=== PATIENT | male | born 1975 ===

== ENCOUNTER 2020-04-27 10:33 | Outpatient (REF) | payer OTHER, SELFPAY | END 2020-04-27 10:34 | disposition home or self-care (01) | LOC: HO.LAB 10:33 | PROVIDERS: PCP Internal Medicine; Visit Provider Internal Medicine | DX: Z20.828 Contact with and (suspected) exposure to other viral communicable diseases (principal) | CPT/HCPCS: U0003 ==

== ENCOUNTER 2022-04-24 15:10 | Outpatient (REF) | payer OTHER, SELFPAY ==
--- NOTE | ~2022-04-24 | MR_ITS ---
EXAMINATION: MR BRAIN WITHOUT AND WITH CONTRAST CLINICAL INFORMATION: History of meningioma. Follow-up. COMPARISON: Brain MRI 01/28/2020, 03/10/2019. TECHNIQUE: Multiplanar MR imaging of the brain was performed without and with contrast. A total of 10 mL Gadavist was utilized for this examination. FINDINGS: There is a rounded heterogeneously enhancing dural based mass over the right parietal convexity consistent with a meningioma that now measures 5.8 x 4.5 x 4.0 cm (AP x TV x SI) which represents an increase from 5.2 x 4.0 x 3.8 cm (AP x TV x SI) measured in similar orientations. Extent of perilesional T2 FLAIR signal hyperintensity within the adjoining right parietal lobe is otherwise stable. There is no substantially increased intracranial mass effect. No midline shift or uncal herniation. Lateral and third ventricles are proportionate to the subarachnoid spaces. No hydrocephalus. Midline structures including the cervicomedullary junction are normal. No acute bone marrow signal changes. There is no acute territorial infarct. No pathological magnetic susceptibility artifact. Intracranial vascular flow voids are maintained. There is a small left mastoid effusion. Rmkh-[id number] paranasal sinus disease primarily affecting the ethmoid air cells. Globes and orbits are grossly symmetric. MR/MR head/brain wo/w con IMPRESSION: Disease progression. Specifically the right parietal convexity meningioma has increased in size when compared to most recent prior examination from 01/28/2020. The extent of edema/gliosis within the adjoining right parietal lobe is otherwise stable and there has been no substantially increased intracranial mass effect.
== END 2022-04-24 15:11 | disposition home or self-care (01) ==
LOC: HO.MRI 15:10
PROVIDERS: Visit Provider Nurse Practitioner Family
DX: D32.9 Benign neoplasm of meninges, unspecified (principal)
CPT/HCPCS: 70553

== ENCOUNTER → 2022-09-11 14:49 | Outpatient (BNVA) | payer OTHER, SELFPAY | PROVIDERS: PCP Internal Medicine; Referring Provider Internal Medicine; Visit Provider Internal Medicine Cardiovascular Disease | DX: I25.5 Ischemic cardiomyopathy (principal); I25.10 Atherosclerotic heart disease of native coronary artery without angina pectoris; I10 Essential (primary) hypertension; E78.00 Pure hypercholesterolemia, unspecified; Z95.1 Presence of aortocoronary bypass graft; Z89.431 Acquired absence of right foot; Z79.4 Long term (current) use of insulin | CPT/HCPCS: 99212 ==

== ENCOUNTER → 2022-09-27 12:43 | Outpatient (REF) | payer OTHER, SELFPAY ==
--- NOTE | 2022-09-27 12:46 | CA_ITS ---
Transthoracic Echocardiogram Patient (Last, First, Middle): Jerome Clifford B Gender: Male Date of : 1975 Age: 47 Procedure Date: 09/27/2022 Procedure Type: Transthoracic Echocardiogram Location: OP Height: 182.88 cm Weight: 97.52 kg BSA: 2.20 m2 Heart Rate: bpm BP: 130 / 70 mmHg Pay Agent: TO Referring MD: Vaibhav Slade MD Security Control Center Operator: Richard Schwartz MD Symptoms: I25.5 - Ischemic cardiomyopathy Study Quality: Fair/No IV Access Conclusions: - Normal left ventricular cavity size. There is mildly increased left ventricular wall thickness. The left ventricular systolic function is moderately decreased. The visually estimated ejection fraction is between 30-35%. - The inferolateral wall, the basal inferior, and basal inferoseptal segments are akinetic. - Normal right ventricular cavity size. There is moderate to severely decreased right ventricular systolic function. Findings Left Ventricle Normal left ventricular cavity size. There is mildly increased left ventricular wall thickness. The left ventricular systolic function is moderately decreased. The visually estimated ejection fraction is between 30 35%. Abnormal diastolic function is noted. Spectral Doppler is indicative of an impaired relaxation filling pattern. E/E prime ratio is between 8 and 15 consistent with indeterminate filling pressures. There is severe septal asymmetric hypertrophy. Wall Motion Rest Echo Findings The inferolateral wall, the basal inferior, and basal inferoseptal segments are akinetic. Right Ventricle Normal right ventricular cavity size. There is moderate to severely decreased right ventricular systolic function. Atria The left atrium is normal in size. The right atrium is normal in size. Aortic Valve Normal aortic valve structure and function. There is no aortic valve stenosis. There is no aortic valve regurgitation. Mitral Valve Normal mitral valve structure and function. There is no mitral valve regurgitation. There is no mitral valve stenosis. Pulmonic Valve The pulmonic valve is likely normal. Tricuspid Valve Normal tricuspid valve structure and function. There is no tricuspid valve regurgitation. Moderately elevated right atrial pressure. There is no evidence of pulmonary hypertension. Great Vessels There is mild dilatation of the ascending aorta measuring 3.40 cm. The visualized portions of the pulmonary artery and branches are normal. Venous The inferior vena cava is dilated and collapses greater than 50% with inspiration. Pericardium/Pleural There is no evidence of pericardial effusion. Prior Study Comparison Changes noted compared to prior study dated: 09/05/2017. RV function is moderately to severely reduced. Measurements 2D Linear Measurements IVSd: 1.90 0.6-0.9/0.6-1.0 cm LVIDd: 4.39 3.9-5.3/4.2-5.9 cm LVIDd Index: 2.00 2.4-3.2/2.2-3.1 cm/m2 LVIDs: 3.30 2.0-3.6 cm LVPWd: 1.12 0.7-1.1 cm LA Diam: 3.90 2.7-3.8/3.0-4.0 cm LAIDs Index: 1.77 1.5-2.3 cm/m2 LV Mass: 335.16 67-162/88-224 g LV Mass Index: 152.34 43-95/49-115 g/m2 LVOT Diam: 2.30 3.0+(-)1.3 cm Mitral Valve MV Pk E: 0.56 MV PK A: 0.97 MV Decel Time: 183.00 E/A: 0.60 E'Lateral: 6.85 E'Medial: 4.03 E/E' Med: 13.90 E/E' Lat: 8.20 PHT: 54.00 MVA PHT: 4.07 Decel Sebastian: 3.07 Aortic Valve AoV Pk Handy: 0.89 AoV Mn Handy: 0.60 AoV VTI: 0.20 AoV Pk Grad: 3.00 Aov Mn Grad: 2.00 ANTHONY Cont.VTI: 2.79 LVOT LVOT Pk Handy: 0.69 LVOT Mn Handy: 0.44 LVOT VTI: 0.13 LVOT Pk Grad: 2.00 LVOT Mn Grad: 1.00 LVOT Diam: 2.30 LVOT Area: 4.15 Diastolic Function MV Pk E: 0.56 MV Pk A: 0.97 E/A: 0.60 E'Medial: 4.03 E/E' Med: 13.90 E' Laterial: 6.85 E/E' Lat: 8.20 Right Ventricle TAPSE (mm): 9.50 TVS' Handy: 5.82 Tricuspid Valve TR Pk Handy: 1.74 TR Pk Grad: 12.00 RA Press: 8.00 RVSP: 20.00 Great Vessels Aorta Sinus of Valsalva: 3.52 2.0-3.[address] Ridge: 2.62 1.7-3.4 cm Ao Asc: 3.40 2.1-3.4 cm Updated in Other Vendor System with Status of Final Richard Schwartz MD electronically signed on 09/28/2022 9:41:54 PM with status of Final
== END ==
LOC: HO.CARD 12:43
PROVIDERS: PCP Internal Medicine; Visit Provider Internal Medicine Cardiovascular Disease
DX: I25.5 Ischemic cardiomyopathy (principal)
CPT/HCPCS: 93306

== ENCOUNTER 2022-12-17 12:55 | Outpatient (AMB) | payer OTHER, SELFPAY ==
--- NOTE | 2022-12-17 12:58 | MHC.OFFVIS ---
Intake Vital Signs 12/17/22 12:59 Height 6 ft Weight 216 lb 0.848 oz BMI 29.3 BP 140/90 H Blood Pressure Location Lt brachial Position Sitting Intake Visit Reasons: 2 month f/u testing per ns Intake Note: 2 month f/u after testing Allergies fish derived [FISH] Allergy (Unknown, Verified 12/17/22 13:07) HIVES metoclopramide [From REGLAN] Allergy (Unknown, Verified 12/17/22 13:07) UNKNOWN pork derived (porcine) [PORK DERIVED (PORCINE)] Allergy (Unknown, Verified 12/17/22 13:07) HIVES Medication List - Last Reconciled 12/17/22 by SENTHIL Funk ammonium lactate 12% appl topical BID atorvastatin 80 mg PO DAILY 90 days blood sugar diagnostic (FreeStyle Lite Strips) As directed blood sugar diagnostic As directed blood-glucose meter (FreeStyle Lite Meter kit) Test 4 times daily blood-glucose meter,continuous (Dexcom G6 Datawarehouse Developer) As directed blood-glucose sensor (Dexcom G6 Sensor device) As directed blood-glucose transmitter (Dexcom G6 Transmitter device) As directed clopidogrel 75 mg PO DAILY 90 days gabapentin 300 mg PO TID 90 days insulin glargine (Lantus Solostar U-100 Insulin) 15 units subcut QPM losartan 50 mg PO DAILY 90 days metoprolol succinate ER 100 mg PO DAILY 90 days miscellaneous medical supply As directed- To use daily-- Diabetic Shoes zolpidem 10 mg PO BEDTIME PRN 30 days HPI 2 month f/u testing per ns HPI Details Jerome is a 47-year-old male with past medical history of hypertension, hyperlipidemia, diet 80s, right BKA, coronary artery disease with remote coronary artery bypass grafting who was seen in the office in September following prolonged absence from follow-up. At that time a nuclear stress test was ordered however not completed as of yet. He was admitted to [facility] in October with dizziness which he states was vertigo. A CTA head showed no bleeding or ischemia. Today he reports that he still has some dizziness but not as bad as when he was in the hospital. He reports unsteadiness with ambulation and is now using a cane. He denies any neurological changes such as vision disturbances, speech changes, numbness or weakness of arms or legs. No chest discomfort at rest or with activity. No shortness of breath, PND, orthopnea or edema of left lower leg. No presyncope, syncope, falls. Taking meds as directed. On his discharge from [facility] he was sent home with carvedilol however he said they only gave him a 2 week supply and he is back on metoprolol. [facility] Medical History Anxiety Asthma Benign essential hypertension Coronary artery disease Depression Diabetes mellitus Epilepsy Erectile dysfunction Exposure to COVID-19 virus Gastroparesis GERD (gastroesophageal reflux disease) Insomnia Meningioma Neuropathy Obesity (BMI 30-39.9) Pure hypercholesterolemia Surgical History History of femoropopliteal bypass Right foot amputee S/P CABG x 3 Family History Father Diabetes Mother Diabetes Social History Housing: House Alcohol intake: never Patient Tobacco Use Status: Former Tobacco user e-Cigarette/Vaping Use: Never Used Second Hand Smoke Exposure: No Substance Use Type: Marijuana service: No Current occupational status: disabled Cognitive needs: No Hearing needs: No Vision needs: No Review of Systems Const All systems reviewed & are unremarkable except as noted in HPI and below ENT Reports dizziness Card Denies chest pain, Denies chest pain at rest, Denies chest pain with activity, Denies rapid heart rate, Denies pedal edema, Denies edema, Denies leg edema, Denies lightheadedness, Denies palpitations, Denies dyspnea, Denies dyspnea on exertion and Denies orthopnea Resp Denies cough, Denies dyspnea and Denies dyspnea on exertion GI Denies hematochezia and Denies change in stool character Musc Reports abnormal gait, Reports limited range of motion, Reports muscle cramps, Denies muscle weakness, Denies numbness, Denies radiating pain into limb, Denies stiffness and Denies tingling Neuro Reports abnormal gait, Reports dizziness, Denies numbness and Denies tingling Endo Denies palpitations Physical Exam Vital Signs: Last Vital Signs BP 140/90 H 12/17/22 12:59 BMI result Body Mass Index 29.3 Const General: cooperative, healthy appearing, comfortable and no acute distress Orientation/consciousness: patient oriented x3 Neck Neck: Yes normal visual inspection Resp Effort & Inspection: normal respiratory effort Auscultation: clear to auscultation bilaterally, no crackles, no rales, no rhonchi and no wheezes Cardio Jugular venous distension: no JVD Rate: regular rate Rhythm: regular rhythm (Clinically sounding like ventricular bigeminy) Heart sounds: S1 normal heart sound present, S2 normal heart sound present, no murmurs and no rubs Neuro General: patient oriented x3 Extrem Other: Right BKA with prosthetic device in use Psych Appearance: grossly normal Mental Status: mental status grossly normal Speech and movement: Normal speech and movement present Assessment & Plan Assessment & Plan (1) Ischemic cardiomyopathy: Code(s): I25.5 - Ischemic cardiomyopathy Plan: History of coronary artery disease with remote coronary artery bypass grafting, ischemic cardiomyopathy with EF 40-45% 08/2021. He was not seen in our office due to absence from follow up between 11/2019 and 09/2022. On last visit he did not report anginal sounding symptoms. An echocardiogram was done on 09/27/2022 showing EF 30-35%, basal inferior septal, basal inferior, inferior lateral wall akinetic, moderate to severe decrease in the RV systolic function. A nuclear stress test was ordered however not completed as of yet. He was admitted to [facility] in October with dizziness, vomiting and he tells me and ultimate diagnosis of vertigo. A CTA of the head showed no bleed or ischemia. An EKG done at that time shows sinus rhythm with ventricular bigeminy. His heart tones today do suggest ventricular bigeminy at present. He denies any heart palpitations. He also has history of sleep apnea but does not use CPAP. He tells me his machine has been broken for many years. His last sleep study was over 10 years ago. His reduced EF could be ischemic, arrhythmia related, or possibly from untreated sleep apnea. He reports no alcohol use since the . At this time will order a Holter monitor to evaluate frequency of PVCs. Will have him pursue obtaining nuclear stress test. Will order a in-hospital sleep study to be done. Continue on metoprolol, losartan for neurohormonal modulation. No clinical signs of heart failure on examination. Cardiology follow-up when test results are available. (2) Coronary artery disease: Comment: S/P triple vessel bypass Code(s): I25.10 - Atherosclerotic heart disease of [place] coronary artery without angina pectoris Qualifiers: Coronary Disease-Associated Artery/Lesion type: [place] artery [place] vs. transplanted heart: [place] heart Associated angina: without angina Qualified Code(s): I25.10 - Atherosclerotic heart disease of [place] coronary artery without angina pectoris (3) Vertigo: Code(s): R42 - Dizziness and giddiness Plan: Improving but not resolved. Can be further followed by his PCP (4) Hospital discharge follow-up: Code(s): Z09 - Encounter for follow-up examination after completed treatment for conditions other than malignant neoplasm (5) Benign essential hypertension: Code(s): I10 - Essential (primary) hypertension Plan: Blood pressure initially elevated, improved on recheck, done by me 122/62. Will have him continue current med management. (6) Sleep apnea in adult: Code(s): G47.30 - Sleep apnea, unspecified Plan: In-hospital sleep study being ordered. (7) PVC (premature ventricular contraction): Code(s): I49.3 - Ventricular premature depolarization Plan: Ventricular bigeminy on last [facility] EKG. Clinically heart tones sound like ventricular bigeminy at present, asymptomatic Orders: Orders NM cardiolite stress test 1 Week I25.10 - Atherosclerotic heart disease of [place] coronary artery without angina pectoris, I25.5 - Ischemic cardiomyopathy CA lexiscan stress w gianni 1 Week I25.10 - Atherosclerotic heart disease of [place] coronary artery without angina pectoris, I25.5 - Ischemic cardiomyopathy ECG 3 day holter monitor Today I49.3 - Ventricular premature depolarization RT PSG in-lab sleep study Today G47.30 - Sleep apnea, unspecified Coding Level of Care Code Est Pt Level 4 (81924) Diagnoses Ischemic cardiomyopathy I25.5 Coronary artery disease I25.10 Coronary Disease-Associated Artery/Lesion type: [place] artery [place] vs. transplanted heart: [place] heart Associated angina: without angina Vertigo R42 Hospital discharge follow-up Z09 Benign essential hypertension I10 Sleep apnea in adult G47.30 PVC (premature ventricular contraction) I49.3 Time Spent (min) 28 Comment Chart review, documentation, interview, assessment
[2022-12-17 12:59] VITALS: BP 140/90; BMI 29.3
== END 2022-12-17 13:50 | disposition home or self-care (01) ==
PROVIDERS: PCP Internal Medicine; Referring Provider Internal Medicine; Visit Provider Nurse Practitioner Family
DX: I25.5 Ischemic cardiomyopathy (principal); I25.10 Atherosclerotic heart disease of native coronary artery without angina pectoris; R42 Dizziness and giddiness; Z09 Encounter for follow-up examination after completed treatment for conditions other than malignant neoplasm; I10 Essential (primary) hypertension; G47.30 Sleep apnea, unspecified; I49.3 Ventricular premature depolarization
CPT/HCPCS: 99214

== ENCOUNTER → 2022-12-17 12:55 | Outpatient (BNVA) | payer OTHER, SELFPAY | PROVIDERS: PCP Internal Medicine; Referring Provider Internal Medicine; Visit Provider Nurse Practitioner Family | DX: I25.5 Ischemic cardiomyopathy (principal); I25.10 Atherosclerotic heart disease of native coronary artery without angina pectoris; R42 Dizziness and giddiness; I10 Essential (primary) hypertension; G47.30 Sleep apnea, unspecified; I49.3 Ventricular premature depolarization | CPT/HCPCS: 99212 ==

== ENCOUNTER → 2023-01-09 20:30 | Outpatient (REF) | payer OTHER, SELFPAY | LOC: HO.SL 20:30 | PROVIDERS: PCP Internal Medicine; Visit Provider Nurse Practitioner Family | DX: G47.30 Sleep apnea, unspecified (principal); G47.31 Primary central sleep apnea | CPT/HCPCS: 95810 ==

== ENCOUNTER → 2023-01-09 22:01 | Outpatient (BNV) | payer OTHER, SELFPAY | PROVIDERS: PCP Internal Medicine; Visit Provider Psychiatry & Neurology Neurology | DX: G47.31 Primary central sleep apnea (principal); G47.33 Obstructive sleep apnea (adult) (pediatric) | CPT/HCPCS: 95810 ==

== ENCOUNTER 2023-01-29 13:41 | Outpatient (AMB) | payer OTHER, SELFPAY ==
--- NOTE | 2023-01-29 13:53 | A.OFFVIS_ITS ---
Intake Vital Signs 01/29/23 14:02 Height 6 ft Weight 206 lb BMI 27.9 BP 104/54 L Blood Pressure Location Lt brachial Position Sitting Respiration 16 Pulse 58 Pulse Source Pulse Oximeter Pulse Oximetry (%) 95 Oxygen Delivery Method Room Air Intake Visit Reasons: LOW BACK PAIN Allergies fish derived [FISH] Allergy (Unknown, Verified 01/29/23 13:53) HIVES metoclopramide [From REGLAN] Allergy (Unknown, Verified 01/29/23 13:53) UNKNOWN pork derived (porcine) [PORK DERIVED (PORCINE)] Allergy (Unknown, Verified 01/29/23 13:53) HIVES PFS Medical History Anxiety Asthma Benign essential hypertension Coronary artery disease Depression Diabetes mellitus Epilepsy Erectile dysfunction Exposure to COVID-19 virus Gastroparesis GERD (gastroesophageal reflux disease) Insomnia Meningioma Neuropathy Obesity (BMI 30-39.9) Pure hypercholesterolemia Surgical History History of femoropopliteal bypass Right foot amputee S/P CABG x 3 Family History Father Diabetes Mother Diabetes Social History Housing: House Alcohol intake: never Patient Tobacco Use Status: Former Tobacco user e-Cigarette/Vaping Use: Never Used Second Hand Smoke Exposure: No Substance Use Type: Marijuana service: No Current occupational status: disabled Cognitive needs: No Hearing needs: No Vision needs: No Physical Exam Vital Signs: Last Vital Signs Pulse 58 01/29/23 14:02 Resp 16 01/29/23 14:02 BP 104/54 L 01/29/23 14:02 Pulse Ox 95 01/29/23 14:02 Oxygen Delivery Method Room Air 01/29/23 14:02 BMI result Body Mass Index 27.9 Assessment & Plan Assessment & Plan Orders: Orders PT Evaluation and Treatment Today M51.36 - Other intervertebral disc degeneration, lumbar region, M54.50 - Low back pain, unspecified Coding
--- NOTE | 2023-01-29 13:55 | A.OFFVIS_ITS ---
Intake Vital Signs 01/29/23 14:02 Height 6 ft Weight 206 lb BMI 27.9 BP 104/54 L Blood Pressure Location Lt brachial Position Sitting Respiration 16 Pulse 58 Pulse Source Pulse Oximeter Pulse Oximetry (%) 95 Oxygen Delivery Method Room Air Intake Visit Reasons: LOW BACK PAIN Allergies fish derived [FISH] Allergy (Unknown, Verified 01/29/23 13:53) HIVES metoclopramide [From REGLAN] Allergy (Unknown, Verified 01/29/23 13:53) UNKNOWN pork derived (porcine) [PORK DERIVED (PORCINE)] Allergy (Unknown, Verified 01/29/23 13:53) HIVES HPI HPI Comments History of Present Illness Details Jerome is a very pleasant 47-year-old male who presented to the office today for evaluation management of his chronic lower back pain. Patient reports he has been suffering with this lower back pain, predominantly on the right side, for approximately 20 years. Patient reports that the pain is progressively getting worse. He states the pain is constant, rated today as 9/10, worse with movement and weather changes. Pain excruciating in the morning and at times makes it difficult to get out of bed. Patient endorses radiation of the pain into the right thigh, he is status post right BKA. Patient has been taking gabapentin for his nerve pain, he states that his right lower back pain is unchanged with the gabapentin. He denies use of other pain medications. He has not tried physical therapy in many years, denies manual manipulation by chiropractor, acupuncture, massage. Patient states he has received steroid injections in the past with good relief of his pain. He is looking to repeat this injection. Patient is known diabetic, his most recent A1c 10/27/2022 was 8.9. Patient states he is under the care of an thoracic medicine physician at [facility]. He is taking his medications are prescribed. He reports being hospitalized and then in rehab for a good part of the last several months but his blood sugars remain around 220. He states that anything less than 150 he feels hypoglycemic and is symptomatic. His primary care doctor ordered repeat lab work including A1c in August of 2022 but he has yet to have this completed. Patient denies red flag symptoms including new loss of bowel, bladder or saddle anesthesia. He does report at times the pain is excruciating in the morning and he cannot get out of bed fast enough to get to the bathroom which will cause him to urinate on himself. He is able to feel the urge and sensation, just not able to get up quickly enough to make it to the bathroom. In terms of muscle damage condition is described as tiring, exhausting, sickening, suffocating, fearful, frightening, terrifying, punishing, killing, radiating, piercing. ?Like being split in half with an Axe ? Pain is negatively impacting patient's ability to do activities of daily living, function normally and care for himself. Patient's past medical history significant for chronic back pain, sleep apnea, ischemic cardiomyopathy, depression, insomnia, cholecystitis, FATOUMATA, anxiety, GERD, neuropathy, asthma, hypercholesterolemia, hypertension, coronary artery disease, diabetes mellitus, epilepsy and meningioma. Patient denies implantable devices, pacemaker or defibrillator. [facility] Medical History Anxiety Asthma Benign essential hypertension Coronary artery disease Depression Diabetes mellitus Epilepsy Erectile dysfunction Exposure to COVID-19 virus Gastroparesis GERD (gastroesophageal reflux disease) Insomnia Meningioma Neuropathy Obesity (BMI 30-39.9) Pure hypercholesterolemia Surgical History History of femoropopliteal bypass Right foot amputee S/P CABG x 3 Family History Father Diabetes Mother Diabetes Social History Housing: House Alcohol intake: never Patient Tobacco Use Status: Former Tobacco user e-Cigarette/Vaping Use: Never Used Second Hand Smoke Exposure: No Substance Use Type: Marijuana service: No Current occupational status: disabled Cognitive needs: No Hearing needs: No Vision needs: No Review of Systems Const All systems reviewed & are unremarkable except as noted in HPI and below Physical Exam Vital Signs: Last Vital Signs Pulse 58 01/29/23 14:02 Resp 16 01/29/23 14:02 BP 104/54 L 01/29/23 14:02 Pulse Ox 95 01/29/23 14:02 Oxygen Delivery Method Room Air 01/29/23 14:02 BMI result Body Mass Index 27.9 General: awake, alert, oriented. Answers questions appropriately. Fully engaged in examination. Skin: warm, dry, intact HEENT: Normocephalic. Hearing intact. Cardiac: External chest normal in appearance. Respiratory: No cough, audible wheezing or stridor. Abdomen: without gross distension. MS: Prosthesis Right Foot Neurological: Oriented to person, place, time and situation. Thought process intact. Psychiatric: Appropriate mood and affect. Good judgment and insight. Back/Spine/Pelvis Other: Lumbar exam: Able to transition from sit to stand unassisted. Visual inspection without gross abnormality Tender to palpation over right paraspinal muscles ROM: limited secondary to pain with extension to 10 degrees. flexion to 50 degrees Strength: 5/5 BLE Straight leg raises negative bilaterally Facet loading positive bilaterally ARIAS negative bilaterally SI compression negative bilaterally Assessment & Plan Assessment & Plan (1) Myofascial low back pain: Code(s): M54.50 - Low back pain, unspecified (2) Lumbar degenerative disc disease: Code(s): M51.36 - Other intervertebral disc degeneration, lumbar region (3) Lumbar facet arthropathy: Code(s): M47.816 - Spondylosis without myelopathy or radiculopathy, lumbar region Plan Jerome is very pleasant 47-year-old male presented to the office today for evaluation and management of his chronic right lower back pain. History, physical exam and provocative testing most consistent with lumbar facet arthropathy and myofascial low back pain. Lengthy discussion with patient regarding options for treatment including diagnostic interventional testing, epidural steroid injections, peripheral nerve stimulation with Sprint, RFA and more permanent neuromodulation. Unfortunately patient's most recent A1c was 8.9, we are not able to offer therapeutic steroid injections, sprint or implantable devices due to risks associated with uncontrolled diabetes. Patient had repeat A1c ordered by primary care earlier this year, he has yet to complete this. Patient agrees to have this done so we can re-evaluate current status of his diabetes. Order for PT eval and treat given to patient. He would like to do this at a place closer to his home in [place]. Pending results of patient's blood work, he should follow-up with primary care or thoracic medicine physician to adjust medications if A1c remains greater than 7. All questions and concerns have been answered, patient verbalizes understanding and agrees with the plan. Patient to follow-up in the office after he has better managed his diabetes and A1c is in acceptable range, less than 8, to perform interventional management. Orders: Orders PT Evaluation and Treatment Today M51.36 - Other intervertebral disc degeneration, lumbar region, M54.50 - Low back pain, unspecified Coding Level of Care Code New Pt Level 4 (20341) Diagnoses Myofascial low back pain M54.50 Lumbar degenerative disc disease M51.36 Lumbar facet arthropathy M47.816
[2023-01-29 14:02] VITALS: BP 104/54; PULSE 58; RESP 16; O2SAT 95; BMI 27.9
== END 2023-01-29 14:28 | disposition home or self-care (01) ==
PROVIDERS: PCP Internal Medicine; Visit Provider Registered Nurse Emergency
DX: M51.36 Other intervertebral disc degeneration, lumbar region (principal); M47.816 Spondylosis without myelopathy or radiculopathy, lumbar region
CPT/HCPCS: 99204

== ENCOUNTER → 2023-01-29 13:41 | Outpatient (BNVA) | payer OTHER, SELFPAY | PROVIDERS: PCP Internal Medicine; Visit Provider Registered Nurse Emergency ==

== ENCOUNTER → 2023-02-25 20:30 | Outpatient (BNV) | payer OTHER, SELFPAY | PROVIDERS: PCP Internal Medicine; Visit Provider Internal Medicine | DX: G47.33 Obstructive sleep apnea (adult) (pediatric) (principal) | CPT/HCPCS: 95811 ==

== ENCOUNTER → 2023-02-25 22:51 | Outpatient (REF) | payer OTHER, SELFPAY | LOC: HO.SL 22:51 | PROVIDERS: PCP Internal Medicine; Visit Provider Nurse Practitioner Family | DX: G47.33 Obstructive sleep apnea (adult) (pediatric) (principal) | CPT/HCPCS: 95811 ==

== ENCOUNTER 2023-06-05 13:31 | Outpatient (AMB) | payer OTHER, SELFPAY ==
--- NOTE | 2023-06-05 13:40 | A.OFFVIS_ITS ---
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 Allergies fish derived [FISH] Allergy (Unknown, Verified 06/05/23 13:45) HIVES metoclopramide [From REGLAN] Allergy (Unknown, Verified 06/05/23 13:45) UNKNOWN pork derived (porcine) [PORK DERIVED (PORCINE)] Allergy (Unknown, Verified 06/05/23 13:45) HIVES HPI HPI Comments History of Present Illness Details 48 y/o male patient presents for new in- person visit to manage sleep apnea. Pt had a PSG sleep study done in December,. The result was severe degree of sleep apnea with combination of central events and some obstructive events. AHI was 28/hr and oxygen ana was 80%. Pt had titration study study done February,. He was trialed on CPAP at 6cmH2O, and BiPAP 10/6 and 14/10. An ideal treatment pressure was not obtained due to emergence of central apneas. But events were reasonably controlled on BiPAP 10/6. The BiPAP compliance and therapy response (05/06/23-06/04/23) reviewed with the patient. He is on BiPAP 10/6. The usage days 100% and the average usage hours 6 hrs 30 min. The residual AHI was 6.5/hr. Pt reports he sleeps well with BiPAP, rested and wakes up refreshed. Daytime tiredness has improved. [facility] Medical History Anxiety Asthma Benign essential hypertension Coronary artery disease Depression Diabetes mellitus Epilepsy Erectile dysfunction Exposure to COVID-19 virus Gastroparesis GERD (gastroesophageal reflux disease) Insomnia Meningioma Neuropathy Obesity (BMI 30-39.9) Pure hypercholesterolemia Surgical History Right foot amputee History of femoropopliteal bypass S/P CABG x 3 Family History Father Diabetes Mother Diabetes Social History Housing: House Alcohol intake: never Patient Tobacco Use Status: Former Tobacco user e-Cigarette/Vaping Use: Never Used Second Hand Smoke Exposure: No Substance Use Type: Marijuana service: No Current occupational status: disabled Cognitive needs: No Hearing needs: No Vision needs: No Review of Systems Const All systems reviewed & are unremarkable except as noted in HPI and below Physical Exam Vital Signs: Last Vital Signs Pulse 65 06/05/23 13:46 BP 120/80 06/05/23 13:46 Pulse Ox 92 06/05/23 13:46 Oxygen Delivery Method Room Air 06/05/23 13:46 BMI result Body Mass Index 28.1 Const General: cooperative Nutritional Appearance: overweight Orientation/consciousness: patient oriented x3 Neck Neck: Yes full ROM and Yes supple Resp Effort & Inspection: normal respiratory effort and able to speak in complete sentences Neuro General: patient oriented x3 and moves all extremities Cranial nerves: Yes CN's II-XII intact bilaterally Cognition (Neuro): normal cognition Psych Appearance: grossly normal Mental Status: mental status grossly normal Affect: normal affect Attitude: cooperative Assessment & Plan Assessment & Plan (1) Sleep apnea in adult: Code(s): G47.30 - Sleep apnea, unspecified Plan Continue to use BiPAP 02/15 as patient experiences good clinical effects, rested and refreshing sleep and daytime tiredness has also improved. Stressed compliance, use BiPAP nightly and more than 4 hrs. Coding Level of Care Code New Pt Level 3 (55874) Diagnoses Sleep apnea in adult G47.30
[2023-06-05 13:46] VITALS: BP 120/80; PULSE 65; O2SAT 92; BMI 28.1
== END 2023-06-05 14:04 | disposition home or self-care (01) ==
PROVIDERS: PCP Internal Medicine; Visit Provider Nurse Practitioner Family
DX: G47.30 Sleep apnea, unspecified (principal)
CPT/HCPCS: 99203

== ENCOUNTER → 2023-06-05 13:31 | Outpatient (BNVA) | payer OTHER, SELFPAY | PROVIDERS: PCP Internal Medicine; Visit Provider Nurse Practitioner Family | DX: G47.30 Sleep apnea, unspecified (principal) | CPT/HCPCS: 99202 ==

== ENCOUNTER 2023-10-25 13:24 | Outpatient (AMB) | payer OTHER, SELFPAY ==
--- NOTE | 2023-10-25 13:55 | MHC.PC.OV ---
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 Systems Required: No Accompanied by: Self / Same As Patient Allergies fish derived [FISH] Allergy (Unknown, Verified 11/04/23 13:21) HIVES metoclopramide [From REGLAN] Allergy (Unknown, Verified 11/04/23 13:21) UNKNOWN pork derived (porcine) [PORK DERIVED (PORCINE)] Allergy (Unknown, Verified 11/04/23 13:21) HIVES Medication List - Last Reconciled 10/25/23 by Eirck Kohli MD ammonium lactate 12% appl topical BID atorvastatin 80 mg PO DAILY 90 days blood sugar diagnostic (FreeStyle Lite Strips) As directed blood sugar diagnostic As directed blood-glucose meter (FreeStyle Lite Meter kit) Test 4 times daily blood-glucose meter,continuous (Dexcom G6 Pipe Fitter Supervisor Maintenance) As directed blood-glucose sensor (Dexcom G6 Sensor device) As directed blood-glucose transmitter (Dexcom G6 Transmitter device) As directed clopidogrel 75 mg PO DAILY 90 days [DIABETIC SHOES (1 pair) As directed] gabapentin 300 mg PO TID 90 days insulin glargine (Lantus Solostar U-100 Insulin) 15 units (0.15 mL) subcut QPM losartan 50 mg PO DAILY 90 days metoprolol succinate ER 100 mg PO DAILY 90 days miscellaneous medical supply As directed- To use daily-- Diabetic Shoes [RIGHT BELOW KNEE PERMANENT PROSTHESIS, K3 As directed] [right foot prosthesis and liner As directed] zolpidem 10 mg PO BEDTIME PRN 30 days Tobacco use date assessed: 10/25/23 Dental Screening Dental Screen Date: 10/25/23 Did you have a dental visit in the last 12 months?: No Did you have a dental problem in the last 6 months where you did not have access to dental care?: No Was dental information given to patient?: Patient has dentist HPI Rash on arm HPI Details Patient comes in today for further evaluation of a recurrent rash on his arm and a significant increase in his lower back lately He has not been back for routine follow up since he was last seen on 08/14/2022 States that he has noticed the hypopigmented rash/lesions on his forearms over the past few weeks - states that the lesions itch at times but do not hurt States that he has also been experiencing increased pain over his right lower back with frequent radiation into his hip and thigh, and feels that this has gotten a lot worse lately; his Gabapentin is not helping much He denies any recent injury or trauma to his lower back He denies any headaches or dizziness Denies any chest pains, no increased SOB Still has on and off nausea but no vomiting (has gastroparesis); denies any abdominal pain No change in bowel habits noted Needs several of his Rx refilled, including Rx for diabetic shoes [facility] Medical History (Updated 11/25/23 @ 03:57 by Erick Kohli MD) Depression Insomnia Erectile dysfunction Exposure to COVID-19 virus Obesity (BMI 30-39.9) Anxiety GERD (gastroesophageal reflux disease) Neuropathy Gastroparesis Asthma Pure hypercholesterolemia Benign essential hypertension Coronary artery disease Diabetes mellitus Epilepsy Meningioma Surgical History (Updated 11/04/23 @ 14:09 by JESSICA Patel) Hx of right BKA Right foot amputee History of femoropopliteal bypass S/P CABG x 3 Family History Father Diabetes Mother Diabetes Social History Housing: House Alcohol intake: never Patient Tobacco Use Status: Former Tobacco user e-Cigarette/Vaping Use: Never Used Second Hand Smoke Exposure: No Substance Use Type: Marijuana service: No Current occupational status: disabled Cognitive needs: No Hearing needs: No Vision needs: No Questionnaire PHQ-9 Over the last 2 weeks, how often have you been bothered by any of the following problems? 1. Little interest or pleasure in doing things: not at all 2. Feeling down, depressed, or hopeless: not at all 3. Trouble falling or staying asleep, or sleeping too much: not at all 4. Feeling tired or having little energy: not at all 5. Poor appetite or overeating: not at all 6. Feeling bad about yourself - or that you are a failure or have let yourself or your family down: not at all 7. Trouble concentrating on things, such as reading the newspaper or watching television: not at all 8. Moving or speaking so slowly that other people could have noticed. Or the opposite - being so fidgety or restless that you have been moving around a lot more than usual: not at all 9. Thoughts that you would be better off or of hurting yourself in some way: not at all Total score: 0 Depression Screening Interpretation: Negative Depression Screening Done: Yes 34352 - PHQ-9 Billing: Yes Source: Developed by Drs. Ranjit Forbes, Nicolasa Proctor, Paulie Verde and colleagues, with an educational roland from [employer]. Thrive Questionnaire Date Thrive assessed: 10/25/23 What is your living situation today?: I have a steady place to live Within the past 12 months, did the food you bought not last and you didn't have the money to get more?: Never true Within the past 12 months, did you worry whether your food would run out before you got money to buy more?: Never true Do you have trouble paying for medicines?: No Do you have trouble getting transportation to medical appointments?: No Do you have trouble paying your heating and electricity bill?: No Do you have trouble taking care of your child, family member or friend?: No Do you have trouble with day-to-day activities such as bathing, preparing meals, shopping, managing finances, etc.?: No Are you currently unemployed and looking for a job?: No Are you interested in more education?: No Please select the resources that you would like help with: None Currently or been in a relationship where the following occur: no concerns reported THRIVE Score: 0 AUDIT C Alcohol Use Questionnaire (AUDIT-C) 1. How often do you have a drink containing alcohol?: Never 3. How often do you have six or more drinks on one occasion?: Never Total Score: 0 Score Reviewed/Action Taken: Yes TONY-7 AMB Questionnaire TONY-7 Date TONY - 7 assessed: 10/25/23 Feeling nervous, anxious, or on edge: 0 = Not at all Not being able to stop or control worryin = Not at all Worrying too much about different things: 0 = Not at all Trouble relaxin = Not at all Being so restless that it is hard to sit still: 0 = Not at all Becoming easily annoyed or irritable: 0 = Not at all Feeling afraid as if something awful might happen: 0 = Not at all Total TONY-7 score (0-4 normal; 5-9 mild; 10-14 moderate; 15-21 severe): 0 Source: Developed by Drs. Ranjit Forbes, Nicolasa Proctor, Paulie Verde and colleagues, with an educational roland from [employer]. TONY-7 Assessment Billing TONY-7 Assessment Tool: TONY-7 Assessment 61955 Review of Systems Const Denies chills, Reports difficulty sleeping, Reports fatigue, Denies fever(s) and Denies headache(s) ENT Denies dysphagia, Denies dizziness, Denies otalgia, Denies headache(s), Denies neck pain, Denies odynophagia and Denies sore throat Card Denies chest pain, Denies palpitations and Denies dyspnea Resp Denies chest congestion, Denies cough and Denies dyspnea GI Denies abdominal pain, Reports bloating (usually after eating), Denies constipation, Denies dysphagia, Denies heartburn, Denies diarrhea, Reports nausea (on and off), Denies odynophagia and Denies vomiting Denies dysuria, Denies nocturia and Denies urinary frequency Musc Details: (+) cysts over both elbows Reports back pain (increased over his right lower back lately), Denies neck pain and Reports radiating pain into limb (into the right hip and thigh) Skin/Breast Reports rash (over both forearms - see HPI) Neuro Denies dizziness and Denies headache(s) Psych Reports depression and Denies suicidal ideation Endo Reports fatigue and Denies palpitations Physical exam (Primary Care) Vital Signs: Last Vital Signs Pulse 82 10/25/23 13:56 BP 100/60 10/25/23 13:56 Pulse Ox 98 10/25/23 13:56 Oxygen Delivery Method Room Air 10/25/23 13:56 BMI result Body Mass Index 26.1 Tobacco/Smoking Status: Tobacco use Status Tobacco use date assessed 10/25/23 10/25/23 14:00 Patient Tobacco Use Status Former Tobacco user 10/25/23 13:55 e-Cigarette/Vaping Use Never Used 10/25/23 13:55 PHQ-9: PHQ-9 Score PHQ-9: Total score 0 10/25/23 14:33 Depression Screening Interpretation: Negative Thrive Assessment: Date of Thrive Assessment Date Thrive assessed 10/25/23 10/25/23 14:00 Currently or been in a relationship where the following occur: no concerns reported Const General: no acute distress and alert HENMT Ears: TM's normal bilaterally and EAC's normal Throat: Yes posterior oropharynx normal and Yes tonsils normal (no TP congestion noted) Neck Neck: Yes no lymphadenopathy and Yes supple Thyroid: Thyroid normal Resp Auscultation: clear to auscultation bilaterally, no rales and no wheezes Cardio Rate: regular rate Rhythm: regular rhythm Heart sounds: no murmurs GI Palpation (GI): Soft to palpation and nontender Auscultation: normal bowel sounds Back/Spine/Pelvis Thoracic/Lumbar Spine: paraspinal muscle tenderness on the right in the mid lumbar and in the lower lumbar and lumbar spinal tenderness Skin Other: (+) scattered hypopigmented lesions over both forearms Extrem Other: S/P right BKA - has prosthetic lower leg presently General: Yes no clubbing, cyanosis or edema (on the left lower extremity) Results AMB Hemoglobin A1c AMB Hemoglobin A1c 4.8 % Last Edit by ABRAM Moore on 10/25/23 14:33 Results Reviewed Results Reviewed: Laboratory Last Values Hgb A1c (Clinic) 4.8 % (4.0-6.0) 10/25/23 13:55 Assessment and Plan Assessment & Plan (1) Right-sided low back pain with sciatica: Code(s): M54.41 - Lumbago with sciatica, right side Qualifiers: Chronicity: unspecified Sciatica laterality: sciatica of right side Qualified Code(s): M54.41 - Lumbago with sciatica, right side Plan: (+) Hx of lumbar degenerative disc disease; findings seen incidentally on his abdominal/pelvic CT done at [facility] on 08/04/2022 noted (+) severe degenerative changes at L2-L3 Due to his increasing right-sided low back pain lately, will go ahead and refer him to pain management for consideration for interventional Tx (2) Meningioma: Code(s): D32.9 - Benign neoplasm of meninges, unspecified Plan: Patient has declined brain surgery in the past and still does not want surgery He also declined to take Keppra ER or IR (side effects) prescribed by neurology - reports that he's had no seizures at all for years MRI done at [facility] in 2018 revealed a stable 4.8 x 4 x 3.7 cm lobulated meningioma at the right parietal region with cerebral edema Repeat brain MRI done in January 2020 showed (+) stable posterior right parietal meningioma with underlying vasogenic edema and mild mass effect. Most recent brain MRI done on 04/24/2022 revealed a slight disease progression with an interval increase in size of the right parietal convexity meningioma Have advised him to continue to see neurosurgery for consultation/follow up but he declined; states that he has no neurologic symptoms at this time (3) Epilepsy: Code(s): G40.909 - Epilepsy, unspecified, not intractable, without status epilepticus Qualifiers: Epilepsy type: unspecified Intractability: not intractable Status epilepticus: without status epilepticus Qualified Code(s): G40.909 - Epilepsy, unspecified, not intractable, without status epilepticus Plan: Reports no seizures lately He has been prescribed Keppra ER by neurology but patient declined to take the Rx (4) Diabetes mellitus: Code(s): E11.9 - Type 2 diabetes mellitus without complications Qualifiers: Diabetes mellitus type: type 2 Diabetes mellitus fpc insulin use: with fpc use Diabetes mellitus complication status: with neurologic complications Diabetes mellitus complication detail: with polyneuropathy Qualified Code(s): E11.42 - Type 2 diabetes mellitus with diabetic polyneuropathy; Z79.4 - group home (current) use of insulin Plan: In-office HgbA1c done today is at 4.8% (was at 8.8% when previously checked on 04/10/2022) - goal is <7.0% Reinforced diabetic diet Continue Lantus 24 units Q HS and Humalog up to 20 units 3 times a day with meals per sliding scale Has not followed up with endocrinology in a few years and is again advised to reach out to his management professionals's office to schedule a follow up appointment BIANKA (5) Gastroparesis: Code(s): K31.84 - Gastroparesis Plan: Continue Ondansetron 8 mg TID PRN; also takes medical marijuana to help with his symptoms (6) Coronary artery disease: Comment: S/P triple vessel bypass Code(s): I25.10 - Atherosclerotic heart disease of [place] coronary artery without angina pectoris Qualifiers: Coronary Disease-Associated Artery/Lesion type: [place] artery [place] vs. transplanted heart: [place] heart Associated angina: without angina Qualified Code(s): I25.10 - Atherosclerotic heart disease of [place] coronary artery without angina pectoris Plan: Continue Plavix 75 mg QD and low dose Aspirin 81 mg QD Follow up with cardiology as scheduled (7) Pure hypercholesterolemia: Code(s): E78.00 - Pure hypercholesterolemia, unspecified Plan: Reinforced low cholesterol diet Continue Atorvastatin 80 mg QD As he has not had any follow up labs recently, will send him for labs BIANKA (8) Benign essential hypertension: Code(s): I10 - Essential (primary) hypertension Plan: Reinforced low sodium diet - goal is systolic BP of at least 120 to 130 mm Continue Carvedilol 25 mg BID, Losartan 50 mg QD and Metoprolol ER 100 mg QD (9) Asthma: Code(s): J45.909 - Unspecified asthma, uncomplicated Qualifiers: Asthma severity: mild Asthma persistence: intermittent Asthma complication type: uncomplicated Qualified Code(s): J45.20 - Mild intermittent asthma, uncomplicated Plan: Stable - continue Albuterol HFA 2 puffs 4 times a day as needed (10) Neuropathy: Code(s): G62.9 - Polyneuropathy, unspecified Plan: Continue Gabapentin 300 mg TID (11) Multiple hypopigmented skin lesions on both forearms: Code(s): L81.9 - Disorder of pigmentation, unspecified Plan: Will start patient empirically for now on Mometasone 0.1% cream QD PRN but I suspect that his forearm lesions may be due to some form of tinea (versicolor) Will refer him to dermatology for further evaluation and management (12) GERD (gastroesophageal reflux disease): Code(s): K21.9 - Gastro-esophageal reflux disease without esophagitis Qualifiers: Esophagitis presence: without esophagitis Qualified Code(s): K21.9 - Gastro-esophageal reflux disease without esophagitis Plan: Dietary restrictions reinforced Continue Pantoprazole 40 mg QD (13) Insomnia: Code(s): G47.00 - Insomnia, unspecified Qualifiers: Insomnia type: unspecified Qualified Code(s): G47.00 - Insomnia, unspecified Plan: Sleep hygiene reinforced Continue Zolpidem 10 mg Q HS PRN (he's had problems with Trazodone in the past) (14) Anxiety: Code(s): F41.9 - Anxiety disorder, unspecified Plan: Continue Lorazepam 1 mg 1 to 2 tablets BID PRN (15) Obesity (BMI 30-39.9): Code(s): E66.9 - Obesity, unspecified Plan: Reinforced diet; exercise and weight loss are unrealistic given patient's physical issues and multiple comorbidities Plan Follow up in 4 months Orders: Orders Complete Blood Count Auto Diff 10/25/23 D64.9 - Anemia, unspecified Comprehensive [place]. 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 Lipid Panel 10/25/23 E78.00 - Pure hypercholesterolemia, unspecified TSH reflex Free T4 10/25/23 E78.00 - Pure hypercholesterolemia, unspecified UA CC w/rflx Micro + Cult 10/25/23 R30.0 - Dysuria Microalbumin, Random (w Creat) 10/25/23 E11.9 - Type 2 diabetes mellitus without complications Vitamin B12 and Folate 10/25/23 E53.8 - Deficiency of other specified B group vitamins Referrals Dermatology Referral L81.9 - Disorder of pigmentation, unspecified Pain Management Referral M47.816 - Spondylosis without myelopathy or radiculopathy, lumbar region, M51.36 - Other intervertebral disc degeneration, lumbar region Medications: New mometasone 0.1% 1 appl topical DAILY PRN 45 grams 0RF rash Changed From insulin glargine 15 units (0.15 mL) subcut QPM 15 mL 2RF E11.9 - Type 2 diabetes mellitus without complications To insulin glargine (Lantus Solostar U-100 Insulin) 24 units (0.24 mL) subcut QPM 15 mL 2RF 30 days E11.9 - Type 2 diabetes mellitus without complications From [DIABETIC SHOES (1 pair)] As directed 2 ea 0RF E11.42 - Type 2 diabetes mellitus with diabetic polyneuropathy, Z79.4 - group home (current) use of insulin To [DIABETIC SHOES (1 pair)] As directed 2 ea 0RF E11.42 - Type 2 diabetes mellitus with diabetic polyneuropathy, 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 Refilled clopidogrel 75 mg PO DAILY 90 tabs 1RF 90 days atorvastatin 80 mg PO DAILY 90 tabs 1RF 90 days gabapentin 300 mg PO TID 270 caps 1RF 90 days zolpidem 10 mg PO BEDTIME PRN 30 tabs 0RF sleep 30 days losartan 50 mg PO DAILY 90 tabs 1RF 90 days metoprolol succinate ER Must make cardiology appointment for more refills - overdue 100 mg PO DAILY 90 tabs 1RF 90 days Coding Level of Care Code Est Pt Level 4 (93125) Complex EM visit Add On G2211 Diagnoses Right-sided low back pain with right-sided sciatica, unspecified chronicity M54.41 Chronicity: unspecified Sciatica laterality: sciatica of right side Meningioma D32.9 Nonintractable epilepsy without status epilepticus, unspecified epilepsy type G40.909 Epilepsy type: unspecified Intractability: not intractable Status epilepticus: without status epilepticus Type 2 diabetes mellitus with diabetic polyneuropathy, with long-term current use of insulin E11.42; Z79.4 Diabetes mellitus type: type 2 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 transplanted heart: [place] heart Associated angina: without angina Pure hypercholesterolemia E78.00 Benign essential hypertension I10 Mild intermittent asthma without complication J45.20 Asthma severity: mild Asthma persistence: intermittent Asthma complication type: uncomplicated Neuropathy G62.9 Multiple hypopigmented skin lesions on both forearms L81.9 Gastroesophageal reflux disease without esophagitis K21.9 Esophagitis presence: without esophagitis Insomnia, unspecified type G47.00 Insomnia type: unspecified Anxiety F41.9 Obesity (BMI 30-39.9) E66.9 Additional Codes TONY-7 Assessment Billing - TONY-7 Assessment Tool: TONY-7 Assessment 43703 ([id number])
[2023-10-25 13:56] VITALS: BP 100/60; PULSE 82; O2SAT 98; BMI 26.1
== END 2023-10-25 14:56 | disposition home or self-care (01) ==
PROVIDERS: PCP Internal Medicine; Visit Provider Internal Medicine
DX: E11.42 Type 2 diabetes mellitus with diabetic polyneuropathy (principal); Z79.4 Long term (current) use of insulin
CPT/HCPCS: 83036; 99214; G2211

== ENCOUNTER 2023-11-04 13:14 | Outpatient (AMB) | payer OTHER, SELFPAY ==
--- NOTE | 2023-11-04 13:15 | MHC.OFFVIS ---
Vital Signs 11/04/23 13:33 Height 6 ft Weight 192 lb BMI 26.0 BP 129/74 Blood Pressure Location Rt brachial Position Sitting Pulse 68 Pulse Source Pulse Oximeter Pulse Oximetry (%) 98 Oxygen Delivery Method Room Air Intake Visit Reasons: Spondylosis w/o Myelopathy Lumbar Region Intake Note: Pain today 10 Staff Internist Office Based Only Required: No Accompanied by: Self / Same As Patient Allergies fish derived [FISH] Allergy (Unknown, Verified 11/04/23 13:21) HIVES metoclopramide [From REGLAN] Allergy (Unknown, Verified 11/04/23 13:21) UNKNOWN pork derived (porcine) [PORK DERIVED (PORCINE)] Allergy (Unknown, Verified 11/04/23 13:21) HIVES HPI Comments Details: Patient is a pleasant 48 years old presents today for follow up for chronic right sided low back pain. He was initially seen in our office by Lucretia LOPEZ and had elevated A1C at 8.9. He since then improved his A1C, most recent at 4.8. Patient continues to endorse his right sided low back pain which radiates into his right sacral region and lateral hip and thigh, consistent with axial, facetogenic and right sacroiliac joint pain. He is interested to proceed with interventional treatments to address his symptoms. Patient reports it takes over 20 minutes for him each morning to get out out of bed. He also experiences it intermittent incontinence episodes last summer which has improved. Denies any bladder or bowel dysfunction or saddle anesthesia. Patient is on chronic anticoagulation with Plavix with history of ischemic cardiomyopathy, CAD and CABG x3. Denies any recent cough, cold, infection, fever, any significant changes in her medical history, medications or recent hospitalizations. PRIOR Lucretia LOPEZ 01/29/23: Jerome is a very pleasant 47-year-old male who presented to the office today for evaluation management of his chronic lower back pain. Patient reports he has been suffering with this lower back pain, predominantly on the right side, for approximately 20 years. Patient reports that the pain is progressively getting worse. He states the pain is constant, rated today as 9/10, worse with movement and weather changes. Pain excruciating in the morning and at times makes it difficult to get out of bed. Patient endorses radiation of the pain into the right thigh, he is status post right BKA. Patient has been taking gabapentin for his nerve pain, he states that his right lower back pain is unchanged with the gabapentin. He denies use of other pain medications. He has not tried physical therapy in many years, denies manual manipulation by chiropractor, acupuncture, massage. Patient states he has received steroid injections in the past with good relief of his pain. He is looking to repeat this injection. Patient is known diabetic, his most recent A1c 10/27/2022 was 8.9. Patient states he is under the care of an bio medical technician at [facility]. He is taking his medications are prescribed. He reports being hospitalized and then in rehab for a good part of the last several months but his blood sugars remain around 220. He states that anything less than 150 he feels hypoglycemic and is symptomatic. His primary care doctor ordered repeat lab work including A1c in August of 2022 but he has yet to have this completed. Patient denies red flag symptoms including new loss of bowel, bladder or saddle anesthesia. He does report at times the pain is excruciating in the morning and he cannot get out of bed fast enough to get to the bathroom which will cause him to urinate on himself. He is able to feel the urge and sensation, just not able to get up quickly enough to make it to the bathroom. In terms of muscle damage condition is described as tiring, exhausting, sickening, suffocating, fearful, frightening, terrifying, punishing, killing, radiating, piercing. ?Like being split in half with an Axe ? Pain is negatively impacting patient's ability to do activities of daily living, function normally and care for himself. Patient's past medical history significant for chronic back pain, sleep apnea, ischemic cardiomyopathy, depression, insomnia, cholecystitis, FATOUMATA, anxiety, GERD, neuropathy, asthma, hypercholesterolemia, hypertension, coronary artery disease, diabetes mellitus, epilepsy and meningioma. Patient denies implantable devices, pacemaker or defibrillator. [facility] Medical History (Updated 11/04/23 @ 14:09 by JESSICA Patel) Depression Insomnia Erectile dysfunction Exposure to COVID-19 virus Obesity (BMI 30-39.9) Anxiety GERD (gastroesophageal reflux disease) Neuropathy Gastroparesis Asthma Pure hypercholesterolemia Benign essential hypertension Coronary artery disease Diabetes mellitus Epilepsy Meningioma Surgical History (Updated 11/04/23 @ 14:09 by JESSICA Patel) Hx of right BKA Right foot amputee History of femoropopliteal bypass S/P CABG x 3 Family History Father Diabetes Mother Diabetes Social History Housing: House Alcohol intake: never Patient Tobacco Use Status: Former Tobacco user e-Cigarette/Vaping Use: Never Used Second Hand Smoke Exposure: No Substance Use Type: Marijuana service: No Current occupational status: disabled Cognitive needs: No Hearing needs: No Vision needs: No Review of Systems Const All systems reviewed & are unremarkable except as noted in HPI and below Physical Exam Vital Signs: Last Vital Signs Pulse 68 11/04/23 13:33 BP 129/74 11/04/23 13:33 Pulse Ox 98 11/04/23 13:33 Oxygen Delivery Method Room Air 11/04/23 13:33 BMI result Body Mass Index 26.0 General: Appears afebrile. Alert and oriented. Mood and affect appropriate. Follows and participates in conversation appropriately. Respiratory effort is unlabored. No cough. Able to transition from sit to stand unassisted. Ambulates with left normal heel strike and toe off. Right BKA, antalgic gait, with intermittent limping. General: Yes no CVA tenderness Back/Spine/Pelvis Other: Able to transition from sit to stand unassisted. No assisted devices. Visual inspection without gross abnormality Tender to palpation over right paraspinal muscles mid and lower lumbar spine ROM: limited secondary to pain with extension to 5-10 degrees and flexion to 60-65 degrees Strength: 5/5 left, 4/5 right Straight leg raises negative bilaterally Facet loading positive bilaterally, right>left ARIAS reproduces right lateral hip and right low back pain SI compression positive on the right. Back: no CVA tenderness Cervical Spine: cervical ROM normal, cervical muscular tenderness and No Cervical spine tenderness Thoracic/Lumbar Spine: thoracic and lumbar spine normal to inspection, No Thoracic/lumbar spine scar(s), Lasegue's sign negative, straight leg raise negative bilaterally, pain with thoraco-lumbar ROM, paraspinal muscle tenderness on the right greater than left, thoraco-lumbar ROM limited, No thoracic spinal tenderness and lumbar spinal tenderness (L4-S1) Pelvis: buttock tenderness on the right and no sciatic notch tenderness Sacroiliac joints: on the right tender to palpation and on the left nontender Results Reviewed Results Reviewed: Assessment & Plan Assessment & Plan (1) Hx of right BKA: Code(s): Z89.511 - Acquired absence of right leg below knee Category: Surgical (2) Lumbar facet arthropathy: Code(s): M47.816 - Spondylosis without myelopathy or radiculopathy, lumbar region Category: Medical (3) Myofascial low back pain: Code(s): M54.50 - Low back pain, unspecified Category: Medical (4) Lumbar degenerative disc disease: Code(s): M51.36 - Other intervertebral disc degeneration, lumbar region Category: Medical (5) Sacroiliac joint pain: Code(s): M53.3 - Sacrococcygeal disorders, not elsewhere classified Category: Medical (6) Lumbar radicular pain: Code(s): M54.16 - Radiculopathy, lumbar region Category: Medical Plan Schedule diagnostic right sacroiliac joint injection with local and fluoroscopy. If no pain relief, will proceed with right diagnostic L3-L4 DR L5 MBB. If patient has positive response, we will consider therapeutic injections, neuromodulation, simulative or ablative procedures, or SI joint stabilization with fusion. All questions and concerns have been answered and patient agreed with the plan. Follow-up after injections and sooner as needed. Anticoagulation: Patient on anticoagulation (Plavix) and instructions given on when to pause with prescribing physician permission. Justification for interventional therapy: ? Patient with average pain > 6/10 ? Patient has exhausted conservative therapy ? Patient unable to tolerate physical therapy due to pain, [facility] . Patient has a good understanding of their pain condition and has appropriate mental and social support The risks, consequences, alternatives, and benefits of various treatment options were discussed with the patient in great detail, including conservative management, injections and procedures. Coding Level of Care Code Est Pt Level 4 (03699) Diagnoses Hx of right BKA Z89.511 Lumbar facet arthropathy M47.816 Myofascial low back pain M54.50 Lumbar degenerative disc disease M51.36 Sacroiliac joint pain M53.3 Lumbar radicular pain M54.16
[2023-11-04 13:33] VITALS: BP 129/74; PULSE 68; O2SAT 98; BMI 26.0
== END 2023-11-04 13:53 | disposition home or self-care (01) ==
PROVIDERS: PCP Internal Medicine; Referring Provider Internal Medicine; Visit Provider Nurse Practitioner Family
DX: M53.3 Sacrococcygeal disorders, not elsewhere classified (principal); M54.16 Radiculopathy, lumbar region; M47.816 Spondylosis without myelopathy or radiculopathy, lumbar region; M54.50 Low back pain, unspecified; M51.36 Other intervertebral disc degeneration, lumbar region; Z89.511 Acquired absence of right leg below knee
CPT/HCPCS: 99214

== ENCOUNTER → 2023-11-04 13:14 | Outpatient (BNVA) | payer OTHER, SELFPAY | PROVIDERS: PCP Internal Medicine; Referring Provider Internal Medicine; Visit Provider Nurse Practitioner Family | DX: M47.26 Other spondylosis with radiculopathy, lumbar region (principal); M54.50 Low back pain, unspecified; M51.36 Other intervertebral disc degeneration, lumbar region; M53.3 Sacrococcygeal disorders, not elsewhere classified; Z89.511 Acquired absence of right leg below knee | CPT/HCPCS: 99212 ==

== ENCOUNTER 2023-12-11 13:58 | Outpatient (AMB) | payer OTHER, SELFPAY ==
[2023-12-11 14:06] VITALS: BP 116/66; PULSE 77; O2SAT 100; BMI 25.9
--- NOTE | 2023-12-11 14:06 | MHC.OFFVIS ---
Vital Signs 12/11/23 14:06 Height 6 ft Weight 191 lb BMI 25.9 BP 116/66 Blood Pressure Location Rt brachial Position Sitting Pulse 77 Pulse Source Pulse Oximeter Pulse Oximetry (%) 100 Oxygen Delivery Method Room Air Intake Visit Reasons: Follow up for procedure Allergies fish derived [FISH] Allergy (Unknown, Verified 11/04/23 13:21) HIVES metoclopramide [From REGLAN] Allergy (Unknown, Verified 11/04/23 13:21) UNKNOWN pork derived (porcine) [PORK DERIVED (PORCINE)] Allergy (Unknown, Verified 11/04/23 13:21) HIVES HPI Comments Details: Jaime presents back to the office today for follow-up right lower back pain. Evaluated in the office approximately 1 month ago, order placed for diagnostic right sacroiliac joint injection. This was denied by insurance. Patient presents today to discuss options for treatment. Continues with pain over right PSIS, worse with standing, walking, sitting. Pain radiates to the right groin and down the right thigh stopping just above the knee. Denies red flag symptoms including new loss of bowel, bladder or saddle anesthesia He completed physical therapy less than 1 year ago, continues with daily home exercise program. He is unable to take nonsteroidal anti-inflammatory medications due to current use of anticoagulants Prior visit with FABIAN Healy 10/2023: Patient is a pleasant 48 years old presents today for follow up for chronic right sided low back pain. He was initially seen in our office by Lucretia LOPEZ and had elevated A1C at 8.9. He since then improved his A1C, most recent at 4.8. Patient continues to endorse his right sided low back pain which radiates into his right sacral region and lateral hip and thigh, consistent with axial, facetogenic and right sacroiliac joint pain. He is interested to proceed with interventional treatments to address his symptoms. Patient reports it takes over 20 minutes for him each morning to get out out of bed. He also experiences it intermittent incontinence episodes last summer which has improved. Denies any bladder or bowel dysfunction or saddle anesthesia. Patient is on chronic anticoagulation with Plavix with history of ischemic cardiomyopathy, CAD and CABG x3. Denies any recent cough, cold, infection, fever, any significant changes in her medical history, medications or recent hospitalizations. PRIOR Lucretia LOPEZ 01/29/23: Jerome is a very pleasant 47-year-old male who presented to the office today for evaluation management of his chronic lower back pain. Patient reports he has been suffering with this lower back pain, predominantly on the right side, for approximately 20 years. Patient reports that the pain is progressively getting worse. He states the pain is constant, rated today as 9/10, worse with movement and weather changes. Pain excruciating in the morning and at times makes it difficult to get out of bed. Patient endorses radiation of the pain into the right thigh, he is status post right BKA. Patient has been taking gabapentin for his nerve pain, he states that his right lower back pain is unchanged with the gabapentin. He denies use of other pain medications. He has not tried physical therapy in many years, denies manual manipulation by chiropractor, acupuncture, massage. Patient states he has received steroid injections in the past with good relief of his pain. He is looking to repeat this injection. Patient is known diabetic, his most recent A1c 10/27/2022 was 8.9. Patient states he is under the care of an sales marketing coordinator at [facility]. He is taking his medications are prescribed. He reports being hospitalized and then in rehab for a good part of the last several months but his blood sugars remain around 220. He states that anything less than 150 he feels hypoglycemic and is symptomatic. His primary care doctor ordered repeat lab work including A1c in August of 2022 but he has yet to have this completed. Patient denies red flag symptoms including new loss of bowel, bladder or saddle anesthesia. He does report at times the pain is excruciating in the morning and he cannot get out of bed fast enough to get to the bathroom which will cause him to urinate on himself. He is able to feel the urge and sensation, just not able to get up quickly enough to make it to the bathroom. In terms of muscle damage condition is described as tiring, exhausting, sickening, suffocating, fearful, frightening, terrifying, punishing, killing, radiating, piercing. ?Like being split in half with an Axe ? Pain is negatively impacting patient's ability to do activities of daily living, function normally and care for himself. Patient's past medical history significant for chronic back pain, sleep apnea, ischemic cardiomyopathy, depression, insomnia, cholecystitis, FATOUMATA, anxiety, GERD, neuropathy, asthma, hypercholesterolemia, hypertension, coronary artery disease, diabetes mellitus, epilepsy and meningioma. Patient denies implantable devices, pacemaker or defibrillator. [facility] Medical History (Updated 11/25/23 @ 03:57 by Erick Kohli MD) Depression Insomnia Erectile dysfunction Exposure to COVID-19 virus Obesity (BMI 30-39.9) Anxiety GERD (gastroesophageal reflux disease) Neuropathy Gastroparesis Asthma Pure hypercholesterolemia Benign essential hypertension Coronary artery disease Diabetes mellitus Epilepsy Meningioma Surgical History (Updated 11/04/23 @ 14:09 by JESSICA Patel) Hx of right BKA Right foot amputee History of femoropopliteal bypass S/P CABG x 3 Family History Father Diabetes Mother Diabetes Social History Housing: House Alcohol intake: never Patient Tobacco Use Status: Former Tobacco user e-Cigarette/Vaping Use: Never Used Second Hand Smoke Exposure: No Substance Use Type: Marijuana service: No Current occupational status: disabled Cognitive needs: No Hearing needs: No Vision needs: No Review of Systems Const All systems reviewed & are unremarkable except as noted in HPI and below Physical Exam Vital Signs: Last Vital Signs Pulse 77 12/11/23 14:06 BP 116/66 12/11/23 14:06 Pulse Ox 100 12/11/23 14:06 Oxygen Delivery Method Room Air 12/11/23 14:06 BMI result Body Mass Index 25.9 General: awake, alert, oriented. Answers questions appropriately. Fully engaged in examination. Skin: warm, dry, intact HEENT: Normocephalic. Hearing intact. Cardiac: External chest normal in appearance. Respiratory: No cough, audible wheezing or stridor. Abdomen: without gross distension. MS: Prosthesis Right Foot Tenderness to palpation over right PSIS [place] positive on the right Thigh thrust positive on the right SI compression positive on the right SLR negative bilaterally Neurological: Oriented to person, place, time and situation. Thought process intact. Psychiatric: Appropriate mood and affect. Good judgment and insight. Results Reviewed Results Reviewed: Assessment & Plan Assessment & Plan (1) Myofascial low back pain: Code(s): M54.50 - Low back pain, unspecified Category: Medical (2) Lumbar degenerative disc disease: Code(s): M51.36 - Other intervertebral disc degeneration, lumbar region Category: Medical (3) Lumbar facet arthropathy: Code(s): M47.816 - Spondylosis without myelopathy or radiculopathy, lumbar region Category: Medical (4) Sacroiliac joint pain: Code(s): M53.3 - Sacrococcygeal disorders, not elsewhere classified Category: Medical Plan Jerome is very pleasant 48-year-old male who presented to the office today for follow-up right lower back pain History, physical exam and provocative testing most consistent with right SI joint function Lengthy discussion with patient regarding options for treatment including diagnostic interventional testing, epidural steroid injections, peripheral nerve stimulation with Sprint, RFA and more permanent neuromodulation. Patient has exhausted greater than 6 months of conservative therapy including PT, home exercise program, [id number] medications. He is unable to take nonsteroidal anti-inflammatory medications due to current use of anticoagulants. Will schedule for fluoroscopy guided diagnostic right sacroiliac joint injection with local anesthetic. This will require holding Plavix, to be arranged with PCP prior to the injection. All questions and concerns have been answered, patient verbalizes understanding and agrees with the plan. Follow up after injection, sooner if needed Medications: New methocarbamol No driving while taking this medication. Do no take with alcohol or other STEREOPTICIAN Depressants 500 mg PO TID PRN 90 tabs 1RF muscle spasm Coding Level of Care Code Est Pt Level 3 (47188) Diagnoses Myofascial low back pain M54.50 Lumbar degenerative disc disease M51.36 Lumbar facet arthropathy M47.816 Sacroiliac joint pain M53.3
== END 2023-12-11 15:40 | disposition home or self-care (01) ==
PROVIDERS: PCP Internal Medicine; Visit Provider Registered Nurse Emergency
DX: M54.50 Low back pain, unspecified (principal); M51.36 Other intervertebral disc degeneration, lumbar region; M47.816 Spondylosis without myelopathy or radiculopathy, lumbar region; M53.3 Sacrococcygeal disorders, not elsewhere classified
CPT/HCPCS: 99214

== ENCOUNTER → 2023-12-11 13:58 | Outpatient (BNVA) | payer OTHER, SELFPAY | PROVIDERS: PCP Internal Medicine; Visit Provider Registered Nurse Emergency | DX: M54.50 Low back pain, unspecified (principal); M51.36 Other intervertebral disc degeneration, lumbar region; M47.816 Spondylosis without myelopathy or radiculopathy, lumbar region; M53.3 Sacrococcygeal disorders, not elsewhere classified | CPT/HCPCS: 99212 ==

== ENCOUNTER 2024-02-11 06:17 | Outpatient (REF) | payer OTHER, SELFPAY | END 2024-02-11 06:18 | disposition home or self-care (01) | LOC: CF 06:17 | PROVIDERS: Visit Provider Anesthesiology | DX: M53.3 Sacrococcygeal disorders, not elsewhere classified (principal) | CPT/HCPCS: 27096; J2795; Q9967 ==

== ENCOUNTER 2024-02-11 13:05 | Outpatient (AMB) | payer OTHER, SELFPAY ==
--- NOTE | 2024-02-11 13:06 | A.OFFVIS_ITS ---
Vital Signs 02/11/24 13:49 02/11/24 13:50 Height 6 ft 6 ft Weight 191 lb 191 lb BMI 25.9 25.9 BP 135/77 119/71 Blood Pressure Location Lt brachial Lt brachial Position Sitting Sitting Respiration 14 14 Pulse 74 74 Pulse Source Pulse Oximeter Pulse Oximeter Pulse Oximetry (%) 100 100 Oxygen Delivery Method Room Air Room Air Comment pre-op post-op Intake Visit Reasons: RIGHT DIAGNOSTIC SIJ INJECTION Allergies fish derived [FISH] Allergy (Unknown, Verified 02/11/24 13:50) HIVES metoclopramide [From REGLAN] Allergy (Unknown, Verified 02/11/24 13:50) UNKNOWN pork derived (porcine) [PORK DERIVED (PORCINE)] Allergy (Unknown, Verified 02/11/24 13:50) HIVES [facility] Medical History (Updated 11/25/23 @ 03:57 by Erick Kohli MD) Depression Insomnia Erectile dysfunction Exposure to COVID-19 virus Obesity (BMI 30-39.9) Anxiety GERD (gastroesophageal reflux disease) Neuropathy Gastroparesis Asthma Pure hypercholesterolemia Benign essential hypertension Coronary artery disease Diabetes mellitus Epilepsy Meningioma Surgical History (Updated 11/04/23 @ 14:09 by JESSICA Patel) Hx of right BKA Right foot amputee History of femoropopliteal bypass S/P CABG x 3 Family History Father Diabetes Mother Diabetes Social History Housing: House Alcohol intake: never Patient Tobacco Use Status: Former Tobacco user e-Cigarette/Vaping Use: Never Used Second Hand Smoke Exposure: No Substance Use Type: Marijuana service: No Current occupational status: disabled Cognitive needs: No Hearing needs: No Vision needs: No Physical Exam Vital Signs: Last Vital Signs Pulse 74 02/11/24 13:50 Resp 14 02/11/24 13:50 BP 119/71 02/11/24 13:50 Pulse Ox 100 02/11/24 13:50 Oxygen Delivery Method Room Air 02/11/24 13:50 BMI result Body Mass Index 25.9 Assessment & Plan Assessment & Plan (1) Sacroiliac joint pain: Code(s): M53.3 - Sacrococcygeal disorders, not elsewhere classified Category: Medical Plan Right diagnostic sacroiliac joint injection Informed consent was explained thoroughly to the patient.? All questions about benefits and risks for the procedure were answered. Patient came to the operating room and was positioned prone on the operating table with the pillow under the abdomen. The lower back and buttocks of the patient were prepped with ChloraPrep prepped and draped with sterile utility towels.? Sterilely draped C-arm was brought over the operating field and sq picture of patient's pelvis was demonstrated on the screen.? For the right joint tilting C-arm contralateral to the site of the joint the most posterior portion of the joints was superimposed with anterior silhouette of the joint.? Skin was injected in the projection of the joint slightly medial to the location of the joint with 25 gauge 1/2 inch needle using local lidocaine 2% . After that 22 gauge 3 and 1/2 inch needle was driven to the right joint in tunnel vision fashion.? When needle entered the joint capsule injection of the contrast was performed demonstrating intra-articular and minimally periarticular spread of the contrast.? After that 4 cc. of ropivacaine 0.5% was injected in the joint. Upon completion of the injections the needle was removed and Band- Aid was applied.? Upon completion of the injection patient was taken outside of the operating room to the recovery room where recovered uneventfully. Orders: Orders: Orders FL guidance in treatment room Today M53.3 - Sacrococcygeal disorders, not elsewhere classified Coding Level of Care Code Procedure Only Diagnoses Sacroiliac joint pain M53.3
--- OUTSIDE RECORDS SUMMARY | 2024-02-11 13:06 | XMS_ITS | Continuity of Care Document ---
Author Organization [facility] Address [address] [place] [id number] Care Team Providers Care Biodiesel Process Control Technician Name Role Phone Erick Kohli MD Primary Care Physician Encounter [place] Date(s): 07/20/19 - 07/27/19 [facility] [address] [place] [address]- [facility] Attending Physician: Malina Alejandre NP Admitting Physician: Malina Alejandre NP Referring Physician: Erick Kohli MD Allergies, Adverse Reactions, Alerts Substance Reaction Severity Status Reglan severe itching Active Fish D&V - Diarrhea and vomiting Active Pollen Active Pork [D]Vomiting Diarrhea symptoms Active Immunizations Given and Recorded Vaccine Date Status Refusal Reason pneumococcal 23-valent vaccine 03/16/16 Given Medications ABD PADS ABD PADS, See Instructions, # 1 box, Refills 2, Tot. Refills 2, Maintenance, WRAP FOOT WITH PADS AND GAVI, 10/03/18 11:51:13 EDT, Compound Start Date: 10/03/18 Status: Ordered aspirin 81 mg oral delayed release tablet 81 mg, 1, tablet, By Mouth, Daily, # 30 tablet, Refills 0, Tot. Refills 0, Maintenance, 03/19/16 15:08:49, Print Requisition Start Date: 03/19/16 Stop Date: 04/18/16 Status: Ordered atorvastatin 80 mg oral tablet 1 tablet = 80 mg, By Mouth, Daily, # 90 tablet, 0 Refills, Maintenance, Tablet Start Date: 08/14/17 Status: Ordered clopidogrel 75 mg oral tablet 75 mg, 1, tablet, By Mouth, Daily, # 30 tablet, Refills 4, Tot. Refills 4, Maintenance, 04/09/16 16:22:43, Route to Pharmacy Electronically, [id number], [facility]/pharmacy #[id number] Start Date: 04/09/16 Status: Ordered gabapentin 300 mg oral capsule 900 mg, By Mouth, Daily at bedtime, Refills 0, Maintenance, 08/23/18 10:02:57 EDT Start Date: 08/23/18 Status: Ordered Insulin Glargine = 24 units, Subcutaneous Infusion, Daily at bedtime, 0 Refills, Maintenance, 08/14/18 16:54:08 EDT Start Date: 08/14/18 Status: Ordered Keppra XR 500 mg oral tablet, extended release 4 tablet = 2,000 mg, By Mouth, Daily at bedtime, # 120 tablet, 11 Refills, Maintenance, 11/11/18 11:13:34 EDT, ER Tablet Start Date: 11/11/18 Stop Date: 11/06/19 Status: Ordered lantus sliding scale 18-20 lantus sliding scale 18-20, Refills 0, Maintenance, 11/11/18 10:48:41 EDT, Compound Start Date: 11/11/18 Status: Ordered losartan 25 mg oral tablet 25 mg, 1, tablet, By Mouth, Daily, # 90 tablet, Refills 0, Maintenance, 08/14/17 18:58:45 EDT Start Date: 08/14/17 Status: Ordered metoprolol 50 mg oral tablet 50 mg, 1, tablet, By Mouth, 2 times a day, Metoprolol tartrate These are 50 mg tablets, only 1 tablet twice a day, # 180 tablet, Refills 0, Tot. Refills 0, Maintenance, 04/30/16 14:46:26, Route to Pharmacy Electronically, [id number]... Start Date: 04/30/16 Status: Ordered NovoLog Inj Subcutaneous Infusion, 3 times a day before meals, 0 Refills, Maintenance, 08/20/17 14:55:16 EDT Start Date: 08/20/17 Status: Ordered sulfamethoxazole-trimethoprim 400 mg-80 mg oral tablet 1 tablet, By Mouth, Daily, # 90 tablet, 0 Refills, Maintenance, 05/15/19 17:23:00 EST, [id number], 1 tablet By Mouth Daily, 183, cm, 05/08/19 13:43:00 EST, Height, 99.5, kg, 09/09/18 21:24:00EDT, Dry Weight Start Date: 05/15/19 Status: Ordered Problem List Condition Effective Dates Status Health Status Inform ant Coronary atherosclerosis due to calcified coronary lesion(Confirmed) Active CKD (chronic kidney disease)(Confirmed) Active Pressure sore(Confirmed) Active Diabetes mellitus type 2 wit h complications(Confirmed) Active Lower extremity edema(Confirmed) Active Pickwickian syndrome(Confirmed) Active HLD (hyperlipidemia)(Confirmed) Active HTN (hypertension)(Confirmed) Active WANG on CPAP(Confirmed) Active Osteomyelitis(Confirmed) Active Ulceration(Confirmed) Active Vital Signs Most recent to oldest [Reference Range]: 1 Height 183 cm (07/20/19 2:50 PM) Weight 90.72 kg (07/20/19 2:50 PM) Oxygen Saturation [94-100 %] 98 % (07/20/19 2:50 PM) Pulse Rate [55-90 bpm] 63 bpm (07/20/19 2:50 PM) Body Mass Index [18.5-24.99] 27.09 *H* (07/20/19 2:50 PM) Blood Pressure [90-138/55-84 mm Hg] 90/5 0mm Hg (07/20/19 2:50 PM) Blood pressure sites Arm, left (07/20/19 2:50 PM) Weight Obtained Via Patient/family state d (07/20/19 2:50 PM) Social History Social History Type Response Smoking Status Former smoker entered on: 08/09/17 Sex
--- OUTSIDE RECORDS SUMMARY | 2024-02-11 13:06 | XMS_ITS | Continuity of Care Document ---
Author Organization [facility] Address [address] [place] [address]- Care Team Providers Care Electrician Ship Name Role Phone Erick Kohli MD Primary Care Physician [phone] Encounter [facility] Date(s): 01/26/21 - 03/03/21 [facility] Care [address] [place] [address] Attending Physician: Geovany Meyer MD Admitting Physician: Geovany Meyer MD Referring Physician: Erick Kohli MD Allergies, Adverse Reactions, Alerts Substance Reaction Severity Status Reglan severe itching Active Fish D&V - Diarrhea and vomiting Active Pollen stuffy nose Active Pork [D]Vomiting Diarrhea symptoms Active Immunizations Given and Recorded Vaccine Date Status Refusal Reason pneumococcal 23-valent vaccine 03/16/16 Given Medications 14 Kirlex roll, 14 kirlex fluffs, 1 roll of tape (plastic) 14 Kirlex roll, 14 kirlex fluffs, 1 roll of tape (plastic), See Instructions, # 14 each, Refills 0,Tot. Refills 0, Maintenance, 14 each, 10/12/20 13:55:00 EDT, Supply, 182.88, cm, 10/12/20 7:07:00 EDT, Height Start Date: 10/12/20 Status: Ordered ABD Pads (6X9) See Instructions, # 30 each, Refills 3, Tot. Refills 3, Maintenance, wrap foot with pads and brie,08/25/20 16:41:00 EDT, Supply, 183, cm, 08/25/20 15:57:00 EDT, Height, 99.5, kg, 09/09/18 21:24:00 EDT, Dry Weight Start Date: 08/25/20 Status: Ordered ABD Pads (6X9) See Instructions, # 30 each, Refills 6, Tot. Refills 6, Maintenance, wrap foot with pads and brie DX, 10/27/20 12:37:00 EDT, Supply Start Date: 10/27/20 Status: Ordered aspirin 81 mg oral delayed [...] Maintenance, 04/09/16 16:22:43, Route to Pharmacy Electronically, [id number], [facility]/pharmacy #[id number] Start Date: 04/09/16 Status: Ordered gabapentin 300 mg oral capsule 900 mg, By Mouth, Daily at bedtime, Refills 0, Maintenance, 08/23/18 10:02:57 EDT Start Date: 08/23/18 Status: Ordered Gauze Pad (4 X 4) See Instructions, # 60 each, Refills 3, Tot. Refills 3, Maintenance, apply to foot wound then wrap with roll gauze, 08/25/20 16:41:00 EDT, Supply, 183, cm, 08/25/20 15:57:00 EDT, Height, 99.5, kg, 09/09/18 21:24:00 EDT, Dry Weight Start Date: 08/25/20 Status: Ordered Gauze Pad (4 X 4) See Instructions, # 30 each, Refills 6, Tot. Refills 6, Maintenance, apply to wound daily, 10/28/2111:39:00 EDT, Supply Start Date: 10/27/20 Status: Ordered Gauze Roll (4 ) See Instructions, # 60 each, Refills 3, Tot. Refills 3, Maintenance, Wrap GAuze Around Foot Wound, 08/25/20 16:41:00 EDT, Supply, 183, cm, 08/25/20 15:57:00 EDT, Height, 99.5, kg, 09/09/18 21:24:00 EDT, Dry Weight Start Date: 08/25/20 Status: Ordered Gauze Roll (4 ) See Instructions, # 60 each, Refills 3, Tot. Refills 3, Maintenance, Wrap GAuze Around Foot Wound, 09/07/20 18:29:00 EDT, Supply, 183, cm, 08/25/20 15:57:00 EDT, Height, 99.5, kg, 09/09/18 21:24:00 EDT, Dry Weight Start Date: 09/07/20 Status: Ordered Gauze Roll (4 ) See Instructions, # 60 each, Refills 3, Tot. Refills 3, Maintenance, Wrap gauze around foot wound, 02/22/20 10:37:00 EDT, Supply Start Date: 02/22/20 Status: Ordered Gloves See Instructions, # 1 each, Refills 1, Tot. Refills 1, Maintenance, surgical gloves size XL for left foot wound once daily, 09/07/20 18:29:00 EDT, Supply, 183, cm, 08/25/20 15:57:00 EDT, Height, 99.5, kg, 09/09/18 21:24:00 EDT, Dry Weight Start Date: 09/07/20 Status: Ordered Insulin Glargine = 20 units, Subcutaneous Infusion, Daily at bedtime, 0 Refills, Maintenance, 08/14/18 16:54:08 EDT Start Date: 08/14/18 Status: Ordered losartan 100 mg oral tablet 1 tablet = 100 mg, By Mouth, Daily, # 30 tablet, 2 Refills, Maintenance, 09/19/20 8:32:00 EDT, Tablet, [facility], Partial fill upon patient request if the prescription is for a schedule II opioid drug., 183, cm, 09/14/20 15:54:00 EDT, H... Start Date: 09/19/20 Stop Date: 12/18/20 Status: Ordered metoprolol 50 mg oral tablet 50 mg, 1, tablet, By Mouth, 2 times a day, Metoprolol tartrate These are 50 mg tablets, only 1 tablet twice a day, # 180 tablet, Refills 0, Tot. Refills 0, Maintenance, 04/30/16 14:46:26, Route to Pharmacy Electronically, [id number]... Start Date: 04/30/16 Status: Ordered NovoLog Inj sliding scale, Subcutaneous Injection, 3 times a day before meals, 0 Refills, Maintenance, 08/20/1813:55:16 EDT Start Date: 08/20/17 Status: Ordered RT BKA Prosthetic RT BKA Prosthetic, See Instructions, # 2 each, Refills 0, Tot. Refills 0, Maintenance, RT BKA PROSTHETIC SOCKET REPLACEMENT,K3,Z89.511 PT WEIGHT 93 KG, 12/29/19 10:10:00 EDT, Supply Start Date: 12/29/19 Status: Ordered RT Prosthetic Foot RT Prosthetic Foot, See Instructions, # 1 each, Refills 0, Tot. Refills 0, Maintenance, RT prosthetic foot,K3 DX:Z89.511, 03/10/20 11:45:00 EDT, Supply Start Date: 03/10/20 Status: Ordered Tape (1 -Paper) See Instructions, # 2 each, Refills 3, Tot. Refills 3, Maintenance, Use To Wrap Gauze To foot Wound, 08/25/20 16:41:00 EDT, Supply, 183, cm, 08/25/20 15:57:00 EDT, Height, 99.5, kg, 09/09/18 21:24:00EDT, Dry Weight Start Date: 08/25/20 Status: Ordered Tylenol 325 mg oral tablet 650 mg, 2, tablet, By Mouth, Every 6 hours, Refills 0, Maintenance, 09/19/20 8:28:00 EDT, Partial fill upon patient request if the prescription is for a schedule II opioid drug. 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
--- OUTSIDE RECORDS SUMMARY | 2024-02-11 13:06 | XMS_ITS | Continuity of Care Document ---
Author Organization [facility] Address [address] [place] [address]- Care Team Providers Care Manager Family Name Role Phone Erick Kohli MD Primary Care Physician [phone] Encounter [facility] Date(s): 11/21/20 - 11/28/20 [facility] [address] [place], [place] [address] Attending Physician: Ryan Scott MD Admitting Physician: Ryan Scott MD Referring Physician: Erick Kohli MD Allergies, Adverse Reactions, Alerts Substance Reaction Severity Status Reglan severe itching Active Pollen stuffy nose Active Pork [D]Vomiting Diarrhea symptoms Active Fish D&V - Diarrhea and vomiting Active Immunizations Given and Recorded Vaccine Date [...] cm, 08/25/20 15:57:00 EDT, Height, 99.5, kg, 04/30/19 21:24:00 EDT, Dry Weight Start Date: 08/25/20 [...] Maintenance, 04/09/16 16:22:43, Route to Pharmacy Electronically, [id number], [facility]/pharmacy #[id number] Start Date: 04/09/16 Status: Ordered gabapentin [...] 2 Refills, Maintenance, 09/19/20 8:32:00 EDT, Tablet, [facility], Partial fill upon patient request [...] Maintenance, 04/30/16 14:46:26, Route to Pharmacy Electronically, [id number]... Start Date: 04/30/16 Status: Ordered NovoLog Inj [...] recent to oldest [Reference Range]: 1 Height 182.88 cm (11/21/20 3:10 PM) Weight 91.0 kg (11/21/20 3:10 PM) Pulse Rate [55-90 bpm] 75 bpm (11/21/20 3:10 PM) Body Mass Index [18.5-24.99] 27.21 *H* (11/21/20 3:10 PM) Blood Pressure [90-138/55-84 mm Hg] 116/ 74mm Hg (11/21/20 3:10 PM) Blood pressure sites Arm, right (11/21/20 3:10 PM) Weight Obtained Via Patient/family state d (11/21/20 3:10 PM) Social History Social History Type Response Smoking Status Former smoker entered on: 08/09/17 Sex
--- OUTSIDE RECORDS SUMMARY | 2024-02-11 13:06 | XMS_ITS | Continuity of Care Document ---
Author Organization [facility] Address [address] [place] [address]- Care Team Providers Care Farm Equipment Assembler Name Role Phone Erick Kohli MD Primary Care Physician Encounter [facility] Date(s): 08/10/20 - 08/17/20 [facility] [address] [place], [place] [address] Attending Physician: Not on Staff, Attending MD Allergies, Adverse Reactions, Alerts Substance Reaction Severity Status Reglan severe itching Active Fish D&V - Diarrhea and vomiting Active Pollen Active Pork [D]Vomiting Diarrhea symptoms Active Immunizations Given and Recorded Vaccine Date Status Refusal Reason pneumococcal 23-valent vaccine 03/16/16 Given Medications ABD Pads (6X9) See Instructions, # 30 each, Refills 3, Tot. Refills 3, Maintenance, wrap foot with pads and brie,05/19/20 11:19:00 EST, Supply Start Date: 05/19/20 Status: Ordered Aquelcel Ag Extra Aquelcel Ag Extra, See Instructions, # 60 each, Refills 3, Tot. Refills 3, Maintenance, Apply To Foot wound, 05/19/20 11:25:00 EST, Supply Start Date: 05/19/20 Status: Ordered aspirin 81 mg oral delayed release tablet 81 mg, 1, tablet, By Mouth, Daily, # 30 tablet, Refills 0, Tot. Refills 0, Maintenance, 03/19/16 15:08:49, Print Requisition Start Date: 03/19/16 Stop Date: 04/18/16 Status: Ordered atorvastatin 80 mg oral tablet 1 tablet = 80 mg, By Mouth, Daily, # 90 tablet, 0 Refills, Maintenance, Tablet Start Date: 08/14/17 Status: Ordered cholecalciferol 1000 intl units oral capsule 1 capsule = 1,000 International_Units, By Mouth, Daily, 2 tablet by mouth daily, 0 Refills, Maintenance, 04/19/20 15:44:00 EST, Partial fill upon patient request if the prescription is for a scheduleII opioid drug. Start Date: 04/19/20 Status: Ordered clopidogrel 75 mg oral tablet 75 mg, 1, tablet, By Mouth, Daily, # 30 tablet, Refills 4, Tot. Refills 4, Maintenance, 04/09/16 16:22:43, Route to Pharmacy Electronically, [id number], [facility]/pharmacy #[id number] Start Date: 04/09/16 Status: Ordered Dakins Half Strength 0.25% topical solution See Instructions, Use Once a Day On wound DX:L97. 529 Chronic left foot Wound, # 1 each, 2 Refills,Maintenance, 05/19/20 11:18:00 EST Start Date: 05/19/20 Status: Ordered Dakins Quarter Strength 0.125% topical solution See Instructions, Wash wound with solution before applying dressing, # 1 each, 3 Refills, Maintenance, 02/22/20 11:11:00 EDT Start Date: 02/22/20 Status: Ordered gabapentin 300 mg oral capsule 900 mg, By Mouth, Daily at bedtime, Refills 0, Maintenance, 08/23/18 10:02:57 EDT Start Date: 08/23/18 Status: Ordered Gauze Pad (4 X 4) See Instructions, # 60 each, Refills 3, Tot. Refills 3, Maintenance, apply to foot wound then wrap with roll gauze, 05/19/20 11:23:00 EST, Supply Start Date: 05/19/20 Status: Ordered Gauze Roll (4 ) See Instructions, # 60 each, Refills 3, Tot. Refills 3, Maintenance, Wrap gauze around foot wound, 02/22/20 10:37:00 EDT, Supply Start Date: 02/22/20 Status: Ordered Gauze Roll (4 ) See Instructions, # 60 each, Refills 3, Tot. Refills 3, Maintenance, Wrap GAuze Around Foot Wound, 05/19/20 11:22:00 EST, Supply Start Date: 05/19/20 Status: Ordered Insulin Glargine = 24 units, [...] EDT, Compound Start Date: 11/11/18 Status: Ordered Lorazepam = 0.5 mg, 1 tablet morning and 1 tablet at bedtime for anxiety, 0 Refills, Maintenance, 04/19/20 15:49:00 EST, Partial fill upon patient request if the prescription is for a schedule II opioid drug. Start Date: 04/19/20 Status: Ordered losartan 25 mg oral tablet [...] Maintenance, 04/30/16 14:46:26, Route to Pharmacy Electronically, [id number]... Start Date: 04/30/16 Status: Ordered Mirtazapine = 15 mg, By Mouth, Daily at bedtime, 0 Refills, Maintenance, 04/19/20 15:43:00 EST, Partial fill upon patient request if the prescription is for a schedule II opioid drug. Start Date: 04/19/20 Status: Ordered NovoLog Inj Subcutaneous Infusion, 3 times a day before meals, 0 Refills, Maintenance, 08/20/17 14:55:16 EDT Start Date: 08/20/17 Status: Ordered Nystatin Powder Topically, 3 times a day, 0 Refills, Maintenance Start Date: 04/19/20 Status: Ordered RT BKA Prosthetic RT BKA [...] EDT, Supply Start Date: 03/10/20 Status: Ordered SEROquel 25 mg oral tablet 25 mg, 1, tablet, By Mouth, 3 times a day, 1 tablet at bedtime, Refills 0, Maintenance, 04/19/20 15:46:00 EST, Partial fill upon patient request if the prescription is for a schedule II opioid drug. Start Date: 04/19/20 Status: Ordered Sertraline = 50 mg, By Mouth, Daily, 0 Refills, Maintenance, 04/19/20 15:42:00 EST, Partial fill upon patient request if the prescription is for a schedule II opioid drug. Start Date: 04/19/20 Status: Ordered sulfamethoxazole-trimethoprim 400 mg-80 mg oral tablet 1 tablet, By Mouth, Daily, # 90 tablet, 1 Refills, Maintenance, 03/16/20 11:57:00 EST, [facility]/pharmacy#[id number], 1 tablet By Mouth Daily, 183, cm, 03/09/20 13:23:00 EDT, Height, 99.5, kg, 09/09/18 21:24:00EDT, Dry Weight Start Date: 03/16/20 Status: Ordered Tape (1 -Paper) See Instructions, # 2 each, Refills 3, Tot. Refills 3, Maintenance, Use To Wrap Gauze To foot Wound, 05/19/20 11:20:00 EST, Supply Start Date: 05/19/20 Status: Ordered Zinc Sulfate 220 mg, By Mouth, once a day, Refills 0, Maintenance, 04/19/20 15:53:00 EST, Partial fill upon patient request if the prescription is for a schedule II opioid drug. Start Date: 04/19/20 Status: Ordered Problem List Condition Effective Dates [...] oldest [Reference Range]: 1 Height 183 cm (08/10/20 12:50 PM) Weight 93 kg (08/10/20 12:50 PM) Pulse Rate [55-90 bpm] 72 bpm (08/10/20 12:50 PM) Body Mass Index [18.5-24.99] 27.77 *H* (08/10/20 12:50 PM) Blood Pressure [90-138/55-84 mm Hg] 120/ 66mm Hg (08/10/20 12:50 PM) Blood pressure sites Arm, right (08/10/20 12:50 PM) Weight Obtained Via Patient/family state d (08/10/20 12:50 PM) Social History Social History Type Response Smoking Status Former smoker entered on: 08/09/17 Sex
--- OUTSIDE RECORDS SUMMARY | 2024-02-11 13:06 | XMS_ITS | Continuity of Care Document ---
Author Organization [facility] Address [address] [place] [address]- Care Team Providers Care Learning Center Coordinator Name Role Phone Seun ZHAO, Erick Jensen Primary Care Physician [phone] Encounter [facility] Date(s): 10/27/20 - 11/26/20 [facility] [address] [place] [address]- Allergies, Adverse Reactions, Alerts Substance Reaction Severity [...] Maintenance, 04/09/16 16:22:43, Route to Pharmacy Electronically, [id number], [facility]/pharmacy #[id number] Start Date: 04/09/16 Status: Ordered [...] 2 Refills, Maintenance, 09/19/20 8:32:00 EDT, Tablet, [facility], Partial fill upon patient request [...] Maintenance, 04/30/16 14:46:26, Route to Pharmacy Electronically, [id number]... Start Date: 04/30/16 Status: Ordered NovoLog Inj [...]
--- OUTSIDE RECORDS SUMMARY | 2024-02-11 13:06 | XMS_ITS | Continuity of Care Document ---
Author Organization [facility] Address [address] [place] [address]- Care Team Providers Care Electronic Assembly Name Role Phone Erick Kohli MD Primary Care Physician [phone] [id number] Date(s): 07/18/21 - 08/17/[address] [address] Attending Physician: AdmSumit yarbrough Admitting Physician: AdmSumit yarbrough Referring Physician: AdmtrSumit Allergies, Adverse Reactions, Alerts Substance Reaction Severity [...] Maintenance, Tablet Start Date: 08/14/17 Status: Ordered BKA Prosthetic Socks BKA Prosthetic Socks, See Instructions, # 2 each, Refills 0, Tot. Refills 0, Maintenance, BKA PROSTHETIC SOCKS ,K3,Z89.511 PT WEIGHT 93 KG, 08/10/21 15:03:00 EDT, Supply Start Date: 08/10/21 Status: Ordered clopidogrel 75 mg oral tablet 75 mg, 1, tablet, By Mouth, Daily, # 30 tablet, Refills 4, Tot. Refills 4, Maintenance, 04/09/16 16:22:43, Route to Pharmacy Electronically, [id number], [facility]/pharmacy #[id number] Start Date: 04/09/16 Status: Ordered gabapentin 300 [...] 2 Refills, Maintenance, 09/19/20 8:32:00 EDT, Tablet, [facility], Partial fill upon patient request [...] Maintenance, 04/30/16 14:46:26, Route to Pharmacy Electronically, [id number]... Start Date: 04/30/16 Status: Ordered NovoLog Inj [...]
--- OUTSIDE RECORDS SUMMARY | 2024-02-11 13:06 | XMS_ITS | Continuity of Care Document ---
Author Organization [facility] Address [address] [place] [address]- Care Team Providers Care Property Man Name Role Phone Erick Kohli MD Primary Care Physician [phone] Encounter [facility] Date(s): 01/05/22 - 02/07/22 [facility] [address] [place] [address] Attending Physician: Nas PERALTA, Miryam Davis Admitting Physician: Nas PERALTA, Miryam Davis Referring Physician: Erick Kohli MD Allergies, Adverse [...] Refills 0,Tot. Refills 0, Maintenance, 14 each, 09/08/21 10:18:00 EDT, Supply, 182, cm, 09/08/21 4:59:00 EDT,Height, 109, kg, 09/07/21 8:49:00 EDT, Dry Weight Start Date: 09/08/21 Status: Ordered ABD Pads (6X9) See Instructions, [...] EDT, Supply Start Date: 10/27/20 Status: Ordered Admelog SoloStar 100 units/mL injectable solution See Instructions, for premeal insulin; check blood sugar prior to meals; continue as per prior instructions, # 10 mL, 0 Refills, Maintenance, 09/08/21 10:49:00 EDT, Partial fill upon patient request if the prescription is for a schedule II opioid drug. Start Date: 09/08/21 Status: Ordered aspirin 81 mg oral delayed release tablet 81 mg, 1, tablet, By Mouth, Daily, # 30 tablet, Refills 0, Tot. Refills 0, Maintenance, 03/19/16 15:08:49, Print Requisition Start Date: 03/19/16 Stop Date: 04/18/16 Status: Ordered atorvastatin 80 mg oral tablet 1 tablet = 80 mg, By Mouth, Daily, # 90 tablet, 0 Refills, Maintenance, Tablet Start Date: 08/14/17 Status: Ordered Bactrim DS 800 mg-160 mg oral tablet 1 tablet, By Mouth, Daily, for 30 days, # 30 tablet, 1 Refills, Acute 03/24/22 12:17:00 EST, 01/23/22 12:17:00 EDT, [facility]/pharmacy #[id number], Partial fill upon patient request if the prescription is for a schedule II opioid drug., 1 tablet By Mouth Daily,x3... Start Date: 01/23/22 Stop Date: 03/24/22 Status: Ordered BKA Prosthetic Socks BKA Prosthetic Socks, See Instructions, # 2 each, Refills 0, Tot. Refills 0, Maintenance, BKA PROSTHETIC SOCKS ,K3,Z89.511 PT WEIGHT 93 KG, 08/10/21 15:03:00 EDT, Supply Start Date: 08/10/21 Status: Ordered clopidogrel 75 mg oral tablet 75 mg, 1, tablet, By Mouth, Daily, # 30 tablet, Refills 4, Tot. Refills 4, Maintenance, 04/09/16 16:22:43, Route to Pharmacy Electronically, [id number], [facility]/pharmacy #[id number] Start Date: 04/09/16 Status: Ordered gabapentin 300 mg oral capsule 900 mg, By Mouth, Daily at bedtime, Refills 0, Maintenance, 08/23/18 10:02:57 EDT Start Date: 08/23/18 Status: Ordered Gauze Pad (4 X 4) See Instructions, # 60 each, Refills 3, Tot. Refills 3, Maintenance, apply to foot wound then wrap with roll gauze, 09/08/21 10:18:00 EDT, Supply, 182, cm, 09/08/21 4:59:00 EDT, Height, 109, kg, 09/07/21 8:49:00 EDT, Dry Weight Start Date: 09/08/21 Status: Ordered Gauze Pad (4 X 4) See Instructions, # 30 each, Refills 6, Tot. Refills 6, Maintenance, apply to wound daily, 10/28/2111:39:00 EDT, Supply Start Date: 10/27/20 Status: Ordered Gauze Roll (4 ) See Instructions, # 30 each, Refills 3, Tot. Refills 3, Maintenance, Wrap gauze around foot wound, 09/08/21 10:18:00 EDT, Supply, 182, cm, 09/08/21 4:59:00 EDT, Height, 109, kg, 09/07/21 8:49:00 EDT,Dry Weight Start Date: 09/08/21 Status: Ordered Gauze Roll (4 ) See Instructions, # 30 each, Refills 3, Tot. Refills 3, Maintenance, Wrap GAuze Around Foot Wound, 09/08/21 10:18:00 EDT, Supply, 182, cm, 09/08/21 4:59:00 EDT, Height, 109, kg, 09/07/21 8:49:00 EDT,Dry Weight Start Date: 09/08/21 Status: Ordered Gauze Roll (4 ) See Instructions, # 60 each, Refills 3, Tot. Refills 3, Maintenance, Wrap GAuze Around Foot Wound, 08/25/20 16:41:00 EDT, Supply, 183, cm, 08/25/20 15:57:00 EDT, Height, 99.5, kg, 09/09/18 21:24:00 EDT, Dry Weight Start Date: 08/25/20 Status: Ordered Gloves See Instructions, # 1 each, Refills 1, Tot. Refills 1, Maintenance, surgical gloves size XL for left foot wound once daily, 09/08/21 10:18:00 EDT, Supply, 182, cm, 09/08/21 4:59:00 EDT, Height, 109, kg, 09/07/21 8:49:00 EDT, Dry Weight Start Date: 09/08/21 Status: Ordered Lantus Solostar Pen 100 units/mL subcutaneous solution = 15 units, Subcutaneous Injection, Daily at bedtime, # 10 mL, 0 Refills, Maintenance, 09/08/21 10:51:00 EDT, Solution, [facility]/pharmacy #[id number], Partial fill upon patient request if the prescription is for a schedule II opioid drug., 182, cm, 09/08/21 4:59... Start Date: 09/08/21 Status: Ordered losartan 50 mg oral tablet 1 tablet = 50 mg, By Mouth, Daily, # 30 tablet, 0 Refills, Maintenance, 09/08/21 10:15:00 EDT, Tablet, Partial fill upon patient request if the prescription is for a schedule II opioid drug. Start Date: 09/08/21 Status: Ordered metoprolol succinate 100 mg oral capsule, extended release 1 capsule = 100 mg, By Mouth, Daily, # 30 capsule, 0 Refills, Maintenance, 09/08/21 10:15:00 EDT, ER Capsule, Partial fill upon patient request if the prescription is for a schedule II opioid drug. Start Date: 09/08/21 Status: Ordered RT BKA Prosthetic RT BKA [...] Use To Wrap Gauze To foot Wound, 09/08/21 10:18:00 EDT, Supply, 182, cm, 09/08/21 4:59:00 EDT, Height, 109, kg, 09/07/21 8:49:00 EDT, Dry Weight Start Date: 09/08/21 Status: Ordered Tylenol 325 mg oral tablet 650 mg, 2, tablet, By Mouth, Every 6 hours, Refills 0, Maintenance, 09/19/20 8:28:00 EDT, Partial fill upon patient request if the prescription is for a schedule II opioid drug. Start Date: 09/19/20 Status: Ordered Problem List Condition Confirmation Course Effective Dates Status H ealth Status Informant Coronary atherosclerosis due to calcified coronary lesion Confirmed Active Chronic kidney disease (CKD), stage III (moderate) Confirmed Active CKD (chronic kidney disease) Confirmed Active Pressure sore Confirmed Active Diabetes mellitus type 2 with complications Confirmed Active Lower extremity edema Confirmed Active Pickwickian syndrome Confirmed Active HLD (hyperlipidemia) Confirmed Active HTN (hypertension) Confirmed Active Acute kidney injury Confirmed Active WANG on CPAP Confirmed Active Osteomyelitis Confirmed Active Ulceration Confirmed Active Social History Social History Type Response Smoking Status Former smoker entered on: 08/09/17 Sex Patient Care team information Personnel Name: Erick Kohli MD Address: Address: [address] [place] [address] Drive [address] [place] [address]
--- OUTSIDE RECORDS SUMMARY | 2024-02-11 13:06 | XMS_ITS | Continuity of Care Document ---
Author Organization [facility] Address [address] [place] [address]- Care Team Providers Care Construction Equipment Mechanic Name Role Phone Erick Kohli MD Primary Care Physician Encounter [facility] [place] [facility] ACCT R [id number] Date(s): 03/09/20 - 03/16/20 [facility] [address] [place] [address]- [facility] Attending Physician: Malina Alejandre NP Admitting Physician: [...] 3, Maintenance, wrap foot with pads and brie,02/22/20 11:31:00 EDT, Supply Start Date: 02/22/20 Status: Ordered Aquelcel Ag Extra Aquelcel Ag Extra, See Instructions, # 60 each, Refills 3, Tot. Refills 3, Maintenance, Apply To Foot wound, 02/22/20 11:19:00 EDT, Supply Start Date: 02/22/20 Status: Ordered aspirin 81 mg oral delayed [...] Maintenance, 04/09/16 16:22:43, Route to Pharmacy Electronically, [id number], [facility]/pharmacy #[id number] Start Date: 04/09/16 Status: Ordered Dakins Half Strength 0.25% topical solution See Instructions, Use Once a Day On wound DX:L97. 529 Chronic left foot Wound, # 1 each, 2 Refills,Maintenance, 03/10/20 10:51:00 EDT Start Date: 03/10/20 Status: Ordered Dakins Quarter Strength 0.125% topical [...] foot wound then wrap with roll gauze, 02/22/20 11:16:00 EDT, Supply Start Date: 02/22/20 Status: Ordered Gauze Roll (4 ) See Instructions, # 60 each, Refills 3, Tot. Refills 3, Maintenance, Wrap gauze around foot wound, 02/22/20 10:37:00 EDT, Supply Start Date: 02/22/20 Status: Ordered Gauze Roll (4 ) See Instructions, # 60 each, Refills 3, Tot. Refills 3, Maintenance, Wrap GAuze Around Foot Wound, 02/22/20 11:21:00 EDT, Supply Start Date: 02/22/20 Status: Ordered Insulin Glargine = 24 units, [...] Maintenance, 04/30/16 14:46:26, Route to Pharmacy Electronically, [id number]... Start Date: 04/30/16 Status: Ordered NovoLog Inj Subcutaneous Infusion, 3 times a day before meals, 0 Refills, Maintenance, 08/20/17 14:55:16 EDT Start Date: 08/20/17 Status: Ordered RT [...] EDT, Supply Start Date: 03/10/20 Status: Ordered sulfamethoxazole-trimethoprim 400 mg-80 mg oral tablet 1 tablet, By Mouth, Daily, # 90 tablet, 1 Refills, Maintenance, 03/16/20 11:57:00 EST, [id number], 1 tablet By Mouth Daily, 183, cm, 03/09/20 13:23:00 EDT, Height, 99.5, kg, 09/09/18 21:24:00EDT, Dry Weight Start Date: 03/16/20 Status: Ordered Tape (1 -Paper) See Instructions, # 2 each, Refills 3, Tot. Refills 3, Maintenance, Use To Wrap Gauze To foot Wound, 02/22/20 11:25:00 EDT, Supply Start Date: 02/22/20 Status: Ordered Problem List Condition Effective Dates [...] oldest [Reference Range]: 1 Height 183 cm (03/09/20 1:23 PM) Weight 97.0 kg (03/09/20 1:23 PM) Pulse Rate [55-90 bpm] 74 bpm (03/09/20 1:23 PM) Body Mass Index [18.5-24.99] 28.96 *H* (03/09/20 1:23 PM) Blood Pressure [90-138/55-84 mm Hg] 132/ 84mm Hg (03/09/20 1:23 PM) Blood pressure sites Arm, left (03/09/20 1:23 PM) Social History Social History Type Response Smoking Status Former smoker entered on: 08/09/17 Sex
--- OUTSIDE RECORDS SUMMARY | 2024-02-11 13:06 | XMS_ITS | Continuity of Care Document ---
Author Organization [facility] Address [address] [place] [address]- Care Team Providers Care E D Tech Name Role Phone Seun ZHAO, Erick Jensen Primary Care Physician Encounter [facility] Date(s): 09/13/20 - 10/13/20 [facility] [address] [place] [address]- Allergies, Adverse Reactions, Alerts Substance Reaction Severity [...] Dry Weight Start Date: 08/25/20 Status: Ordered aspirin 81 mg oral delayed [...] Maintenance, 04/09/16 16:22:43, Route to Pharmacy Electronically, [id number], [facility]/pharmacy #[id number] Start Date: 04/09/16 [...] 16:54:08 EDT Start Date: 08/14/18 Status: Ordered linezolid 600 mg oral tablet 1 tablet = 600 mg, By Mouth, Every 12 hours, for 21 days, # 42 tablet, 0 Refills, Acute 10/18/20 10:59:00 EDT, 09/27/20 10:59:00 EDT, Tablet, [facility]/pharmacy #[id number], Partial fill upon patient request if the prescription is for a schedule II opioid drug.,... Start Date: 09/27/20 Stop Date: 10/18/20 Status: Ordered losartan 100 mg oral tablet 1 tablet = 100 mg, By Mouth, Daily, # 30 tablet, 2 Refills, Maintenance, 09/19/20 8:32:00 EDT, Tablet, [facility], Partial fill upon patient [...] Maintenance, 04/30/16 14:46:26, Route to Pharmacy Electronically, [id number]... Start Date: 04/30/16 Status: Ordered NovoLog Inj [...]
--- OUTSIDE RECORDS SUMMARY | 2024-02-11 13:06 | XMS_ITS | Continuity of Care Document ---
Author Organization [facility] Address [address] [place] [address]- Care Team Providers Care Braddisher Name Role Phone Erick Kohli MD Primary Care Physician Encounter [facility] Date(s): 01/26/21 - 03/03/21 [facility] [address] [place] [address] Attending Physician: Geovany Meyer MD Admitting Physician: [...] Maintenance, 04/09/16 16:22:43, Route to Pharmacy Electronically, [id number], [facility]/pharmacy #[id number] Start Date: 04/09/16 Status: Ordered gabapentin [...] 2 Refills, Maintenance, 09/19/20 8:32:00 EDT, Tablet, [facility], Partial fill upon patient [...] Maintenance, 04/30/16 14:46:26, Route to Pharmacy Electronically, [id number]... Start Date: 04/30/16 Status: Ordered NovoLog Inj [...]
--- OUTSIDE RECORDS SUMMARY | 2024-02-11 13:06 | XMS_ITS | Continuity of Care Document ---
Author Organization [facility] Address [address] [place] [address]- Care Team Providers Care Fixed Wing Pilot Name Role Phone Erick Kohli MD Primary Care Physician [id number] Date(s): 03/08/21 - 07/06/21 [facility] [address] [place], [place] [address] Attending Physician: Ryan Scott MD Admitting Physician: [...] Maintenance, 04/09/16 16:22:43, Route to Pharmacy Electronically, [id number], [facility]/pharmacy #[id number] Start Date: 04/09/16 Status: Ordered [...] Refills, Maintenance, 09/19/20 8:32:00 EDT, Tablet, [facility], Partial fill upon patient [...] Maintenance, 04/30/16 14:46:26, Route to Pharmacy Electronically, [id number]... Start Date: 04/30/16 Status: Ordered NovoLog Inj [...]
--- OUTSIDE RECORDS SUMMARY | 2024-02-11 13:06 | XMS_ITS | Continuity of Care Document ---
Author Organization [facility] Address [address] [place] [address]- Care Team Providers Care Mixing Machine Operator Name Role Phone Seun ZHAO, Erick Jensen Primary Care Physician En[place] [facility] [place] Date(s): 10/27/20 - 11/26/20 [facility] [address] [place] [address]- Allergies, Adverse Reactions, Alerts Substance Reaction Severity [...] Maintenance, 04/09/16 16:22:43, Route to Pharmacy Electronically, [id number], [facility]/pharmacy #[id number] Start Date: 04/09/16 Status: Ordered gabapentin [...] 2 Refills, Maintenance, 09/19/20 8:32:00 EDT, Tablet, [facility], Partial fill upon patient [...] Maintenance, 04/30/16 14:46:26, Route to Pharmacy Electronically, [id number]... Start Date: 04/30/16 Status: Ordered NovoLog Inj [...]
--- OUTSIDE RECORDS SUMMARY | 2024-02-11 13:06 | XMS_ITS | Continuity of Care Document ---
Author Organization [facility] Address [address] [place] [address]- Care Team Providers Care Straddle Bug Operator Name Role Phone Erick Kohli MD Primary Care Physician Encounter [facility] Date(s): 09/26/20 - 10/26/20 [facility] [address] [place], [place] [address] Physician: Ryan Scott MD Admitting Physician: [...] 6, Maintenance, wrap foot with pads and brie,10/26/20 15:28:00 EDT, Supply, 182.88, cm, 10/17/20 13:47:00 EDT, Height Start Date: 10/26/20 Status: Ordered aspirin 81 mg oral delayed [...] Maintenance, 04/09/16 16:22:43, Route to Pharmacy Electronically, [id number], [facility]/pharmacy #[id number] Start Date: 04/09/16 Status: Ordered gabapentin [...] Refills 6, Maintenance, apply to wound daily, 10/26/2114:29:00 EDT, Supply, 182.88, cm, 10/17/20 13:47:00 EDT, Height Start Date: 10/26/20 Status: Ordered Gauze Roll (4 ) See [...] 2 Refills, Maintenance, 09/19/20 8:32:00 EDT, Tablet, [facility], Partial fill upon patient request [...] Maintenance, 04/30/16 14:46:26, Route to Pharmacy Electronically, [id number]... Start Date: 04/30/16 Status: Ordered NovoLog Inj [...]
--- OUTSIDE RECORDS SUMMARY | 2024-02-11 13:06 | XMS_ITS | Continuity of Care Document ---
Author Organization [facility] Address [address] [place] [address]- Care Team Providers Care Historiography Professor Name Role Phone Erick Kohli MD Primary Care Physician Encounter [facility] [place] Date(s): 07/28/21 - 07/28/[address] [address]- Encounter Diagnosis Olecranon bursitis of right elbow(Final) - 07/28/21 Discharge Disposition: A-D/C Home Attending Physician: Sasha Ayala MD Admitting Physician: Sasha Ayala MD Referring Physician: Not on Staff, Referring MD Allergies, Adverse Reactions, Alerts Substance Reaction Severity Status Reglan severe itching Active Fish D&V - Diarrhea and vomiting Active Pork [D]Vomiting Diarrhea symptoms Active Pollen stuffy nose Active Immunizations Given and Recorded Vaccine Date [...] Maintenance, 04/09/16 16:22:43, Route to Pharmacy Electronically, [id number], [facility]/pharmacy #[id number] Start Date: 04/09/16 [...] 2 Refills, Maintenance, 09/19/20 8:32:00 EDT, Tablet, [facility], Partial fill upon patient [...] Maintenance, 04/30/16 14:46:26, Route to Pharmacy Electronically, [id number]... Start Date: 04/30/16 Status: Ordered NovoLog Inj [...] Most recent to oldest [Reference Range]: 1 2 Oxygen Saturation [94-100 %] 100 % (07/28/21 12:55 PM) 100 % (07/28/21 10:37 AM) Pulse Rate [55-90 bpm] 66 bpm (07/28/21 12:55 PM) 84 bpm (07/28/21 10:37 AM) Blood Pressure [90-138/55-84 mm Hg] 135/ 78mm Hg (07/28/21 12:55 PM) 128/88mm Hg (07/28/21 10:37 AM) Respiratory Rate [16-30 br/min] 18 br/mi n (07/28/21 12:55 PM) 16 br/min (07/28/21 10:37 AM) Temperature [96.8-100.4 DegF] 98.0 DegF (07/28/21 12:55 PM) 97.8 DegF (07/28/21 10:37 AM) Mode of Delivery (Oxygen) Room air (07/28/21 12:55 PM) Room air (07/28/21 10:37 AM) Blood pressure sites Arm, left (07/28/21 12:55 PM) Arm, left (07/28/21 10:37 AM) Temperature Route Oral (07/28/21 12:55 PM) Oral (07/28/21 10:37 AM) Social History Social History Type Response Smoking Status Former smoker entered on: 08/09/17 Sex
--- OUTSIDE RECORDS SUMMARY | 2024-02-11 13:06 | XMS_ITS | Continuity of Care Document ---
Author Organization [facility] Address [address] [place] [address]- Care Team Providers Care Rotary Engine Assembler Name Role Phone Seun ZHAO, Erick Jensen Primary Care Physician En[facility] [place] Date(s): 09/30/23 - 10/30/23 [facility] [address] [place] [address] Attending Physician: Sumit Rangel Admitting Physician: Sumit Rangel Referring Physician: AdmtrSumit Allergies, Adverse Reactions, Alerts Substance Reaction Severity Status Reglan severe itching Active Fish D&V - Diarrhea and vomiting Active Pollen stuffy nose Active Pork [D]Vomiting Diarrhea symptoms Active Immunizations Given and Recorded Vaccine Date Status Refusal Reason SARS-CoV-2 (COVID-19) mRNA BNT-162b2 vac 03/22/21 Recorded SARS-CoV-2 (COVID-19) mRNA BNT-162b2 vac 08/16/20 Recorded SARS-CoV-2 (COVID-19) mRNA BNT-162b2 vac 07/25/20 Recorded pneumococcal 23-valent vaccine 03/16/16 Given Medications 14 [...] opioid drug. Start Date: 09/08/21 Status: Ordered ammonium lactate 12% topical cream 1 application, Topically, 2 times a day, # 280 Gm, 0 Refills, Maintenance, 06/14/22 15:08:00 EST, Cream, [facility]/pharmacy #[id number], Partial fill upon patient request if the prescription is for a schedule IIopioid drug., 1 application Topically 2 times a day... Start Date: 06/14/22 Status: Ordered atorvastatin 80 mg oral tablet TAKE 1 TABLET BY MOUTH EVERY DAY Start Date: 10/24/22 Status: Ordered BKA Prosthetic Socks BKA Prosthetic Socks, See Instructions, # 2 each, Refills 0, Tot. Refills 0, Maintenance, BKA PROSTHETIC SOCKS ,K3,Z89.511 PT WEIGHT 93 KG, 08/10/21 15:03:00 EDT, Supply Start Date: 08/10/21 Status: Ordered Carafate 1 gm oral tablet 1 Gm, 1, tablet, By Mouth, 3 times a day before meals and bedtime, # 56 tablet, Refills 0, Tot. Refills 0, Maintenance, 10/28/22 9:15:00 EDT, Route to Pharmacy Electronically, [facility], Partial fill upon patient request if the prescrip... Start Date: 10/28/22 Stop Date: 11/11/22 Status: Ordered clopidogrel 75 mg oral tablet 75 mg, 1, tablet, By Mouth, Daily, # 30 tablet, Refills 4, Tot. Refills 4, Maintenance, 04/09/16 16:22:43, Route to Pharmacy Electronically, [id number], [facility]/pharmacy #[id number] Start Date: 04/09/16 Status: Ordered Coreg 25 mg oral tablet 25 mg, 1, tablet, By Mouth, 2 times a day, # 60 tablet, Refills 0, Tot. Refills 0, Maintenance, 10/28/22 9:08:00 EDT, Route to Pharmacy Electronically, [facility], Partial fill upon patient request if the prescription is for a schedule I... Start Date: 10/28/22 Stop Date: 11/27/22 Status: Ordered gabapentin 300 mg oral capsule TAKE 1 CAPSULE BY MOUTH 3 TIMES A DAY Start Date: 10/24/22 Status: Ordered Gauze Pad (4 X 4) [...] Weight Start Date: 09/08/21 Status: Ordered Lantus Inj = 20 units, Subcutaneous Injection, Daily at bedtime, 0 Refills, Maintenance, 10/28/22 9:08:00 EDT,Injection, Partial fill upon patient request if the prescription is for a schedule II opioid drug. Start Date: 10/28/22 Status: Ordered losartan 50 mg oral tablet 1 tablet = 50 mg, By Mouth, Daily, # 30 tablet, 0 Refills, Maintenance, 09/08/21 10:15:00 EDT, Tablet, Partial fill upon patient request if the prescription is for a schedule II opioid drug. Start Date: 09/08/21 Status: Ordered pantoprazole 40 mg oral delayed release tablet 1 tablet = 40 mg, By Mouth, Daily, # 30 tablet, 0 Refills, Maintenance, 10/28/22 9:15:00 EDT, EC Tablet, 182, cm, 10/28/22 7:30:00 EDT, Height, 104.5, kg, 10/27/22 4:32:00 EDT, Dry Weight Start Date: 10/28/22 Stop Date: 11/27/22 Status: Ordered RT BKA Prosthetic RT BKA [...] Condition Confirmation Course Effective Dates Status H ealt Status Informant Coronary atherosclerosis due to calcified [...] on: 08/09/17 Sex Patient Care team information Care Team Personnel Name: Juliet Mcdonald RN Position: S RN Member Role: Primary Care Nurse Name: Erick Kohli MD Position: Reference Physician Member Role: PCP Address: Address: [address] [place] [address] Drive [address] [place] [address]- [place] Name: Samantha Mancera RN Position: [facility] RN Member Role: Primary Care Nurse Name: Ashish Kirk RN Position: [facility] RN Supv Member Role: Primary Care Nurse Name: Luis E Jenkins MD Position: [facility] Renal MD Member Role: Lifetime Consulting Physician Address: Address: [address] [place] [address] [address] [facility] [place], [place] - [place] Name: Adore Angela MD Position: [facility] Renal MD Member Role: Lifetime Consulting Physician Address: Address: [address] [place] [address], [address] [facility] [place] [address]- Name: Yaritza Paz RN Position: [facility] RN Member Role: Primary Care Nurse Name: Fernando Torres RN Position: [facility] RN Member Role: Primary Care Nurse Name: Azalea Romero RN Position: [facility] Rn Radiology Member Role: Primary Care Nurse Name: Shannon Gary Position: [facility] Outreach Member Role: Lifetime Consulting Physician Name: Alli Leslie RN Position: [facility] RN Member Role: Primary Care Nurse Name: Lety Garcia RN Position: [facility] AMB Nurse Member Role: Primary Care Nurse Name: Chana Wayne RN Position: [facility] RN Member Role: Primary Care Nurse Name: Karla Otero RN Position: [facility] RN Member Role: Primary Care Nurse Name: Isabel Thurman RN Position: [facility] RN Member Role: Primary Care Nurse Name: Josefina Painting RN Position: [facility] RN Member Role: Primary Care Nurse Name: Khoa Dee MD Position: [facility] Renal MD Member Role: Lifetime Consulting Physician Address: Address: [address] [place] [address] [address] [facility] [place] [place] [address]- Name: Karina Jasso RN Position: [facility] RN Member Role: Primary Care Nurse Name: Fernanda Maldonado RN Position: [facility] RN Member Role: Primary Care Nurse Name: Ridge Camejo RN Position: [facility] RN Member Role: Primary Care Nurse Name: Iva Doan RN Position: [facility] AMB Nurse Member Role: Primary Care Nurse Name: Salvador Anderson MD Position: [facility] Renal MD Member Role: Lifetime Consulting Physician Address: Address: [address] [place] [address] [facility] [place], [place] [address] Name: Zora Bolanos RN Position: S RN Member Role: Primary Care Nurse Name: Sheila Baugh RN Position: S RN Member Role: Primary Care Nurse Name: Delfino Rae Position: S RN Member Role: Primary Care Nurse Name: Leigha Parmar RN Position: [facility] RN Member Role: Primary Care Nurse Name: Isabel Hair RN Position: [facility] RN Member Role: Primary Care Nurse Care Team Related Persons Name: KARYNA VENTURA Address: home [address] [place] [address] Name: KEDAR VENTURA Address: [address] [place] [address] Name: URBANO MORGAN Address: [address] [place] [address] Name: LLOYD CELESTIN Address: home [address] [place] [address]
--- OUTSIDE RECORDS SUMMARY | 2024-02-11 13:06 | XMS_ITS | Continuity of Care Document ---
Author Organization [facility] Address [address] [place] [address]- Care Team Providers Care Carnival Worker Name Role Phone Seun ZHAO, Erick Jensen Primary Care Physician Encounter [facility] Date(s): 09/21/20 - 10/21/20 [facility] [address] [place] [address]- Allergies, Adverse Reactions, Alerts Substance Reaction Severity [...] Maintenance, 04/09/16 16:22:43, Route to Pharmacy Electronically, [id number], [facility]/pharmacy #[id number] Start Date: 04/09/16 Status: Ordered gabapentin [...] 2 Refills, Maintenance, 09/19/20 8:32:00 EDT, Tablet, [facility], Partial fill upon patient request if [...] Maintenance, 04/30/16 14:46:26, Route to Pharmacy Electronically, [id number]... Start Date: 04/30/16 Status: Ordered NovoLog Inj [...]
--- OUTSIDE RECORDS SUMMARY | 2024-02-11 13:06 | XMS_ITS | Continuity of Care Document ---
Author Organization [facility] ter Address [address] [place] [address]- Care Team Providers Care Wildlife Biostation Research Ecologist Name Role Phone Erick Kohli MD Primary Care Physician Encounter [facility] [place] Date(s): 09/05/21 - 09/08/[address] [address] Discharge Disposition: A-D/C Home Attending Physician: Fernanda Anderson MD Admitting Physician: Shola Aj MD Referring Physician: Not on Staff, Referring [...] Maintenance, 04/09/16 16:22:43, Route to Pharmacy Electronically, [id number], [facility]/pharmacy #[id number] Start Date: 04/09/16 Status: Ordered doxycycline hyclate 100 mg oral tablet 1 capsule, By Mouth, Every 12 hours, for 30 days, take with a full glass of water; best not to lie down for 1 hour after taking medication., # 60 tablet, 1 Refills, Acute 11/07/21 10:16:00 EDT, 09/08/21 10:16:00 EDT, Capsule, [facility],... Start Date: 09/08/21 Stop Date: 11/07/21 Status: Ordered gabapentin 300 mg oral capsule 900 mg, By Mouth, Daily at bedtime, Refills 0, Maintenance, 08/23/18 10:02:57 EDT Start Date: 08/23/18 Status: Ordered gabapentin 300 mg oral capsule 900 mg, Capsule, By Mouth, 09/07/21 21:00:00 EDT Start Date: 09/07/21 Stop Date: 09/07/21 Status: Completed Gauze Pad (4 X 4) See Instructions, [...] 0 Refills, Maintenance, 09/08/21 10:51:00 EDT, Solution, [facility]/pharmacy #[id number], Partial fill upon patient request if [...] drug. Start Date: 09/08/21 Status: Ordered metoprolol 50 mg oral tablet 50 mg, Tablet, By Mouth, Hold for: SBP LESS THAN 90 OR HR LESS THAN 55, 09/08/21 9:00:00 EDT Start Date: 09/08/21 Stop Date: 09/08/21 Status: Completed metoprolol succinate 100 mg oral capsule, extended [...] HTN (hypertension)(Confirmed) Active Acute kidney injury(Confirmed) Active Obese class I(Confirmed) Active WANG on CPAP(Confirmed) Active Osteomyelitis(Confirmed) Active Ulceration(Confirmed) Active Results Orders for Microbiology Reports Name Date Anaerobic Culture (ANAEROBIC CULTURE) Tissue Culture w/ Gram Smear (TISSUE/BIO PSY CULT.) 09/07/21 Microbiology Reports TEST:Anaerobic Culture STATUS:Unauthenticated BODY SITE: SOURCE:TISSUE1 COLLECTED DATE/TIME:09/07/21 10:15 AM Anaerobic Culture SPECIMEN DESCRIPTION : TISSUE LEFT 2ND TOE SPECIAL REQUESTS : NONE CULTURE : NO ANAEROBES ISOLATED SO FAR. REPORT STATUS : PRELIMINARY REPORT TEST:Tissue/Biopsy Culture STATUS:Unauthenticated BODY SITE: SOURCE:TISSUE1 COLLECTED DATE/TIME:09/07/21 10:15 AM Tissue/Biopsy Culture SPECIMEN DESCRIPTION : TISSUE LEFT 2ND TOE SPECIAL REQUESTS : CRITICAL VALUE CALLED AND VERIFIED BY READBACK FOR: GRAM POSITIVE COCCI TO [id number], S64, ON 09/07/21 AT 22:40 BY [employer] 5867 GRAM STAIN : 3+ POLYMORPHONUCLEAR LEUKOCYTES 1+ TISSUE CELLS 2+ GRAM POSITIVE COCCI REPORT STATUS : PRELIMINARY REPORT Vital Signs Most recent to oldest [Reference Range]: 1 2 3 Height 182 cm (09/08/21 4:59 AM) 182 cm (09/07/21 9:04 PM) 182 cm (09/07/21 8:51 PM) Weight 109 kg (09/07/21 8:49 AM) Oxygen Saturation [94-100 %] 99 % (09/08/21 4:59 AM) 100 % (09/07/21 8:51 PM) 99 % (09/07/21 2:00 PM) Pulse Rate [55-90 bpm] 84 bpm (09/08/21 9:02 AM) 84 bpm (09/08/21 4:59 AM) 85 bpm (09/07/21 8:51 PM) Body Mass Index [18.5-24.99] 32.91 *>HHI* (09/07/21 8:49 AM) Blood Pressure [90-138/55-84 mm Hg] 144/89mm Hg *H* (09/08/21 9:02 AM) 135/64mm Hg (09/08/21 4:59 AM) 148/83mm Hg *H* (09/07/21 9:04 PM) Respiratory Rate [16-30 br/min] 19 br/min (09/08/21 4:59 AM) 18 br/min (09/07/21 11:13 PM) 18 br/min (09/07/21 9:19 PM) Temperature [96.8-100.4 DegF] 98.3 DegF (09/08/21 4:59 AM) 98.3 DegF (09/07/21 8:51 PM) 98.8 DegF (09/07/21 2:00 PM) Liters per Minute 4 L/min (09/07/21 10:00 AM) Mode of Delivery (Oxygen) Room air (09/08/21 4:59 AM) Room air (09/07/21 8:51 PM) Room air (09/07/21 10:30 AM) Blood pressure sites Arm, right (09/08/21 4:59 AM) Arm, left (09/07/21 9:04 PM) Arm, left (09/07/21 8:51 PM) Temperature Route Oral (09/08/21 4:59 AM) Oral (09/07/21 8:51 PM) Oral (09/07/21 2:00 PM) Dry Weight 109 kg (09/07/21 8:49 AM) 109 kg (09/05/21 8:42 PM) Weight Obtained Via Bed scale (09/05/21 8:42 PM) Social History Social History Type Response Smoking Status Former smoker entered on: 08/09/17 Sex
--- OUTSIDE RECORDS SUMMARY | 2024-02-11 13:06 | XMS_ITS | Continuity of Care Document ---
Author Organization [facility] Address [address] [place] [address]- Care Team Providers Care Staff Sonographer Name Role Phone Erick Kohli MD Primary Care Physician [phone] Encounter [facility] [place] Date(s): 10/17/20 - 11/16/20 [facility] [address] [place] [id number] Attending Physician: AdmSumit yarbrough Admitting Physician: AdmtrSumit Referring Physician: Admtr, Ar8 Allergies, Adverse Reactions, Alerts Substance Reaction Severity [...] Maintenance, 04/09/16 16:22:43, Route to Pharmacy Electronically, [id number], [facility]/pharmacy #[id number] Start Date: 04/09/16 Status: Ordered gabapentin [...] 2 Refills, Maintenance, 09/19/20 8:32:00 EDT, Tablet, [facility], Partial fill upon patient [...] Maintenance, 04/30/16 14:46:26, Route to Pharmacy Electronically, [id number]... Start Date: 04/30/16 Status: Ordered NovoLog Inj [...]
--- OUTSIDE RECORDS SUMMARY | 2024-02-11 13:07 | XMS_ITS | Continuity of Care Document ---
Author Organization [facility] Address [address] [place] [address]- Care Team Providers Care Green End Worker Name Role Phone Erick Kohli MD Primary Care Physician [id number] Date[facility] 04/14/21 - 05/20/[address] [address]- Attending Physician: Hood Del Rio Admitting Physician: Hood Del Rio Referring Physician: Hood Del Rio Allergies, Adverse Reactions, Alerts Substance Reaction Severity [...] Maintenance, 04/09/16 16:22:43, Route to Pharmacy Electronically, [id number], [facility]/pharmacy #7111 Start [...] 2 Refills, Maintenance, 09/19/20 8:32:00 EDT, Tablet, [facility], Partial fill upon patient [...] Maintenance, 04/30/16 14:46:26, Route to Pharmacy Electronically, [id number]... Start Date: 04/30/16 Status: Ordered NovoLog Inj [...]
--- OUTSIDE RECORDS SUMMARY | 2024-02-11 13:07 | XMS_ITS | Continuity of Care Document ---
Author Organization [facility] Address [address] [place] [address]- Care Team Providers Care Sheet Metal Layout Worker Name Role Phone Erick Kohli MD Primary Care Physician [phone] [place] [facility] [place]/15/23 - 05/15/23 [facility] [address] [place] [address] Attending Physician: Sumit Rangel Admitting Physician: AdmSumit yarbrough Referring Physician: AdmtrSumit [...] 0 Refills, Maintenance, 06/14/22 15:08:00 EST, Cream, [facility]/pharmacy #[id number], Partial fill upon patient request if [...] 10/28/22 9:15:00 EDT, Route to Pharmacy Electronically, [facility], Partial fill upon patient request if the prescrip... Start Date: 10/28/22 Stop Date: 11/11/22 Status: Ordered clopidogrel 75 mg oral tablet 75 mg, 1, tablet, By Mouth, Daily, # 30 tablet, Refills 4, Tot. Refills 4, Maintenance, 04/09/16 16:22:43, Route to Pharmacy Electronically, [id number], [facility]/pharmacy #[id number] Start Date: 04/09/16 Status: Ordered Coreg 25 mg oral tablet 25 mg, 1, tablet, By Mouth, 2 times a day, # 60 tablet, Refills 0, Tot. Refills 0, Maintenance, 10/28/22 9:08:00 EDT, Route to Pharmacy Electronically, [facility], Partial fill upon patient [...] Reference Physician Member Role: PCP Address: Address: [address] [place] [address] [address] [place] [address]- [place] Name: Samantha Mancera RN Position: [facility] RN Member Role: Primary Care Nurse Name: Ashish Kirk RN Position: [facility] RN Supv Member Role: Primary Care Nurse Name: Luis E Jenkins MD Position: [facility] Renal MD Member Role: Lifetime Consulting Physician Address: Address: [address] [place] [address] [address] [facility] [place] [address]- [place] Name: Adore Angela MD Position: [facility] Renal MD Member Role: Lifetime Consulting Physician Address: Address: [address] [place] [address], [address] [facility] [place] [address]- Name: Yaritza Paz RN Position: [facility] RN Member Role: Primary Care Nurse Name: Fernando Torres RN Position: [facility] RN Member Role: Primary Care Nurse Name: Azalea Romero RN Position: [facility] Muck Miner Member Role: Primary Care Nurse Name: Shannon Gary Position: [facility] Outreach Member Role: Lifetime Consulting Physician Name: Alli Leslie RN Position: [facility] RN Member Role: Primary Care Nurse Name: Lety Garcia RN Position: [facility] AMB Nurse Member Role: Primary Care Nurse Name: Chana Wayne RN Position: [facility] RN Member Role: Primary Care Nurse Name: Karla Otero RN Position: [facility] RN Member Role: Primary Care Nurse Name: Isabel Thurman RN Position: [facility] RN Member Role: Primary Care Nurse Name: Josefina Painting RN Position: [facility] RN Member Role: Primary Care Nurse Name: Khoa Dee MD Position: [facility] Renal MD Member Role: Lifetime Consulting Physician Address: Address: [address] [place] [address] [address] [facility] [place] [place] [address]- Name: Karina Jasso RN Position: [facility] RN Member Role: Primary Care Nurse Name: Fernanda Maldonado RN Position: [facility] RN Member Role: Primary Care Nurse Name: Ridge Camejo RN Position: [facility] RN Member Role: Primary Care Nurse Name: Iva Doan RN Position: [facility] AMB Nurse Member Role: Primary Care Nurse Name: Salvador Anderson MD Position: [facility] Renal MD Member Role: Lifetime Consulting Physician Address: Address: [address] [place] [address] [facility] [place], [place] [address] Name: Zora Bolanos RN Position: S RN Member Role: Primary Care Nurse Name: Sheila Baugh RN Position: S RN Member Role: Primary Care Nurse Name: Delfino Rae Position: S RN Member Role: Primary Care Nurse Name: Leigha Parmar RN Position: S RN Member Role: Primary Care Nurse Name: Isabel Hiar RN Position: S RN Member Role: Primary Care Nurse Care Team Related Persons Name: KARYNA VENTURA Address: home [address] [place] [address] Name: KEDAR VENTURA Address: home [address] [place] [address] Name: URBANO MORGAN Address: [address] [place] [address] Name: LLOYD CELESTIN Address: home [address] [place] [address]
--- OUTSIDE RECORDS SUMMARY | 2024-02-11 13:07 | XMS_ITS | Continuity of Care Document ---
Author Organization [facility] Address [address] [place] [address]- Care Team Providers Care Fire Department Marine Engineer Name Role Phone Erick Kohli MD Primary Care Physician Encounter [facility] [place] Date(s): 09/05/20 - 10/05/20 [facility] [address] [place], [place] [address] Allergies, Adverse Reactions, Alerts Substance Reaction Severity [...] Maintenance, 04/09/16 16:22:43, Route to Pharmacy Electronically, [id number], [facility]/pharmacy #[id number] Start Date: 04/09/16 Status: Ordered [...] 10/18/20 10:59:00 EDT, 09/27/20 10:59:00 EDT, Tablet, [facility]/pharmacy #[id number], Partial fill upon patient request if the prescription is for a schedule II opioid drug.,... Start Date: 09/27/20 Stop Date: 10/18/20 Status: Ordered losartan 100 mg oral tablet 1 tablet = 100 mg, By Mouth, Daily, # 30 tablet, 2 Refills, Maintenance, 09/19/20 8:32:00 EDT, Tablet, [facility], Partial fill upon patient [...] Maintenance, 04/30/16 14:46:26, Route to Pharmacy Electronically, [id number]... Start Date: 04/30/16 Status: Ordered NovoLog Inj [...] tablet, 1 Refills, Maintenance, 03/16/20 11:57:00 EST, [facility]/pharmacy#0517, 1 tablet By Mouth Daily, 183, cm, [...]
--- OUTSIDE RECORDS SUMMARY | 2024-02-11 13:07 | XMS_ITS | Continuity of Care Document ---
Author Organization [facility] Address [address] [place] [address]- Care Team Providers Care Hairspring Fabrication Supervisor Name Role Phone Erick Kohli MD Primary Care Physician Encounter [facility] [place] Date(s): 01/23/22 - 02/22/22 [facility] [address] [place] [address] Allergies, Adverse Reactions, Alerts Substance Reaction [...] Acute 03/24/22 12:17:00 EST, 01/23/22 12:17:00 EDT, [facility]/pharmacy #[id number], Partial fill upon patient request if the [...] Maintenance, 04/09/16 16:22:43, Route to Pharmacy Electronically, [id number], [facility]/pharmacy #7141 Start Date: 04/09/16 Status: Ordered gabapentin 300 [...] 0 Refills, Maintenance, 09/08/21 10:51:00 EDT, Solution, [facility]/pharmacy #1851, Partial fill upon patient request if [...] Personnel Name: Erick Kohli MD Address: Address: [address] [place] [address] [address] [place] [address]
--- OUTSIDE RECORDS SUMMARY | 2024-02-11 13:07 | XMS_ITS | Continuity of Care Document ---
Author Organization [facility] Address [address] [place] [address]- Care Team Providers Care Vice President Lending Name Role Phone Erick Kohli MD Primary Care Physician [place] [facility] [place] 10[place]19 - 02/12/20 [facility] [address] [place] [address]- [facility] Attending Physician: Malina Alejandre NP Admitting Physician: Malina Alejandre NP Referring Physician: Erick Kohli MD Allergies, Adverse Reactions, Alerts Substance Reaction Severity Status Reglan severe itching Active Fish D&V - Diarrhea and vomiting Active Pollen Active Pork [D]Vomiting Diarrhea symptoms Active Immunizations Given and Recorded Vaccine Date Status Refusal Reason pneumococcal 23-valent vaccine 03/16/16 Given Medications ABD PADS ABD PADS, See Instructions, # 30 each, Refills 3, Tot. Refills 3, Maintenance, WRAP FOOT WITH PADS AND GAVI, 12/23/19 10:52:00 EDT, Compound Start Date: 12/23/19 Status: Ordered Aquelcel Ag Extra Aquelcel Ag Extra, See Instructions, # 60 each, Refills 3, Tot. Refills 3, Maintenance, Apply to foot wound, 12/23/19 11:50:00 EDT, Supply Start Date: 12/23/19 Status: Ordered aspirin 81 mg oral delayed [...] Maintenance, 04/09/16 16:22:43, Route to Pharmacy Electronically, [id number], [facility]/pharmacy #[id number] Start Date: 04/09/16 Status: Ordered gabapentin 300 mg oral capsule 900 mg, By Mouth, Daily at bedtime, Refills 0, Maintenance, 08/23/18 10:02:57 EDT Start Date: 08/23/18 Status: Ordered Gauze Pad (4 X 4) See Instructions, # 60 each, Refills 3, Tot. Refills 3, Maintenance, Apply to foot wound, then wrapwith roll gauze, 12/23/19 11:48:00 EDT, Supply Start Date: 12/23/19 Status: Ordered Gauze Roll (4 ) See Instructions, # 60 each, Refills 3, Tot. Refills 3, Maintenance, Wrap gauze around foot wound, 12/23/19 11:35:00 EDT, Supply Start Date: 12/23/19 Status: Ordered Insulin Glargine = 24 units, [...] Maintenance, 04/30/16 14:46:26, Route to Pharmacy Electronically, [id number]... Start Date: 04/30/16 Status: Ordered NovoLog Inj Subcutaneous Infusion, 3 times a day before meals, 0 Refills, Maintenance, 08/20/17 14:55:16 EDT Start Date: 08/20/17 Status: Ordered RT BKA Prosthetic RT BKA Prosthetic, See Instructions, # 2 each, Refills 0, Tot. Refills 0, Maintenance, RT BKA PROSTHETIC SOCKET REPLACEMENT,K3,Z89.511 PT WEIGHT 93 KG, 12/29/19 10:10:00 EDT, Supply Start Date: 12/29/19 Status: Ordered sulfamethoxazole-trimethoprim 400 mg-80 mg oral tablet 1 tablet, By Mouth, Daily, # 90 tablet, 0 Refills, Maintenance, 10/19/19 9:17:00 EDT, [facility]acy [facility]17, 1 tablet By Mouth Daily, 183, cm, 07/20/19 14:50:00 EDT, Height, 99.5, kg, 09/09/18 21:24:00 EDT, Dry Weight Start Date: 10/19/19 Status: Ordered Tape (1 -Paper) See Instructions, # 2 each, Refills 3, Tot. Refills 3, Maintenance, use to wrap gauze to foot wounds, 12/23/19 10:56:00 EDT, Supply Start Date: 12/23/19 Status: Ordered Problem List Condition Effective Dates [...]
--- OUTSIDE RECORDS SUMMARY | 2024-02-11 13:07 | XMS_ITS | Continuity of Care Document ---
Author Organization [facility] Address [address] [place] [address]- Care Team Providers Care Dancing Instructor Name Role Phone Erick Kohli MD Primary Care Physician Encounter [facility] Date(s): 07/26/22 - 08/25/22 [facility] [address] [place] [address] Attending Physician: Sumit Rangel Admitting Physician: AdmSumit [...] 0 Refills, Maintenance, 06/14/22 15:08:00 EST, Cream, [facility]/pharmacy #0517, Partial fill upon patient request if the prescription is for a schedule IIopioid drug., 1 application Topically 2 times a day... Start Date: 06/14/22 Status: Ordered aspirin 81 mg oral delayed [...] Maintenance, 04/09/16 16:22:43, Route to Pharmacy Electronically, [id number], [facility]/pharmacy #[id number] Start Date: 04/09/16 Status: Ordered [...] 0 Refills, Maintenance, 09/08/21 10:51:00 EDT, Solution, [facility]/pharmacy #1851, Partial fill upon patient request if [...] Team Personnel Name: Juliet Mcdonald RN Position: [facility] RN Member Role: Primary Care Nurse Name: Erick Kohli MD Position: Reference Physician Member Role: PCP Address: Address: [address] [place] [address] Drive [address] [place] [address]- Name: Samantha Mancera RN Position: S RN Member Role: Primary Care Nurse Name: Ashish Kirk RN Position: [facility] RN Supv Member Role: Primary Care Nurse Name: Homero Calvo RN Position: S RN Member Role: Primary Care Nurse Name: Luis E Jenkins MD Position: [facility] Renal MD Member Role: Lifetime Consulting Physician Address: Address: [address] [facility], [address] [facility] [place] [address]- Name: Adore Angela MD Position: [facility] Renal MD Member Role: Lifetime Consulting Physician Address: Address: [address] [place] [address], [address] [facility] [place] [address]- Name: Yaritza Paz RN Position: [facility] RN Member Role: Primary Care Nurse Name: Shirlene Ying RN Position: [facility] AMB Nurse Member Role: Primary Care Nurse Name: Fernando Torres RN Position: [facility] RN Member Role: Primary Care Nurse Name: Azalea Romero RN Position: [facility] Experimental Mechanic Member Role: Primary Care Nurse Name: Alli Leslie RN Position: [facility] RN Member Role: Primary Care Nurse Name: Lety Garcia RN Position: [facility] PCO RN Member Role: Primary Care Nurse Name: Chana Wayne RN Position: [facility] RN Member Role: Primary Care Nurse Name: Karla Otero RN Position: [facility] RN Member Role: Primary Care Nurse Name: Isabel Thurman RN Position: [facility] RN Member Role: Primary Care Nurse Name: Khoa Dee MD Position: [facility] Renal MD Member Role: Lifetime Consulting Physician Address: Address: [address] [place] [address] [address] [facility] [place] [address]- Name: Ridge Camejo RN Position: [facility] RN Member Role: Primary Care Nurse Name: Iva Doan RN Position: [facility] AMB Nurse Member Role: Primary Care Nurse Name: Salvador Anderson MD Position: [facility] Renal MD Member Role: Lifetime Consulting Physician Address: Address: [address] [place] [address] [facility] [place] [address]- Name: Zora Bolanos RN Position: [facility] RN Member Role: Primary Care Nurse Name: Sheila Baugh RN Position: [facility] RN Member Role: Primary Care Nurse Name: Delfino Rae Position: [facility] RN Member Role: Primary Care Nurse Name: Isabel Hair RN Position: [facility] RN Member Role: Primary Care Nurse Care Team Related Persons Name: KARYNA VENTURA Address: [address] [place] [address] Name: KEDAR VENTURA Address: [address] [place] [address] Name: LLOYD CELESTIN Address: [address] [place] [address]
--- OUTSIDE RECORDS SUMMARY | 2024-02-11 13:07 | XMS_ITS | Continuity of Care Document ---
Author Organization [facility] Address [address] [place] [address]- Care Team Providers Care Jackerman Name Role Phone Erick Kohli MD Primary Care Physician [phone] [place] [facility] [place]/04/21 - 06/08/[address] [address]- Attending Physician: Hood Del Rio Admitting Physician: [...] Maintenance, 04/09/16 16:22:43, Route to Pharmacy Electronically, [id number], [facility]/pharmacy #7111 Start Date: 04/09/16 Status: [...] Maintenance, 04/30/16 14:46:26, Route to Pharmacy Electronically, [id number]... Start Date: 04/30/16 Status: Ordered NovoLog Inj [...]
--- OUTSIDE RECORDS SUMMARY | 2024-02-11 13:07 | XMS_ITS | Continuity of Care Document ---
Author Organization [facility] Address [address] [place] [address]- Care Team Providers Care Nightclub Manager Name Role Phone Seun ZHAO, Erick Jensen Primary Care Physician Encounter [facility] [place] Date(s): 10/11/20 - 11/10/20 [facility] [address] [place] [address]- Allergies, Adverse Reactions, Alerts Substance Reaction Severity [...] Maintenance, 04/09/16 16:22:43, Route to Pharmacy Electronically, [id number], [facility]/pharmacy #7111 Start Date: 04/09/16 Status: Ordered [...] 2 Refills, Maintenance, 09/19/20 8:32:00 EDT, Tablet, [facility], Partial fill upon patient request [...] Maintenance, 04/30/16 14:46:26, Route to Pharmacy Electronically, [id number]... Start Date: 04/30/16 Status: Ordered NovoLog Inj [...]
--- OUTSIDE RECORDS SUMMARY | 2024-02-11 13:07 | XMS_ITS | Continuity of Care Document ---
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 Role Phone Erick Kohli MD Primary Care Physician [phone] [place] [facility] Date(s): 08/04/22 - 08/08/[address] [id number] Discharge Disposition: A-D/C Home Attending Physician: Merlin Adame MD Admitting Physician: Shola Aj MD Referring [...] 0 Refills, Maintenance, 06/14/22 15:08:00 EST, Cream, [facility]/pharmacy #[id number], Partial fill upon patient [...] EDT, Supply Start Date: 08/10/21 Status: Ordered ciprofloxacin 500 mg oral tablet 1 tablet = 500 mg, By Mouth, Every 12 hours, for 3 days, # 6 tablet, 0 Refills, Acute 08/11/22 13:22:00 EDT, 08/08/22 13:22:00 EDT, Tablet, [facility]/pharmacy #[id number], Partial fill upon patient request if the prescription is for a schedule II opioid drug., 18... Start Date: 08/08/22 Stop Date: 08/11/22 Status: Ordered clopidogrel 75 mg oral tablet 75 mg, 1, tablet, By Mouth, Daily, # 30 tablet, Refills 4, Tot. Refills 4, Maintenance, 04/09/16 16:22:43, Route to Pharmacy Electronically, [id number], [facility]/pharmacy #[id number] Start Date: 04/09/16 Status: Ordered gabapentin 300 mg oral capsule 300 mg, Capsule, By Mouth, 08/08/22 5:00:00 EDT Start Date: 08/08/22 Stop Date: 08/08/22 Status: Completed gabapentin 300 mg oral capsule 900 mg, [...] 0 Refills, Maintenance, 09/08/21 10:51:00 EDT, Solution, [facility]/pharmacy #[id number], Partial fill upon patient request if the [...] opioid drug. Start Date: 09/08/21 Status: Ordered losartan 50 mg oral tablet 50 mg, Tablet, By Mouth, 08/08/22 9:00:00 EDT Start Date: 08/08/22 Stop Date: 08/08/22 Status: Completed metoprolol 100 mg oral tablet, extended release 100 mg, XL Tablet, By Mouth, 08/08/22 9:00:00 EDT Start Date: 08/08/22 Stop Date: 08/08/22 Status: Completed metoprolol succinate 100 mg oral capsule, extended release 1 capsule = 100 mg, By Mouth, Daily, # 30 capsule, 0 Refills, Maintenance, 09/08/21 10:15:00 EDT, ER Capsule, Partial fill upon patient request if the prescription is for a schedule II opioid drug. Start Date: 09/08/21 Status: Ordered metroNIDAZOLE 500 mg oral tablet 1 tablet = 500 mg, By Mouth, Every 8 hours, for 3 days, # 9 tablet, 0 Refills, Acute 08/11/22 13:23:00 EDT, 08/08/22 13:23:00 EDT, Tablet, [facility]/pharmacy #[id number], Partial fill upon patient request if theprescription is for a schedule II opioid drug., 184... Start Date: 08/08/22 Stop Date: 08/11/22 Status: Ordered RT BKA Prosthetic RT BKA [...] Active Osteomyelitis Confirmed Active Ulceration Confirmed Active Results Orders for Microbiology Reports Name Date Blood Culture 08/04/22 Blood Culture #2 08/04/22 Microbiology Reports TEST:Blood Culture, Second Order STATUS:Unauthenticated BODY SITE: SOURCE:Blood COLLECTED DATE/TIME:08/04/22 11:21 AM Blood Culture, Second Order SPECIMEN DESCRIPTION : BLOOD R HAND SPECIAL REQUESTS : NONE CULTURE : NO GROWTH 4 DAYS REPORT STATUS : PRELIMINARY REPORT TEST:Blood Culture STATUS:Unauthenticated BODY SITE: SOURCE:Blood COLLECTED DATE/TIME:08/04/22 11:02 AM Blood Culture SPECIMEN DESCRIPTION : BLOOD RAC SPECIAL REQUESTS : NONE CULTURE : NO GROWTH 4 DAYS REPORT STATUS : PRELIMINARY REPORT Radiology Reports * Exam Date Time Procedure Performing Provider Status 08/04/22 12:[address] Abd/Pelvis W/ IV Contrast Only Rosalie Phillips; Auth (Verified) Notes: (CT Abd/Pelvis W/ IV Contrast Only) Reason For Exam: right flank/abdominal pain;Other: RESULT: CT Abd/Pelvis W/ IV Contrast Only CT Abd/Pelvis W/ IV Contrast Only Hx of Present Illness: n v x 3 days with reproducable midsternal cp non radiating; Reason: Other:; right flank abdominal pain; Clinical Question(s): Appendicitis; ischemic colitis; Order Comment: Patient unable to tolerate PO contrast. TECHNIQUE: Spiral CT through the abdomen and pelvis with IV contrast formatted in 3 planes. 100 cc of Omnipaque 300 was administered intravenously. This study was performed without oral contrast. Weight-based protocol using automatic tube modulation was used to optimize exposure parameters. CTDIvol Body: 17.02 mGy, DLP Body: 973 mGy*cm. COMPARISON: None. FINDINGS: Twisting Department End Finder View Findings, Lines and Tubes: None. Visualized Chest: Lung bases are clear. No pleural effusion. The heart is normal in size. No pericardial effusion. Diaphragm: Normal. Liver: Normal. Gallbladder: Contains layering sludge and stones. Gallbladder wall thickening and hyperenhancement.Extensive pericholecystic inflammatory stranding compatible with acute cholecystitis. Bile ducts: No biliary ductal dilation. Minimal wall enhancement of the common bile duct (602:54), likely reactive. Spleen: Normal. Pancreas: Normal. Adrenal glands: Normal. Kidneys and ureters: No hydronephrosis, stones, or suspicious masses. A few renal artery branch vascular calcifications. Subcentimeter hypodensity in the right kidney is too small to characterize. Bladder: Normal. Reproductive organs: Mild prostatomegaly. Stomach, small bowel, and large bowel: Underdistention of the majority of the distal colon. No bowel obstruction. Mild wall thickening of the first and second portions of the duodenum with surrounding stranding, likely reactive. Appendix: Normal. Peritoneum and retroperitoneum: Trace free fluid inferior to the gallbladder. No abscess. No omental or mesenteric lesions. Lymph nodes: No enlarged lymph nodes. Blood vessels: Moderate atherosclerotic vascular calcification. No aortic aneurysm. No evidence of venous thrombosis. Abdominal and pelvic wall: Some subcutaneous stranding of the fat within the gluteal regions. No fluid collection. Bones: No acute abnormality. Severe degenerative changes at L2-L3. Median sternotomy wires. IMPRESSION: Acute cholecystitis. No biliary ductal dilation. WSN: [id number] Ordering Physician: Deandre Ballesteros Dictated By: Sean Franklin MD Dictated Date/Time: 08/04/22 1:37 pm Reviewed By: Sean Franklin MD Signed By: Sean Franklin MD Signed Date/Time: 08/04/22 1:37 pm Transcribed By: ALEJANDRO Transcribed Date/Time: 08/04/22 1:29 pm * Exam Date Time Procedure Performing Provider Status 08/04/22 12:48 PM Chest Single Frontal View Vanessa Tobar ; Auth (Verified) Notes: (Chest Single Frontal View) Reason For Exam: Angina RESULT: Chest Single Frontal View Chest Single Frontal View Hx of Present Illness: n v x 3 days with reproducable midsternal cp non radiating; Reason: Angina; Clinical Question(s): CHF COMPARISON: 08/15/2018 FINDINGS: LINES AND TUBES: None. LUNGS AND PLEURA: Elevated right hemidiaphragm. This was present on previous exam. Lungs appear clear. No pleural effusion. No pneumothorax. HEART, MEDIASTINUM AND CHELSEA: Heart is normal in size. Normal mediastinal and hilar contour. BONES AND SOFT TISSUES: No acute abnormality. IMPRESSION: No acute abnormality. WSN: [id number] Ordering Physician: Deandre Ballesteros Dictated By: Don Gil MD Dictated Date/Time: 08/04/22 1:04 pm Reviewed By: Don Gil MD Signed By: Don Gil MD Signed Date/Time: 08/04/22 1:04 pm Transcribed By: ALEJANDRO Transcribed Date/Time: 08/04/22 1:03 pm Vital Signs Most recent to oldest [Reference Range]: 1 2 3 Height 184 cm (08/08/22 12:31 PM) 184 cm (08/07/22 4:14 PM) 184 cm (08/07/22 11:53 AM) Weight 93.4 kg (08/05/22 11:44 PM) 90.8 kg (08/05/22 3:15 AM) 104.5 kg (08/04/22 6:14 PM) Oxygen Saturation [94-100 %] 100 % (08/08/22 12:31 PM) 99 % (08/08/22 7:00 AM) 97 % (08/08/22 4:00 AM) Pulse Rate [55-90 bpm] 76 bpm (08/08/22 12:31 PM) 66 bpm (08/08/22 8:24 AM) 66 bpm (08/08/22 7:00 AM) Body Mass Index [18.5-24.99 kg/m2] 30.87 kg/m2 *>HHI* (08/04/22 6:14 PM) Blood Pressure [90-138/55-84 mm Hg] 156/79mm Hg *H* (08/08/22 12:31 PM) 148/62mm Hg *H* (08/08/22 8:24 AM) 148/62mm Hg *H* (08/08/22 8:24 AM) Respiratory Rate [16-30 br/min] 18 br/min (08/08/22 12:31 PM) 18 br/min (08/08/22 7:00 AM) 18 br/min (08/08/22 5:36 AM) Temperature [96.8-100.4 DegF] 97.6 DegF (08/08/22 12:31 PM) 97.9 DegF (08/08/22 7:00 AM) 97.4 DegF (08/08/22 4:00 AM) Mode of Delivery (Oxygen) Room air (08/08/22 12:31 PM) CPAP (08/08/22 7:00 AM) CPAP (08/08/22 4:00 AM) Blood pressure sites Arm, left (08/08/22 12:31 PM) Arm, left (08/08/22 7:00 AM) Arm, left (08/08/22 4:00 AM) Temperature Route Oral (08/08/22 12:31 PM) Oral (08/08/22 7:00 AM) Oral (08/08/22 4:00 AM) Dry Weight 104.5 kg (08/04/22 6:14 PM) Weight Obtained Via Bed scale (08/05/22 11:44 PM) Bed scale (08/05/22 3:15 AM) Social History Social History Type Response Smoking Status Former smoker entered on: 08/09/17 Sex Consult note * Hilario Fischer DO P: MODIFY, MODIFY, MODIFY, PERFORM Event Display: Consult Authored Date: [id number] Patient: ??CUTTING, JEROME ? Age:??47 Years?Sex:??Male?:??1975?? Chief Complaint/Reason for Consult CC: cholecystitis Consulted Surgeon: Venkata ZHAO History of Present Illness Jerome is a 47 year old male PMH CAD s/p CABGx3 2015, HFrEF??40-45% (08/2021),??PAD s/p R BKA (12/2013), L fem-popliteal bypass (02/2016), HTN, HLD, DM, CKD??presents to [facility] [place] with a three day history of nausea, vomiting, abdominal pain and chest pain.?Reports symptoms began the day fo llowing eating a [employer]'s double cheeseburger and patient attributed symptoms to food poisoning.?? However, when symptoms failed to resolved, he came to the ED.?? Workup showed leukocytosis 20.6 pro-BNP 1710 lactate 2 creatinine 1.7 and glucose 294.?? CT A/P demonstrated cholelithiasis with wall thickening and extensive pericholecystic inflammation.?? Given findings, General Surgery consulted for evaluation.?? Patient reports continued discomfort and abdominal pain but states nausea has improved some.?? He is has been having loose stools for the past few days and has had minimal oral intake.?? Denies fever, chills, SOB, chest pain Review of Systems Per HPI Physical Exam Vitals & Measurements T:??99.4?F ?? TX:??87?? RR:??16?? BP:??143/70?? SpO2:??99%?? Constitutional: Alert, in no distress. Mental Status: Oriented to person, place and time. Head:??Normocephalic, atraumatic.?? No scleral icterus Respiratory: Normal respiratory rate and effort. ?? Cardiovascular: Regular rate and rhythm. ?? Gastrointestinal: Abdomen soft, non-tender, non-distended. No guarding. ??No palpable abdominal masses or hernias.?Nolasco sign negative Skin: Skin is warm and dry Musculoskeletal: No edema. No gross deformities. Bilateral lower extremities soft and compressible with no skin changes. Psychiatric: Normal mood and affect Assessment/Plan Jerome is a 47 year old male PMH CAD s/p CABGx3 2015, HFrEF??40-45% (08/2021),??PAD s/p R BKA (12/2013), L fem-popliteal bypass (02/2016), HTN, HLD, DM, CKD??presents to [facility] on 08/04/2022 with a three day history of nausea, vomiting, abdominal pain and chest pain.?Symptoms initially attributed to food poisoning however he presented to ED when??symptoms failed to resolved.?? Workup showed leukocytosis 20.6 pro-BNP 1710 lactate 2 creatinine 1.7 and glucose 294.?? CT A/P demonstrated cholelithiasis with wall thickening and extensive pericholecystic inflammation.?? Given findings, General Surgery consulted for evaluation.?? Abdominal exam was benign with negative Nolasco sign.?? Given radiology findings and labs, it is likely he has cholecystitis and given extensive radiologic findings, it is concerning for possible gangrenous cholecystitis.?? However, his multiple medical comorbidities, elevated pro-BNP, EKG changes signal need for medical optimization prior to any surgical intervention ?? Recs: Medicine consultation for multiple comorbidities Will need optimization prior to any operative or procedural intervention Will need intervention on gallbladder - OR timing vs cholecystostomy tube vs elective cholecystectomy Antibiotics General Surgery will continue to follow Case discussed with Dr. Venkata ZHAO ?? [facility] [id number] Problem List/Past Medical History Ongoing Acute kidney injury Chronic kidney disease (CKD), stage III (moderate) CKD (chronic kidney disease) Coronary atherosclerosis due to calcified coronary lesion Diabetes mellitus type 2 with complications HLD (hyperlipidemia) HTN (hypertension) Lower extremity edema Obese class I WANG on CPAP Osteomyelitis Pickwickian syndrome Pressure sore Ulceration Historical No qualifying data Procedure/Surgical History Right foot wound debridment: 10/07/13 Home Medications Acetaminophen: 650 mg = 2 tablet, By Mouth, Every 6 hours Ammonium Lactate 12%: 1 application, Topically, 2 times a day Aspirin: 81 mg = 1 tablet, By Mouth, Daily Atorvastatin: 80 mg = 1 tablet, By Mouth, Daily Clopidogrel: 75 mg = 1 tablet, By Mouth, Daily Durable Medical Equipment (RT BKA Prosthetic): See Instructions, RT BKA PROSTHETIC SOCKET REPLACEMENT,K3,Z89.511PT WEIGHT 93 KG Durable Medical Equipment (RT Prosthetic Foot): See Instructions, RT prosthetic foot,K3DX:Z89.511 Durable Medical Equipment: See Instructions, wrap foot with pads and brie Durable Medical Equipment: See Instructions, Wrap GAuze Around Foot Wound Durable Medical Equipment: See Instructions, wrap foot with pads and klingDX Durable Medical Equipment: See Instructions, apply to wound daily Durable Medical Equipment (BKA Prosthetic Socks): See Instructions, BKA PROSTHETIC SOCKS ,K3,Z89.511PT WEIGHT 93 KG Durable Medical Equipment: See Instructions, apply to foot wound then wrap with roll gauze Durable Medical Equipment: See Instructions, Wrap gauze around foot wound Durable Medical Equipment: See Instructions, Wrap GAuze Around Foot Wound Durable Medical Equipment: See Instructions, surgical gloves size XL for left foot wound once daily Durable Medical Equipment: See Instructions, Use To Wrap Gauze To foot Wound Durable Medical Equipment (14 Kirlex roll, 14 kirlex fluffs, 1 roll of tape (plastic)): See Instructions, 14 each Gabapentin: 900 mg, By Mouth, Daily at bedtime Insulin Glargine: 15 units, Subcutaneous Injection, Daily at bedtime Insulin Lispro: See Instructions, for premeal insulin; check blood sugar prior to meals; continue as per prior instructions Losartan: 50 mg = 1 tablet, By Mouth, Daily Metoprolol: 100 mg = 1 capsule, By Mouth, Daily Allergies Fish??(D&V - Diarrhea and vomiting) Pollen??(stuffy nose) Pork??([D]Vomiting, Diarrhea symptoms) Reglan??(severe itching) Social History Tobacco Former smoker, 08/09/2017 Denies alcohol use Denies tobacco use Reports marijuana use, vaping Lives alone Family History No known family history of bleeding disorders Lab Results Labs Last 24 Hours BLOOD COUNT & DIFF ? Event Name?? Event Result?? Date/Time?? WBC 20.6 k/mm3??High 08/04/22 11:03:00 RBC 4.78 m/mm3 08/04/22 11:03:00 Hgb 14.7 Gm/dL 08/04/22 11:03:00 Hct 41.1 % 08/04/22 11:03:00 MCV 86 femtoliters 08/04/22 11:03:00 MCH 30.8 pg 08/04/22 11:03:00 MCHC 35.8 g/dL 08/04/22 11:03:00 Platelet Count 271 k/mm3 08/04/22 11:03:00 MPV 9.9 femtoliters 08/04/22 11:03:00 Nucleated RBC (Automated) 0 #/100 WBC'S 08/04/22 11:03:00 ? CHEM GENERAL ? Event Name?? Event Result?? Date/Time?? Sodium 127 mmol/L??Low 08/04/22 11:03:00 Chloride 90 mmol/L??Low 08/04/22 11:03:00 Bicarbonate Level 23 mmol/L 08/04/22 11:03:00 Anion Gap 14 08/04/22 11:03:00 Glucose Level 294 mg/dL??High 08/04/22 11:03:00 BUN 26 mg/dL??High 08/04/22 11:03:00 Creatinine-Blood 1.7 mg/dL??High 08/04/22 11:03:00 Alkaline Phosphatase 91 units/L 08/04/22 11:03:00 Lipase 19 units/L 08/04/22 11:03:00 AST (SGOT) 15 units/L 08/04/22 11:03:00 ALT (SGPT) 21 units/L 08/04/22 11:03:00 Bilirubin, Total 1.1 mg/dL 08/04/22 11:03:00 ? * Venkata ZHAO, Patty Reyes: PERFORM Event Display: Consult Authored Date: Attending Attestation I have personally seen and examined this patient and reviewed all pertinent labs and imaging on thedate listed below. This case was discussed in detail with the resident and I agree with the findings and plan as documented in this note. History and physical note * Suri Fallon MD: MODIFY, PERFORM, MODIFY, SIGN, VERIFY, SIGN Event Display: History and Physical Hospital Authored Date: Patient: JEROME VENTURA Age: 47 years Sex: Male : 1975 Associated Diagnoses: None Author: Suri Fallon MD Visit Information Chief Complaint: CP, feeling sick, worsening chronic back pain. History of Present Illness The pt is 47 yo M w pmhx of CAD s/p CABGx3 2015, HFrEF 40-45% (08/2021), PAD s/p R BKA (12/2013), Poorly controlled IDDM, L fem-popliteal bypass (02/2016), HTN, HLP, CKD IIIa (baseline 1.6), WANG on CPAP, presented [facility] with a three day history of nausea, vomiting, abdominal pain and chest pain. He states pains emesis induced. He had [employer] double cheeseburger on Saturday and assumed symptoms due to food poisoning. His symptoms failed to resolved, he came to the ED. In ED w/u revealed leukocytosis 20.6, lactate 2 9borderline), creatinine 1.7 (near baseline) and glucose 294, bnp of 1710 and HsTrop of [address] A/P demonstrated cholelithiasis with wallthickening and extensive pericholecystic inflammation c/w acute cholecystitis. General Surgery consulted for evaluation. He denies substernal, radiating cp or sob. His pains are better since he came.in. Abd pain also does not radiate to the back. Past Medical History Problem list All Problems (Selected) Acute kidney injury / SNOMED CT 49288161 / Confirmed Chronic kidney disease (CKD), stage III (moderate) / SNOMED CT 8545137600 / Confirmed Coronary atherosclerosis due to calcified coronary lesion / SNOMED CT 670162857 / Confirmed Diabetes mellitus type 2 with complications / SNOMED CT 277136899 / Confirmed HLD (hyperlipidemia) / SNOMED CT 21058475 / Confirmed HTN (hypertension) / SNOMED CT 8329761771 / Confirmed Lower extremity edema / SNOMED CT 439138739 / Confirmed WANG on CPAP / SNOMED CT 744027227 / Confirmed Osteomyelitis / SNOMED CT 28320429 / Confirmed Pickwickian syndrome / SNOMED CT 469866091 / Confirmed Pressure sore / SNOMED CT 0751463337 / Confirmed Ulceration / SNOMED CT 6883488758 / Confirmed Allergies Allergic Reactions (Selected) Severity Not Documented Fish- D&v - diarrhea and vomiting. Pollen- Stuffy nose. Pork- [d]vomiting and diarrhea symptoms. Reglan- Severe itching. Current medications (Selected) Inpatient Medications Ordered 0.9% NaCL 1000 mL: 1,000 mL, Infusion, IV Infusion, 1,000 mL, 75 mL/hr, Infuse over 13.3 hr, Continue until D/C'd Unless duration specified, Routine, 08/04/22 23:11:00 EDT, 2.27, m2 Acetaminophen Tablet: 650 mg, Tablet, By Mouth, Every 4 hours, PRN for Pain , Mild, Temperature Greater than 100.5, Routine, 08/04/22 16:39:00 EDT Ammonium Lactate 12% Topical: 1 application, Cream, Topically, Apply to Other, 2 times a day, Routine, 08/05/22 0:32:00 EDT Dextrose 50% Inj Syringe (25Gm): 12.5 Gm, Injection, IV Push Slowly, Every 20 minutes, PRN for Blood Glucose, 50 to 70 and patient is NOT AWAKE or NPO; Repeat Glucose POC in 20 minutes, Routine, 08/04/22 23:09:00 EDT Dextrose 50% Inj Syringe (25Gm): 25 Gm, Injection, IV Push Slowly, Every 15 minutes, PRN for Blood Glucose, LESS than 50 and patient is NOT AWAKE or NPO - call MD if episode NOT resolved within 20 minutes, Routine, 08/04/22 23:09:00 EDT Dilaudid 2 mg oral tablet: 2 mg, Tablet, By Mouth, Every 4 hours, PRN for Pain , Moderate, Routine,08/04/22 23:07:00 EDT Dilaudid Inj: 0.5 mg, Injection, IV Push Slowly, Every 4 hours, PRN for Pain , Severe, Routine, 08/04/22 23:07:00 EDT Docusate/Senna Tablet: 1 tablet, Tablet, By Mouth, 2 times a day, PRN for Constipation, Routine, 08/04/22 16:39:00 EDT Glucagon Inj: 1 mg, Injection, Intramuscular, Once, For severe hypoglycemic event and patient is too altered to take glucose by mouth and does not have IV access., PRN for Other, Routine, 08/04/22 23:09:00 EDT Glucose Gel: 15 Gm, Gel, By Mouth, Every 20 minutes, PRN for Blood Glucose, 50 to 70 and patient ALERT, Routine, 08/04/22 23:09:00 EDT Glucose Gel: 30 Gm, Gel, By Mouth, Every 20 minutes, PRN for Blood Glucose, LESS THAN 50 and patient ALERT, Routine, 08/04/22 23:09:00 EDT Insulin Glargine Inj: 15 units, Injection, Subcutaneous Injection, Daily at bedtime, Routine, 08/05/22 21:00:00 EDT Insulin LISPRO Sliding Scale: 2-10 units, Injection, Subcutaneous Injection, Every 6 hours, Routine, 08/05/22 0:00:00 EDT Melatonin Tablet: 3 mg, Tablet, By Mouth, Daily at bedtime, PRN for Insomnia, Routine, 08/04/22 16:39:00 EDT MiraLax Powder: 17 Gm, Powder, By Mouth, Daily for 14 days, Dissolve in 8 ounces of water., PRN forConstipation, Routine, 08/04/22 16:39:00 EDT, Stop date 08/18/22 16:38:00 EDT NaCL 0.9% Flush: 3 mL, Injection, IV Push, Every 8 hours, PRN for Line/Tube Patency, Routine, 08/04/22 16:39:00 EDT NaCL 0.9% Flush: 3 mL, Injection, IV Push, Every 8 hours, Routine, 08/04/22 17:00:00 EDT Robitussin DM Liquid: 10 mL, Syrup, By Mouth, Every 4 hours, PRN for Cough, Routine, 08/04/22 16:39:00 EDT Simethicone Tablet: 80 mg, Chew Tablet, Chew, 3 times a day, PRN for Gas, Routine, 08/04/22 16:39:00 EDT Zofran Inj: 4 mg, Injection, IV Push, Every 6 hours, PRN for Nausea & Vomiting, Routine, 08/04/22 23:06:00 EDT Zosyn Extended IVPB: 3.375 Gm, IVPB, Injection, Every 8 hours for 5 days, Infuse over 4 hours., Indicated for: Intra-abdominal Healthcare Associated, Routine, 08/04/22 22:00:00 EDT, Stop date 08/09/22 21:59:00 EDT aspirin 81 mg oral delayed release tablet: 81 mg, EC Tablet, By Mouth, Daily, Routine, 08/05/22 9:00:00 EDT atorvastatin 80 mg oral tablet: 80 mg, Tablet, By Mouth, Daily, Routine, 08/05/22 9:00:00 EDT clopidogrel 75 mg oral tablet: 75 mg, Tablet, By Mouth, Daily, Routine, 08/05/22 9:00:00 EDT gabapentin 300 mg oral capsule: 300 mg, Capsule, By Mouth, Every 8 hours, Routine, 08/05/22 1:00:00EDT losartan 50 mg oral tablet: 50 mg, Tablet, By Mouth, Daily, Routine, 08/05/22 9:00:00 EDT metoprolol 100 mg oral tablet, extended release: 100 mg, XL Tablet, By Mouth, Daily, Routine, 08/05/22 9:00:00 EDT Prescriptions Prescribed ammonium lactate 12% topical cream: 1 application, Topically, 2 times a day, # 280 Gm, 0 Refills, Maintenance, 06/14/22 15:08:00 EST, Cream, [facility]/pharmacy #[id number], Partial fill upon patient request if the prescription is for a schedule II opioid drug., 1 application Topically 2 times a day... aspirin 81 mg oral delayed release tablet: 81 mg, 1, tablet, By Mouth, Daily, # 30 tablet, Refills 0, Tot. Refills 0, Maintenance, 03/19/16 15:08:49, Print Requisition clopidogrel 75 mg oral tablet: 75 mg, 1, tablet, By Mouth, Daily, # 30 tablet, Refills 4, Tot. Refills 4, Maintenance, 04/09/16 16:22:43, Route to Pharmacy Electronically, [id number], [facility]/pharmacy #[id number] Documented Medications Documented atorvastatin 80 mg oral tablet: 1 tablet = 80 mg, By Mouth, Daily, # 90 tablet, 0 Refills, Maintenance, Tablet losartan 50 mg oral tablet: 1 tablet = 50 mg, By Mouth, Daily, # 30 tablet, 0 Refills, Maintenance,09/08/21 10:15:00 EDT, Tablet, Partial fill upon patient request if the prescription is for a schedule II opioid drug. metoprolol succinate 100 mg oral capsule, extended release: 1 capsule = 100 mg, By Mouth, Daily, # 30 capsule, 0 Refills, Maintenance, 09/08/21 10:15:00 EDT, ER Capsule, Partial fill upon patient request if the prescription is for a schedule II opioid drug. Shira 300 mg po tid Lantus 35 u hs SSI Surgical History Right foot wound debridment: 10/07/13 Social History Tobacco Former smoker, 08/09/2017 Denies alcohol use Denies tobacco use Reports marijuana use, vaping Lives alone Family History DM Review of Systems Significant Constitutional, Eye, Skin, Head/Neck, ENMT, Respiratory, Cardio, Gastrointestinal, Genitourinary, Endocrine, Muscoloskeletal, Immunologic, Hematologic, Lymphatic, Neurologic, Psych reviewed and negative except as noted above. Physical Examination Vital Signs Vitals : VITALS 08/04/2022 23:41 EDT Height 184 cm Temperature 99.0 DegF Temperature Route Oral Pulse Rate 86 bpm Respiratory Rate 18 br/min Systolic Blood Pressure 137 mm Hg Diastolic Blood Pressure 60 mm Hg Blood pressure sites Arm, left Mean Arterial Pressure 86 mm Hg Pulse Pressure 77 mm Hg Oxygen Saturation 99 % Mode of Delivery (Oxygen) Room air 08/04/2022 19:30 EDT Temperature 98.1 DegF 08/04/2022 18:14 EDT Temperature 97.1 DegF 08/04/2022 10:55 EDT Temperature 99.4 DegF Temperature Route Oral Pulse Rate 95 bpm H Respiratory Rate 11 br/min L Systolic Blood Pressure 124 mm Hg Diastolic Blood Pressure 85 mm Hg H Blood pressure sites Arm, right Mean Arterial Pressure 98 mm Hg Pulse Pressure 39 mm Hg Oxygen Saturation 97 % Mode of Delivery (Oxygen) Room air Pain Location Chest, midsternal 1 - 10 Pain Scale Score 3 . Weight : Weight lb/oz 08/04/2022 18:14 EDT Weight lb/oz 230 lb 6 oz . BMI : Body Mass Index 08/04/2022 18:14 EDT Body Mass Index 30.87 kg/m2 >HHI . Height : Height 08/04/2022 23:41 EDT Height 184 cm . General Appearance: No apparent distress, Fatigued. HEENT Head: Normocephalic, Atraumatic. Eyes: EOMI, PERRL, not Icteric. Neck: Supple, No lymphadenopathy, dry MM. Cardiovascular Cardiac: PMI Non displaced, RRR, No M/G/R. Respiratory Respiratory: CTA, no wheezes, no crackles. Abdomen/GI Non-distended. Normal bowel sounds. Soft non-tender. No hepatosplenomegaly. No Herniae present. Extremities R BKA. No clubbing. No cyanosis. No edema. Neurologic Neuro Exam: CN 2-12 normal. Motor Exam: Motor strength (WNL, R BKA). Psychiatric Speech WNL. Thought processes WNL. Depressed. Results Review 7 day results Labs & Documents Laboratory : LABORATORY 08/04/2022 21:25 EDT Glucose, POC 224 mg/dL H 08/04/2022 13:25 EDT High Sensitivity Troponin (HSTnT) 56 ng/L C 08/04/2022 11:09 EDT Influenza A PCR NEGATIVE Influenza B PCR NEGATIVE RSV PCR NEGATIVE COVID-19 PCR Specimen Source NASAL COVID-19 PCR Result NEGATIVE 08/04/2022 11:03 EDT WBC 20.6 k/mm3 H RBC 4.78 m/mm3 Hgb 14.7 Gm/dL Hct 41.1 % MCV 86.0 femtoliters MCH 30.8 pg MCHC 35.8 g/dL Platelet Count 271 k/mm3 RDW-SD 40.3 femtoliters MPV 9.9 femtoliters Nucleated RBC (Automated) 0.0 #/100 WBC'S Abs. NRBC 0.0 k/mm3 Abs. Neut 17.7 k/mm3 H Abs. Lymph 1.2 k/mm3 Abs. [place] 1.4 k/mm3 H Abs. Eo 0.0 k/mm3 Abs. Baso 0.0 k/mm3 Neut % 86.0 % H Lymph % 5.6 % L [place] % 6.6 % Eos % 0.0 % Baso % 0.1 % Imm Gran 1.7 % Abs. Imm Gran 0.3 k/mm3 D-Dimer 0.89 mg/L FEU Hold Blue Top SPECIMEN DISCARDED AFTER 4 HOURS. Sodium 127 mmol/L L Potassium 3.7 mmol/L Chloride 90 mmol/L L Bicarbonate Level 23 mmol/L Anion Gap 14 Glucose Level 294 mg/dL H BUN 26 mg/dL H Creatinine-Blood 1.7 mg/dL H Estimated GFR Creatinine 49 ML/MIN/1.73 M2 Calcium 9.1 mg/dL Protein, Total 6.7 Gm/dL Albumin 3.9 Gm/dL AG Ratio 1.4 Alkaline Phosphatase 91 units/L Lipase 19 units/L AST (SGOT) 15 units/L ALT (SGPT) 21 units/L Bilirubin, Total 1.1 mg/dL Lactate 2.0 mmol/L Nt-Probnp 1,710 pg/mL H High Sensitivity Troponin (HSTnT) 62 ng/L C Imaging : RADIOLOGY 08/04/2022 12:48 EDT Chest Single Frontal View Chest Single Frontal View 08/04/2022 12:[address] Abd/Pelvis W/ IV Contrast Only CT Abd/Pelvis W/ IV Contrast Only CXR: NAD CT A/P: Acute Cholecystitis EKG QTC Calculation(Bazett): 469 ms P [place]: 75 degrees R [place]: 109 degrees T [place]: 59 degrees Sinus rhythm with occasional Premature ventricular complexes and Fusion complexes Biatrial enlargement Rightward axis Pulmonary disease pattern Abnormal ECG When compared with ECG of 04-AUG-2022 10:52, Fusion complexes are now Present Confirmed by KAREN HEBERT MD ([id number]) on 08/04/2022 11:53:08 AM In initial EKG, inf leads St derpression resolved Impression and Plan Acute Cholecystitis Abd pain, N/V Hypovolemic Hyponatremia Plan -Admit to medicine -NPO x meds and some ice chips -Cont Zosyn -Gentle IVF, monitor resp status, any hypoxemia, use CPAP vs BiPAP liberally -symptomatic treatment -Preop assessment: Pt has Roldan Score of 1.43% and Ariscat score of low risk. Lets proceed with the, likely Endoscopic Cholecystectomy, considering pt is low to moderate risk EKG changes and low grade trop is likely due to acute illness and demand ischemia. Trop down trended He is properly beta blocked. Keep even I&O -Per surgery, will need intervention on gallbladder - OR timing vs cholecystostomy tube vs electivecholecystectomy -General Surgery, Dr. Venkata ZHAO et all will follow CP, rule out ACS CAD HFrEF h/o PAD, s/p R BKA, L Fem Pop HTN, HLP Plan -Cont Metoprolol Succinate 100 mg po qd -Cont low dose asa -Hold Plavix, restart efren post op possible. This should be continued if not contraindicated duringthis surgery. Please d/w surgery -Holding Losartan, may cause intraop BP drop -Avoid Hydralazine since it may lower coronary arteries perfusion -Use NG Paste q4h prn for BP>155/90 -Cont statin -I&O, daily weights DM, uncontrolled Neuropathy, Chronic back pain Plan -POC/SSI q6h -Decrease Lantus to 15 u hs from 35 u hs -Cont Shira 300 mg po tid CKD, baseline creat 1.6, near baseline Plan -Avoid nephrotoxins -Renally adjust meds -Avoid hypotension WANG Plan -CPAP, use liberaly pre and post op Quality Measures Dvt, mod risk, hep sc NPO x meds now Full code * Suri Fallon MD: PERFORM Event Display: History and Physical Hospital Authored Date: Pt goes in and out of ventricular trigeminy. Asymptomatic. Afebrile. Refused to wear CPAP. Apparently he is noncompliant at home. Plan -Will ask again pt to wear cpap -Lytes to make sure K 4-5, Mg>2 and normal Ca -If further or develops cp sob, get EKG EKG study * Event Display: ECG 12-Lead Authored Date: Please click on pdf link to open report * Event Display: ECG 12-Lead Authored Date: Ventricular Rate: 82 BPM Atrial Rate: 82 BPM P-R Interval: 166 ms QRS Duration: 110 ms Q-T Interval: 392 ms QTC Calculation(Bazett): 457 ms P [place]: 76 degrees R [place]: 101 degrees T [place]: 22 degrees Sinus rhythm with frequent Premature ventricular complexes When compared with ECG of 04-AUG-2022 11:41, Premature ventricular complexes are now Present Confirmed by GONZALES KUMAR ([id number]) on 08/06/2022 8:02:18 AM [place]: GONZALES KUMAR * Event Display: ECG 12-Lead Authored Date: Please click on pdf link to open report * Event Display: ECG 12-Lead Authored Date: Ventricular Rate: 95 BPM Atrial Rate: 95 BPM P-R Interval: 138 ms QRS Duration: 92 ms Q-T Interval: 374 ms QTC Calculation(Bazett): 469 ms P [place]: 75 degrees R [place]: 109 degrees T [place]: 59 degrees Sinus rhythm with occasional Premature ventricular complexes and Fusion complexes Biatrial enlargement Rightward axis Pulmonary disease pattern Abnormal ECG When compared with ECG of 04-AUG-2022 10:52, Fusion complexes are now Present Confirmed by KAREN HEBERT MD ([id number]) on 08/04/2022 11:53:08 AM [place]: KAREN HEBERT MD * Event Display: ECG 12-Lead Authored Date: Please click on pdf link to open report * Event Display: ECG 12-Lead Authored Date: Ventricular Rate: 99 BPM Atrial Rate: 99 BPM P-R Interval: 136 ms QRS Duration: 94 ms Q-T Interval: 364 ms QTC Calculation(Bazett): 467 ms P [place]: 76 degrees R [place]: 113 degrees T [place]: 38 degrees Sinus rhythm with frequent Premature ventricular complexes Biatrial enlargement Right axis deviation Pulmonary disease pattern Abnormal ECG When compared with ECG of 19-AUG-2018 10:48, Premature ventricular complexes are now Present Nonspecific T wave abnormality now evident in Inferior leads Confirmed by KAREN HEBERT MD ([id number]) on 08/04/2022 11:48:10 AM [place]: KAREN HEBERT MD Heart * Event Display: Echocardiogram - Complete Authored Date: [id number] Transthoracic Echocardiography Report (TTE) Patient Demographics Patient Name JEROME VENTURA Date of Study 08/06/2022 Corporate Gender Male Facility Race Black Ethnicity Date of 1975 Height: 72 inches Age 47 year(s) Weight: 205 pounds Accession Number [id number] BSA: 2.15 m2 Room Number [id number] BMI: 27.8 kg/m2 Referring Physician Mio Anand MD Interpreting Enoch Tao MD Physician [employer] Kandice Daniel RCS Indications Arrhythmia. Clinical History CAD hx CABG (2015) ICMP Diabetes Mellitus. Obesity. PAD WANG Study Data Type of Study TTE procedure:Echo Complete-Doppler, Colorflow, M-Mode. Study Date08/06/2022 Start Time: 02:04 PM Study Location: [facility] [place] Study Status: Bedside Patient Status: Routine Technical Quality: Technically difficult due to poor acoustical window. Blood Pressure:133/53 mmHg EKG: Premature Atrial/Ventricular Beats (PACs/PVCs) HR: 75 bpm Allergies - Other allergy:(fish, pork). - Other allergy:(Reglan). 2D Measurements LV Diastolic Dimension: 5.4 cm LV Systolic Dimension: 4.1 cm LV Septum Diastolic: 1.1 cm LV PW Diastolic: 1.1 cm AO Root Dimension: 3.3 cm LA Dimension: 4.9 cm LA ESV (BP):98.5 ml LVOT Stroke Volume: 66.92 ml LA ESV Index: 46 ml/m2 Stroke Volume Index31.13 ml/m2 LVOT: 2.4 cm Cardiac Index:2.33 l/min/m2 Ascending Aorta:3.4 cm Doppler Measurements AV Peak Velocity: 127 cm/s MV Peak E-Wave: 75.7 cm/s AV Peak Gradient: 6.45 mmHg MV Peak A-Wave: 106 cm/s AV Mean Gradient: 3 mmHg MV E/A Ratio: 0.71 AV VTI:22.9 cm MV P1/2t: 50 msec LVOT Peak Velocity: 82.1 cm/s LVOT VTI14.8 cm MV Deceleration Time: 172 msec AV Area (Continuity):2.92 cm2 MV Area (PHT): 4.4 cm2 E' Septal Velocity: 2.61 cm/s E' Lateral Velocity: 6.2 cm/s E/Med E':29.36922 E/Lat E':12.67298 Cardiac Anatomy Left Ventricle/Interventricular Septum The left ventricular size is normal. The left ventricular wall thickness is mildly increased. Unable to assess overall LV systolic function and regional wall motion adequately on this study. Cannot rule out basal to mid inferolateral and basal inferior hypokinesis. Left Atrium/Interatrial Septum The left atrium is normal in size. Aortic Valve The aortic valve leaflet opening is normal . There is no aortic stenosis. There is no significant aortic regurgitation. Mitral Valve The mitral valve is poorly visualized. There is trace mitral regurgitation. Right Ventricle The right ventricle is poorly visualized. Right Atrium The right atrium is poorly visualized. The right atrium is normal in size. Tricuspid Valve The tricuspid valve is poorly visualized. Pericardium/Extracardiac There is no significant pericardial effusion. Summary The left ventricular size is normal. The left ventricular wall thickness is mildly increased. Unable to assess overall LV systolic function and regional wall motion adequately on this study. Cannot rule out basal to mid inferolateral and basal inferior hypokinesis. The right ventricle is poorly visualized. Comparison Comparison is made to the study of September 06, 2021. Limited study making direct comparison difficult. Signature * Event Display: Echocardiogram - Complete Authored Date: * Event Display: Echocardiogram - Complete Authored Date: Note * Rosey Rios RN: PERFORM Event Display: Discharge/Transfer Note Hospital Authored Date: Nursing Discharge Note Entered On: 08/08/2022 15:41 EDT Performed On: 08/08/2022 15:40 EDT by Rosey Rios RN Nursing Discharge Note 2 Discharge Time : 08/08/2022 15:10 EDT Discharge Level of Care at Discharge : Home/Skilled Nursing/Foster Care Patient Left Unit Via : Wheelchair Patient Accompanied Off Unit with : Responsible adult DC Instructions Provided & Signed by Pt : Yes Patient Understands D/C Instructions : Yes Verbalized Understanding of D/C Plan By : Patient Patient Instructions Discharge Signed : Yes Did Pt have Specialty Bed or Wound Vac : No Rosey Rios RN - 08/08/2022 15:40 EDT * Merlin Adame MD: MODIFY, PERFORM, MODIFY, MODIFY Event Display: Discharge/Transfer Note Hospital Authored Date: Patient: ??CUTTING, JEROME ? Age:??47 Years?Sex:??Male?:??1975?? Patient Information Discharge Location: Primary Care Physician: Erick Kohli MD Admit Date/Time: 08/04/22 16:09 Discharge Disposition Discharge Disposition: Home: No Services Discharge Diagnosis Corns and callus (L84) Acute cholecystitis Acute renal failure ?? _ Discharge Medications Acetaminophen (Tylenol 325 mg oral tablet)?650?Milligram?2?tablet?By Mouth?Every 6 hours Ammonium Lactate 12% (ammonium lactate 12% topical cream)?1?debbie?Topically?2 times a day Aspirin (aspirin 81 mg oral delayed release tablet)?81?Milligram?1?tablet?By Mouth?Daily?for 30?Days Atorvastatin (atorvastatin 80 mg oral tablet)?1?tab(s)?80?Milligram?By Mouth?Daily Ciprofloxacin (ciprofloxacin 500 mg oral tablet)?1?tab(s)?500?Milligram?By Mouth?Every 12 hours?for 3?Days Clopidogrel (clopidogrel 75 mg oral tablet)?75?Milligram?1?tablet?By Mouth?Daily Durable Medical Equipment (RT BKA Prosthetic)?See Instructions?RT BKA PROSTHETIC SOCKET REPLACEMENT,K3,Z89.511PT WEIGHT 93 KG Durable Medical Equipment (RT Prosthetic Foot)?See Instructions?RT prosthetic foot,K3DX:Z89.511 Durable Medical Equipment (ABD Pads (6X9))?See Instructions?wrap foot with pads and brie Durable Medical Equipment (Gauze Roll (4 ))?See Instructions?Wrap GAuze Around Foot Wound Durable Medical Equipment (ABD Pads (6X9))?See Instructions?wrap foot with pads and klingDX Durable Medical Equipment (Gauze Pad (4 X 4))?See Instructions?apply to wound daily Durable Medical Equipment (BKA Prosthetic Socks)?See Instructions?BKA PROSTHETIC SOCKS ,K3,Z89.511PT WEIGHT 93 KG Durable Medical Equipment (Gauze Pad (4 X 4))?See Instructions?apply to foot wound then wrap with roll gauze Durable Medical Equipment (Gauze Roll (4 ))?See Instructions?Wrap gauze around foot wound Durable Medical Equipment (Gauze Roll (4 ))?See Instructions?Wrap GAuze Around Foot Wound Durable Medical Equipment (Gloves)?See Instructions?surgical gloves size XL for left foot wound once daily Durable Medical Equipment (Tape (1 -Paper))?See Instructions?Use To Wrap Gauze To foot Wound Durable Medical Equipment (14 Kirlex roll, 14 kirlex fluffs, 1 roll of tape (plastic))?See Instructions?14 each Gabapentin (gabapentin 300 mg oral capsule)?900?Milligram?By Mouth?Daily at bedtime Insulin Glargine (Lantus Solostar Pen 100 units/mL subcutaneous solution)?15?unit(s)?Subcutaneous Injection?Daily at bedtime Insulin Lispro (Admelog SoloStar 100 units/mL injectable solution)?See Instructions?for premeal insulin; check blood sugar prior to meals; continue as per prior instructions Losartan (losartan 50 mg oral tablet)?1?tab(s)?50?Milligram?By Mouth?Daily ( Holdtill you see docketing specialist / PCP and do BMP. Metoprolol (metoprolol succinate 100 mg oral capsule, extended release)?1?capsule?100?Milligram?By Mouth?Daily Metronidazole (metroNIDAZOLE 500 mg oral tablet)?1?tab(s)?500?Milligram?By Mouth?Every 8 hours?for 3?Days ? Medications Started cipro and metro for three more days Medications Discontinued None Doses Changed None Allergies Allergies ?(Active and Proposed Allergies Only) Pollen? (Severity: Unknown severity, Onset: Unknown) ?Reactions: stuffy nose Pork? (Severity: Unknown severity, Onset: Unknown) ?Reactions: Diarrhea symptoms, [D]Vomiting Fish? (Severity: Unknown severity, Onset: Unknown) ?Reactions: D&V - Diarrhea and vomiting Reglan? (Severity: Unknown severity, Onset: Unknown) ?Reactions: severe itching ? PCP Follow-Up/Heads-Up BMP to see the kidney function Hospital Course 47 y/o WM with a PMH incl IDDM, CAD s/p CABG 2015, ICM LVEF 4--45%, PAD s/p left fem-pop bypass 2015, s/p right BKA 2013, CKD, Obesity, WANG admitted with RUQ pain and N/V. Also reported chest discomfort associated with vomiting. Pt found to have acute cholecystitis.?Surgery was consulted and recommended to??go for elective surgery outpatient.?Will treated with??Zosyn??later changed to ceftriaxone and metronidazole.?? Right upper quadrant pain??resolved, nausea vomiting resolved.?? Patientfeels fine and want to go home??patient is??clinically??and vitally stable??for discharge.?? You are being discharged??with??ciprofloxacin and metronidazole??for 3 more days.?You had a FATOUMATA??which is??is improving??with??IV fluids. ??We recommend??oral??food.?? I strongly recommend you to go to??PCP or??docketing specialist??within a week??for?basic metabolic panel??to see your kidney status. ? Hospital assessment and plan : For Acute cholecystitis: Appropriate nausea with vomiting stopped Discharged on ciprofloxacin and metronidazole for??3 more days. Please call [facility] for appointment for??elective surgery ?? [address], [place] [address] Hours: Open ?? Closes 5??PM ? For IDDM Continue home dose of Lantus and gabapentin. ? For CAD s/p CABG 2015 ??ICM LVEF 40-45%, Grade II DD ??PAD s/p left LE bypass 2015 ??S/p right BKA ??Continue ASA, atorvastatin, Metoprolol Losartan hold for FATOUMATA,??please resume??once FATOUMATA??improves??or??as per??nephrology recommendation ??Resume ??Plavix ? #??Acute kidney injury on CKD today 33/3.7, Improving Baseline Cr 1.3-1.7. Current Cr 1.9. Close to baseline. IVF hydration , ranal on board?Monitor BMP ??Avoid nephrotoxic agents patient wants to go home, Patient is instructed to avoid nephrotoxic drug??and follow-up with nephrology as soon as possible. Nephrology in agreement ?? Obesity ??WANG ??- Weight loss ??- CPAP ? Right LBP: ??Pt reports pain for about a week. Thinks it might be a muscle spasm from bad positioning in bed. No radiation of pain. No LE weakness or new numbness. No change in bladder or bowel control. No fever, chills. CT with severe DDD L2-3. ??- Warmth application ??- Pt declines lidocaine patch ??- PT ??- Tylenol PRN, short course of oxycodone as needed only??for?? plan of care discussed with the patient, patient verbalized understanding and agrees to it. ?? Objective Assessment and Plan Discharge Planning:? Measurements?? Height: 184 cm (08/08/22) Weight: 93.4 kg (08/05/22) Dry Weight: 104.5 kg (08/04/22) Body Mass Index:??30.87 kg/m2??Critical (08/04/22) ? Vital Signs?? Temperature: 97.6 DegF (08/08/22 12:31:00) Temperature Route: Oral (08/08/22 12:31:00) Pulse Rate: 76 bpm (08/08/22 12:31:00) Respiratory Rate: 18 br/min (08/08/22 12:31:00) Systolic Blood Pressure:??156 mm Hg??High (08/08/22 12:31:00) Diastolic Blood Pressure: 79 mm Hg (08/08/22 12:31:00) Blood pressure sites: Arm, left (08/08/22 12:31:00) Mean Arterial Pressure: 105 mm Hg (08/08/22 12:31:00) Pulse Pressure: 77 mm Hg (08/08/22 12:31:00) Oxygen Saturation: 100 % (08/08/22 12:31:00) Mode of Delivery (Oxygen): Room air (08/08/22 12:31:00) Early Warning Score: 3 (08/08/22 12:36:16) ? . Physical Exam Not in acute distress Awake and alert Normocephalic, atraumatic Diminished breath sounds Regular rate and rhythm Abdomen is soft, nontender Pending Results Add On Lab Order ordered on 08/04/2022 Blood Culture ordered on 08/04/2022 Blood Culture #2 ordered on 08/04/2022 Hold Lavender Tube (BB) ordered on 08/04/2022 Follow-Up Appointments Added Follow Up ?Time Frame ?Comments Venkata ZHAO, Patty Reyes?1 month?Please call to schedule an appointment to discuss elective cholecystectomy. Post Discharge Care Discharge ?08/08/22 9:58:00 EDT Home Health Face to Face ^HomeHealthFTF Results Discharge Labs BLOOD COUNT & DIFF WBC 12.0 k/mm3 (High)?? 08/07/2022 05:17 RBC 3.78 m/mm3 (Low)?? 08/07/2022 05:17 Hgb 11.4 Gm/dL (Low)?? 08/07/2022 05:17 Hct 32.6 % (Low)?? 08/07/2022 05:17 MCV 86.2 femtoliters ()?? 08/07/2022 05:17 MCH 30.2 pg ()?? 08/07/2022 05:17 MCHC 35.0 g/dL ()?? 08/07/2022 05:17 Platelet Count 288 k/mm3 ()?? 08/07/2022 05:17 RDW-SD 40.8 femtoliters ()?? 08/07/2022 05:17 MPV 9.6 femtoliters ()?? 08/07/2022 05:17 Nucleated RBC (Automated) 0.0 #/100 WBC'S ()?? 08/07/2022 05:17 Abs. NRBC 0.0 k/mm3 ()?? 08/07/2022 05:17 Abs. Neut 8.8 k/mm3 (High)?? 08/07/2022 05:17 Abs. Lymph 1.6 k/mm3 ()?? 08/07/2022 05:17 Abs. [place] 1.4 k/mm3 (High)?? 08/07/2022 05:17 Abs. Eo 0.2 k/mm3 ()?? 08/07/2022 05:17 Abs. Baso 0.0 k/mm3 ()?? 08/07/2022 05:17 Neut % 73.3 % ()?? 08/07/2022 05:17 Lymph % 12.9 % (Low)?? 08/07/2022 05:17 [place] % 11.8 % (High)?? 08/07/2022 05:17 Eos % 1.3 % ()?? 08/07/2022 05:17 Baso % 0.3 % ()?? 08/07/2022 05:17 Imm Gran 0.4 % ()?? 08/07/2022 05:17 Abs. Imm Gran 0.1 k/mm3 ()?? 08/07/2022 05:17 ?? CARDIAC Nt-Probnp 1710 pg/mL (High)?? 08/04/2022 11:03 High Sensitivity Troponin (HSTnT) 56 ng/L (Critical)?? 08/04/2022 13:25 ?? CHEM GENERAL Sodium 135 mmol/L ()?? 08/08/2022 07:23 Potassium 3.8 mmol/L ()?? 08/08/2022 07:23 Chloride 103 mmol/L ()?? 08/08/2022 07:23 Bicarbonate Level 21 mmol/L (Low)?? 08/08/2022 07:23 Anion Gap 11 ()?? 08/08/2022 07:23 Glucose Level 116 mg/dL (High)?? 08/08/2022 07:23 Glucose, POC 165 mg/dL (High)?? 08/08/2022 11:14 BUN 20 mg/dL ()?? 08/08/2022 07:23 Creatinine-Blood 2.3 mg/dL (High)?? 08/08/2022 07:23 Estimated GFR Creatinine 35 ML/MIN/1.73 M2 ()?? 08/08/2022 07:23 Calcium 8.6 mg/dL ()?? 08/08/2022 07:23 Phosphorus 3.8 mg/dL ()?? 08/07/2022 05:17 Magnesium 2.4 mg/dL (High)?? 08/07/2022 05:17 Protein, Total 6.1 Gm/dL (Low)?? 08/05/2022 03:07 Albumin 3.6 Gm/dL ()?? 08/05/2022 03:07 AG Ratio 1.4 ()?? 08/05/2022 03:07 Alkaline Phosphatase 82 units/L ()?? 08/05/2022 03:07 Lipase 19 units/L ()?? 08/04/2022 11:03 AST (SGOT) 16 units/L ()?? 08/05/2022 03:07 ALT (SGPT) 18 units/L ()?? 08/05/2022 03:07 Bilirubin, Total 0.8 mg/dL ()?? 08/05/2022 03:07 Lactate 2.0 mmol/L ()?? 08/04/2022 11:03 ?? COAG D-Dimer 0.89 mg/L FEU ()?? 08/04/2022 11:03 ? HEME OTHER Hold Lavender Top SPECIMEN DISCARDED AFTER 24 HOURS. ()?? 08/07/2022 15:31 Hold Blue Top SPECIMEN DISCARDED AFTER 4 HOURS. ()?? 08/04/2022 11:03 ?? UA/URINALYSIS Appear/Color, Urine LIGHT YELLOW ()?? 08/07/2022 10:50 Specific [place], Urine 1.014 ()?? 08/07/2022 10:50 pH, Urine 6.0 ()?? 08/07/2022 10:50 Albumin, Urine 2+ (Abnormal)?? 08/07/2022 10:50 Glucose, Urine TRACE (Abnormal)?? 08/07/2022 10:50 Ketones, Urine NEGATIVE ()?? 08/07/2022 10:50 Bilirubin, Urine NEGATIVE ()?? 08/07/2022 10:50 Hemoglobin, Urine 1+ (Abnormal)?? 08/07/2022 10:50 Nitrite, Urine NEGATIVE ()?? 08/07/2022 10:50 Leukocyte, Urine NEGATIVE ()?? 08/07/2022 10:50 Urobilinogen NORMAL mg/dL ()?? 08/07/2022 10:50 WBC's, Urine 3 /HPF ()?? 08/07/2022 10:50 RBC's, Urine 4 /HPF (High)?? 08/07/2022 10:50 Bacteria MODERATE HPF (Abnormal)?? 08/07/2022 10:50 Hyaline Cast 1 LPF ()?? 08/07/2022 10:50 Amorphous Crystals SLIGHT /HPF ()?? 08/07/2022 10:50 ?? URINE OTHER Creatinine, Urine Random 106.2 mg/dL ()?? 08/07/2022 10:50 Sodium, Urine Random 41 mmol/L ()?? 08/07/2022 10:50 Chloride, Urine Random 28 mmol/L ()?? 08/07/2022 10:50 Urea Nitrogen, Urine Random 378.4 mg/dL ()?? 08/07/2022 10:50 Osmolality, Urine Random 270 mOsm/kg ()?? 08/07/2022 10:50 Protein, Total Urine Random 129 mg/dL ()?? 08/07/2022 10:50 TP/Cr Ratio 1.21 (High)?? 08/07/2022 10:50 Creatinine, Urine 106.2 mg/dL ()?? 08/07/2022 10:50 Malb/Creat Ratio 604.5 mg/Gm (High)?? 08/07/2022 10:50 Urine Creat For Micro Alb 106.2 mg/dL ()?? 08/07/2022 10:50 Micro-Albumin 642.0 mg/L (High)?? 08/07/2022 10:50 ? VIROLOGY Influenza A PCR NEGATIVE ()?? 08/04/2022 11:09 Influenza B PCR NEGATIVE ()?? 08/04/2022 11:09 RSV PCR NEGATIVE ()?? 08/04/2022 11:09 COVID-19 PCR Specimen Source NASAL ()?? 08/06/2022 05:33 COVID-19 PCR Result NEGATIVE ()?? 08/06/2022 05:33 ? Imaging(s) ?CT Abd/Pelvis W/ IV Contrast Only ?? 08/04/2022 12:44??by Sean Franklin MD ?Acute cholecystitis. ?? No biliary ductal dilation. ? 42_ minutes spent on discharge * Gabriel LOO, Rosey Reyes: MODIFY, MODIFY, PERFORM Event Display: Patient Education/Instruction Authored Date: [id number] Inpatient Adult Discharge Instructions [place] [id number] Name: JEROME VENTURA : 1975 Visit: 08/04/2022 16:09:00 Current Date: 08/08/2022 14:08 Account: [id number] Inpatient Adult Discharge Instructions We would like to thank you for allowing us to assist you with your healthcare needs. The following includes patient education materials and information regarding your injury/illness. Our entire staffstrives to provide an excellent experience for our patients and their families. PLEASE ENSURE YOU FOLLOW-UP PER THE INSTRUCTIONS BELOW! ?? YOUR OPINION IS IMPORTANT TO US! Please complete the survey you may receive by mail or email. Your feedback will be used to make improvements to the healthcare experiences of our patients and their families. Surveys are administered by [employer] ?? If further treatment with your primary care physician or another doctor is recommended, it is important for you to keep the appointment. Call your primary care physician or return to the Emergency Department immediately if your condition worsens, fails to improve, or new symptoms develop. If you need to find a doctor, you can call [facility] [employer] for a referral at [phone] or toll free at [phone] or log in to [email or web address].. ?? You can view and manage your care through the patient portal or by using a health care debbie of your choosing. [employer] is a website that allows you to securely view your medical information including your hospital discharge summary, office visit summaries, medications and follow-up visits. You can also request appointments, renew medications, and request access to your medical information using a health care debbie of your choosing, or just ask a question. You can enroll at [email or web address] or register during your next office visit. You have been discharged from [facility], Patient Care Unit: S3. If you have any questions regarding these instructions after you leave, please call us and we will be happy to assist you. [facility] Your Care Team Attending Physician Deep ZHAO, Merlin Consulting Providers Dalia ZHAO, Dada Discharging Providers Deep ZHAO, Merlin Reason for Admission from home compalining of cp lower right back pain n/v x 3 day cp midsternal reproducable pt with frequent pvc intermittent trigemony decreasing with fluids Your Diagnosis Corns and callus Tests Performed Below is a partial list of the tests performed during your hospitalization. You may have had other tests and procedures not included in this list. Please discuss all test results with your provider. Basic Metabolic Panel BUN Calcium Level CBC CBC w/ Differential Complete Urinalysis Comprehensive Metabolic Panel COVID-19 (2019 Novel Coronavirus) PCR COVID-19, RSV, and Flu A/B, Rapid PCR Creatinine D-DIMER Electrolytes Glucose Level GLUCOSE POC High??Sensitivity??Troponin T Hold Blue Top Tube HOLD LAVENDER TUBE Lactic Acid Level Lipase Magnesium Level Microalbumin Urine Phosphorus Level ProBNP Protein/Creatinine Ratio Urine Urine Chloride Urine Creatinine Urine Osmolality Urine Sodium Urine Urea Nitrogen CT Abd/Pelvis W/ IV Contrast Only XR Chest Single Frontal View Primary Care Provider Seun ZHAO, Erick Jensen Advance Directive Health Care Proxy on File Yes - Health Care Proxy Discharge Vitals Temperature: 97.6 DegF Height: 184 cm Pulse Rate: 76 bpm Weight: 93.4 kg Respiratory Rate: 18 br/min Body Mass Index:??30.87 kg/m2??Critical Systolic Blood Pressure:??156 mm Hg??High Body surface area: 2.31 Diastolic Blood Pressure: 79 mm Hg ?? Oxygen Saturation: 100 % ?? Studies Pending All tests and labs ordered during this hospital stay have been completed unless listed below. Please discuss all pending results with your provider listed above in these instructions. ?? Add On Lab Order Blood Culture Blood Culture #2 Hold Lavender Tube (BB) What to do next Instructions From Your Doctor Discharge Orders You Need to Schedule the Following Appointments Follow Up with??Vaibhav Slade When??09/11/2022 03:30 PM EDT Where: [address] [place] [address]- Business (1) Follow Up with??Dr. Adame wants you to have basic metabolic panel blood work done within a week, please have primary MD do blood work When?? Follow Up with??Erick Kohli MD When??Within 1 to 2 weeks Where: [address] [facility] [address] [place] [address]- Business (1) Follow Up with??Venkata ZHAO, Patty Reyes When??Within 1 month Why: Please call to schedule an appointment to discuss elective cholecystectomy. Where: [address] [facility], [address] [facility] [place] [address]- Discharge Medications JEROME VENTURA :1975 Visit Date:08/04/2022 Medications: Please continue your medications until treatment is completed or stopped by your provider. Medications not listed below should be discontinued. Discuss any questions related to medications with your provider. What How Much When Why Instructions Next Dose New Ciprofloxacin (ciprofloxacin 500 mg oral tablet) 1 tab(s) Oral Every 12 hours Duration: 3 Days Pickup at [facility]/pharmacy #[id number] next dose due 08/08 at 9pm next dose due 08/08 at 9pm New Metronidazole (metroNIDAZOLE 500 mg oral tablet) 1 tab(s) Oral Every 8 hours Duration: 3 Days Pickup at [facility]/pharmacy #[id number] next dose due 08/08 at 4pm next dose due 08/08 at 4pm Unchanged Acetaminophen (Tylenol 325 mg oral tablet) 2 tab(s) Oral Every 6 hours take as directed take as directed Unchanged Ammonium Lactate 12% (ammonium lactate 12% topical cream) 1 debbie Topically Twice a day Corns and callus next dose due 08/08 at 9pm next dose due 08/08 at 9pm Unchanged Aspirin (aspirin 81 mg oral delayed release tablet) 1 tab(s) Oral Daily Duration: 30 Days next dose due 08/09 at 9am next dose due 08/09 at 9am Unchanged Atorvastatin (atorvastatin 80 mg oral tablet) 1 tab(s) Oral Daily next dose due 08/09 at 9am next dose due 08/09 at 9am Unchanged Clopidogrel (clopidogrel 75 mg oral tablet) 1 tab(s) Oral Daily next dose due 08/09 at 9am next dose due 08/09 at 9am Unchanged Durable Medical Equipment (14 Kirlex roll, 14 kirlex fluffs, 1 roll of tape (plastic)) See instructions 14 each ?? Unchanged Durable Medical Equipment (ABD Pads (6X9)) See instructions wrap foot with pads and brie ?? Unchanged Durable Medical Equipment (ABD Pads (6X9)) See instructions Foot ulcer wrap foot with pads and brie DX ?? Unchanged Durable Medical Equipment (BKA Prosthetic Socks) See instructions BKA PROSTHETIC SOCKS ,K3,Z89.511 ?? PT WEIGHT 93 KG ?? Unchanged Durable Medical Equipment (Gauze Pad (4 X 4)) See instructions apply to foot wound then wrap with roll gauze ?? Unchanged Durable Medical Equipment (Gauze Pad (4 X 4)) See instructions Foot ulcer apply to wound daily ?? Unchanged Durable Medical Equipment (Gauze Roll (4 )) See instructions Wrap gauze around foot wound ?? Unchanged Durable Medical Equipment (Gauze Roll (4 )) See instructions Wrap GAuze Around Foot Wound ?? Unchanged Durable Medical Equipment (Gauze Roll (4 )) See instructions Wrap GAuze Around Foot Wound ?? Unchanged Durable Medical Equipment (Gloves) See instructions surgical gloves size XL for left foot wound once daily ?? Unchanged Durable Medical Equipment (RT BKA Prosthetic) See instructions RT BKA PROSTHETIC SOCKET REPLACEMENT,K3,Z89.511 ?? PT WEIGHT 93 KG ?? Unchanged Durable Medical Equipment (RT Prosthetic Foot) See instructions RT prosthetic foot,K3 DX:Z89.511 ?? Unchanged Durable Medical Equipment (Tape (1 -Paper)) See instructions Use To Wrap Gauze To foot Wound ?? Unchanged Gabapentin (gabapentin 300 mg oral capsule) 900 Milligram Oral Daily at Bedtime next dose due 08/08 at 9pm next dose due 08/08 at 9pm Unchanged Insulin Glargine (Lantus Solostar Pen 100 units/ mL subcutaneous solution) 15 unit(s) Subcutaneous Injection Daily at Bedtime next dose due08/08 at 9pm next dose due08/08 at 9pm Unchanged Insulin Lispro (Admelog SoloStar 100 units/ mL injectable solution) See instructions for premeal insulin; check blood sugar prior to meals; continue as per prior instructions ?? follow sliding scale follow sliding scale Unchanged Losartan (losartan 50 mg oral tablet) 1 tab(s) Oral Daily HOLD UNTIL YOU SEE RENAL MD Unchanged Metoprolol (metoprolol succinate 100 mg oral capsule, extended release) 1 capsule Oral Daily next dose due 08/09 at 9am next dose due 08/09 at 9am Pharmacy Information [facility]/pharmacy #[id number]: [address] [place] [phone] Test Results Below is a partial list of the most recent Laboratory test results done prior to this discharge. You may have had other tests and procedures not included in this list. Please discuss all test resultswith your provider. Basic Metabolic Panel (08/08/2022) ???Sodium - 135 mmol/L???Potassium - 3.8 mmol/L???Chloride - 103 mmol/L???Bicarbonate Level - 21 mmol/L???Anion Gap - 11???Glucose Level - 116 mg/dL???BUN - 20 mg/dL???Creatinine-Blood - 2.3 mg/dL???Estimated GFR Creatinine - 35 ML/MIN/1.73 M2???Calcium - 8.6 mg/dL BUN (08/07/2022) ???BUN - 32 mg/dL Calcium Level (08/07/2022) ???Calcium - 8.9 mg/dL CBC (08/05/2022) ???WBC - 16.8 k/mm3???RBC - 4.14 m/mm3???Hgb - 12.4 Gm/dL???Hct - 35.7 %???MCV - 86.2 femtoliters???MCH - 30.0 pg???MCHC - 34.7 g/dL???Platelet Count - 246 k/mm3???RDW-SD - 40.9 femtoliters???MPV - 10.0 femtoliters???Nucleated RBC (Automated) - 0.0 #/100 WBC'S???Abs. NRBC - 0.0 k/mm3 CBC w/ Differential (08/07/2022) ???WBC - 12.0 k/mm3???RBC - 3.78 m/mm3???Hgb - 11.4 Gm/dL???Hct - 32.6 %???MCV - 86.2 femtoliters???MCH - 30.2 pg???MCHC - 35.0 g/dL???Platelet Count - 288 k/mm3???RDW-SD - 40.8 femtoliters???MPV - 9.6 femtoliters???Nucleated RBC (Automated) - 0.0 #/100 WBC'S???Abs. NRBC - 0.0 k/mm3???Abs. Neut - 8.8 k/mm3???Abs. Lymph - 1.6 k/mm3???Abs. [place] - 1.4 k/mm3???Abs. Eo - 0.2 k/mm3???Abs. Baso - 0.0 k/mm3???Neut % - 73.3 %???Lymph % - 12.9 %???[place] % - 11.8 %???Eos % - 1.3 %???Baso % - 0.3 %???Imm Gran - 0.4 %???Abs. Imm Gran - 0.1 k/mm3 Complete Urinalysis (08/07/2022) ???Appear/Color, Urine - LIGHT YELLOW???Specific [place], Urine - 1.014???pH, Urine - 6.0???Albumin, Urine - 2+???Glucose, Urine - TRACE???Ketones, Urine - NEGATIVE???Bilirubin, Urine - NEGATIVE???Hemoglobin, Urine - 1+???Nitrite, Urine - NEGATIVE???Leukocyte, Urine - NEGATIVE???Urobilinogen - NORMAL???WBC's, Urine - 3 /HPF???RBC's, Urine - 4 /HPF???Bacteria - MODERATE???Hyaline Cast - 1 LPF???Amorphous Crystals - SLIGHT Comprehensive Metabolic Panel (08/05/2022) ???Sodium - 129 mmol/L???Potassium - 3.5 mmol/L???Chloride - 95 mmol/L???Bicarbonate Level - 24 mmol/L???Anion Gap - 10???Glucose Level - 102 mg/dL???BUN - 27 mg/dL???Creatinine-Blood - 1.9 mg/dL???Estimated GFR Creatinine - 44 ML/MIN/1.73 M2???Calcium - 8.8 mg/dL???Protein, Total - 6.1 Gm/dL???[place]bu min - 3.6 Gm/dL???AG Ratio - 1.4???Alkaline Phosphatase - 82 units/L???AST (SGOT) - 16 units/L???ALT (SGPT) - 18 units/L???Bilirubin, Total - 0.8 mg/dL COVID-19 (2019 Novel Coronavirus) PCR (08/06/2022) ???COVID-19 PCR Specimen Source - NASAL???COVID-19 PCR Result - NEGATIVE COVID-19, RSV, and Flu A/B, Rapid PCR (08/04/2022) ???Influenza A PCR - NEGATIVE???Influenza B PCR - NEGATIVE???RSV PCR - NEGATIVE???COVID-19 PCR Specimen Source - NASAL???COVID-19 PCR Result - NEGATIVE Creatinine (08/07/2022) ???Creatinine-Blood - 3.7 mg/dL???Estimated GFR Creatinine - 20 ML/MIN/1.73 M2 D-DIMER (08/04/2022) ???D-Dimer - 0.89 mg/L FEU Electrolytes (08/07/2022) ???Sodium - 128 mmol/L???Potassium - 3.7 mmol/L???Chloride - 97 mmol/L???Bicarbonate Level - 22 mmol/L???Anion Gap - 9 Glucose Level (08/07/2022) ???Glucose Level - 156 mg/dL GLUCOSE POC (08/08/2022) ???Glucose, POC - 165 mg/dL High??Sensitivity??Troponin T (08/04/2022) ???High Sensitivity Troponin (HSTnT) - 56 ng/L Hold Blue Top Tube (08/04/2022) ???Hold Blue Top - SPECIMEN DISCARDED AFTER 4 HOURS. HOLD LAVENDER TUBE (08/07/2022) ???Hold Lavender Top - SPECIMEN DISCARDED AFTER 24 HOURS. Lactic Acid Level (08/04/2022) ???Lactate - 2.0 mmol/L Lipase (08/04/2022) ???Lipase - 19 units/L Magnesium Level (08/07/2022) ???Magnesium - 2.4 mg/dL Microalbumin Urine (08/07/2022) ???Malb/Creat Ratio - 604.5 mg/Gm???Urine Creat For Micro Alb - 106.2 mg/dL???Micro-Albumin - 642.0mg/L Phosphorus Level (08/07/2022) ???Phosphorus - 3.8 mg/dL ProBNP (08/04/2022) ???Nt-Probnp - 1710 pg/mL Protein/Creatinine Ratio Urine (08/07/2022) ???Protein, Total Urine Random - 129 mg/dL???TP/Cr Ratio - 1.21???Creatinine, Urine - 106.2 mg/dL Urine Chloride (08/07/2022) ???Chloride, Urine Random - 28 mmol/L Urine Creatinine (08/07/2022) ???Creatinine, Urine Random - 106.2 mg/dL Urine Osmolality (08/07/2022) ???Osmolality, Urine Random - 270 mOsm/kg Urine Sodium (08/07/2022) ???Sodium, Urine Random - 41 mmol/L Urine Urea Nitrogen (08/07/2022) ???Urea Nitrogen, Urine Random - 378.4 mg/dL Allergies (NKA means No Known Allergies) Fish??(D&V - Diarrhea and vomiting) Pollen??(stuffy nose) Pork??([D]Vomiting, Diarrhea symptoms) Reglan??(severe itching) Problems Active Problems??(13) Acute kidney injury?? Chronic kidney disease (CKD), stage III (moderate)?? CKD (chronic kidney disease)?? Coronary atherosclerosis due to calcified coronary lesion?? Diabetes mellitus type 2 with complications?? HLD (hyperlipidemia)?? HTN (hypertension)?? Lower extremity edema?? WANG on CPAP?? Osteomyelitis?? Pickwickian syndrome?? Pressure sore?? Ulceration?? Education Materials Below is the list of Educational Leaflet Providered with your Discharge Instructions. Valuables and Belongings I fully understand and agree that [facility] accepts no responsibility for all my personal property including clothing, toilet articles, radios, jewelry, dentures, hearing aids, rings, money, or any other property that is in my possession or is brought to me after admission. I understand certain valuables may be placed in a hospital safe for a short period of time. I understand that the hospital is not liable for loss or damage due to accident, fire, or other natural occurrence while said property is in the safe. I accept full responsibility for any personal property that I keep with me, and will not hold the hospital responsible in case of loss or disappearance. I acknowledge that i have been encouraged to send valuables and belongings home. ?? Review of Valuable and Belonging List: With patient Date for Pt to Sign Valuables/Belongings: 08/08/22 12:31:00 ?? Other Discharge Information ? Pulmonary Rehab Status?? Pulmonary Rehab Discharge Status?? CPAP/BiPAP Mask Type: Full CPAP/BiPAP Mask Size: Large Respiratory Rate: 18 br/min ? Common Emergency Awareness Tips IS IT A STROKE? Act FAST and Check for these signs: FACE Does the face look uneven? ARM Does one arm drift down? SPEECH Does their speech sound strange? TIME Call at any sign of stroke ?? Heart Attack Signs Chest discomfort: Most heart attacks involve discomfort in the center of the chest and lasts more than a few minutes, or goes away and comes back. It can feel like uncomfortable pressure, squeezing, fullness or pain. Discomfort in upper body: Symptoms can include pain or discomfort in one or both arms, back, neck, jaw or stomach. Shortness of breath: With or without discomfort. Other signs: Breaking out in a cold sweat, nausea, or lightheaded. Remember, MINUTES DO MATTER. If you experience any of these heart attack warning signs, call to get immediate medical attention! ?? Smoking can increase your chances of developing chronic health problems and can cause harmful effects to other family members in your house. If you smoke, you are strongly encouraged to quit. Please call [facility] at [phone] or [phone] ([phone]) or log in to [email or web address] for referrals to smoking cessation programs. ?? The National Suicide Prevention Hotline is available 03/12 if you or someone you know needs to find a reason to keep living. By calling 6-199-187-[employer] (1286) you'll be connected to a skilled, trained counselor at a crisis center in your area. INPATIENT DISCHARGE INSTRUCTIONS SIGNATURE PAGE JEROME VENTURA Location:[facility] Registration Date and Time:08/04/2022 16:09 EDT Primary Care Physician: Seun ZHAO, Erick Jensen, I JEROME VENTURA, have received the above patient education materials/instructions and have verbalized understanding. If ambulance or transport services are being used I further acknowledge being given a choice of service. ?? If you need to contact me, please call me at this number: . Patient/College President Name: Patient/College President Signature: Relationship to Patient: Witness Name/Signature: Date: * Leigha Silva: SIGN Leigha Silva: SIGN, VERIFY, SIGN, PERFORM Rosey Rios RN: PERFORM Event Display: Patient Education Handout Authored Date: [id number] * Rosey Rios RN: PERFORM Event Display: Patient Education Leaflets Authored Date: [id number] Cholecystitis (Presumed) ?? [id number] Cholecystitis (Presumed) Your belly (abdominal) pain may be due to an inflammation and possible infection in the gallbladder. This is called cholecystitis. The gallbladder is a small sac under the liver. It stores and releases bile. Bile is a fluid??made in the liver??that helps with digesting fat. Eating fatty food stimulates the gallbladder to contract and release the bile.??Gallstones??may form in this sac??(called cholelithiasis). Most people don't have symptoms. But if??the stone moves and blocks bile from leavingthe gallbladder, it can cause pain and even an infection.??The infection is called cholecystitis.??Bile sludge without a stone can also cause cholecystitis. To help be sure of the diagnosis, you may need to have an ultrasound, CT scan, or other special test. Several things increase the risk of developing gallstones: ??? Being a woman ??? Being obese ??? Being older ??? Losing or gaining weight quickly ??? Having ahigh-calorie diet ??? Being ??? Using hormone therapy ??? Having diabetes The most common symptoms are: ??? Belly pain, cramping, aching ??? Upset stomach (nausea), vomiting ??? Fever Many illnesses can cause these symptoms. Gallbladder pain is called biliary colic and often starts in the upper right side of your belly. The pain can also be in the top middle part of the belly. Sometimes it can spread to your right shoulder, back, and arm. It often starts suddenly, becomes more intense quickly, and then slowly decreases and goes away over a couple of hours. Older adults and people with diabetes may have trouble showing exactly where the pain is.??The pain may occur after meals, especially fatty meals. Home care ??? If you have short periods of gallbladder pain that go away, this is called biliary colic. You may be sent home to rest in bed and follow a clear liquid diet until the pain, upset stomach, and vomiting go away. Call your healthcare provider for a follow-up appointment. Biliary colic can keep coming back and can cause acute cholecystitis. ??? Antibiotics and other medicine may be prescribed. Take these exactly as directed. ??? You can take acetaminophen or ibuprofen for pain, unlessyou were given a different pain medicine to use. Talk with your provider before using these medicines if you: o Have chronic liver or kidney disease o Ever had a stomach ulcer or GI (gastrointestinal) bleeding o Are taking blood-thinner medicines ??? Fat in your diet makes the gallbladder contract and may cause more pain. Don't have any fat in your diet over the next 2 days. Follow a low-fat dietafter that. If you are overweight, a low-fat diet will help you lose weight. ?? Call 911 Call 911 if you have ongoing symptoms that don't get better, or if you get a fever with your symptoms. You may have acute cholecystitis. This is not a condition that should be treated at home. You should go to the emergency room. Often surgery to remove the gallbladder (cholecystectomy) is needed. ?? Follow-up care An infection in the gallbladder is a serious problem and must be watched carefully. Keep any appointments made to have further testing and to see a general surgeon. See your healthcare provider for another exam in the next 1 to 2 days, or as advised. Once cholecystitis has occurred, removing the gallbladder is often needed to prevent a recurrence. You can talk with your provider about this at your follow-up visit.??If you were hospitalized for cholecystitis, your gallbladder may be taken out during that same hospital stay. Gallstones that aren't causing infection or symptoms often don't need surgery. ?? When to get medical advice Call your healthcare provider if any of these occur: ??? Repeated vomiting ??? Belly swelling ??? Pain lasting more than 6 hours ??? Fever of 100.4??F (38??C) or higher, or as advised by your provider ??? Shaking chills ??? Weakness, dizziness, or fainting ??? Dark yellow pee (urine) or poop (stool) that's light guidry or frannie-colored ??? Yellow color of the skin or eyes (jaundice) ??? Chest, arm, back, neck, or jaw pain ?? Last Reviewed Date: 2021 ?? 1993-1723 [employer]. All rights reserved. This information is not intended as a substitute for professional medical care. Always follow your healthcare professional's instructions. ?? * Gabriel LOO, Rosey Reyes: PERFORM Event Display: Patient Education Leaflets Authored Date: [id number] Discharge Instructions for Acute Kidney Injury ?? [id number] Discharge Instructions for Acute Kidney Injury You have been diagnosed with acute kidney injury. This means that you have had a sudden episode of kidney failure or damage that causes your kidneys not to work correctly. When both kidneys are healthy, they help filter out fluid and waste from the blood and body.??Acute kidney injury has many causes. These include urinary blockages, infection, lack of enough blood supply, and medicines that can injure??kidneys. In some cases, acute kidney injury is short-term (temporary). This type lasts several days to a few months. This is because the kidney can repair itself. Acute kidney injury can also result in chronic kidney disease or end stage renal failure. Here are some directions for you to follow as you recover. Home care ??? Follow any directions for eating and drinking given to you by your healthcare provider. o Drink less fluid, if directed by your healthcare provider. o Keep a record of everything you eat and drink. ??? Measure the amount of urine and stool you have each day. ??? Weigh yourself every day, at the same time of day, and in the same kind of clothes. Keep a daily record of your daily weights. ??? Take your temperature every day. Keep a record of the results. ??? Learn to take your own blood pressure (BP). Your healthcare provider can teach you how to correctly measure your BP. Keep a record of your results. Bring the record to your follow-up appointments. Ask your healthcare provider when you should seek emergency medical attention. Your provider will tell you what blood pressure reading is dangerous. ??? Stay away from people who have infections. This includes people with colds, bronchitis, or skin conditions. ??? Practice good personal??hygiene. Wash your hands often. This is especially important if you have a catheter in place when you leave the hospital. Doing so helps keep you safe from infection. ??? Take your medicines exactly as directed. ??? You may need frequent blood and urine tests. These are done to keep track of your kidney function. ?? Follow-up care Follow up with your healthcare provider, or as advised. ?? When to call your healthcare provider Call your??healthcare provider??right away if any of the following occur: ??? Signs of bladder infection, such as urinating more often, burning or pain when you pee, pain above your pubic bone, bloodin your urine, or trouble starting your urine stream ??? Signs of infection around your catheter, such as redness, swelling, warmth, or fluid leaking ??? Rapid weight loss or weight gain, such as 3??pounds or more in 24 hours or 6 pounds or more in 7 days ??? Fever above 100.4?? F ( 38??C ) or as directed by your healthcare provider ??? Chills ??? Muscle aches ??? Night sweats ??? Very little or no urine output ??? Swelling of your hands, legs, or feet ??? Back pain ??? Abdominal (belly) pain ??? Extreme tiredness ?? Last Reviewed Date: 2022 ?? 2303-4154 [employer]. All rights reserved. This information is not intended as a substitute for professional medical care. Always follow your healthcare professional's instructions. ?? * Event Display: Cardiac Rhythm Strips Authored Date: Hospital Progress note * Dada Gómez MD: PERFORM, SIGN, VERIFY Event Display: Progress Note Hospital Authored Date: Patient: JEROME VENTURA Age: 47 years Sex: Male : 1975 Associated Diagnoses: None Author: Dada Gómez MD Overnight Events & Current Issues Patient feeling well Renal function better No abdominal pain Review of Systems Review of Systems Constitutional: no chills, no fever. Respiratory. Cardiovascular: no peripheral edema. Physical Examination Vitals Vitals : VITAL SIGNS SECTION 08/08/2022 7:00 EDT Temperature 97.9 DegF Temperature Route Oral Pulse Rate 66 bpm Respiratory Rate 18 br/min Systolic Blood Pressure 148 mm Hg H Diastolic Blood Pressure 62 mm Hg Blood pressure sites Arm, left Pulse Pressure 86 mm Hg Oxygen Saturation 99 % Mode of Delivery (Oxygen) CPAP . General Appearance No apparent distress. HEENT Dry mucous membranes. Respiratory Decreased breath sounds. Cardiac No murmur/gallop/rub. Abdomen/GI Soft. Non-tender. Non-distended. Extremities No clubbing. No cyanosis. Neurologic Alert. Oriented x 3 . Results Review General resultsToday's results 08/08/2022 7:23 EDT Sodium 135 mmol/L Potassium 3.8 mmol/L Chloride 103 mmol/L Bicarbonate Level 21 mmol/L L Anion Gap 11 Glucose Level 116 mg/dL H BUN 20 mg/dL Creatinine-Blood 2.3 mg/dL H Estimated GFR Creatinine 35 ML/MIN/1.73 M2 Calcium 8.6 mg/dL . Impression and Plan Comprehensive Plan 1. A 47-year-old male with acute kidney injury. Acute kidney in this patient is likely secondary toacute tubular injury in the setting of contrast nephropathy. He also has infection with a question of acute cholecystitis, which can cause renal hypoperfusion/acute tubular injury. The possibility ofprerenal state is also in the differential diagnosis, the patient not been able to take adequate p.o. There is no hydronephrosis based on the CAT scan of the abdomen and pelvis. The bladder was also normal in the CAT scan. 2. Chronic kidney disease stage III at baseline in the setting of longstanding diabetes and hypertension, likely diabetic/hypertensive renal disease. 3. Question of acute cholecystitis. 4. Type 2 diabetes mellitus. 5. Mild hyponatremia. The patient clinically looks hypovolemic. RECOMMENDATION: Renal function is improved Keep patient hydrated Patient for discharge and I agree with I will arrange outpatient follow-up for the patient discussed with the medical team Dr Gómez * Sasha Lyon RN: PERFORM, SIGN, VERIFY Event Display: Progress Note Hospital Authored Date: [id number] Patient: JEROME VENTURA Age: 47 years Sex: Male : 1975 Associated Diagnoses: None Author: Sasha Lyon RN Findings Problem Related to Alteration in Gastrointestinal : Alteration in Gastrointestinal Func/new 08/08/2022 8:00 EDT Alteration in GI status Related to Other: cholecystitis Goals & Outcomes, Gastrointestinal Establish a regular pattern of elimination for pt, Nutritional intake is adequate for metabolic needs, Pt will achieve normal/improved fluid balance, Pt will have a bowel movement prior to discharge, Pt will maintain adequate GI function appropriate for pt, Ptwill maintain normal elimination patterns, Pt will resume/maintain adequate hemodynamic status, Pt will tolerate age appropriate diet prior to discharge, Resolved problem, Goals/Outcomes met Interventions, Gastrointestinal Assess/monitor abdomen for distention, tenderness, Assess/monitor bowel pattern, bowel sounds, flatus, Assess/monitor number of bowel movements, Assess/monitor color, quantity, quality, consistency of stoo, Assess/monitor pt for nausea, vomiting, Assess/monitor intake & output, Assess if pt tolerating diet, DVT prophylaxis as ordered, Teach/encourage deep breath & cough exercises, Teach/encourage use of incentive spirometer Goals/Interventions, Gastrointestinal Yes Gastrointestinal, Problem Start 08/04/2022 21:00 Reviewed plan with, Gastrointestinal Patient Patient Progression, Gastrointestinal Pt progressing according to plan . Evaluation Patient alert and oriented x3, abdomen soft, non-tender, +bowel sounds present, lungs clear upon auscultation, no complaints of chest pain or shortness of breath. Patient on telemetry reading normal sinus rhythm with PVCs. Patient has no complaints of pain. Tolerating a low fat diet, no complaints of nausea or vomiting. Voiding in bathroom with no difficulties. Patient ambulating independently inroom with prosthetic. Plan to be discharged home today on PO antibiotics. Now resting in bed with call owusu within reach, uses appropriately.. Discharge Information Pulmonary Rehab Discharge : Pulmonary Rehab Discharge Status 08/08/2022 3:30 EDT CPAP/BiPAP Mask Type Full CPAP/BiPAP Mask Size Large 08/08/2022 0:31 EDT CPAP/BiPAP Mask Type Full CPAP/BiPAP Mask Size Large 08/07/2022 22:47 EDT CPAP/BiPAP Mask Type Full CPAP/BiPAP Mask Size Large 08/07/2022 3:53 EDT CPAP/BiPAP Mask Type Full CPAP/BiPAP Mask Size Large 08/07/2022 0:50 EDT CPAP/BiPAP Mask Type Full CPAP/BiPAP Mask Size Large 08/06/2022 22:54 EDT CPAP/BiPAP Mask Type Full CPAP/BiPAP Mask Size Large 08/06/2022 4:00 EDT CPAP/BiPAP Mask Type Full CPAP/BiPAP Mask Size Large 08/05/2022 21:43 EDT CPAP/BiPAP Mask Type Full CPAP/BiPAP Mask Size Large 08/05/2022 3:16 EDT CPAP/BiPAP Mask Type Full CPAP/BiPAP Mask Size Large 08/05/2022 0:06 EDT CPAP/BiPAP Mask Type Full CPAP/BiPAP Mask Size Large Rehabilitation Discharge : Rehab Discharge Index 08/06/2022 9:33 EDT Comments on treatment indicated Pt at INDEP baseline and not appropriate for acute PT consult Full chart review completed Yes Other findings Pt INDEP with rapid, fluid movement with bed mob, txfrs, and gait x 30ft without AD.Pt reporting no concerns and returned to bed. * Anali Cameron RN: VERIFY, PERFORM, SIGN Event Display: Progress Note Hospital Authored Date: Patient: JEROME VENTURA Age: 47 years Sex: Male : 1975 Associated Diagnoses: None Author: Anali Cameron RN Findings Problem Related to Alteration in Gastrointestinal : Alteration in Gastrointestinal Func/new 08/08/2022 1:00 EDT Alteration in GI status Related to Other: cholecystitis Goals & Outcomes, Gastrointestinal Establish a regular pattern of elimination for pt, Nutritional intake is adequate for metabolic needs, Pt will achieve normal/improved fluid balance, Pt will have a bowel movement prior to discharge, Pt will maintain adequate GI function appropriate for pt, Ptwill maintain normal elimination patterns, Pt will resume/maintain adequate hemodynamic status, Pt will tolerate age appropriate diet prior to discharge, Resolved problem, Goals/Outcomes met Interventions, Gastrointestinal Assess/monitor abdomen for distention, tenderness, Assess/monitor abdominal girth & bowel function, Assess/monitor bowel pattern, bowel sounds, flatus, Assess/monitor number of bowel movements, Assess/monitor color, quantity, quality, consistency of stoo, Assess/monitor pt for nausea, vomiting, Assess/monitor effects of re-hydration, Assess/monitor intake &output, Assess if pt tolerating diet, DVT prophylaxis as ordered, Elevate HOB to facilitate lung expansion, prevent aspiration, Taking PO: Encourage/monitor intake & swallowing ability, Teach Pt/caregiver diet & give copy of dietary instructions, Teach Pt/caregiver on bowel elimination inter ventions, Teach Pt/caregiver re: importance of bowel regime, Teach Pt/caregiver re: nutritional intake & dietary restrict, Teach/encourage deep breath & cough exercises, Teach/encourage use of incentive spirometer Goals/Interventions, Gastrointestinal Yes Gastrointestinal, Problem Start 08/04/2022 21:00 Reviewed plan with, Gastrointestinal Patient Patient Progression, Gastrointestinal Pt progressing according to plan . Nursing Data Vital Signs : VITAL SIGNS SECTION 08/07/2022 23:00 EDT Temperature 98.1 DegF Temperature Route Oral Pulse Rate 73 bpm Respiratory Rate 18 br/min Systolic Blood Pressure 148 mm Hg H Diastolic Blood Pressure 97 mm Hg H Blood pressure sites Arm, left Oxygen Saturation 100 % Mode of Delivery (Oxygen) Room air Mode of Delivery (Oxygen) CPAP 08/07/2022 20:00 EDT Temperature 98.1 DegF Temperature Route Oral Pulse Rate 79 bpm Respiratory Rate 18 br/min Systolic Blood Pressure 187 mm Hg H Diastolic Blood Pressure 83 mm Hg Blood pressure sites Arm, left Oxygen Saturation 94 % Mode of Delivery (Oxygen) Room air . Narrative/Incidental Please see interventions listed in care plan(s) above. Patient is alert and oriented x4. Denies chest pain. No edema, +left PP and +CMS. On alarm security or surveillance monitor running normal sinus rhythm with frequent PVC's/ bigeminy at times. Lungs are clear on room air and denies SOB. CPAP in use throughout night. Abdomen is soft, round, and non tender. Bowel sounds are present and +flatus. Tolerating low fat non cardiac diet and denies nausea and vomiting. Last bowel08/06. Voiding clear yellow urine. Skin is intact. 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 Denies pain. Medicated with scheduled medications, see MAR. Patient is resting comfortably in bed, wheels locked, in lowest position. Call owusu is in reach and patient rings appropriately. . Discharge Information Pulmonary Rehab Discharge : Pulmonary Rehab Discharge Status 08/07/2022 22:47 EDT CPAP/BiPAP Mask Type Full CPAP/BiPAP Mask Size Large 08/07/2022 3:53 EDT CPAP/BiPAP Mask Type Full CPAP/BiPAP Mask Size Large 08/07/2022 0:50 EDT CPAP/BiPAP Mask Type Full CPAP/BiPAP Mask Size Large 08/06/2022 22:54 EDT CPAP/BiPAP Mask Type Full CPAP/BiPAP Mask Size Large 08/06/2022 4:00 EDT CPAP/BiPAP Mask Type Full CPAP/BiPAP Mask Size Large 08/05/2022 21:43 EDT CPAP/BiPAP Mask Type Full CPAP/BiPAP Mask Size Large 08/05/2022 3:16 EDT CPAP/BiPAP Mask Type Full CPAP/BiPAP Mask Size Large 08/05/2022 0:06 EDT CPAP/BiPAP Mask Type Full CPAP/BiPAP Mask Size Large Rehabilitation Discharge : Rehab Discharge Index 08/06/2022 9:33 EDT Comments on treatment indicated Pt at INDEP baseline and not appropriate for acute PT consult Full chart review completed Yes Other findings Pt INDEP with rapid, fluid movement with bed mob, txfrs, and gait x 30ft without AD.Pt reporting no concerns and returned to bed. XR Chest AP * [facility] , CIS S: TRANSCRIBE Don Gil MD S: VERIFY Event Display: Result: Authored Date: Chest Single Frontal View Hx of Present Illness: n v x 3 days with reproducable midsternal cp non radiating; Reason: Angina; Clinical Question(s): CHF COMPARISON: 08/15/2018 FINDINGS: LINES AND TUBES: None. LUNGS AND PLEURA: Elevated right hemidiaphragm. This was present on previous exam. Lungs appear clear. No pleural effusion. No pneumothorax. HEART, MEDIASTINUM AND CHELSEA: Heart is normal in size. Normal mediastinal and hilar contour. BONES AND SOFT TISSUES: No acute abnormality. IMPRESSION: No acute abnormality. WSN: [id number] Ordering Physician: Deandre Ballesteros Dictated By: Don Gil MD Dictated Date/Time: 08/04/22 1:04 pm Reviewed By: Don Gil MD Signed By: Don Gil MD Signed Date/Time: 08/04/22 1:04 pm Transcribed By: ALEJANDRO Transcribed Date/Time: 08/04/22 1:[address] Abdomen and Pelvis W contrast IV * [facility] , CIS S: TRANSCRIBE Sean Franklin MD: VERIFY Event Display: Result: Authored Date: CT Abd/Pelvis W/ IV Contrast Only Hx of Present Illness: n v x 3 days with reproducable midsternal cp non radiating; Reason: Other:; right flank abdominal pain; Clinical Question(s): Appendicitis; ischemic colitis; Order Comment: Patient unable to tolerate PO contrast. TECHNIQUE: Spiral CT through the abdomen and pelvis with IV contrast formatted in 3 planes. 100 cc of Omnipaque 300 was administered intravenously. This study was performed without oral contrast. Weight-based protocol using automatic tube modulation was used to optimize exposure parameters. CTDIvol Body: 17.02 mGy, DLP Body: 973 mGy*cm. COMPARISON: None. FINDINGS: Twisting Department End Finder View Findings, Lines and Tubes: None. Visualized Chest: Lung bases are clear. No pleural effusion. The heart is normal in size. No pericardial effusion. Diaphragm: Normal. Liver: Normal. Gallbladder: Contains layering sludge and stones. Gallbladder wall thickening and hyperenhancement.Extensive pericholecystic inflammatory stranding compatible with acute cholecystitis. Bile ducts: No biliary ductal dilation. Minimal wall enhancement of the common bile duct (602:54), likely reactive. Spleen: Normal. Pancreas: Normal. Adrenal glands: Normal. Kidneys and ureters: No hydronephrosis, stones, or suspicious masses. A few renal artery branch vascular calcifications. Subcentimeter hypodensity in the right kidney is too small to characterize. Bladder: Normal. Reproductive organs: Mild prostatomegaly. Stomach, small bowel, and large bowel: Underdistention of the majority of the distal colon. No bowel obstruction. Mild wall thickening of the first and second portions of the duodenum with surrounding stranding, likely reactive. Appendix: Normal. Peritoneum and retroperitoneum: Trace free fluid inferior to the gallbladder. No abscess. No omental or mesenteric lesions. Lymph nodes: No enlarged lymph nodes. Blood vessels: Moderate atherosclerotic vascular calcification. No aortic aneurysm. No evidence of venous thrombosis. Abdominal and pelvic wall: Some subcutaneous stranding of the fat within the gluteal regions. No fluid collection. Bones: No acute abnormality. Severe degenerative changes at L2-L3. Median sternotomy wires. IMPRESSION: Acute cholecystitis. No biliary ductal dilation. WSN: [id number] Ordering Physician: Deandre Ballesteros Dictated By: Sean Franklin MD Dictated Date/Time: 08/04/22 1:37 pm Reviewed By: Sean Franklin MD Signed By: Sean Franklin MD Signed Date/Time: 08/04/22 1:37 pm Transcribed By: ALEJANDRO Transcribed Date/Time: 08/04/22 1:29 pm Patient Care team information Care Team Personnel Name: Juliet Mcdonald RN Position: [facility] RN Member Role: Primary Care Nurse Name: Erick Kohli MD Position: Reference Physician Member Role: PCP Address: Address: [address] [place] [address] [place] [id number]- Name: Smaantha Mancera RN Position: [facility] RN Member Role: Primary Care Nurse Name: Ashish Kirk RN Position: [facility] RN Supv Member Role: Primary Care Nurse Name: Homero Calvo RN Position: [facility] RN Member Role: Primary Care Nurse Name: Luis E Jenkins MD Position: [facility] Renal MD Member Role: Lifetime Consulting Physician Address: Address: [address] [place] [address], [address] [facility] [place] [address]- Name: Adore Angela MD Position: [facility] Renal MD Member Role: Lifetime Consulting Physician Address: Address: [address] [place] [address], [address] [facility] [place] [address]- Name: Yaritza Paz RN Position: [facility] RN Member Role: Primary Care Nurse Name: Shirlene Ying RN Position: [facility] AMB Nurse Member Role: Primary Care Nurse Name: Fernando Torres RN Position: [facility] RN Member Role: Primary Care Nurse Name: Azalea Romeor RN Position: [facility] Tank Truck Engine Mechanic Member Role: Primary Care Nurse Name: Alli Leslie RN Position: [facility] RN Member Role: Primary Care Nurse Name: Lety Garcia RN Position: [facility] PCO RN Member Role: Primary Care Nurse Name: Chana Wayne RN Position: [facility] RN Member Role: Primary Care Nurse Name: Karla Otero RN Position: [facility] RN Member Role: Primary Care Nurse Name: Isabel Thurman RN Position: [facility] RN Member Role: Primary Care Nurse Name: Khoa Dee MD Position: [facility] Renal MD Member Role: Lifetime Consulting Physician Address: Address: [address] [facility] [address] [facility] [place] [address]- Name: Ridge Camejo RN Position: [facility] RN Member Role: Primary Care Nurse Name: Iva Doan RN Position: [facility] AMB Nurse Member Role: Primary Care Nurse Name: Salvador Anderson MD Position: [facility] Renal MD Member Role: Lifetime Consulting Physician Address: Address: [address] [facility] [place] [address]- Name: Zora Bolanos RN Position: [facility] RN Member Role: Primary Care Nurse Name: Sheila Baugh RN Position: [facility] RN Member Role: Primary Care Nurse Name: Delfino Rae Position: [facility] RN Member Role: Primary Care Nurse Name: Isabel Hair RN Position: [facility] RN Member Role: Primary Care Nurse Name: Maren ONEILL Attending Position: [facility] ED Medicine MD Name: Isabel Brower RN Position: [facility] ED RN W/OE and Tasks Member Role: Patient Care Provider Name: Inna Travis MD Position: [facility] Resident Address: Address: [address] [place] [address] [place] [address]- Name: Nahomi Sawyer Position: [facility] ED OA Charge Member Role: ED Associate Name: Mini Sloan Position: [facility] ED TA [facility] Member Role: Patient Care Provider Care Team Related Persons Name: KARYNA VENTURA Address: [address] [place] [address] Name: KEDAR VENTURA Address: [address] [place] [address] Name: LLOYD CELESTIN Address: home [address] [place] [address]
--- OUTSIDE RECORDS SUMMARY | 2024-02-11 13:07 | XMS_ITS | Continuity of Care Document ---
Author Organization [facility] Address [address] [place] [id number]- Care Team Providers Care Enrobing Machine Corder Name Role Phone Erick Kohli MD Primary Care Physician [id number] Date(s): 04/28/21 - 06/03/21 [facility] Care [address] [place] [id number] Attending Physician: James Judge MD Admitting Physician: James Judge MD Referring Physician: Erick Kohli MD Allergies, Adverse Reactions, Alerts Substance Reaction Severity Status Reglan severe itching Active Pork [D]Vomiting Diarrhea symptoms Active Fish D&V - Diarrhea and vomiting Active Pollen stuffy nose Active Immunizations Given [...] Maintenance, 04/09/16 16:22:43, Route to Pharmacy Electronically, [id number], [facility]/pharmacy #[id number] Start Date: 04/09/16 Status: [...] 2 Refills, Maintenance, 09/19/20 8:32:00 EDT, Tablet, [facility], Partial fill upon [...] Maintenance, 04/30/16 14:46:26, Route to Pharmacy Electronically, [id number]... Start Date: 04/30/16 Status: Ordered NovoLog Inj [...]
--- OUTSIDE RECORDS SUMMARY | 2024-02-11 13:07 | XMS_ITS | Continuity of Care Document ---
Author Organization [facility] Address [address] [place] [id number]- Care Team Providers Care Communications Scientist Name Role Phone Seun ZHAO, Erick Jensen Primary Care Physician [place] [facility] Date(s): 10/28/20 - 12/03/20 [facility] [address] [place] [id number] Attending Physician: Geovany Meyer MD Admitting Physician: Geovany Meyer MD Referring Physician: Ryan Scott MD Allergies, Adverse Reactions, Alerts Substance Reaction [...] Maintenance, 04/09/16 16:22:43, Route to Pharmacy Electronically, [id number], [facility]/pharmacy #[id number] Start Date: 04/09/16 [...] 2 Refills, Maintenance, 09/19/20 8:32:00 EDT, Tablet, [facility], Partial fill upon patient [...] Maintenance, 04/30/16 14:46:26, Route to Pharmacy Electronically, [id number]... Start Date: 04/30/16 Status: Ordered NovoLog Inj [...]
--- OUTSIDE RECORDS SUMMARY | 2024-02-11 13:07 | XMS_ITS | Continuity of Care Document ---
Author Organization [facility] ter Address [address] [place] [id number]- Care Team Providers Care External Relations Manager Name Role Phone Seun ZHAO, Erick Jensen Primary Care Physician [phone] Encounter [facility] Date(s): 10/26/22 - 10/31/[address] [address]- Encounter Diagnosis Vomiting(Final) - 10/24/22 Discharge Disposition: A-D/C Home Attending Physician: Monica Espinoza MD Admitting Physician: Matthias Ribera MD Referring Physician: Not on Staff, Referring [...] 0 Refills, Maintenance, 06/14/22 15:08:00 EST, Cream, [facility]/pharmacy #[id number], Partial fill upon patient request [...] 10/28/22 9:15:00 EDT, Route to Pharmacy Electronically, [facility], Partial fill upon patient request if the prescrip... Start Date: 10/28/22 Stop Date: 11/11/22 Status: Ordered clopidogrel 75 mg oral tablet 75 mg, 1, tablet, By Mouth, Daily, # 30 tablet, Refills 4, Tot. Refills 4, Maintenance, 04/09/16 16:22:43, Route to Pharmacy Electronically, [id number], [facility]/pharmacy #[id number] Start Date: 04/09/16 Status: Ordered Coreg 25 mg oral tablet 25 mg, Tablet, By Mouth, 10/31/22 9:00:00 EDT Start Date: 10/31/22 Stop Date: 10/31/22 Status: Completed Coreg 25 mg oral tablet 25 mg, 1, tablet, By Mouth, 2 times a day, # 60 tablet, Refills 0, Tot. Refills 0, Maintenance, 10/28/22 9:08:00 EDT, Route to Pharmacy Electronically, [facility], Partial fill upon patient request if the prescription is for a schedule I... Start Date: 10/28/22 Stop Date: 11/27/22 Status: Ordered gabapentin 300 mg oral capsule 300 mg, Capsule, By Mouth, 10/31/22 9:00:00 EDT Start Date: 10/31/22 Stop Date: 10/31/22 Status: Completed gabapentin 300 mg oral capsule TAKE 1 [...] oral tablet 50 mg, Tablet, By Mouth, 10/31/22 9:00:00 EDT Start Date: 10/31/22 Stop Date: 10/31/22 Status: Completed pantoprazole 40 mg oral delayed release tablet [...] EDT, Supply Start Date: 03/10/20 Status: Ordered sodium bicarbonate 650 mg oral tablet = 650 mg, By Mouth, 2 times a day, for 5 days, # 10 tablet, 0 Refills, Acute 11/03/22 9:54:00 EDT, 10/29/22 9:54:00 EDT, Tablet, [facility]/pharmacy #[id number], Partial fill upon patient request if the prescription is for a schedule II opioid drug., 182, cm, 10/11... Start Date: 10/29/22 Stop Date: 11/03/22 Status: Ordered Tape (1 -Paper) See Instructions, [...] Osteomyelitis Confirmed Active Ulceration Confirmed Active Results Radiology Reports * Exam Date Time Procedure Performing Provider Status 10/25/22 5:48 PM US RUQ Shiela Tse; Auth (V erified) Notes: (US RUQ) Reason For Exam: Cholecystitis RESULT: US RUQ US RUQ Reason: Cholecystitis; Clinical Question(s): Cholecystitis; Order Comment: 10 25 2022 08:46:51 EDT Attempted to have pt. come over from ES hold, but he had just gone to floor. ch COMPARISON: None. FINDINGS: Liver: Normal in size and echotexture. No focal lesion. Smooth hepatic contour. Main portal vein patent with normal hepatopetal direction of flow. Gallbladder: Contracted gallbladder containing multiple calculi. Wall thickness at upper limit of normal some of which may be artifact from contracted state. No pericholecystic fluid. Negative Murphysign. Biliary Tree: No intrahepatic or extrahepatic bile duct dilation is identified. Common duct measures: 0.2 cm. Pancreas: Obscured by overlying bowel gas. Right kidney: 10.6 cm in length. Normal parenchymal echotexture and thickness. No hydronephrosis, stone or mass. IMPRESSION: Technically limited study due to body habitus and bowel gas as well as intercostal approach. Cholelithiasis without definite findings of cholecystitis. Exam limited as above. If there is strong clinical suspicion for this diagnosis, HIDA scan may be considered. WSN: [id number] Ordering Physician: Drake Lauren Dictated By: Sean Thompson MD Dictated Date/Time: 10/25/22 6:56 pm Reviewed By: Sean Thompson MD Signed By: Sean Thompson MD Signed Date/Time: 10/25/22 6:56 pm Transcribed By: ALEJANDRO Transcribed Date/Time: 10/25/22 6:54 pm * Exam Date Time Procedure Performing Provider Status 10/24/22 5:[address] Angio Abdomen and Pelvis Sun Agosto; Auth (Verified) Notes: (CT Angio Abdomen and Pelvis) Reason For Exam: Mesenteric ischemia, acute;Other: RESULT: CT Angio Abdomen and Pelvis CT Angio Abdomen and Pelvis INDICATION: Hx of Present Illness: Patient reports N V D, upper abd pain, chest pain and SOB since yesterday.; Reason: Other:; Mesenteric ischemia, acute; Clinical Question(s): Other:; Generalized Abdominal Pain, Mesenteric Ischemia; Order Comment: , Other: COMPARISON: 08/04/2022 TECHNIQUE: Axial images were obtained from diaphragm through the pelvis during the intravenous administration of iodinated contrast. 100 cc of Omnipaque 300 was administered intravenously. Delayed (venous) images were also acquired for evaluation of the portal veins. Sagittal and coronal maximum intensity projection (MIP) images were reconstructed and rendered in both arterial and venous phases. Weight-based protocol using automatic tube modulation was used to optimize exposure parameters. RADIATION DOSE PARAMETERS: CTDIvol Body: 17.92 mGy, DLP Body: 2443 mGy*cm. FINDINGS: Cholelithiasis Too small to characterize low-attenuation focus in the right kidney is likely a small cyst. Patent splanchnic vasculature. SMV and portal vein are patent. Normal appendix. IMPRESSION: No acute process seen in the abdomen or pelvis. No CT evidence for mesenteric ischemia. Incidental findings outlined above. WSN: [id number] Ordering Physician: Maria T Rios Dictated By: Joel Elizondo MD Dictated Date/Time: 10/24/22 5:40 pm Reviewed By: Joel Elizondo MD Signed By: Joel Elizondo MD Signed Date/Time: 10/24/22 5:40 pm Transcribed By: ALEJANDRO Transcribed Date/Time: 10/24/22 5:30 pm * Exam Date Time Procedure Performing Provider Status 10/24/22 12:46 PM Chest 2 Views Frontal and Lat Patty Colvin i; Auth (Verified) Notes: (Chest 2 Views Frontal and Lat) Reason For Exam: Shortness of Breath RESULT: Chest 2 Views Frontal and Lat Chest 2 Views Frontal and Lat HX OF PRESENT ILLNESS: Patient reports N V D, upper abd pain, chest pain and SOB since yesterday.; Reason: Shortness of Breath; Clinical Question(s): CHF / CHF COMPARISON: 08/04/2022 FINDINGS: LINES AND TUBES: None. LUNGS AND PLEURA: Clear lungs. Normal pulmonary vascularity. No pleural effusion. No pneumothorax. HEART, MEDIASTINUM AND CHELSEA: Heart is normal in size. Chronically elevated right hemidiaphragm. BONES AND SOFT TISSUES: No acute abnormality. Status-post median sternotomy. IMPRESSION: No evidence of acute abnormality. WSN: [id number] Ordering Physician: Maria T Rios Dictated By: Sean Momin MD Dictated Date/Time: 10/24/22 12:48 p Reviewed By: Sean Momin MD Signed By: Sean Momin MD Signed Date/Time: 10/24/22 12:48 pm Transcribed By: ALEJANDRO Transcribed Date/Time: 10/24/22 12:47 pm Vital Signs Most recent to oldest [Reference Range]: 1 2 3 4 Height 182 cm (10/31/22 10:44 AM) 182 cm (10/31/22 7:12 AM) 182 cm (10/31/22 4:20 AM) Weight 97.5 kg (10/25/22 9:31 AM) 97.5 kg (10/25/22 5:55 AM) 97.5 kg (10/24/22 2:55 PM) Oxygen Saturation [94-100 %] 100 % (10/31/22 10:44 AM) 100 % (10/31/22 7:12 AM) 100 % (10/31/22 4:20 AM) Pulse Rate [55-90 bpm] 55 bpm (10/31/22 10:44 AM) 96 bpm *H* (10/31/22 9:05 AM) 96 bpm *H* (10/31/22 7:12 AM) Body Mass Index [18.5-24.99 kg/m2] 29.43 kg/m2 *H* (10/25/22 9:31 AM) 29.43 kg/m2 *H* (10/25/22 5:55 AM) 29.43 kg/m2 *H* (10/24/22 2:55 PM) Blood Pressure [90-138/55-84 mm Hg] 130/77mm Hg (10/31/22 10:44 AM) 130/70mm Hg (10/31/22 9:05 AM) 130/70mm Hg (10/31/22 9:05 AM) Respiratory Rate [16-30 br/min] 20 br/min (10/31/22 10:44 AM) 18 br/min (10/31/22 10:04 AM) 20 br/min (10/31/22 9:04 AM) 18 br/min (10/31/22 9:04 AM) Temperature [96.8-100.4 DegF] 98.1 DegF (10/31/22 10:44 AM) 98.1 DegF (10/31/22 7:12 AM) 98.4 DegF (10/31/22 4:20 AM) Liters per Minute 0 L/min (10/27/22 6:51 AM) Mode of Delivery (Oxygen) Room air (10/31/22 10:44 AM) Room air (10/31/22 7:12 AM) Room air (10/31/22 4:20 AM) Blood pressure sites Arm, left (10/31/22 10:44 AM) Arm, left (10/31/22 7:12 AM) Arm, right (10/31/22 4:20 AM) Temperature Route Oral (10/31/22 10:44 AM) Oral (10/31/22 7:12 AM) Oral (10/31/22 4:20 AM) Dry Weight 104.5 kg (10/25/22 9:31 AM) Social History Social History Type Response Smoking Status Former smoker entered on: 08/09/17 Sex Admission evaluation note * Drake Story: PERFORM Event Display: Admission Note Authored Date: [id number] Patient: ??CUTTING, NACHO ? Age:??47 Years?Sex:??Male?:??1975?? Chief Complaint/Reason for Consultation Nausea, vomiting, chest pain History of Present Illness 47-year-old male??with history??of CAD s/p CABGx3 2015, HFrEF 40-45% (08/2021), PAD s/p R BKA (12/2013), Poorly controlled IDDM, L fem-popliteal bypass (02/2016), HTN, HLP, CKD IIIa (baseline 1.6), OSAon CPAP presents with??nausea and vomiting, and chest pain.?? patient is a poor historian.?? Chest pain was nonexertional. ??He endorses??hematemesis??x2 days.?? He has not taken his medications??dueto nausea.?? He denies alcohol and drug use.?? In the emergency department??hemoglobin was 14.8.?? Lactate trended from 3.5-4.2.?? Troponin??was 20,??serial troponin was hemolyzed.?? His creatinine??was 1.5??baseline 1.8.?? GI??was consulted??and did not recommend??EGD.?? They recommended??serial he moglobin,??RUQ ultrasound to rule out cholecystitis,??trend LFTs.?? During my assessment??he is mildly tachycardic.?? He says??his nausea and vomiting improved??with Zofran. denies fever, CP, SOB, abdominal pain, bowel or bladder complaints. Review of Systems CONSTITUTIONAL: ??Denies any fever, chills, changes to weight or fatigue. EYES: Denies any changes to vision, burning or diplopia. HEENT: Denies any ANGELA, nasal d/c, nose bleeds, changes to voice, vertigo, photophobia, hearing changes or dental problems. CV: Denies any CP, orthopnea, PND, edema, palpitations. PULM: Denies any SOB, wheezing, cough or production of phlegm. ABD: Denies any abdominal pain, N/V/D, heartburn, PRBPR, melena, or changes to bowel habits. : Denies any changes to frequency. ??Denies dysuria, urgency, straining, hematuria, incontinence.? MS: Denies any joint or muscle pain, falls or changes to gait. NEURO: Denies any weakness, numbness, changes to speech confusion or memory loss. SKIN: Denies any rashes or lesions. ?? PSYCH: Denies any depression or anxiety. SIGECAPS negative. Objective Vital Signs?? Temperature: 97.6 DegF (10/24/22 16:04:00) Temperature Route: Oral (10/24/22 16:04:00) Pulse Rate: 84 bpm (10/24/22 14:55:00) Respiratory Rate: 16 br/min (10/24/22 14:55:00) Systolic Blood Pressure:??154 mm Hg??High (10/24/22 14:55:00) Diastolic Blood Pressure:??103 mm Hg??High (10/24/22 14:55:00) Blood pressure sites: Arm, right (10/24/22 14:55:00) Mean Arterial Pressure: 120 mm Hg (10/24/22 14:55:00) Pulse Pressure: 51 mm Hg (10/24/22 14:55:00) Oxygen Saturation: 100 % (10/24/22 14:55:00) Mode of Delivery (Oxygen): Room air (10/24/22 14:55:00) Early Warning Score: 7 (10/24/22 19:46:52) ? Physical Exam General:??47 year old male??lies in bed comfortably in no acute distress HEENT: NCAT, moist oral mucosa, good dentition, oropharynx without erythema Card: RRR no murmur, non displaced PMI, no JVD, 2+ radial pulse B/L Resp: CTA B/L, no wheezing, rales, ronchi Abdomen: soft and non tender, bowel sounds WNL Extremities: Right BKA Skin: Without rashes or lesions, good turgor Hem/Lymph: without bruising or lymphadenopathy Psych: appropriate affect Neuro: A&OX3, no focal motor deficits Assessment/Plan 47-year-old male??with history??of CAD s/p CABGx3 2015, HFrEF 40-45% (08/2021), PAD s/p R BKA (12/2013), Poorly controlled IDDM, L fem-popliteal bypass (02/2016), HTN, HLP, CKD IIIa (baseline 1.6), OSAon CPAP presents with??nausea and vomiting, and chest pain.? Vomiting (R11.10):?? Hematemesis (K92.0): GI??consulted appreciate recommendations.??Likely??peptic ulcer??versus Tanika- Torres tear CT angiogram without bleed??or ischemia ?? Plan Right upper quadrant ultrasound to rule out cholecystitis Trend LFTs Trend H&H PPI daily??ordered Zofran as needed ?? Chest pain (R07.9):?? Elevated serum lactate dehydrogenase (R74.02):??Lactate is trended up from 3.5-4.2.??likely??hypovolemic??due to vomiting.??we will give IV fluids??and recheck ?? CAD (coronary artery disease) (I25.10):??Nonexertional.??No longer having chest pain.??EKG nonischemic.??Serial troponin pending ?? Plan Telemetry Serial troponin Holding aspirin and Plavix??due to GI bleed ?? Diabetes (E11.9):??At home uses Lantus 35 units nightly.??He is??currently n.p.o.,??we will use Lantus??25 units??nightly??and cover with sliding scale ?? Hyperlipidemia (E78.5):??Continue statin ?? Hypertension (I10):??Continue losartan ?? WANG on CPAP (G47.33):??Continue CPAP ?? VTE Prophylaxis:??Pneumoboots, avoid chemoprophylaxis in setting of bleed ?VTE Prophylaxis Assessment:??VTE Prophylaxis Ordered ?? Code Status:??Full code ?? Ongoing Medical Necessity:??GI bleed,??ACS rule out ?? Discharge Planning:??Likely home in??about??2 to 3 days ?? Total time spent on chart review,??medication reconciliation, direct patient care, documentation: 76 minutes Histories Allergies Allergies ?(Active and Proposed Allergies Only) Pollen? (Severity: Unknown severity, Onset: Unknown) ?Reactions: stuffy nose Pork? (Severity: Unknown severity, Onset: Unknown) ?Reactions: Diarrhea symptoms, [D]Vomiting Fish? (Severity: Unknown severity, Onset: Unknown) ?Reactions: D&V - Diarrhea and vomiting Reglan? (Severity: Unknown severity, Onset: Unknown) ?Reactions: severe itching ? Past Medical History/Problem List Active Problems??(13) Acute kidney injury Chronic kidney disease (CKD), stage III (moderate) CKD (chronic kidney disease) Coronary atherosclerosis due to calcified coronary lesion Diabetes mellitus type 2 with complications HLD (hyperlipidemia) HTN (hypertension) Lower extremity edema WANG on CPAP Osteomyelitis Pickwickian syndrome Pressure sore Ulceration ? Past Surgical History Right foot wound debridment: 10/07/13 ? Social History Tobacco Details:??Former smoker ? Family History No family history recorded. ? Medications Home Medications Acetaminophen (Tylenol 325 mg oral tablet)?650?Milligram?2?tablet?By Mouth?Every 6 hours Ammonium Lactate 12% (ammonium lactate 12% topical cream)?1?debbie?Topically?2 times a day Aspirin (aspirin 81 mg oral delayed release tablet)?81?Milligram?1?tablet?By Mouth?Daily?for 30?Days Atorvastatin (atorvastatin 80 mg oral tablet)?1?tab(s)?80?Milligram?By Mouth?Daily Atorvastatin (atorvastatin 80 mg oral tablet)?TAKE 1 TABLET BY MOUTH EVERY DAY Clopidogrel (clopidogrel 75 mg oral tablet)?75?Milligram?1?tablet?By Mouth?Daily [...] Instructions?14 each Gabapentin (gabapentin 300 mg oral capsule)?TAKE 1 CAPSULE BY MOUTH 3 TIMES A DAY Insulin Glargine (Lantus Solostar Pen 100 units/mL subcutaneous solution)?INJECT 35 UNITS SUBCUTANEOUSLY EVERY EVENING Insulin Lispro (Admelog SoloStar 100 units/mL injectable solution)?See Instructions?for premeal insulin; check blood sugar prior to meals; continue as per prior instructions Losartan (losartan 50 mg oral tablet)?1?tab(s)?50?Milligram?By Mouth?Daily Metoprolol (metoprolol succinate 100 mg oral capsule, extended release)?1?capsule?100?Milligram?By Mouth?Daily ? Results Recent Labs BLOOD BANK Blood Type O Positive ()?? 10/24/2022 15:07 Antibody Screen Negative ()?? 10/24/2022 15:07 ?? BLOOD COUNT & DIFF WBC 9.3 k/mm3 ()?? 10/24/2022 12:07 RBC 4.99 m/mm3 ()?? 10/24/2022 12:07 Hgb 14.8 Gm/dL ()?? 10/24/2022 12:07 Hct 42.4 % ()?? 10/24/2022 12:07 MCV 85.0 femtoliters ()?? 10/24/2022 12:07 MCH 29.7 pg ()?? 10/24/2022 12:07 MCHC 34.9 g/dL ()?? 10/24/2022 12:07 Platelet Count 279 k/mm3 ()?? 10/24/2022 12:07 RDW-SD 41.5 femtoliters ()?? 10/24/2022 12:07 MPV 9.9 femtoliters ()?? 10/24/2022 12:07 Nucleated RBC (Automated) 0.0 #/100 WBC'S ()?? 10/24/2022 12:07 Abs. NRBC 0.0 k/mm3 ()?? 10/24/2022 12:07 Abs. Neut 8.1 k/mm3 (High)?? 10/24/2022 12:07 Abs. Lymph 0.7 k/mm3 (Low)?? 10/24/2022 12:07 Abs. [place] 0.5 k/mm3 ()?? 10/24/2022 12:07 Abs. Eo 0.0 k/mm3 ()?? 10/24/2022 12:07 Abs. Baso 0.0 k/mm3 ()?? 10/24/2022 12:07 Neut % 87.1 % (High)?? 10/24/2022 12:07 Lymph % 7.1 % (Low)?? 10/24/2022 12:07 [place] % 5.3 % ()?? 10/24/2022 12:07 Eos % 0.0 % ()?? 10/24/2022 12:07 Baso % 0.1 % ()?? 10/24/2022 12:07 Imm Gran 0.4 % ()?? 10/24/2022 12:07 Abs. Imm Gran 0.0 k/mm3 ()?? 10/24/2022 12:07 ?? CARDIAC Nt-Probnp 2508 pg/mL (High)?? 10/24/2022 12:07 High Sensitivity Troponin (HSTnT) HEMOLYZED ng/L ()?? 10/24/2022 18:29 ?? CHEM GENERAL Sodium 132 mmol/L (Low)?? 10/24/2022 12:07 Potassium 4.0 mmol/L ()?? 10/24/2022 12:07 Chloride 99 mmol/L ()?? 10/24/2022 12:07 Bicarbonate Level 18 mmol/L (Low)?? 10/24/2022 12:07 Anion Gap 15 ()?? 10/24/2022 12:07 Glucose Level 387 mg/dL (High)?? 10/24/2022 12:07 Glucose, POC 342 mg/dL (High)?? 10/24/2022 15:19 BUN 25 mg/dL (High)?? 10/24/2022 12:07 Creatinine-Blood 1.5 mg/dL (High)?? 10/24/2022 12:07 Estimated GFR Creatinine 56 ML/MIN/1.73 M2 ()?? 10/24/2022 12:07 Alkaline Phosphatase 104 units/L ()?? 10/24/2022 12:07 Lipase 20 units/L ()?? 10/24/2022 12:07 AST (SGOT) 12 units/L ()?? 10/24/2022 12:07 ALT (SGPT) 14 units/L ()?? 10/24/2022 12:07 Bilirubin, Total 0.8 mg/dL ()?? 10/24/2022 12:07 Lactate 4.2 mmol/L (High)?? 10/24/2022 18:29 ?? COAG INR 1.1 ()?? 10/24/2022 15:30 Protime (PT) 11.2 seconds ()?? 10/24/2022 15:30 APTT <22.0 seconds (Low)?? 10/24/2022 15:30 ?? VIROLOGY COVID-19 by RT-PCR NEGATIVE ()?? 10/24/2022 11:59 ? RESULT: CT Angio Abdomen and Pelvis CT Angio Abdomen and Pelvis? IMPRESSION:? No acute process seen in the abdomen or pelvis. ?? No CT evidence for mesenteric ischemia. EKG study * Event Display: EKG Authored Date: * Event Display: ECG 12-Lead Authored Date: Please click on pdf link to open report * Event Display: ECG 12-Lead Authored Date: Ventricular Rate: 85 BPM Atrial Rate: 85 BPM P-R Interval: 166 ms QRS Duration: 98 ms Q-T Interval: 410 ms QTC Calculation(Bazett): 487 ms P Mather: 74 degrees R Mather: 96 degrees T Mather: 64 degrees Sinus rhythm with occasional Premature ventricular complexes Right atrial enlargement Rightward axis Prolonged QT Abnormal ECG When compared with ECG of 24-OCT-2022 11:55, Nonspecific T wave abnormality has replaced inverted T waves in Inferior leads Confirmed by KAREN HEBERT MD () on 10/24/2022 7:13:47 PM [place]: KAREN HEBERT MD * Event Display: ECG 12-Lead Authored Date: Please click on pdf link to open report * Event Display: ECG 12-Lead Authored Date: Ventricular Rate: 92 BPM Atrial Rate: 92 BPM P-R Interval: 142 ms QRS Duration: 102 ms Q-T Interval: 386 ms QTC Calculation(Bazett): 477 ms P Mather: 80 degrees R Mather: 108 degrees T Mather: 20 degrees Sinus rhythm with frequent Premature ventricular complexes in a pattern of bigeminy Biatrial enlargement Rightward axis Pulmonary disease pattern Abnormal ECG When compared with ECG of 05-AUG-2022 18:11, No significant change was found Confirmed by KAREN HEBERT MD ([id number]) on 10/24/2022 3:54:19 PM [place]: KAREN HEBERT MD Cardiology * Event Display: Cardiac Rhythm Strips Authored Date: * Event Display: Cardiac Rhythm Strips Authored Date: Hospital Progress note * Josefina Painting RN: VERIFY, PERFORM, MODIFY, MODIFY, MODIFY, SIGN Event Display: Progress Note Hospital Authored Date: Patient: NACHO VENTURA Age: 47 years Sex: Male : 1975 Associated Diagnoses: None Author: Josefina Painting RN Findings Problem Related to Alteration in Gastrointestinal : Alteration in Gastrointestinal Func/new 10/31/2022 5:00 EDT Goals & Outcomes, Gastrointestinal Establish a regular pattern of elimination for pt, Nutritional intake is adequate for metabolic needs, Pt will achieve normal/improved fluid balance, Pt will maintain adequate GI function appropriate for pt, Pt will maintain normal elimination patterns, Pt will tolerate age appropriate diet prior to discharge Interventions, Gastrointestinal Assess/monitor abdomen for distention, tenderness, Assess/monitor bowel pattern, bowel sounds, flatus, Assess/monitor number of bowel movements, Assess/monitor color, quantity, quality, consistency of stoo, Assess/monitor pt for nausea, vomiting, Assess/monitor effects of re- hydration, Assess/monitor intake & output, Assess if pt tolerating diet, DVT prophylaxis as ordered, Teach Pt/caregiver on bowel elimination interventions, Teach Pt/caregiver re: importance of bowel regime BH Goals/Interventions, Gastrointestinal Yes Gastrointestinal, Problem Start 10/26/2022 5:32 Reviewed plan with, Gastrointestinal Patient . Nursing Data Cardiac Data. : Cardiac Data. 10/30/2022 21:00 EDT Cardiovascular Symptoms None Nail Bed Color, Fingers [place] Skin Temperature Upper Extremities Warm Skin Temperature Lower Extremities Warm Heart Sounds S1, S2 Cardiac Rhythm Normal sinus rhythm Capillary Refill < 3 seconds Cardiovascular WNL except . Respiratory/Pulmonary Data. 10/31/2022 4:20 EDT Mode of Delivery (Oxygen) Room air 10/31/2022 4:00 EDT Respiratory Assessment Status Unchanged from recorder's assessment 10/31/2022 1:00 EDT Respiratory Assessment Status Unchanged from recorder's assessment 10/30/2022 23:27 EDT Mode of Delivery (Oxygen) Room air 10/30/2022 22:43 EDT BiPAP/CPAP Comment pt refused PT/SYS Assess Non-Emerg NIV 1 10/30/2022 21:00 EDT Respiratory Symptoms Apnea Respiratory effort Unlabored Respiratory Assessment Comment respirations even and unlabored on room air, denies sob Cough No cough Respiratory pattern Regular Left Upper Lobe Breath Sounds Clear Right Upper Lobe Breath Sounds Clear Right Middle Lobe Breath Sounds Diminished Left Lower Lobe Breath Sounds Diminished Right Lower Lobe Breath Sounds Diminished Respiratory Treatment(s) Cough and deep breathe Respiratory Treatment(s) Cough and deep breathe Respiratory WNL except . Evaluation P: per nursing care plan I: r/t nursing care plan E: Assumed care of patient at 1830, pt remains a/ox4, following commands appropriately, afebrile, VS wnl. NSR with PVCs on tele, +cms and pps to all extremities. No acute events overnight to this am.Pt denies NVD, tolerating po intake without difficulty. Educated patient on plan of care and call owusu use, fall risk precautions in place, call owusu within reach, hourly rounding maintained. See CISfor full assessment data and flow sheets, will continue monitoring as needed. . Discharge Information Case Management Discharge Plan : Case Management Discharge Plan Data 10/30/2022 13:05 EDT Discharge Level of Care at Discharge group home facility Discharge Nursing Homes/Rehab Facilities [facility] Name of Agency #1 [facility] Service Categories #1 Occupational Therapy, Physical Therapy, Senior Care Service Comments #1 You will be discharged to rehab, transportation arranged Pulmonary Rehab Discharge : Pulmonary Rehab Discharge Status 10/27/2022 3:25 EDT CPAP/BiPAP Mask Type Full CPAP/BiPAP Mask Size Large 10/27/2022 0:35 EDT CPAP/BiPAP Mask Type Full CPAP/BiPAP Mask Size Large 10/26/2022 21:25 EDT CPAP/BiPAP Mask Type Full CPAP/BiPAP Mask Size Large Rehabilitation Discharge : Rehab Discharge Index 10/29/2022 8:33 EDT Walker: distance 20-50 10/27/2022 13:05 EDT Comments on treatment indicated 47M admit for nausea, vomiting and chest px. H/o R BKA, WBAT. PT for transfers, gait, and stairs. Rec rehab. Distance pt will ambulate >50ft with least restrictive AD Full chart review completed Yes Other findings See comment Plan of care PT Gait training, Transfer training, Therapeutic exercise, Functional Activities, Balance training * Shikha Noriega RN: PERFORM, SIGN, VERIFY Event Display: Progress Note Hospital Authored Date: Patient: NACHO VENTURA Age: 47 years Sex: Male : 1975 Associated Diagnoses: None Author: Shikha Noriega RN Findings Narrative/Incidental Patient arrived to [id number]. Plan was for discharge to home. Patient agitated and reported he did notfeel well and shouldnt be going home. Spoke with CM and referals made for rehabs. Rapid Covid swab done per CM request. Patient to be rebedded. Report called to unit. Patient sent to [facility] in bed. Room27. Patient is aware of and agrees with this plan.. * Jordyn Munguia RN: PERFORM, SIGN, VERIFY, MODIFY, SIGN Event Display: Progress Note Hospital Authored Date: Patient: NACHO VENTURA Age: 47 years Sex: Male : 1975 Associated Diagnoses: None Author: Jordyn Munguia RN Findings Problem Related to Alteration in Gastrointestinal : Alteration in Gastrointestinal Func/new 10/30/2022 2:00 EDT Alteration in GI status Related to Other: cyclic vomitting Goals & Outcomes, Gastrointestinal Establish a regular pattern of elimination for pt, Nutritional intake is adequate for metabolic needs, Pt will achieve normal/improved fluid balance, Pt will maintain adequate GI function appropriate for pt, Pt will maintain normal elimination patterns, Pt will tolerate age appropriate diet prior to discharge Interventions, Gastrointestinal Assess/monitor abdominal girth & bowel function, Assess/monitorbowel pattern, bowel sounds, flatus, Assess/monitor number of bowel movements, Assess/monitor pt for nausea, vomiting, Assess/monitor effects of re-hydration, Assess/monitor intake & output, Taking PO: Encourage/monitor intake & swallowing ability Goals/Interventions, Gastrointestinal Yes Gastrointestinal, Problem Start 10/26/2022 5:32 Reviewed plan with, Gastrointestinal Patient Patient Progression, Gastrointestinal Pt progressing according to plan . Evaluation Assumed care of patient at 1830, pt a/ox4, following commands appropriately, denies dizziness, remains afebrile, VS wnl. Respirations even and unlabored on room air, LS CTA, denies sob. NSR/PVC on tele, +cms and pps to all extremities, no edema. ABD soft, nontender +BS to all quads, denies NVD, tolerating po intake without difficulty. call owusu within reach. will continue monitoring as needed. . Discharge Information Pulmonary Rehab Discharge : Pulmonary Rehab Discharge Status 10/27/2022 3:25 EDT CPAP/BiPAP Mask Type Full CPAP/BiPAP Mask Size Large 10/27/2022 0:35 EDT CPAP/BiPAP Mask Type Full CPAP/BiPAP Mask Size Large 10/26/2022 21:25 EDT CPAP/BiPAP Mask Type Full CPAP/BiPAP Mask Size Large Rehabilitation Discharge : Rehab Discharge Index 10/29/2022 8:33 EDT Walker: distance 20-50 10/27/2022 13:05 EDT Comments on treatment indicated 47M admit for nausea, vomiting and chest px. H/o R BKA, WBAT. PT for transfers, gait, and stairs. Rec rehab. Distance pt will ambulate >50ft with least restrictive AD Full chart review completed Yes Other findings See comment Plan of care PT Gait training, Transfer training, Therapeutic exercise, Functional Activities, Balance training Note * Clifford LOO, Beth: PERFORM Event Display: Discharge/Transfer Note Hospital Authored Date: Patient discharged to facility left in wheel chair with transport. Belongings with patient and discharge paperwork with advance agent. Stable upon departure from unit. * Olga ZHAO, Monica: PERFORM Event Display: Discharge/Transfer Note Hospital Authored Date: Patient: ??CUTTING, NACHO ? Age:??47 Years?Sex:??Male?:??1975?? Patient Information Discharge Location: [facility] Primary Care Physician: Seun ZHAO, Erick Jensen Admit Date/Time: 10/26/22 15:24 Discharge Disposition Discharge Disposition: ?? Discharge Diagnosis CAD (coronary artery disease) (I25.10) Chest pain (R07.9) Diabetes (E11.9) Elevated serum lactate dehydrogenase (R74.02) GERD (gastroesophageal reflux disease) (K21.9) Hematemesis (K92.0) Hyperlipidemia (E78.5) Hypertension (I10) WANG on CPAP (G47.33) Vomiting (R11.10) CKD (chronic kidney disease) Coronary atherosclerosis due to calcified coronary lesion Diabetes mellitus type 2 with complications HLD (hyperlipidemia) HTN (hypertension) WANG on CPAP Osteomyelitis ?? _ Discharge Medications Acetaminophen (Tylenol 325 mg oral tablet)?650?Milligram?2?tablet?By Mouth?Every 6 hours Ammonium Lactate 12% (ammonium lactate 12% topical cream)?1?debbie?Topically?2 times a day Atorvastatin (atorvastatin 80 mg oral tablet)?TAKE 1 TABLET BY MOUTH EVERY DAY Carvedilol (Coreg 25 mg oral tablet)?25?Milligram?1?tablet?By Mouth?2 times a day?for 30?Days Clopidogrel (clopidogrel 75 mg oral tablet)?75?Milligram?1?tablet?By Mouth?Daily [...] Instructions?14 each Gabapentin (gabapentin 300 mg oral capsule)?TAKE 1 CAPSULE BY MOUTH 3 TIMES A DAY Insulin Glargine (Lantus Inj)?20?unit(s)?Subcutaneous Injection?Daily at bedtime Insulin Lispro (Admelog SoloStar 100 units/mL injectable solution)?See Instructions?for premeal insulin; check blood sugar prior to meals; continue as per prior instructions Losartan (losartan 50 mg oral tablet)?1?tab(s)?50?Milligram?By Mouth?Daily Pantoprazole (pantoprazole 40 mg oral delayed release tablet)?1?tab(s)?40?Milligram?By Mouth?Daily?for 30?Days sodium bicarbonate (sodium bicarbonate 650 mg oral tablet)?650?Milligram?By Mouth?2 times a day?for 5?Days Sucralfate (Carafate 1 gm oral tablet)?1?gram?1?tablet?By Mouth?3 times a day before meals and bedtime?for 14?Days ? Objective Assessment and Plan CAD (coronary artery disease) (I25.10):? 47-year-old male with history of CAD s/p CABGx3 2015, HFrEF 40-45% (08/2021), PAD s/p R BKA (12/2013), Poorly controlled IDDM, L fem-popliteal bypass (02/2016), HTN, HLP, CKD IIIa (baseline 1.6), WANG on CPAP presents with nausea and vomiting with coffee-ground emesis.??Patient was seen by GI recommended??supportive therapy,??IV fluids, PPI.??Currently stable and will be discharged home ? Vomiting -Hematemesis (Resolved) Lactic acidosis in setting of dehydration ??CT angiogram without bleed or ischemia Nausea and vomiting tolerating diet without any issues ??Was seen by gastroenterology on admission for his acute nausea and vomiting and coffee-ground emesis. No EGD indicated since no drop in hemoglobin. Coffee- ground emesis could be in the setting of erosive esophagitis due to vomiting of acid/gastric contents. PPI and antiemetic treatment recommended. ??Since patient had concerns of acute cholecystitis during admission in July, right upper quadrantultrasound recommended by gastroenterology team ??Ultrasound right upper quadrant showed cholelithiasis but no findings of cholecystitis. No Abdominal pain??no leukocytosis ??-Further assessment of cholelithiasis as oupt ?? CKD??stage II, stable ??Cr stable - improved with hydration ??Sodium bicarb and initiated due to some metabolic acidosis. Lactic acid was unremarkable. Anion gap closed,??likely related to??diabetes mellitus,??patient on bicarb tablets 650 mg twice daily, continue for 5 days and then follow-up with PCP??if need to be further continued ?? Hypertension?Continue losartan ??Metoprolol transitioned to carvedilol for better blood pressure control. ??Nifedipine started, increasing dose to 30 twice daily ?? Chest pain - resolved CAD ??Nonexertional. No longer having chest pain. EKG nonischemic. Serial troponin is flat ??-aspirin and Plavix ? Diabetes (E11.9): ??At home uses Lantus 25 units nightly ?? Hyperlipidemia (E78.5): ??Continue statin ? 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 Expected length of stay at rehab will be less than 30 days ?? Discharge Planning:? Vital Signs?? Temperature: 98.1 DegF (10/31/22 07:12:00) Temperature Route: Oral (10/31/22 07:12:00) Pulse Rate:??96 bpm??High (10/31/22 07:12:00) Respiratory Rate: 20 br/min (10/31/22 07:12:00) Systolic Blood Pressure: 131 mm Hg (10/31/22 07:12:00) Diastolic Blood Pressure: 71 mm Hg (10/31/22 07:12:00) Blood pressure sites: Arm, left (10/31/22 07:12:00) Mean Arterial Pressure: 91 mm Hg (10/31/22 07:12:00) Pulse Pressure: 60 mm Hg (10/31/22 07:12:00) Oxygen Saturation: 100 % (10/31/22 07:12:00) Mode of Delivery (Oxygen): Room air (10/31/22 07:12:00) Early Warning Score: 0 (10/31/22 07:12:29) ? . Physical Exam General: [Alert, in no acute cardiopulmonary distress.] Mental Status: [Oriented to person, place and time. Normal affect.] Head: [Normocephalic.] Eyes: [Pupils are equal, round and reactive to light. Extraocular muscles intact.] Ear, Nose and Throat: [Oropharynx clear, mucous membranes moist. Ears and nose without masses, lesions or deformities. Tympanic membranes clear bilaterally. Trachea midline.] Neck: [Supple, Full range of motion.] Respiratory: [Clear to auscultation and percussion. No wheezing, rales or rhonchi.] Cardiovascular: [Heart sounds normal. No thrills. Regular rate and rhythm, no murmurs, rubs or gallops.] Gastrointestinal: [Abdomen soft, non-tender, non-distended. Normal bowel sounds. No pulsatile mass.No hepatosplenomegaly.] Genitourinary: [No costovertebral angle tenderness.] Neurologic: [Cranial nerves II-XII grossly intact. No focal neurological deficits. Deep tendon reflexes +2 bilaterally. Flexor plantar response. Moves all extremities spontaneously. Sensation intact bilaterally.] Skin: [No rashes or lesions. No petechiae or purpura. No edema.] Musculoskeletal: [No cyanosis or clubbing. ??Right BKA Lymphatics: [Palpation of neck reveals no swelling or tenderness of neck nodes. Palpation of groin reveals no swelling or tenderness of groin nodes.] Psychiatric: [Not anxious fully cooperative following commands.] Pending Results No Pending Results Patient Education Titles Sucralfate Oral Tablet?? Pantoprazole Delayed Release Oral Tablet?? Carvedilol Oral Tablet?? Follow-Up Appointments Added Follow Up ?Time Frame ?Comments Seun ZHAO, Erick Jensen?3-5 day: call to discuss follow up visit Post Discharge Care Discharge ?10/30/22 8:21:00 EDT ?10/29/22 8:25:00 EDT Home Health Face to Face ^[facility] Results Discharge Labs BLOOD BANK Blood Type O Positive ()?? 10/24/2022 15:07 Antibody Screen Negative ()?? 10/24/2022 15:07 ?? BLOOD COUNT & DIFF WBC 7.4 k/mm3 ()?? 10/27/2022 00:07 RBC 3.92 m/mm3 (Low)?? 10/27/2022 00:07 Hgb 12.0 Gm/dL (Low)?? 10/27/2022 00:07 Hct 35.2 % (Low)?? 10/27/2022 00:07 MCV 89.8 femtoliters ()?? 10/27/2022 00:07 MCH 30.6 pg ()?? 10/27/2022 00:07 MCHC 34.1 g/dL ()?? 10/27/2022 00:07 Platelet Count 179 k/mm3 ()?? 10/27/2022 00:07 RDW-SD 44.4 femtoliters ()?? 10/27/2022 00:07 MPV 9.6 femtoliters ()?? 10/27/2022 00:07 Nucleated RBC (Automated) 0.0 #/100 WBC'S ()?? 10/27/2022 00:07 Abs. NRBC 0.0 k/mm3 ()?? 10/27/2022 00:07 Abs. Neut 4.2 k/mm3 ()?? 10/27/2022 00:07 Abs. Lymph 2.4 k/mm3 ()?? 10/27/2022 00:07 Abs. [place] 0.7 k/mm3 ()?? 10/27/2022 00:07 Abs. Eo 0.0 k/mm3 ()?? 10/27/2022 00:07 Abs. Baso 0.0 k/mm3 ()?? 10/27/2022 00:07 Neut % 57.3 % ()?? 10/27/2022 00:07 Lymph % 31.8 % ()?? 10/27/2022 00:07 [place] % 9.7 % ()?? 10/27/2022 00:07 Eos % 0.5 % ()?? 10/27/2022 00:07 Baso % 0.4 % ()?? 10/27/2022 00:07 Imm Gran 0.3 % ()?? 10/27/2022 00:07 Abs. Imm Gran 0.0 k/mm3 ()?? 10/27/2022 00:07 ?? CARDIAC Nt-Probnp 2508 pg/mL (High)?? 10/24/2022 12:07 High Sensitivity Troponin (HSTnT) 24 ng/L (High)?? 10/24/2022 22:32 ?? CHEM GENERAL Sodium 135 mmol/L ()?? 10/27/2022 00:07 Potassium 3.6 mmol/L ()?? 10/27/2022 00:07 Chloride 107 mmol/L ()?? 10/27/2022 00:07 Bicarbonate Level 19 mmol/L (Low)?? 10/27/2022 00:07 Anion Gap 9 ()?? 10/27/2022 00:07 Glucose Level 135 mg/dL (High)?? 10/27/2022 00:07 Glucose, POC 158 mg/dL (High)?? 10/31/2022 05:38 BUN 19 mg/dL ()?? 10/27/2022 00:07 Creatinine-Blood 1.4 mg/dL (High)?? 10/27/2022 00:07 Estimated GFR Creatinine 60 ML/MIN/1.73 M2 ()?? 10/27/2022 00:07 Phosphorus 2.7 mg/dL ()?? 10/27/2022 00:07 Magnesium 1.6 mg/dL ()?? 10/27/2022 00:07 Protein, Total 6.7 Gm/dL ()?? 10/25/2022 06:04 Albumin 3.8 Gm/dL ()?? 10/25/2022 06:04 Alkaline Phosphatase 95 units/L ()?? 10/25/2022 06:04 Lipase 20 units/L ()?? 10/24/2022 12:07 AST (SGOT) 17 units/L ()?? 10/27/2022 00:07 ALT (SGPT) 15 units/L ()?? 10/27/2022 00:07 Bilirubin, Total 0.4 mg/dL ()?? 10/27/2022 00:07 Bilirubin, Direct <0.2 mg/dL ()?? 10/27/2022 00:07 Bilirubin, Indirect Direct bilirubin is less than the measureable limit. Therefore, indirect mg/dL ()?? 10/27/2022 00:07 Lactate 0.9 mmol/L ()?? 10/27/2022 00:07 ?? COAG INR 1.1 ()?? 10/24/2022 15:30 Protime (PT) 11.2 seconds ()?? 10/24/2022 15:30 APTT <22.0 seconds (Low)?? 10/24/2022 15:30 ? URINE OTHER Est Creatinine Clearance 70.86 mL/min ()?? 10/27/2022 04:33 ? VIROLOGY COVID-19 by RT-PCR NEGATIVE ()?? 10/30/2022 13:35 ? Microbiology ?? COVID-19 (Novel Coronavirus), Rapid PCR?? Completed?? Source: Nasal Body Site: Nose Collected Dt/Tm: 10/24/2022 11:27 Last Updated Dt/Tm: 10/24/2022 13:27 ? 25??minutes spent on discharge * Germania Pack RN: VERIFY, PERFORM, SIGN Event Display: Case Management Discharge Plan Authored Date: Patient: NACHO VENTURA Age: 47 years Sex: Male : 1975 Associated Diagnoses: None Author: Germania Pack RN Discharge Plan Case Management Discharge Plan : Case Management Discharge Plan Data 10/31/2022 13:29 EDT Discharge Level of Care at Discharge group home facility Discharge Nursing Homes/Rehab Facilities [facility] Discharge Transportation Arranged [facility] [address] [facility] [phone] Discharge Arranged Transport Date/Time 10/31/2022 16:00 Mode of Transportation Arranged Chair Van Name of Agency #1 [facility] Service Categories #1 Occupational Therapy, Physical Therapy, Senior Care Service Start Date and Time #1 10/31/2022 16:00 Service Comments #1 You will be discharged to rehab to day 4pm, chairvan arranged * Olga ZHAO, Monica: PERFORM Event Display: Discharge/Transfer Note Hospital Authored Date: Patient: ??NACHO VENTURA ? Age:??47 Years?Sex:??Male?:??1975?? Patient Information Discharge Location: [facility] Primary Care Physician: Erick Kohli MD Admit Date/Time: 10/26/22 15:24 Discharge Disposition Discharge Disposition: ?? Discharge Diagnosis CAD (coronary artery disease) (I25.10) Chest pain (R07.9) Diabetes (E11.9) Elevated serum lactate dehydrogenase (R74.02) GERD (gastroesophageal reflux disease) (K21.9) Hematemesis (K92.0) Hyperlipidemia (E78.5) Hypertension (I10) WANG on CPAP (G47.33) Vomiting (R11.10) CKD (chronic kidney disease) Coronary atherosclerosis due to calcified coronary lesion Diabetes mellitus type 2 with complications HLD (hyperlipidemia) HTN (hypertension) WANG on CPAP Osteomyelitis ?? _ Discharge Medications Acetaminophen (Tylenol 325 mg oral tablet)?650?Milligram?2?tablet?By Mouth?Every 6 hours Ammonium Lactate 12% (ammonium lactate 12% topical cream)?1?debbie?Topically?2 times a day Atorvastatin (atorvastatin 80 mg oral tablet)?TAKE 1 TABLET BY MOUTH EVERY DAY Carvedilol (Coreg 25 mg oral tablet)?25?Milligram?1?tablet?By Mouth?2 times a day?for 30?Days Clopidogrel (clopidogrel 75 mg oral tablet)?75?Milligram?1?tablet?By Mouth?Daily [...] Instructions?14 each Gabapentin (gabapentin 300 mg oral capsule)?TAKE 1 CAPSULE BY MOUTH 3 TIMES A DAY Insulin Glargine (Lantus Inj)?20?unit(s)?Subcutaneous Injection?Daily at bedtime Insulin Lispro (Admelog SoloStar 100 units/mL injectable solution)?See Instructions?for premeal insulin; check blood sugar prior to meals; continue as per prior instructions Losartan (losartan 50 mg oral tablet)?1?tab(s)?50?Milligram?By Mouth?Daily Pantoprazole (pantoprazole 40 mg oral delayed release tablet)?1?tab(s)?40?Milligram?By Mouth?Daily?for 30?Days sodium bicarbonate (sodium bicarbonate 650 mg oral tablet)?650?Milligram?By Mouth?2 times a day?for 5?Days Sucralfate (Carafate 1 gm oral tablet)?1?gram?1?tablet?By Mouth?3 times a day before meals and bedtime?for 14?Days ? Objective Assessment and Plan CAD (coronary artery disease) (I25.10):? 47-year-old male with history of CAD s/p CABGx3 2015, HFrEF 40-45% (08/2021), PAD s/p R BKA (12/2013), Poorly controlled IDDM, L fem-popliteal bypass (02/2016), HTN, HLP, CKD IIIa (baseline 1.6), WANG on CPAP presents with nausea and vomiting with coffee-ground emesis.??Patient was seen by GI recommended??supportive therapy,??IV fluids, PPI.??Currently stable and will be discharged home ? Vomiting -Hematemesis (Resolved) Lactic acidosis in setting of dehydration ??CT angiogram without bleed or ischemia Nausea and vomiting tolerating diet without any issues ??Was seen by gastroenterology on admission for his acute nausea and vomiting and coffee-ground emesis. No EGD indicated since no drop in hemoglobin. Coffee- ground emesis could be in the setting of erosive esophagitis due to vomiting of acid/gastric contents. PPI and antiemetic treatment recommended. ??Since patient had concerns of acute cholecystitis during admission in July, right upper quadrantultrasound recommended by gastroenterology team ??Ultrasound right upper quadrant showed cholelithiasis but no findings of cholecystitis. No Abdominal pain??no leukocytosis ??-Further assessment of cholelithiasis as oupt ?? CKD??stage II, stable ??Cr stable - improved with hydration ??Sodium bicarb and initiated due to some metabolic acidosis. Lactic acid was unremarkable. Anion gap closed,??likely related to??diabetes mellitus,??patient on bicarb tablets 650 mg twice daily, continue for 5 days and then follow-up with PCP??if need to be further continued ?? Hypertension?Continue losartan ??Metoprolol transitioned to carvedilol for better blood pressure control. ??Nifedipine started, increasing dose to 30 twice daily ?? Chest pain - resolved CAD ??Nonexertional. No longer having chest pain. EKG nonischemic. Serial troponin is flat ??-aspirin and Plavix ? Diabetes (E11.9): ??At home uses Lantus 25 units nightly ?? Hyperlipidemia (E78.5): ??Continue statin ? 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 Discharge Planning:? Vital Signs?? Temperature: 97.3 DegF (10/30/22 07:00:00) Temperature Route: Oral (10/30/22 07:00:00) Pulse Rate: 81 bpm (10/30/22 07:55:00) Respiratory Rate: 18 br/min (10/30/22 07:54:00) Systolic Blood Pressure:??147 mm Hg??High (10/30/22 07:55:00) Diastolic Blood Pressure: 72 mm Hg (10/30/22 07:55:00) Blood pressure sites: Arm, left (10/30/22 07:00:00) Mean Arterial Pressure: 97 mm Hg (10/30/22 07:00:00) Pulse Pressure: 75 mm Hg (10/30/22 07:00:00) Oxygen Saturation: 100 % (10/30/22 07:00:00) Mode of Delivery (Oxygen): Room air (10/30/22 07:00:00) Early Warning Score: 2 (10/30/22 07:56:25) ? . Physical Exam General: [Alert, in no acute cardiopulmonary distress.] Mental Status: [Oriented to person, place and time. Normal affect.] Head: [Normocephalic.] Eyes: [Pupils are equal, round and reactive to light. Extraocular muscles intact.] Ear, Nose and Throat: [Oropharynx clear, mucous membranes moist. Ears and nose without masses, Neck: [Supple, Full range of motion.] Respiratory: [Clear to auscultation and percussion. No wheezing, rales or rhonchi.] Cardiovascular: [Heart sounds normal. No thrills. Regular rate and rhythm, no murmurs, rubs or gallops.] Gastrointestinal: [Abdomen soft, non-tender, non-distended. Normal bowel sounds. No pulsatile mass.No hepatosplenomegaly.] Genitourinary: [No costovertebral angle tenderness.] Neurologic: [Cranial nerves II-XII grossly intact. No focal neurological deficits. Right BKA Musculoskeletal: [No cyanosis or clubbing. No gross deformities. Normal range of motion.] .] Pending Results No Pending Results Patient Education Titles Sucralfate Oral Tablet?? Pantoprazole Delayed Release Oral Tablet?? Carvedilol Oral Tablet?? Follow-Up Appointments Added Follow Up ?Time Frame ?Comments Seun ZHAO, Erick Jensen?3-5 day: call to discuss follow up visit Post Discharge Care Discharge ?10/30/22 8:21:00 EDT ?10/29/22 8:25:00 EDT Home Health Face to Face ^[facility] Results Discharge Labs BLOOD BANK Blood Type O Positive ()?? 10/24/2022 15:07 Antibody Screen Negative ()?? 10/24/2022 15:07 ?? BLOOD COUNT & DIFF WBC 7.4 k/mm3 ()?? 10/27/2022 00:07 RBC 3.92 m/mm3 (Low)?? 10/27/2022 00:07 Hgb 12.0 Gm/dL (Low)?? 10/27/2022 00:07 Hct 35.2 % (Low)?? 10/27/2022 00:07 MCV 89.8 femtoliters ()?? 10/27/2022 00:07 MCH 30.6 pg ()?? 10/27/2022 00:07 MCHC 34.1 g/dL ()?? 10/27/2022 00:07 Platelet Count 179 k/mm3 ()?? 10/27/2022 00:07 RDW-SD 44.4 femtoliters ()?? 10/27/2022 00:07 MPV 9.6 femtoliters ()?? 10/27/2022 00:07 Nucleated RBC (Automated) 0.0 #/100 WBC'S ()?? 10/27/2022 00:07 Abs. NRBC 0.0 k/mm3 ()?? 10/27/2022 00:07 Abs. Neut 4.2 k/mm3 ()?? 10/27/2022 00:07 Abs. Lymph 2.4 k/mm3 ()?? 10/27/2022 00:07 Abs. [place] 0.7 k/mm3 ()?? 10/27/2022 00:07 Abs. Eo 0.0 k/mm3 ()?? 10/27/2022 00:07 Abs. Baso 0.0 k/mm3 ()?? 10/27/2022 00:07 Neut % 57.3 % ()?? 10/27/2022 00:07 Lymph % 31.8 % ()?? 10/27/2022 00:07 [place] % 9.7 % ()?? 10/27/2022 00:07 Eos % 0.5 % ()?? 10/27/2022 00:07 Baso % 0.4 % ()?? 10/27/2022 00:07 Imm Gran 0.3 % ()?? 10/27/2022 00:07 Abs. Imm Gran 0.0 k/mm3 ()?? 10/27/2022 00:07 ?? CARDIAC Nt-Probnp 2508 pg/mL (High)?? 10/24/2022 12:07 High Sensitivity Troponin (HSTnT) 24 ng/L (High)?? 10/24/2022 22:32 ?? CHEM GENERAL Sodium 135 mmol/L ()?? 10/27/2022 00:07 Potassium 3.6 mmol/L ()?? 10/27/2022 00:07 Chloride 107 mmol/L ()?? 10/27/2022 00:07 Bicarbonate Level 19 mmol/L (Low)?? 10/27/2022 00:07 Anion Gap 9 ()?? 10/27/2022 00:07 Glucose Level 135 mg/dL (High)?? 10/27/2022 00:07 Glucose, POC 157 mg/dL (High)?? 10/30/2022 05:30 BUN 19 mg/dL ()?? 10/27/2022 00:07 Creatinine-Blood 1.4 mg/dL (High)?? 10/27/2022 00:07 Estimated GFR Creatinine 60 ML/MIN/1.73 M2 ()?? 10/27/2022 00:07 Phosphorus 2.7 mg/dL ()?? 10/27/2022 00:07 Magnesium 1.6 mg/dL ()?? 10/27/2022 00:07 Protein, Total 6.7 Gm/dL ()?? 10/25/2022 06:04 Albumin 3.8 Gm/dL ()?? 10/25/2022 06:04 Alkaline Phosphatase 95 units/L ()?? 10/25/2022 06:04 Lipase 20 units/L ()?? 10/24/2022 12:07 AST (SGOT) 17 units/L ()?? 10/27/2022 00:07 ALT (SGPT) 15 units/L ()?? 10/27/2022 00:07 Bilirubin, Total 0.4 mg/dL ()?? 10/27/2022 00:07 Bilirubin, Direct <0.2 mg/dL ()?? 10/27/2022 00:07 Bilirubin, Indirect Direct bilirubin is less than the measureable limit. Therefore, indirect mg/dL ()?? 10/27/2022 00:07 Lactate 0.9 mmol/L ()?? 10/27/2022 00:07 ?? COAG INR 1.1 ()?? 10/24/2022 15:30 Protime (PT) 11.2 seconds ()?? 10/24/2022 15:30 APTT <22.0 seconds (Low)?? 10/24/2022 15:30 ? URINE OTHER Est Creatinine Clearance 70.86 mL/min ()?? 10/27/2022 04:33 ? VIROLOGY COVID-19 by RT-PCR NEGATIVE ()?? 10/24/2022 11:59 ? Microbiology ?? COVID-19 (Novel Coronavirus), Rapid PCR?? Completed?? Source: Nasal Body Site: Nose Collected Dt/Tm: 10/24/2022 11:27 Last Updated Dt/Tm: 10/24/2022 13:27 ? 35??minutes spent on discharge * Monica Espinoza MD: PERFORM Event Display: Discharge/Transfer Note Hospital Authored Date: patient agreed?? to rehab , will sent to rehab ,expected length of stay at rehab will be 30 days * Katerin De Leon RN: PERFORM Event Display: Patient Education/Instruction Authored Date: Inpatient Adult Discharge Instructions [address] [address] Name: NACHO VENTURA : 1975 Visit: 10/26/2022 15:24:00 Current Date: 10/28/2022 11:38 Account: [id number] Inpatient Adult Discharge Instructions We would like [...] and their families. Surveys are administered by [employer] ?? If further treatment with your primary care physician or another doctor is recommended, it is important for you to keep the appointment. Call your primary care physician or return to the Emergency Department immediately if your condition worsens, fails to improve, or new symptoms develop. If you need to find a doctor, you can call [facility] [employer] for a referral at [phone] or toll free at [phone] or log in to [email or web address].. ?? You can view and manage your care through the patient portal or by using a health care debbie of your choosing. [employer] is a website that allows you to securely view your medical information including your hospital discharge summary, office visit summaries, medications and follow-up visits. You can also request appointments, renew medications, and request access to your medical information using a health care debbie of your choosing, or just ask a question. You can enroll at [email or web address] or register during your next office visit. You have been discharged from [facility], Patient Care Unit: D3B. If you have any questions regarding these instructions after you leave, please call us and we will be happy to assist you. [facility] Your Care Team Attending Physician Tripp ZHAO, Jarrod Discharging Providers Tripp ZHAO, Jarrod Reason for Admission pt here with n/v/d all night about one hour ago started with chest pain and SOB open heart 2016 Your Diagnosis Vomiting Diabetes Hematemesis Hypertension Hyperlipidemia GERD (gastroesophageal reflux disease) WANG on CPAP CAD (coronary artery disease) Chest pain Elevated serum lactate dehydrogenase Tests Performed Below is a partial list of the tests performed during your hospitalization. You may have had other tests and procedures not included in this list. Please discuss all test results with your provider. Alk Phos ALT AST Bilirubin Total + Direct BUN CBC CBC w/ Differential COVID-19 (Novel Coronavirus), Rapid PCR Creatinine Electrolytes Glucose Level GLUCOSE POC High??Sensitivity??Troponin T INR Lactate Level Lactic Acid Level LFT's Lipase Magnesium Level Phosphorus Level ProBNP PTT Total Bilirubin Troponin T, High Sensitivity Type and Screen CT Angio Abdomen and Pelvis US RUQ XR Chest 2 Views Frontal and Lat Primary Care Provider Erick Kohli MD Advance Directive Health Care Proxy on File Yes - Health Care Proxy Discharge Vitals Temperature: 98 DegF Height: 182 cm Pulse Rate:??50 bpm??Low Weight: 97.5 kg Respiratory Rate: 16 br/min Body Mass Index:??29.43 kg/m2??High Systolic Blood Pressure:??162 mm Hg??High Body surface area: 2.22 Diastolic Blood Pressure:??116 mm Hg??High ?? Oxygen Saturation: 100 % ?? Studies Pending All tests and labs ordered during this hospital stay have been completed unless listed below. Please discuss all pending results with your provider listed above in these instructions. ?? No incomplete studies found What to do next Instructions From Your Doctor Discharge Orders You Need to Schedule the Following Appointments Follow Up with??Seun ZHAO, Erick Jensen When:??Within 3-5 day: call to discuss follow up visit Where: [address] [place] [address] [address] [place] [address]- Discharge Medications NACHO VENTURA :1975 Visit Date:10/26/2022 Medications: Please continue your medications until treatment is completed or stopped by your provider. Medications not listed below should be discontinued. Discuss any questions related to medications with your provider. What How Much When Why Instructions Next Dose New Carvedilol (Coreg 25 mg oral tablet) 1 tab(s) Oral Twice a day Duration: 30 Days Pickup at [place] [address] 10/28 PM New Pantoprazole (pantoprazole 40 mg oral delayed release tablet) 1 tab(s) Oral Daily Duration: 30 Days Pickup at [place] [address] 10/29 New Sucralfate (Carafate 1 gm oral tablet) 1 tab(s) Oral 3 times a day before meals and bedtime Duration: 14 Days Pickup at [place] [address] before meals Changed Atorvastatin (atorvastatin 80 mg oral tablet) TAKE 1 TABLET BY MOUTH EVERY DAY ?? 10/29 Changed Insulin Glargine (Lantus Inj) 20 unit(s) Subcutaneous Injection Daily at Bedtime 10/28 PM Unchanged Acetaminophen (Tylenol 325 mg oral tablet) 2 tab(s) Oral Every 6 hours as needed Unchanged Ammonium Lactate 12% (ammonium lactate 12% topical cream) 1 debbie Topically Twice a day Corns and callus resume as prescribed Unchanged Clopidogrel (clopidogrel 75 mg oral tablet) 1 tab(s) Oral Daily 10/29 Unchanged Gabapentin (gabapentin 300 mg oral capsule) TAKE 1 CAPSULE BY MOUTH 3 TIMES A DAY ?? 10/28 @3PM Unchanged Insulin Lispro (Admelog SoloStar 100 units/ mL injectable solution) See instructions for premeal insulin; check blood sugar prior to meals; continue as per prior instructions ?? resume as prescribed Unchanged Losartan (losartan 50 mg oral tablet) 1 tab(s) Oral Daily 10/29 Pharmacy Information [facility]: [address], [place] [id number] [phone] ?? What How Much When Comments Stop Taking Aspirin (aspirin 81 mg oral delayed release tablet) 1 tab(s) Oral Daily Duration: 30 Days Stop Taking Metoprolol (metoprolol succinate 100 mg oral capsule, extended release) 1 capsule Oral Daily Test Results Below is a partial list of the most recent Laboratory test results done prior to this discharge. You may have had other tests and procedures not included in this list. Please discuss all test resultswith your provider. Est Creatinine Clearance - 70.86 mL/min (10/27/2022) Alk Phos (10/24/2022) ???Alkaline Phosphatase - 104 units/L ALT (10/27/2022) ???ALT (SGPT) - 15 units/L AST (10/27/2022) ???AST (SGOT) - 17 units/L Bilirubin Total + Direct (10/27/2022) ? ?Bilirubin, Total - 0.4 mg/dL? ?Bilirubin, Direct - <0.2 mg/dL? ?Bilirubin, Indirect - Direct bilirubin is less than the measureable limit. Therefore, indirect BUN (10/27/2022) ???BUN - 19 mg/dL CBC (10/25/2022) ???WBC - 9.1 k/mm3???RBC - 4.48 m/mm3???Hgb - 13.6 Gm/dL???Hct - 38.2 %???MCV - 85.3 femtoliters???MCH - 30.4 pg???MCHC - 35.6 g/dL???Platelet Count - 283 k/mm3???RDW-SD - 43.0 femtoliters???MPV - 9.6 femtoliters???Nucleated RBC (Automated) - 0.0 #/100 WBC'S???Abs. NRBC - 0.0 k/mm3 CBC w/ Differential (10/27/2022) ???WBC - 7.4 k/mm3???RBC - 3.92 m/mm3???Hgb - 12.0 Gm/dL???Hct - 35.2 %???MCV - 89.8 femtoliters???MCH - 30.6 pg???MCHC - 34.1 g/dL???Platelet Count - 179 k/mm3???RDW-SD - 44.4 femtoliters???MPV - 9.6 femtoliters???Nucleated RBC (Automated) - 0.0 #/100 WBC'S???Abs. NRBC - 0.0 k/mm3???Abs. Neut - 4.2 k/mm3???Abs. Lymph - 2.4 k/mm3???Abs. [place] - 0.7 k/mm3???Abs. Eo - 0.0 k/mm3???Abs. Baso - 0.0 k/mm3???Neut % - 57.3 %???Lymph % - 31.8 %???[place] % - 9.7 %???Eos % - 0.5 %???Baso % - 0.4 %???Imm Gran- 0.3 %???Abs. Imm Gran - 0.0 k/mm3 COVID-19 (Novel Coronavirus), Rapid PCR (10/24/2022) ???COVID-19 by RT-PCR - NEGATIVE Creatinine (10/27/2022) ???Creatinine-Blood - 1.4 mg/dL???Estimated GFR Creatinine - 60 ML/MIN/1.73 M2 Electrolytes (10/27/2022) ???Sodium - 135 mmol/L???Potassium - 3.6 mmol/L???Chloride - 107 mmol/L???Bicarbonate Level - 19 mmol/L???Anion Gap - 9 Glucose Level (10/27/2022) ???Glucose Level - 135 mg/dL GLUCOSE POC (10/28/2022) ???Glucose, POC - 107 mg/dL High??Sensitivity??Troponin T (10/24/2022) ???High Sensitivity Troponin (HSTnT) - HEMOLYZED INR (10/24/2022) ???INR - 1.1???Protime (PT) - 11.2 seconds Lactate Level (10/25/2022) ???Lactate - 1.8 mmol/L Lactic Acid Level (10/27/2022) ???Lactate - 0.9 mmol/L LFT's (10/25/2022) ???Protein, Total - 6.7 Gm/dL???Albumin - 3.8 Gm/dL???Alkaline Phosphatase - 95 units/L???AST (SGOT) - 9 units/L? ?ALT (SGPT) - 12 units/L? ?Bilirubin, Total - 0.4 mg/dL? ?Bilirubin, Direct - <0.2mg/dL???Bilirubin, Indirect - Direct bilirubin is less than the measureable limit. Therefore, indirect Lipase (10/24/2022) ???Lipase - 20 units/L Magnesium Level (10/27/2022) ???Magnesium - 1.6 mg/dL Phosphorus Level (10/27/2022) ???Phosphorus - 2.7 mg/dL ProBNP (10/24/2022) ???Nt-Probnp - 2508 pg/mL PTT (10/24/2022) ? ?APTT - <22.0 seconds Total Bilirubin (10/24/2022) ???Bilirubin, Total - 0.8 mg/dL Troponin T, High Sensitivity (10/24/2022) ???High Sensitivity Troponin (HSTnT) - 24 ng/L Type and Screen (10/24/2022) ???Blood Type - O Positive???Antibody Screen - Negative Allergies (NKA means No Known Allergies) Fish??(D&V [...] Belongings I fully understand and agree that [facility] accepts no responsibility for all my personal [...] patient Date for Pt to Sign Valuables/Belongings: 10/26/22 10:53:00 ?? Other Discharge Information ? Pulmonary Rehab Status?? Pulmonary Rehab Discharge Status?? CPAP/BiPAP Mask Type: Full CPAP/BiPAP Mask Size: Large Respiratory Rate: 16 br/min ? Common Emergency Awareness Tips IS [...] are strongly encouraged to quit. Please call [employer] at [phone] or 8-360-332-[email or web address] ([email or web address]) or log in to [email or web address] for referrals to smoking cessation programs. ?? 387 Suicide & Crisis Lifeline is available 03/12 if you or someone you know needs to find a reason to keep living. By calling 400 you'll be connected to a skilled, trained counselor at a crisis center in your area. INPATIENT DISCHARGE INSTRUCTIONS SIGNATURE PAGE NACHO VENTURA Location:[facility] Registration Date and Time:10/26/2022 15:24 EDT Primary Care Physician: Seun ZHAO, Erick Jensen, Attending Physician: Tripp ZHAO, [facility], I NACHO VENTURA, have received the above patient education materials/instructions and have verbalized understanding. If ambulance or transport services are being used I further acknowledge being given a choice of service. ?? If you need to contact me, please call me at this number: . Patient/Lining Ironer Name: Patient/Lining Ironer Signature: Relationship to Patient: Witness Name/Signature: Date: Katerin Taylor RN: PERFORM Event Display: Patient Education Leaflets Authored Date: [id number] Sucralfate Oral Tablet ?? 80096-60 Sucralfate Oral Tablet Brands: Carafate Uses This medicine is used for the following purposes: ??? stomach acid reflux ??? ulcers in stomach or intestines ??? ulcers in stomach or intestines ?? Instructions If you have trouble swallowing this medicine, please ask your pharmacist if a liquid is available. Take this medicine on an empty stomach. Do not eat or drink for 1 hour after taking the medicine. Do not take other medicines for 2 hours after taking this medicine. Store at room temperature away from heat, light, and moisture. Do not keep in the bathroom. This medicine can reduce the absorption of other medicines. Talk to your doctor or pharmacist aboutthe best times to use this product. It may take several weeks for this medicine to fully work. It is important that you keep taking each dose of this medicine on time even if you are feeling well. If you forget to take a dose on time, take it as soon as you remember. If it is almost time for thenext dose, do not take the missed dose. Return to your normal schedule. Do not take 2 doses at one time. Tell your doctor and pharmacist about all your medicines. Include prescription and ksdy-nhu-alkzfakpdsaqjsrl, vitamins, and herbal medicines. Tell your doctor if symptoms do not get better or if they get worse. ?? Cautions Tell your doctor and pharmacist if you ever had an allergic reaction to a medicine. Do not use the medication any more than instructed. Tell the doctor or pharmacist if you are , planning to be , or . It is unknown if this medicine passes into breast milk. Ask your doctor before . Do not start or stop any other medicines without first speaking to your doctor or pharmacist. Do not share this medicine with anyone who has not been prescribed this medicine. ?? Side Effects The following is a list of some common side effects from this medicine. Please speak with your doctor about what you should do if you experience these or other side effects. ??? constipation ??? dry mouth ??? excess gas ??? nausea ??? stomach upset or abdominal pain Call your doctor or get medical help right away if you notice any of these more serious side effects: ??? stomach pain ??? vomiting A few people may have an allergic reaction to this medicine. Symptoms can include difficulty breathing, skin rash, itching, swelling, or severe dizziness. If you notice any of these symptoms, seek medical help quickly. ?? Extra Please speak with your doctor, nurse, or pharmacist if you have any questions about this medicine. ?? [email or web address] IMPORTANT NOTE: This document tells you briefly how to take your medicine, but it does not tell youall there is to know about it. Your doctor or pharmacist may give you other documents about your medicine. Please talk to them if you have any questions. Always follow their advice. There is a more complete description of this medicine available in [employer]. Scan this code on your smartphone or tablet or use the web address below. You can also ask your pharmacist for a printout. If you have any questions, please ask your pharmacist. The display and use of this drug information is subject to Terms of Use. Copyright(c) 2022 [employer]. ?? [employer]. All rights reserved. This information is not intended as a substitute for professional medical care. Always follow your healthcare professional's instructions. ?? * Katerin De Leon RN: PERFORM Event Display: Patient Education Leaflets Authored Date: [id number] Pantoprazole Delayed Release Oral Tablet ?? [address] Pantoprazole Delayed Release Oral Tablet Brands: Protonix Uses This medicine is used for the following purposes: ??? indigestion ??? inflammation of stomach ??? inflammation of the esophagus ??? stomach acid ??? stomach acid reflux ??? ulcers in stomach or intestines ??? ulcers in stomach or intestines ?? Instructions Swallow the medicine without crushing or chewing it. This medicine may be taken with or without food. Store at room temperature away from heat, light, and moisture. Do not keep in the bathroom. This medicine can reduce the absorption of other medicines. Talk to your doctor or pharmacist aboutthe best times to use this product. If you forget to take a dose on time, take it as soon as you remember. If it is almost time for thenext dose, do not take the missed dose. Return to your normal schedule. Do not take 2 doses at one time. Drug interactions can change how medicines work or increase risk for side effects. Tell your healthcare providers about all medicines taken. Include prescription and upih-gqk-malmwgi medicines, vitamins, and herbal medicines. Speak with your doctor or pharmacist before starting or stopping any medicine. Tell your doctor if symptoms do not get better or if they get worse. This medicine may affect the strength of your bones. If you have or are at increased risk for osteoporosis (weakening of the bones), your doctor may recommend foods with calcium and vitamin D. ?? Cautions Tell your doctor and pharmacist if you ever had an allergic reaction to a medicine. Do not use the medication any more than instructed. Please tell your doctor if you have moderate to severe diarrhea while on this medicine. Do not treat the diarrhea with nwap-qne-ysthauz diarrhea medicine. This medicine passes into breast milk. Ask your doctor before . During , this medicine should be used only when clearly needed. Talk to your doctor about the risks and benefits. Do not share this medicine with anyone who has not been prescribed this medicine. Some patients have serious side effects from this medicine. Ask your pharmacist to show you the information from the Food and Drug Administration (FDA) and discuss it with you. ?? Side Effects The following is a list of some common side effects from this medicine. Please speak with your doctor about what you should do if you experience these or other side effects. ??? diarrhea ??? headaches Call your doctor or get medical help right away if you notice any of these more serious side effects: ??? severe or persistent abdominal pain ??? severe, watery or bloody diarrhea ??? fever ??? numbness or tingling in hands and feet ??? fast or irregular heart beats ??? pain in the joints ??? signs of kidney damage (such as change in urine color or bubbly urine) ??? muscle aches, spasms or abnormalmovements ??? butterfly-shaped rash on nose and cheeks ??? seizures ??? blood in stool ??? unusual or unexplained tiredness or weakness A few people may have an allergic reaction to this medicine. Symptoms can include difficulty breathing, skin rash, itching, swelling, or severe dizziness. If you notice any of these symptoms, seek medical help quickly. ?? Extra Please speak with your doctor, nurse, or pharmacist if you have any questions about this medicine. ?? [email or web address] IMPORTANT NOTE: This document tells you briefly how to take your medicine, but it does not tell youall there is to know about it. Your doctor or pharmacist may give you other documents about your medicine. Please talk to them if you have any questions. Always follow their advice. There is a more complete description of this medicine available in [employer]. Scan this code on your smartphone or tablet or use the web address below. You can also ask your pharmacist for a printout. If you have any questions, please ask your pharmacist. The display and use of this drug information is subject to Terms of Use. Copyright(c) 2022 [employer]. ?? [employer]. All rights reserved. This information is not intended as a substitute for professional medical care. Always follow your healthcare professional's instructions. ?? * Katerin De Leon RN: PERFORM Event Display: Patient Education Leaflets Authored Date: [id number] Carvedilol Oral Tablet ?? [id number] Carvedilol Oral Tablet Brands: Coreg Uses This medicine is used for the following purposes: ??? heart attack ??? heart failure ??? high bloodpressure ??? irregular heart beat ??? prevent bleeding ?? Instructions Take the medicine with food. This medicine will work best if you take it at about the same time every day. Keep the medicine at room temperature. Avoid heat and direct light. It is important that you keep taking each dose of this medicine on time even if you are feeling well. If you forget to take a dose on time, take it as soon as you remember. If it is almost time for thenext dose, do not take the missed dose. Return to your normal schedule. Do not take 2 doses at one time. Drug interactions can change how medicines work or increase risk for side effects. Tell your healthcare providers about all medicines taken. Include prescription and eduz-dzs-mkfjhte medicines, vitamins, and herbal medicines. Speak with your doctor or pharmacist before starting or stopping any medicine. This medicine may cause low blood sugar. Eat regular meals and exercise as instructed by your doctor. Tell your doctor if you have symptoms of low blood sugar such as nausea, sweating, cold skin, fast heartbeat, hunger, and irritability. If you have diabetes, this medicine may hide some signs of low blood sugar, such as fast heartbeat.Check your blood sugar regularly and for other signs of low blood sugar. ?? Cautions Tell your doctor and pharmacist if you ever had an allergic reaction to a medicine. Do not use the medication any more than instructed. Your ability to stay alert or to react quickly may be impaired by this medicine. Do not drive or operate machinery until you know how this medicine will affect you. Contact your doctor if you notice a change in the amount or darkening of your urine. Tell the doctor or pharmacist if you are , planning to be , or . Do not share this medicine with anyone who has not been prescribed this medicine. ?? Side Effects The following is a list of some common side effects from this medicine. Please speak with your doctor about what you should do if you experience these or other side effects. ??? diarrhea ??? dizziness or drowsiness ??? impotence Call your doctor or get medical help right away if you notice any of these more serious side effects: ??? swelling of the legs, feet, and hands ??? lack of energy and tiredness ??? slow heartbeat ??? low blood pressure ??? shortness of breath ??? sudden or unexplained weight gain A few people may have an allergic reaction to this medicine. Symptoms can include difficulty breathing, skin rash, itching, swelling, or severe dizziness. If you notice any of these symptoms, seek medical help quickly. ?? Extra Please speak with your doctor, nurse, or pharmacist if you have any questions about this medicine. ?? [email or web address] IMPORTANT NOTE: This document tells you briefly how to take your medicine, but it does not tell youall there is to know about it. Your doctor or pharmacist may give you other documents about your medicine. Please talk to them if you have any questions. Always follow their advice. There is a more complete description of this medicine available in [employer]. Scan this code on your smartphone or tablet or use the web address below. You can also ask your pharmacist for a printout. If you have any questions, please ask your pharmacist. The display and use of this drug information is subject to Terms of Use. Copyright(c) 2022 [employer]. ?? [employer]. All rights reserved. This information is not intended as a substitute for professional medical care. Always follow your healthcare professional's instructions. ?? Patient Care team information Care Team Personnel Name: Juliet Mcdonald RN Position: [facility] RN Member Role: Primary Care Nurse Name: Erick Kohli MD Position: Reference Physician Member Role: PCP Address: Address: [address] [place] [address] [address] [place] [address]- [place] Name: Samantha Mancera RN Position: [facility] RN Member Role: Primary Care Nurse Name: Ashish Kirk RN Position: [facility] RN Supv Member Role: Primary Care Nurse Name: Homero Calvo RN Position: [facility] RN Member Role: Primary Care Nurse Name: Luis E Jenkins MD Position: [facility] Renal MD Member Role: Lifetime Consulting Physician Address: Address: [address], [address] [facility] [place] [address]- Name: Adore Angela MD Position: [facility] Renal MD Member Role: Lifetime Consulting Physician Address: Address: [address], [address] [facility] [place] [address]- [place] Name: Yaritza Paz RN Position: [facility] RN Member Role: Primary Care Nurse Name: Beth Horton RN Position: [facility] RN Member Role: Primary Care Nurse Name: Shirlene Ying RN Position: [facility] AMB Nurse Member Role: Primary Care Nurse Name: Fernando Torres RN Position: [facility] RN Member Role: Primary Care Nurse Name: Azalea Romero RN Position: [facility] Director Of Marketing Communications Member Role: Primary Care Nurse Name: Alli Leslie RN Position: [facility] RN Member Role: Primary Care Nurse Name: Lety Garcia RN Position: [facility] AMB Nurse Member Role: Primary Care Nurse Name: Chana Wayne RN Position: [facility] RN Member Role: Primary Care Nurse Name: Karla Otero RN Position: [facility] RN Member Role: Primary Care Nurse Name: Isabel Thurman RN Position: [facility] RN Member Role: Primary Care Nurse Name: Josefina Painting RN Position: [facility] RN Member Role: Primary Care Nurse Name: Khoa Dee MD Position: [facility] Renal MD Member Role: Lifetime Consulting Physician Address: Address: [address] [facility] [place] [address]- Name: Karina Jasso RN Position: [facility] RN Member Role: Primary Care Nurse Name: Fernanda Maldonado RN Position: [facility] RN Member Role: Primary Care Nurse Name: Ridge Camejo RN Position: [facility] RN Member Role: Primary Care Nurse Name: Iva Doan RN Position: [facility] AMB Nurse Member Role: Primary Care Nurse Name: Salvador Anderson MD Position: [facility] Renal MD Member Role: Lifetime Consulting Physician Address: Address: [address] [place] [address] [facility] [address] Name: Zora Bolanos RN Position: [facility] RN Member Role: Primary Care Nurse Name: Sheila Baugh RN Position: [facility] RN Member Role: Primary Care Nurse Name: Delfino Rae Position: [facility] RN Member Role: Primary Care Nurse Name: Leigha Parmar RN Position: [facility] RN Member Role: Primary Care Nurse Name: Isabel Hair RN Position: [facility] RN Member Role: Primary Care Nurse Name: Maren ONEILL Attending Position: [facility] ED Medicine MD Name: Jade Mon RN Position: [facility] RN Member Role: Patient Care Provider Name: Nahomi Sawyer Position: [facility] ED OA Charge Member Role: ED Associate Name: Teresa Alejandre Position: [facility] ED TA [facility] Member Role: Nursing Home Director Care Team Related Persons Name: KARYNA VENTURA Address: home [address] [place] [address] Name: KEDAR VENTURA Address: [address] [place] [address] Name: URBANO MORGAN Address: [address] [place] [address] Name: LLOYD CELESTIN Address: [address] [place] [address]
--- OUTSIDE RECORDS SUMMARY | 2024-02-11 13:07 | XMS_ITS | Continuity of Care Document ---
Author Organization [facility] rv[facility] Address [address] [place] [address]- Care Team Providers Care Engine Assembler Name Role Phone Seun ZHAO, Erick Jensen Primary Care Physician Encounter [facility] Date(s): 06/07/20 - 07/07/20 [facility] [address] [place], [place] [address] Allergies, Adverse Reactions, Alerts [...] Maintenance, 04/09/16 16:22:43, Route to Pharmacy Electronically, [id number], [facility]/pharmacy #[id number] Start Date: 04/09/16 Status: Ordered Dakins [...] Maintenance, 04/30/16 14:46:26, Route to Pharmacy Electronically, [id number]... Start Date: 04/30/16 Status: Ordered Mirtazapine = [...] tablet, 1 Refills, Maintenance, 03/16/20 11:57:00 EST, [facility]/pharmacy#[id number], 1 tablet By Mouth Daily, 183, cm, [...]
--- OUTSIDE RECORDS SUMMARY | 2024-02-11 13:07 | XMS_ITS | Continuity of Care Document ---
Author Organization [facility] Address [address] [place] [address]- Care Team Providers Care Welder Explosion Name Role Phone Erick Kohli MD Primary Care Physician [place] [facility] 05/15/22 - 06/16/22 [facility] [address] [place] [address] [address] Attending Physician: James Judge MD Admitting [...] 0 Refills, Maintenance, 06/14/22 15:08:00 EST, Cream, [facility]/pharmacy #[id number], Partial fill upon patient request [...] Maintenance, 04/09/16 16:22:43, Route to Pharmacy Electronically, [id number], [facility]/pharmacy #[id number] Start Date: 04/09/16 Status: Ordered [...] 0 Refills, Maintenance, 09/08/21 10:51:00 EDT, Solution, [facility]/pharmacy #[id number], Partial fill upon patient request [...] Care team information Care Team Personnel Name: Erick Kohli MD Position: Reference Physician Member Role: PCP Address: Address: [address] [place] [address]- Name: Samantha Mancera RN Position: [facility] RN Member Role: Primary Care Nurse Name: Ashish Kirk RN Position: [facility] RN Supv Member Role: Primary Care Nurse Name: Lubna RNHomero Position: S RN Member Role: Primary Care Nurse Name: Luis E Jenkins MD Position: [facility] Renal MD Member Role: Lifetime Consulting Physician Address: Address: [address] [place] [address], [address] [facility] [place] [address]- Name: Adore Angela MD Position: [facility] Renal MD Member Role: Lifetime Consulting Physician Address: Address: [address] [place] [address], [address] [facility] [place] [address]- [place] Name: Yaritza Paz RN Position: [facility] RN Member Role: Primary Care Nurse Name: Marivel Lubin RN Position: [facility] RN Member Role: Primary Care Nurse Name: Shirlene Ying RN Position: [facility] AMB Nurse Member Role: Primary Care Nurse Name: Fernando Torres RN Position: [facility] RN Member Role: Primary Care Nurse Name: Azalea Romero RN Position: [facility] Hospital Perioperative Nurse Member Role: Primary Care Nurse Name: Alli Leslie RN Position: [facility] RN Member Role: Primary Care Nurse Name: Lety Garcia RN Position: [facility] PCO RN Member Role: Primary Care Nurse Name: Chana Wayne RN Position: [facility] RN Member Role: Primary Care Nurse Name: Karla Otero RN Position: [facility] RN Member Role: Primary Care Nurse Name: Isabel Thurman RN Position: [facility] RN Member Role: Primary Care Nurse Name: Khoa Dee MD Position: [facility] Renal MD Member Role: Lifetime Consulting Physician Address: Address: [address] [place] [address] [facility] [address] Name: Iva Doan RN Position: [facility] AMB Nurse Member Role: Primary Care Nurse Name: Salvador Anderson MD Position: [facility] Renal MD Member Role: Lifetime Consulting Physician Address: Address: [address] [place] [address] [facility] [address] Name: Sheila Baugh RN Position: [facility] RN Member Role: Primary Care Nurse Name: Delfino Rae Position: [facility] RN Member Role: Primary Care Nurse Name: Isabel Hair RN Position: [facility] RN Member Role: Primary Care Nurse Care Team Related Persons Name: KARYNA VENTURA Address: [address] [place] [address] Name: KEDAR VENTURA Address: [address] [place] [address] Name: LLOYD CELESTIN Address: [address] [place] [address]
--- OUTSIDE RECORDS SUMMARY | 2024-02-11 13:07 | XMS_ITS | Continuity of Care Document ---
Author Organization [facility] Address [address] [place] [address]- Care Team Providers Care Medical Technicians Name Role Phone Erick Kohli MD Primary Care Physician [phone] Encounter [facility] Date(s): 08/10/20 - 09/10/20 [facility] [address] [place], [place] [address] Attending Physician: Hill PERALTA, Rosey Hobson Admitting Physician: Hill PERALTA, Rosey Hobson Referring Physician: Hill PERLATA, Rosey Hobson Allergies, Adverse Reactions, Alerts Substance Reaction Severity [...] Dry Weight Start Date: 08/25/20 Status: Ordered Aquelcel Ag Extra Aquelcel Ag [...] Maintenance, 04/09/16 16:22:43, Route to Pharmacy Electronically, [id number], [facility]/pharmacy #[id number] Start Date: 04/09/16 Status: Ordered Dakins Half Strength 0.25% topical solution See Instructions, Use Once a Day On wound DX:L97. 529 Chronic left foot Wound, # 1 each, 2 Refills,Maintenance, 08/25/20 16:41:00 EDT, [facility], Use Once a Day On wound; DX:L97. 529 Chronic left foot Wound, 183, cm, 08/25/20 15:57:00 E... Start Date: 08/25/20 Status: Ordered Dakins Quarter Strength 0.125% topical [...] Date: 09/07/20 Status: Ordered Insulin Glargine = 24 units, [...] Maintenance, 04/30/16 14:46:26, Route to Pharmacy Electronically, [id number]... Start Date: 04/30/16 Status: Ordered Mirtazapine = [...] EDT, Supply Start Date: 03/10/20 Status: Ordered Santyl 250 u/gm ointment 1 application, Topically, Daily, Left foot wound, # 30 Gm, 1 Refills, Acute 09/05/21 14:00:00 EDT, 09/07/20 18:29:00 EDT, Ointment, [facility], Partial fill upon patient request if the prescription is for a schedule II opioid drug., 1 appl... Start Date: 09/07/20 Stop Date: 09/05/21 Status: Ordered SEROquel 25 mg oral tablet [...] tablet, 1 Refills, Maintenance, 03/16/20 11:57:00 EST, [facility]/pharmacy#0517, 1 tablet By Mouth Daily, [...] Dry Weight Start Date: 08/25/20 Status: Ordered Zinc Sulfate 220 mg, By [...]
--- OUTSIDE RECORDS SUMMARY | 2024-02-11 13:07 | XMS_ITS | Continuity of Care Document ---
Author Organization [facility] Address [address] [place] [address]- Care Team Providers Care Belly Packer Name Role Phone Erick Kohli MD Primary Care Physician Encounter [facility] [place] [place] Date(s): 09/22/19 - 01/20/20 [facility] [address] [place] [address]- [facility] Attending Physician: Malina Alejandre NP Admitting Physician: Malina Alejandre NP Referring Physician: Malina Alejandre NP Allergies, Adverse Reactions, Alerts Substance Reaction Severity [...] Maintenance, 04/09/16 16:22:43, Route to Pharmacy Electronically, [id number], [facility]/pharmacy #[id number] Start Date: 04/09/16 Status: Ordered [...] Maintenance, 04/30/16 14:46:26, Route to Pharmacy Electronically, [id number]... Start Date: 04/30/16 Status: Ordered NovoLog Inj [...]
--- OUTSIDE RECORDS SUMMARY | 2024-02-11 13:07 | XMS_ITS | Continuity of Care Document ---
Author Organization [facility] rv[facility] Address [address] [place] [address]- Care Team Providers Care Construction Electrician Name Role Phone Erick Kohli MD Primary Care Physician En[place] [facility] [place] Date(s): 04/19/20 - 04/26/20 [facility] [address] [place] [address]- Attending Physician: Hill PERALTA, Rosey Hobson Admitting Physician: Hill PERALTA, Rosey Hobson Referring Physician: Erick Kohli MD Allergies, Adverse [...] Maintenance, 04/09/16 16:22:43, Route to Pharmacy Electronically, [id number], [facility]/pharmacy #[id number] Start Date: 04/09/16 [...] Maintenance, 04/30/16 14:46:26, Route to Pharmacy Electronically, [id number]... Start Date: 04/30/16 Status: Ordered Mirtazapine = [...] tablet, 1 Refills, Maintenance, 03/16/20 11:57:00 EST, [facility]/pharmacy#0517, 1 tablet By Mouth Daily, 183, cm, 03/09/20 13:23:00 EDT, Height, 99.5, kg, 09/09/18 21:24:00EDT, Dry Weight Start Date: 03/16/20 Status: Ordered Tape (1 -Paper) See Instructions, # 2 each, Refills 3, Tot. Refills 3, Maintenance, Use To Wrap Gauze To foot Wound, 02/22/20 11:25:00 EDT, Supply Start Date: 02/22/20 Status: Ordered Zinc Sulfate 220 mg, By [...] oldest [Reference Range]: 1 Height 183 cm (04/19/20 3:18 PM) Weight 97.5 kg (04/19/20 3:18 PM) Oxygen Saturation [94-100 %] 98 % (04/19/20 3:18 PM) Pulse Rate [55-90 bpm] 78 bpm (04/19/20 3:18 PM) Body Mass Index [18.5-24.99] 29.11 *H* (04/19/20 3:18 PM) Blood Pressure [90-138/55-84 mm Hg] 118/ 70mm Hg (04/19/20 3:18 PM) Blood pressure sites Arm, left (04/19/20 3:18 PM) Weight Obtained Via Patient/family state d (04/19/20 3:18 PM) Social History Social History Type Response Smoking Status Former smoker entered on: 08/09/17 Sex
--- OUTSIDE RECORDS SUMMARY | 2024-02-11 13:07 | XMS_ITS | Continuity of Care Document ---
Author Organization [facility] ter Address [address] [place] [address]- Care Team Providers Care Private Household Worker Name Role Phone Seun ZHAO, Erick Jensen Primary Care Physician [phone] [place] [facility] [place]/12/21 - 04/12/[address] [address] Attending Physician: Sienna Correa MD Allergies, Adverse Reactions, Alerts Substance Reaction [...] Tablet Start Date: 08/14/17 Status: Ordered Bactrim 400 mg-80 mg oral tablet 1 tablet, By Mouth, Daily, for 30 days, # 30 tablet, 0 Refills, Acute 04/13/21 14:54:00 EST, 03/14/21 14:54:00 EDT, [facility]/pharmacy #[id number], Partial fill upon patient request if the prescription is for a schedule II opioid drug., 1 tablet By Mouth Daily,x3... Start Date: 03/14/21 Stop Date: 04/13/21 Status: Ordered clopidogrel 75 mg oral tablet 75 mg, 1, tablet, By Mouth, Daily, # 30 tablet, Refills 4, Tot. Refills 4, Maintenance, 04/09/16 16:22:43, Route to Pharmacy Electronically, [id number], [facility]/pharmacy #[id number] Start Date: 04/09/16 Status: Ordered gabapentin 300 [...] Maintenance, 04/30/16 14:46:26, Route to Pharmacy Electronically, [id number]... Start Date: 04/30/16 Status: Ordered NovoLog Inj [...]
--- OUTSIDE RECORDS SUMMARY | 2024-02-11 13:07 | XMS_ITS | Continuity of Care Document ---
Author Organization [facility] Address [address] [place] [address]- Care Team Providers Care White Sugar Supervisor Name Role Phone Erick Kohli MD Primary Care Physician [phone] Encounter [facility] Date(s): 07/20/22 - 08/25/22 [facility] [address] [place] [address] Attending Physician: James Judge MD Admitting Physician: [...] Refills, Maintenance, 06/14/22 15:08:00 EST, Cream, [facility]/pharmacy #0517, Partial fill upon patient request if [...] Maintenance, 04/09/16 16:22:43, Route to Pharmacy Electronically, [id number], [facility]/pharmacy #[id number] Start Date: 04/09/16 Status: Ordered gabapentin [...] 0 Refills, Maintenance, 09/08/21 10:51:00 EDT, Solution, [facility]/pharmacy #1851, Partial fill upon patient request if [...] Physician Member Role: PCP Address: Address: [address] [place] [address] Drive [address] [place] [address]- Name: Calderon LOO, Samantha Position: S RN Member Role: Primary Care Nurse Name: Ashish Kirk RN Position: [facility] RN Supv Member Role: Primary Care Nurse Name: Homero Calvo RN Position: S RN Member Role: Primary Care Nurse Name: Luis E Jenkins MD Position: [facility] Renal MD Member Role: Lifetime Consulting Physician Address: Address: [address] [facility], [address] [facility] [place] [address]- Name: Adore Angela MD Position: [facility] Renal MD Member Role: Lifetime Consulting Physician Address: Address: [address] [place] [address], [address] [facility] [place] [address]- Name: Yaritza Paz RN Position: [facility] RN Member Role: Primary Care Nurse Name: Shirlene Ying RN Position: [facility] AMB Nurse Member Role: Primary Care Nurse Name: Fernando Torres RN Position: [facility] RN Member Role: Primary Care Nurse Name: Azalea Romero RN Position: [facility] Account Receivable Associate Member Role: Primary Care Nurse Name: Alli Leslie RN Position: [facility] RN Member Role: Primary Care Nurse Name: Lety Garcia RN Position: [facility] PCO RN Member Role: Primary Care Nurse Name: Chana Wayne RN Position: [facility] RN Member Role: Primary Care Nurse Name: Karla Otero RN Position: [facility] RN Member Role: Primary Care Nurse Name: Isabel Thurman RN Position: [facility] RN Member Role: Primary Care Nurse Name: Khoa Dee MD Position: [facility] Renal MD Member Role: Lifetime Consulting Physician Address: Address: [address] [place] [address] [address] [facility] [place] [address]- Name: Ridge Camejo RN Position: [facility] RN Member Role: Primary Care Nurse Name: Iva Doan RN Position: [facility] AMB Nurse Member Role: Primary Care Nurse Name: Salvador Anderson MD Position: [facility] Renal MD Member Role: Lifetime Consulting Physician Address: Address: [address] [place] [address] [facility] [place] [address]- Name: Zora Bolanos RN Position: [facility] RN Member Role: Primary Care Nurse Name: Sheila Baugh RN Position: [facility] RN Member Role: Primary Care Nurse Name: Delfino Rae Position: [facility] RN Member Role: Primary Care Nurse Name: Isabel Hair RN Position: [facility] RN Member Role: Primary Care Nurse Care Team Related Persons Name: KARYNA VENTURA Address: [address] [place] [address] Name: KEDAR VENTURA Address: [address] [place] [address] Name: LLOYD CELESTIN Address: [address] [place] [address]
--- OUTSIDE RECORDS SUMMARY | 2024-02-11 13:07 | XMS_ITS | Continuity of Care Document ---
Author Organization [facility] Address [address] [place] [address]- Care Team Providers Care Poultry Scalder Name Role Phone Seun ZHAO, Erick Jensen Primary Care Physician [place] [facility] Date(s): 09/26/20 - 10/26/20 [facility] [address] [place] [address] Allergies, Adverse Reactions, Alerts Substance [...] Maintenance, 04/09/16 16:22:43, Route to Pharmacy Electronically, [id number], [facility]/pharmacy #[id number] Start Date: [...] 2 Refills, Maintenance, 09/19/20 8:32:00 EDT, Tablet, [facility], Partial fill upon patient [...] Maintenance, 04/30/16 14:46:26, Route to Pharmacy Electronically, [id number]... Start Date: 04/30/16 Status: Ordered NovoLog Inj [...]
--- OUTSIDE RECORDS SUMMARY | 2024-02-11 13:07 | XMS_ITS | Continuity of Care Document ---
Author Organization [facility] Address [address] [place] [address]- Care Team Providers Care Sports Marketing Internship Name Role Phone Erick Kohli MD Primary Care Physician [phone] [place] [facility] [place]s): 10/16/21 - 11/15/21 [facility] [address] [place] [address] Attending Physician: AdmSumit yarbrough Admitting Physician: AdmtrSumit [...] Daily, for 30 days, # 30 tablet, 2 Refills, Acute 01/10/22 14:11:00 EDT, 10/12/21 14:11:00 EDT, [facility]/pharmacy #0517, Partial fill upon patient request if the prescription is for a schedule II opioid drug., 1 tablet By Mouth Daily,x3... Start Date: 10/12/21 Stop Date: 01/10/22 Status: Ordered BKA Prosthetic Socks BKA Prosthetic Socks, See Instructions, # 2 each, Refills 0, Tot. Refills 0, Maintenance, BKA PROSTHETIC SOCKS ,K3,Z89.511 PT WEIGHT 93 KG, 08/10/21 15:03:00 EDT, Supply Start Date: 08/10/21 Status: Ordered clopidogrel 75 mg oral tablet 75 mg, 1, tablet, By Mouth, Daily, # 30 tablet, Refills 4, Tot. Refills 4, Maintenance, 04/09/16 16:22:43, Route to Pharmacy Electronically, [id number], [facility]/pharmacy #[id number] Start Date: 04/09/16 Status: Ordered [...] 0 Refills, Maintenance, 09/08/21 10:51:00 EDT, Solution, [facility]/pharmacy #1851, Partial fill upon patient request [...]
--- OUTSIDE RECORDS SUMMARY | 2024-02-11 13:07 | XMS_ITS | Continuity of Care Document ---
Author Organization [facility] Infect[facility] Disease Address [address] [place] [address]- Care Team Providers Care Urogynaecologist Name Role Phone Erick Kohli MD Primary Care Physician [place] [facility] [place] 09/12/21 - 10/29/21 [facility] [address] [place] [id number] Attending Physician: Pawan Gilliland MD Admitting Physician: Pawan Gilliland MD Referring Physician: Erick Kohli MD Allergies, [...] Acute 01/10/22 14:11:00 EDT, 10/12/21 14:11:00 EDT, [facility]/pharmacy #[id number], Partial fill upon patient request [...] Maintenance, 04/09/16 16:22:43, Route to Pharmacy Electronically, [id number], [facility]/pharmacy #[id number] Start Date: 04/09/16 Status: Ordered doxycycline hyclate 100 mg oral tablet 1 capsule, By Mouth, Every 12 hours, for 30 days, take with a full glass of water; best not to lie down for 1 hour after taking medication., # 60 tablet, 1 Refills, Acute 11/07/21 10:16:00 EDT, 09/08/21 10:16:00 EDT, Capsule, [facility],... Start Date: 09/08/21 Stop Date: [...] 0 Refills, Maintenance, 09/08/21 10:51:00 EDT, Solution, [facility]/pharmacy #1851, Partial fill upon patient request [...]
--- OUTSIDE RECORDS SUMMARY | 2024-02-11 13:07 | XMS_ITS | Continuity of Care Document ---
Author Organization [facility] Address [address] [place] [address]- Care Team Providers Care Tool Shaper Setup Operator Name Role Phone Erick Kohli MD Primary Care Physician Encounter [facility] [place] Date(s): 05/24/21 - 06/23/21 [facility] [address] [place], [place] [address] Attending Physician: AdmSumit yarbrough Admitting Physician: [...] Maintenance, 04/09/16 16:22:43, Route to Pharmacy Electronically, [id number], [facility]/pharmacy #[id number] Start Date: 04/09/16 [...] 2 Refills, Maintenance, 09/19/20 8:32:00 EDT, Tablet, [facility], Partial fill upon patient [...] Maintenance, 04/30/16 14:46:26, Route to Pharmacy Electronically, [id number]... Start Date: 04/30/16 Status: Ordered NovoLog Inj [...]
--- OUTSIDE RECORDS SUMMARY | 2024-02-11 13:08 | XMS_ITS | Continuity of Care Document ---
Author Organization [facility] rv[facility] Address [address] [place] [address]- Care Team Providers Care Surgical Instruments Inspector Name Role Phone Seun ZHAO, Erick Jensen Primary Care Physician En[place] [facility] [place] Date(s): 06/10/20 - 07/10/20 [facility] [address] [place], [place] [address] Allergies, Adverse Reactions, Alerts Substance [...] Maintenance, 04/09/16 16:22:43, Route to Pharmacy Electronically, [id number], [facility]/pharmacy #[id number] Start Date: 04/09/16 Status: Ordered Dakins [...] Maintenance, 04/30/16 14:46:26, Route to Pharmacy Electronically, [id number]... Start Date: 04/30/16 Status: Ordered Mirtazapine = [...] tablet, 1 Refills, Maintenance, 03/16/20 11:57:00 EST, [facility]/pharmacy#0517, 1 tablet By Mouth Daily, 183, [...]
--- OUTSIDE RECORDS SUMMARY | 2024-02-11 13:08 | XMS_ITS | Continuity of Care Document ---
Author Organization [facility] Address [address] [place] [address]- Care Team Providers Care Classified Ad Clerk Name Role Phone Erick Kohli MD Primary Care Physician Encounter [facility] [place] Date(s): 02/26/22 - 03/28/22 [facility] [address] [place], [place] [address] Attending Physician: Admtr, Sumit Admitting Physician: Admtr, [id number] Referring Physician: Admtr, Ar8 Allergies, Adverse Reactions, [...] days, # 30 tablet, 1 Refills, Acute 05/24/22 18:33:00 EST, 03/25/22 18:33:00 EST, [facility]/pharmacy #[id number], Partial fill upon patient request if the prescription is for a schedule II opioid drug., 1 tablet By Mouth Daily,x3... Start Date: 03/25/22 Stop Date: 05/24/22 Status: Ordered BKA Prosthetic Socks BKA Prosthetic Socks, See Instructions, # 2 each, Refills 0, Tot. Refills 0, Maintenance, BKA PROSTHETIC SOCKS ,K3,Z89.511 PT WEIGHT 93 KG, 08/10/21 15:03:00 EDT, Supply Start Date: 08/10/21 Status: Ordered clopidogrel 75 mg oral tablet 75 mg, 1, tablet, By Mouth, Daily, # 30 tablet, Refills 4, Tot. Refills 4, Maintenance, 04/09/16 16:22:43, Route to Pharmacy Electronically, [id number], [facility]/pharmacy #[id number] Start Date: 04/09/16 Status: [...] 0 Refills, Maintenance, 09/08/21 10:51:00 EDT, Solution, [facility]/pharmacy #[id number], Partial fill upon patient [...] Reference Physician Member Role: PCP Address: Address: [address] [place] [address] [address] [place], [place] [address] Name: Samantha Mancera RN Position: S RN Member Role: Primary Care Nurse Name: Ashish Kirk RN Position: [facility] RN Supv Member Role: Primary Care Nurse Name: Ya Gan RN Position: S RN Member Role: Primary Care Nurse Name: Homero Calvo RN Position: S RN Member Role: Primary Care Nurse Name: Luis E Jenkins MD Position: [facility] Renal MD Member Role: Lifetime Consulting Physician Address: Address: [address] [place] [address], [address] [facility] [place], [place] [address] Name: Adore Angela MD Position: [facility] Renal MD Member Role: Lifetime Consulting Physician Address: Address: [address] [place] [address], [address] [facility] [place] [address]- Name: Yaritza Paz RN Position: [facility] RN Member Role: Primary Care Nurse Name: Marivel Lubin RN Position: [facility] RN Member Role: Primary Care Nurse Name: Stepan RNShirlene Position: [facility] AMB Nurse Member Role: Primary Care Nurse Name: Fernando Torres RN Position: [facility] RN Member Role: Primary Care Nurse Name: Azalae Romero RN Position: [facility] Pigment Grinder Member Role: Primary Care Nurse Name: Mariama RN, Alli Jensen Position: [facility] RN Member Role: Primary Care Nurse Name: Lety Garcia RN Position: [facility] PCO RN Member Role: Primary Care Nurse Name: Chana Wayne RN Position: [facility] RN Member Role: Primary Care Nurse Name: Karla Otero RN Position: [facility] RN Member Role: Primary Care Nurse Name: Isabel Thurman RN Position: [facility] RN Member Role: Primary Care Nurse Name: Khoa Dee MD Position: [facility] Renal MD Member Role: Lifetime Consulting Physician Address: Address: [address] [place] [address] [address] [facility] [place] [address]- Name: Iva Doan RN Position: [facility] AMB Nurse Member Role: Primary Care Nurse Name: Salvador Anderson MD Position: [facility] Renal MD Member Role: Lifetime Consulting Physician Address: Address: [address] [place] [address] [facility] [place] [address]- Name: Sheila Baugh RN Position: [facility] RN Member Role: Primary Care Nurse Name: Delfino Rae Position: [facility] RN Member Role: Primary Care Nurse Name: Isabel Hair RN Position: [facility] RN Member Role: Primary Care Nurse Care Team Related Persons Name: KARYNA VENTURA Address: [address] [place] [address] Name: AUDREY KEDAR Address: [address] [place] [address] Name: LLOYD CELESTIN Address: [address] [place] [address]
--- OUTSIDE RECORDS SUMMARY | 2024-02-11 13:08 | XMS_ITS | Continuity of Care Document ---
Author Organization [facility] Address [address] [place] [address]- Care Team Providers Care Spectacle Truer Name Role Phone Erick Kohli MD Primary Care Physician [phone] [id number] Date(s[facility] 06/06/21 - 07/12/21 [facility] [address] [place] [id number] Attending Physician: James Judge MD Admitting [...] Maintenance, 04/09/16 16:22:43, Route to Pharmacy Electronically, [id number], [facility]/pharmacy #[id number] Start Date: 04/09/16 [...] 2 Refills, Maintenance, 09/19/20 8:32:00 EDT, Tablet, [facility], Partial fill upon patient [...] Maintenance, 04/30/16 14:46:26, Route to Pharmacy Electronically, [id number]... Start Date: 04/30/16 Status: Ordered NovoLog Inj [...]
--- OUTSIDE RECORDS SUMMARY | 2024-02-11 13:08 | XMS_ITS | Continuity of Care Document ---
Author Organization [facility] Address [address] [place] [address]- Care Team Providers Care Nut And Bolt Assembler Name Role Phone Erick Kohli MD Primary Care Physician En[place] [facility] Date(s): 09/28/20 - 10/28/20 [facility] [address] [place] [id number] Allergies, Adverse Reactions, Alerts [...] Maintenance, 04/09/16 16:22:43, Route to Pharmacy Electronically, [id number], [facility]/pharmacy #[id number] Start Date: 04/09/16 Status: [...] 2 Refills, Maintenance, 09/19/20 8:32:00 EDT, Tablet, [facility], Partial fill upon patient [...] Maintenance, 04/30/16 14:46:26, Route to Pharmacy Electronically, [id number]... Start Date: 04/30/16 Status: Ordered NovoLog Inj [...]
--- OUTSIDE RECORDS SUMMARY | 2024-02-11 13:08 | XMS_ITS | Continuity of Care Document ---
Author Organization [facility] Address [address] [place] [address]- Care Team Providers Care Forest Technician Name Role Phone Erick Kohli MD Primary Care Physician [place] [facility] 10/12/21 - 11/11/21 [facility] [address] [place] [id number] Allergies, Adverse Reactions, Alerts Substance Reaction Severity [...] Acute 01/10/22 14:11:00 EDT, 10/12/21 14:11:00 EDT, [id number], Partial fill upon patient request if the prescription is for a schedule II opioid drug., 1 tablet By Mouth Daily,x3... Start Date: 10/12/21 Stop Date: 01/10/22 Status: Ordered BKA Prosthetic Socks BKA Prosthetic Socks, See Instructions, # 2 each, Refills 0, Tot. Refills 0, Maintenance, BKA PROSTHETIC SOCKS ,K3,Z89.511 PT WEIGHT 93 KG, 08/10/21 15:03:00 EDT, Supply Start Date: 08/10/21 Status: Ordered clindamycin 300 mg oral capsule 1 capsule = 300 mg, By Mouth, Every 8 hours, # 30 capsule, 0 Refills, Acute 11/13/21 9:19:00 EDT, 11/02/21 9:19:00 EDT, Capsule, [id number], Partial fill upon patient request if the prescription is for a schedule II opioid drug., 182, cm, 060... Start Date: 11/02/21 Stop Date: 11/13/21 Status: Ordered clopidogrel 75 mg oral tablet 75 mg, 1, tablet, By Mouth, Daily, # 30 tablet, Refills 4, Tot. Refills 4, Maintenance, 04/09/16 16:22:43, Route to Pharmacy Electronically, [id number], [facility]/pharmacy #[id number] Start Date: 04/09/16 Status: Ordered [...] 0 Refills, Maintenance, 09/08/21 10:51:00 EDT, Solution, [facility]/pharmacy #[id number], Partial fill upon patient request [...]
--- OUTSIDE RECORDS SUMMARY | 2024-02-11 13:08 | XMS_ITS | Continuity of Care Document ---
Author Organization [facility] Address [address] [place] [address]- Care Team Providers Care Senior Property Manager Name Role Phone Seun ZHAO, Erick Jensen Primary Care Physician [place] [facility] [place] Date(s): 03/08/22 - 04/07/22 [facility] [address] [place], [place] [address] Attending Physician: Sumit Rangel Admitting [...] Acute 05/24/22 18:33:00 EST, 03/25/22 18:33:00 EST, [facility]/pharmacy #[id number], Partial fill upon patient [...] Maintenance, 04/09/16 16:22:43, Route to Pharmacy Electronically, [id number], [facility]/pharmacy #[id number] Start Date: 04/09/16 Status: [...] Refills, Maintenance, 09/08/21 10:51:00 EDT, Solution, [facility]/pharmacy #[id number], Partial fill upon patient [...] Reference Physician Member Role: PCP Address: Address: [address] [place] [address] [place] [address] Name: Samantha Mancera RN Position: S RN Member Role: Primary Care Nurse Name: Ashish Kirk RN Position: [facility] RN Supv Member Role: Primary Care Nurse Name: Ya Gan RN Position: S RN Member Role: Primary Care Nurse Name: Homero Calvo RN Position: S RN Member Role: Primary Care Nurse Name: Luis E Jenkins MD Position: [facility] Renal MD Member Role: Lifetime Consulting Physician Address: Address: [address] [place] [address], [address] [facility] [place] [address]- Name: Adore Angela MD Position: [facility] Renal MD Member Role: Lifetime Consulting Physician Address: Address: [address] [place] [address], [address] [facility] [place] [address]- Name: Yaritza Paz RN Position: [facility] RN Member Role: Primary Care Nurse Name: Marivel Lubin RN Position: S RN Member Role: Primary Care Nurse Name: Shirlene Ying RN Position: [facility] AMB Nurse Member Role: Primary Care Nurse Name: Fernando Torres RN Position: [facility] RN Member Role: Primary Care Nurse Name: Azalea Romero RN Position: [facility] Candle Extrusion Machine Operator Member Role: Primary Care Nurse Name: Alli Leslie RN Position: [facility] RN Member Role: Primary Care Nurse Name: Lety Garcia RN Position: [facility] PCO RN Member Role: Primary Care Nurse Name: Chana Wayne RN Position: [facility] RN Member Role: Primary Care Nurse Name: Karla Otero RN Position: [facility] RN Member Role: Primary Care Nurse Name: Isabel Thurman RN Position: [facility] RN Member Role: Primary Care Nurse Name: Khoa Dee MD Position: [facility] Renal MD Member Role: Lifetime Consulting Physician Address: Address: [address] [place] [address] [address] [facility] [place] [address]- Name: Iva Doan RN Position: [facility] AMB Nurse Member Role: Primary Care Nurse Name: Salvador Anderson MD Position: [facility] Renal MD Member Role: Lifetime Consulting Physician Address: Address: [address] [place] [address] [facility] [place] [address]- Name: Lupis RNSheila Position: [facility] RN Member Role: Primary Care Nurse Name: Delfino Rae Position: [facility] RN Member Role: Primary Care Nurse Name: Isabel Hair RN Position: [facility] RN Member Role: Primary Care Nurse Care Team Related Persons Name: KARYNA VENTURA Address: [address] [place] [address] Name: KEDAR VENTURA Address: [address] [place] [address] Name: LLOYD CELESTIN Address: [address] [place] [address]
--- OUTSIDE RECORDS SUMMARY | 2024-02-11 13:08 | XMS_ITS | Continuity of Care Document ---
Author Organization [facility] Address [address] [place] [address]- Care Team Providers Care Construction Ironworker Helper Name Role Phone Erick Kohli MD Primary Care Physician [place] [facility] [place]s): 04/24/21 - 05/24/21 [facility] [address] [place] [address] Attending Physician: Sumit Rangel Admitting Physician: AdmSumit yarbrough Referring Physician: [id number] Allergies, Adverse Reactions, Alerts Substance Reaction Severity [...] Maintenance, 04/09/16 16:22:43, Route to Pharmacy Electronically, [id number], [facility]/pharmacy #[id number] Start Date: 04/09/16 Status: [...] Maintenance, 04/30/16 14:46:26, Route to Pharmacy Electronically, [id number]... Start Date: 04/30/16 Status: Ordered NovoLog Inj [...]
--- OUTSIDE RECORDS SUMMARY | 2024-02-11 13:08 | XMS_ITS | Continuity of Care Document ---
Author Organization [facility] Address [address] [place] [address]- Care Team Providers Care Structural Architect Name Role Phone Erick Kohli MD Primary Care Physician [place] [facility] [place] Date(s): 06/09/19 - 06/16/19 [facility] [address] [place] [address]- [facility] Attending Physician: Malina Alejandre NP Admitting [...] EDT, Compound Start Date: 10/03/18 Status: Ordered Aquacel Ag Extra Aquacel Ag Extra, See Instructions, # 1 box, Refills 2, Tot. Refills 2, Maintenance, apply to foot wound, 10/03/18 11:49:59 EDT, Compound Start Date: 10/03/18 Status: Ordered [...] Maintenance, 04/09/16 16:22:43, Route to Pharmacy Electronically, [id number], [facility]/pharmacy #[id number] Start Date: 04/09/16 Status: Ordered gabapentin 300 mg oral capsule 900 mg, By Mouth, Daily at bedtime, Refills 0, Maintenance, 08/23/18 10:02:57 EDT Start Date: 08/23/18 Status: Ordered Insulin Glargine = 24 units, Subcutaneous Infusion, Daily at bedtime, 0 Refills, Maintenance, 08/14/18 16:54:08 EDT Start Date: 08/14/18 Status: Ordered Iodosorb 0.9% topical gel See Instructions, APPLY TO FOOT WOUND, # 2 bottle, 2 Refills, Maintenance, 10/03/18 11:54:46 EDT Start Date: 10/03/18 Status: Ordered Keppra XR 500 mg oral [...] Maintenance, 04/30/16 14:46:26, Route to Pharmacy Electronically, [id number]... Start Date: 04/30/16 Status: Ordered NovoLog Inj Subcutaneous Infusion, 3 times a day before meals, 0 Refills, Maintenance, 08/20/17 14:55:16 EDT Start Date: 08/20/17 Status: Ordered promogran wound dressing promogran wound dressing, Refills 0, Maintenance, 11/11/18 10:50:24 EDT, Compound Start Date: 11/11/18 Status: Ordered sulfamethoxazole-trimethoprim 400 mg-80 mg oral [...] oldest [Reference Range]: 1 Height 183 cm (06/09/19 10:34 AM) Weight 93.00 kg (06/09/19 10:34 AM) Body Mass Index [18.5-24.99] 27.77 *H* (06/09/19 10:34 AM) Blood Pressure [90-138/55-84 mm Hg] 144/ 60mm Hg *H* (06/09/19 10:34 AM) Blood pressure sites Arm, left (06/09/19 10:34 AM) Weight Obtained Via Patient/family state d (06/09/19 10:34 AM) Social History Social History Type Response Smoking Status Former smoker entered on: 08/09/17 Sex
--- OUTSIDE RECORDS SUMMARY | 2024-02-11 13:08 | XMS_ITS | Continuity of Care Document ---
Author Organization [facility] Address [address] [place] [address]- Care Team Providers Care Petroleum Refinery Operator Name Role Phone Erick Kohli MD Primary Care Physician [place] [facility] [id number] Date(s): 08/19/19 - 08/26/19 [facility] [address] [place] [address]- [facility] Attending Physician: Not on Staff, Attending MD [...] Maintenance, 04/09/16 16:22:43, Route to Pharmacy Electronically, [id number], [facility]/pharmacy #[id number] Start Date: 04/09/16 [...] Maintenance, 04/30/16 14:46:26, Route to Pharmacy Electronically, [id number]... Start Date: 04/30/16 Status: Ordered NovoLog Inj Subcutaneous Infusion, 3 times a day before meals, 0 Refills, Maintenance, 08/20/17 14:55:16 EDT Start Date: 08/20/17 Status: Ordered sulfamethoxazole-trimethoprim 400 mg-80 mg oral tablet 1 tablet, By Mouth, Daily, # 90 tablet, 0 Refills, Maintenance, 05/15/19 17:23:00 EST, [facility]/pharmacy#[id number], 1 tablet By Mouth Daily, [...]
--- OUTSIDE RECORDS SUMMARY | 2024-02-11 13:08 | XMS_ITS | Continuity of Care Document ---
Author Organization [facility] ter Address [address] [place] [address]- Care Team Providers Care Spot Worker Name Role Phone Erick Kohli MD Primary Care Physician [phone] [place] [facility] [place]12[place] - 10/12/[address] [address] Discharge Disposition: A-D/C Home Attending Physician: Ryan Scott MD Admitting Physician: Ryan Scott MD Referring Physician: Ryan Scott MD Allergies, [...] Maintenance, 04/09/16 16:22:43, Route to Pharmacy Electronically, [id number], [facility]acy #[id number] Start Date: 04/09/16 Status: Ordered [...] 10/18/20 10:59:00 EDT, 09/27/20 10:59:00 EDT, Tablet, [facility]/pharmacy #[id number], Partial fill upon patient request if the prescription is for a schedule II opioid drug.,... Start Date: 09/27/20 Stop Date: 10/18/20 Status: Ordered losartan 100 mg oral tablet 1 tablet = 100 mg, By Mouth, Daily, # 30 tablet, 2 Refills, Maintenance, 09/19/20 8:32:00 EDT, Tablet, [facility], Partial fill upon patient [...] Maintenance, 04/30/16 14:46:26, Route to Pharmacy Electronically, [id number]... Start Date: 04/30/16 Status: Ordered NovoLog Inj [...] oldest [Reference Range]: 1 2 3 Height 182.88 cm (10/12/20 6:23 AM) 182.88 cm (09/29/20 11:10 AM) Oxygen Saturation [94-100 %] 100 % (10/12/20 10:45 AM) 99 % (10/12/20 10:30 AM) 100 % (10/12/20 10:15 AM) Pulse Rate [55-90 bpm] 73 bpm (10/12/20 6:23 AM) Blood Pressure [90-138/55-84 mm Hg] 154/54mm Hg *H* (10/12/20 10:45 AM) 159/49mm Hg *H* (10/12/20 10:30 AM) 137/92mm Hg (10/12/20 10:15 AM) Respiratory Rate [16-30 br/min] 20 br/min (10/12/20 10:45 AM) 13 br/min *L* (10/12/20 10:30 AM) 20 br/min (10/12/20 10:15 AM) Temperature [96.8-100.4 DegF] 97.8 DegF (10/12/20 10:30 AM) 97.4 DegF (10/12/20 9:30 AM) 97.6 DegF (10/12/20 6:23 AM) Liters per Minute 6 L/min (10/12/20 9:30 AM) Mode of Delivery (Oxygen) Room air (10/12/20 10:30 AM) Room air (10/12/20 9:45 AM) Simple face mask (10/12/20 9:30 AM) Blood pressure sites Arm, left (10/12/20 10:30 AM) Arm, left (10/12/20 6:23 AM) Temperature Route Temporal (10/12/20 10:30 AM) Temporal (10/12/20 9:30 AM) Temporal (10/12/20 6:23 AM) Social History Social History Type Response Smoking Status Former smoker entered on: 08/09/17 Sex
--- OUTSIDE RECORDS SUMMARY | 2024-02-11 13:08 | XMS_ITS | Continuity of Care Document ---
Author Organization [facility] ter Address [address] [place] [address]- Care Team Providers Care Professor In Family Studies Name Role Phone Erick Kohli MD Primary Care Physician Encounter [facility] ACCT R [id number] Date(s): 09/14/20 - 09/19/[address] [address] Discharge Disposition: A-D/C Home Attending Physician: Gene Alamo MD Admitting Physician: Gene Alamo MD Referring Physician: Not on Staff, Referring MD Allergies, Adverse Reactions, Alerts Substance Reaction Severity Status Reglan severe itching Active Fish D&V - Diarrhea and vomiting Active Pork [D]Vomiting Diarrhea symptoms Active Pollen Active Immunizations Given and Recorded Vaccine Date [...] Maintenance, 04/09/16 16:22:43, Route to Pharmacy Electronically, [id number], [facility]/pharmacy #[id number] Start Date: 04/09/16 Status: Ordered Dilaudid Inj 0.2 mg, Injection, IV Push Slowly, Every 4 hours, PRN for Pain , Severe, Routine, 09/15/20 2:46:00 EDT Start Date: 09/15/20 Stop Date: 09/22/20 Status: Ordered docusate sodium 100 mg oral capsule 100 mg, 1, capsule, By Mouth, 2 times a day, PRN, # 20 capsule, Refills 0, Tot. Refills 0, Maintenance, for constipation, 09/19/20 8:28:00 EDT, Route to Pharmacy Electronically, [facility], Partial fill upon patient request if the prescr... Start Date: 09/19/20 Status: Ordered gabapentin 300 mg oral capsule [...] 2 Refills, Maintenance, 09/19/20 8:32:00 EDT, Tablet, [facility], Partial fill upon patient request if the prescription is for a schedule II opioid drug., 183, cm, 09/14/20 15:54:00 EDT, H... Start Date: 09/19/20 Stop Date: 12/18/20 Status: Ordered losartan 50 mg oral tablet 100 mg, Tablet, By Mouth, 09/19/20 9:00:00 EDT Start Date: 09/19/20 Stop Date: 09/19/20 Status: Completed metoprolol 50 mg oral tablet 50 mg, Tablet, By Mouth, 09/19/20 9:00:00 EDT Start Date: 09/19/20 Stop Date: 09/19/20 Status: Completed metoprolol 50 mg oral tablet 50 mg, 1, tablet, By Mouth, 2 times a day, Metoprolol tartrate These are 50 mg tablets, only 1 tablet twice a day, # 180 tablet, Refills 0, Tot. Refills 0, Maintenance, 04/30/16 14:46:26, Route to Pharmacy Electronically, [id number]... Start Date: 04/30/16 Status: Ordered NovoLog Inj Subcutaneous Infusion, 3 times a day before meals, 0 Refills, Maintenance, 08/20/17 14:55:16 EDT Start Date: 08/20/17 Status: Ordered oxyCODONE 5 mg oral tablet 5 mg, 1, tablet, By Mouth, Every 6 hours, PRN, for 5 days, # 20 tablet, Refills 0, Tot. Refills 0, Acute 09/24/20 8:28:00 EDT, Pain , Severe, 09/19/20 8:28:00 EDT, Route to Pharmacy Electronically, [facility], Partial fill upon patient r... Start Date: 09/19/20 Stop Date: 09/24/20 Status: Ordered RT BKA Prosthetic RT BKA [...] tablet, 1 Refills, Maintenance, 03/16/20 11:57:00 EST, [facility]/pharmacy#[id number], 1 tablet By Mouth Daily, 183, cm, [...] Results Orders for Microbiology Reports Name Date Wound Deep Culture w/ Gram Smear (DEEP W OUND CULTURE) 09/16/20 Blood Culture 09/14/20 Blood Culture #2 09/14/20 Microbiology Reports TEST:Deep Wound Culture STATUS:Auth (Verified) BODY SITE: SOURCE:E SWAB COLLECTED DATE/TIME:09/16/20 8:00 PM Deep Wound Culture SPECIMEN DESCRIPTION : E SWAB WOUND L HEEL SPECIAL REQUESTS : NONE GRAM STAIN : 2+ POLYMORPHONUCLEAR LEUKOCYTES 2+ GRAM POSITIVE COCCI CULTURE : 2+ STREPTOCOCCUS VIRIDANS SPECIES SUSCEPTIBILITY TESTING NOT ROUTINELY PERFORMED ON THIS ISOLATE. Please consult the laboratory ([phone]) within 7 days if more definitive studies are clinically indicated. REPORT STATUS : FINAL 09/19/2020 TEST:Blood Culture STATUS:Auth (Verified) BODY SITE: SOURCE:Blood COLLECTED DATE/TIME:09/14/20 9:31 PM Blood Culture SPECIMEN DESCRIPTION : BLOOD NO SITE SPECIAL REQUESTS : NONE CULTURE : NO GROWTH 5 DAYS. REPORT STATUS : FINAL 09/19/2020 TEST:Blood Culture, Second Order STATUS:Auth (Verified) BODY SITE: SOURCE:Blood COLLECTED DATE/TIME:09/14/20 9:31 PM Blood Culture, Second Order SPECIMEN DESCRIPTION : BLOOD NO SITE SPECIAL REQUESTS : NONE CULTURE : NO GROWTH 5 DAYS. REPORT STATUS : FINAL 09/19/2020 Vital Signs Most recent to oldest [Reference Range]: 1 2 3 4 Weight 87.5 kg (09/17/20 5:41 AM) 89.1 kg (09/16/20 4:51 PM) 89.1 kg (09/16/20 5:20 AM) 89.1 kg (09/16/20 5:20 AM) Oxygen Saturation [94-100 %] 99 % (09/19/20 7:00 AM) 100 % (09/19/20 4:29 AM) 100 % (09/18/20 4:13 PM) Pulse Rate [55-90 bpm] 74 bpm (09/19/20 8:32 AM) 74 bpm (09/19/20 7:00 AM) 72 bpm (09/19/20 4:29 AM) Blood Pressure [90-138/55-84 mm Hg] 141/74mm Hg *H* (09/19/20 8:32 AM) 141/74mm Hg *H* (09/19/20 8:31 AM) 141/74mm Hg *H* (09/19/20 7:00 AM) Respiratory Rate [16-30 br/min] 18 br/min (09/19/20 1:07 PM) 16 br/min (09/19/20 12:37 PM) 18 br/min (09/19/20 7:00 AM) Temperature [96.8-100.4 DegF] 98.2 DegF (09/19/20 7:00 AM) 97.8 DegF (09/18/20 4:13 PM) 98.6 DegF (09/18/20 4:00 AM) Mode of Delivery (Oxygen) Room air (09/19/20 7:00 AM) Room air (09/19/20 4:29 AM) Room air (09/18/20 4:13 PM) Blood pressure sites Arm, left (09/19/20 7:00 AM) Arm, left (09/19/20 4:29 AM) Arm, left (09/18/20 4:13 PM) Temperature Route Oral (09/19/20 7:00 AM) Oral (09/18/20 4:13 PM) Oral (09/18/20 4:00 AM) Weight Obtained Via Bed scale (09/17/20 5:41 AM) Bed scale (09/16/20 5:20 AM) Bed scale (09/16/20 5:20 AM) Social History Social History Type Response Smoking Status Former smoker entered on: 08/09/17 Sex
--- OUTSIDE RECORDS SUMMARY | 2024-02-11 13:08 | XMS_ITS | Continuity of Care Document ---
Author Organization [facility] Address [address] [place] [address]- Care Team Providers Care Varying Exceptionalities Teacher Name Role Phone Erick Kohli MD Primary Care Physician [phone] Encounter [facility] Date(s): 09/22/19 - 01/20/20 [facility] [address] [place] [address]- [facility] Attending Physician: Malina Alejandre NP Admitting Physician: [...] Maintenance, 04/09/16 16:22:43, Route to Pharmacy Electronically, [id number], [facility]/pharmacy #[id number] Start Date: 04/09/16 Status: [...] Maintenance, 04/30/16 14:46:26, Route to Pharmacy Electronically, [id number]... Start Date: 04/30/16 Status: Ordered NovoLog Inj [...]
--- OUTSIDE RECORDS SUMMARY | 2024-02-11 13:08 | XMS_ITS | Continuity of Care Document ---
Author Organization [facility] Address [address] [place] [address]- Care Team Providers Care Loan Underwriter Name Role Phone Erick Kohli MD Primary Care Physician Encounter [facility] Date(s): 05/25/19 - 06/01/19 [facility] [address] [place] [address]- [facility] Attending Physician: Malina Alejandre NP Admitting Physician: [...] Maintenance, 04/09/16 16:22:43, Route to Pharmacy Electronically, [id number], [facility]/pharmacy #[id number] Start Date: 04/09/16 Status: Ordered [...] Maintenance, 04/30/16 14:46:26, Route to Pharmacy Electronically, [id number]... Start Date: 04/30/16 Status: Ordered NovoLog Inj [...] oldest [Reference Range]: 1 Height 183 cm (05/25/19 10:55 AM) Weight 95.3 kg (05/25/19 10:55 AM) Body Mass Index [18.5-24.99] 28.46 *H* (05/25/19 10:55 AM) Blood Pressure [90-138/55-84 mm Hg] 124/ 72mm Hg (05/25/19 10:55 AM) Blood pressure sites Arm, left (05/25/19 10:55 AM) Weight Obtained Via Patient/family state d (05/25/19 10:55 AM) Social History Social History Type Response Smoking Status Former smoker entered on: 08/09/17 Sex
--- OUTSIDE RECORDS SUMMARY | 2024-02-11 13:08 | XMS_ITS | Continuity of Care Document ---
Author Organization [facility] Address [address] [place] [address]- Care Team Providers Care Lab Engineer Name Role Phone Erick Kohli MD Primary Care Physician [phone] Encounter [facility] Date(s): 05/17/20 - 06/16/20 [facility] [address] [place], [place] [address] Attending Physician: Sumit Rangel Admitting Physician: AdmSumit [...] Print Requisition Start Date: 03/19/16 Stop Date: 12/7/16 Status: Ordered atorvastatin 80 mg oral tablet [...] Maintenance, 04/09/16 16:22:43, Route to Pharmacy Electronically, [id number], [facility]/pharmacy #[id number] Start Date: 04/09/16 Status: Ordered Dakins Half [...] Maintenance, 04/30/16 14:46:26, Route to Pharmacy Electronically, [id number]... Start Date: 04/30/16 Status: Ordered Mirtazapine = [...] tablet, 1 Refills, Maintenance, 03/16/20 11:57:00 EST, [facility]/pharmacy#[id number], 1 tablet By Mouth Daily, 183, [...]
--- OUTSIDE RECORDS SUMMARY | 2024-02-11 13:09 | XMS_ITS | Continuity of Care Document ---
Author Organization [facility] Address [address] [place] [address]- Care Team Providers Care Water Systems Engineer Name Role Phone Erick Kohli MD Primary Care Physician [phone] Encounter [facility] Date(s): 02/23/21 - 03/31/21 [facility] [address] [place] [address] Attending Physician: Geovany Meyer MD Admitting [...] Acute 04/13/21 14:54:00 EST, 03/14/21 14:54:00 EDT, [facility]/pharmacy #[id number], Partial fill upon patient request if the prescription is for a schedule II opioid drug., 1 tablet By Mouth Daily,x3... Start Date: 03/14/21 Stop Date: 04/13/21 Status: Ordered clopidogrel 75 mg oral tablet 75 mg, 1, tablet, By Mouth, Daily, # 30 tablet, Refills 4, Tot. Refills 4, Maintenance, 04/09/16 16:22:43, Route to Pharmacy Electronically, [id number], [facility]/pharmacy #[id number] Start Date: 04/09/16 Status: Ordered gabapentin 300 [...] Maintenance, 04/30/16 14:46:26, Route to Pharmacy Electronically, [id number]... Start Date: 04/30/16 Status: Ordered NovoLog Inj [...]
--- OUTSIDE RECORDS SUMMARY | 2024-02-11 13:09 | XMS_ITS | Continuity of Care Document ---
Author Organization [facility] Address [address] [place] [address]- Care Team Providers Care Fountain Pen Nibs Inspector Name Role Phone Erick Kohli MD Primary Care Physician [phone] [id number] - 06/23/21 [facility] [address] [place], [place] [address] Attending Physician: Ryan Scott MD Admitting [...] Maintenance, 04/09/16 16:22:43, Route to Pharmacy Electronically, [id number], [facility]/pharmacy #[id number] Start Date: 04/09/16 [...] 2 Refills, Maintenance, 09/19/20 8:32:00 EDT, Tablet, [facility], Partial fill upon patient [...] Maintenance, 04/30/16 14:46:26, Route to Pharmacy Electronically, [id number]... Start Date: 04/30/16 Status: Ordered NovoLog Inj [...]
--- OUTSIDE RECORDS SUMMARY | 2024-02-11 13:09 | XMS_ITS | Continuity of Care Document ---
Author Organization [facility] Address [address] [place] [address]- Care Team Providers Care Outpatient Clerk Name Role Phone Erick Kohli MD Primary Care Physician Encounter [facility] Date(s): 03/29/22 - 04/28/22 [facility] [address] [place] [id number] Attending Physician: AdmSumit yarbrough Admitting [...] Acute 05/24/22 18:33:00 EST, 03/25/22 18:33:00 EST, [facility]/pharmacy #[id number], Partial fill upon patient request [...] Maintenance, 04/09/16 16:22:43, Route to Pharmacy Electronically, [id number], [facility]/pharmacy #[id number] Start Date: 04/09/16 Status: Ordered [...] 0 Refills, Maintenance, 09/08/21 10:51:00 EDT, Solution, [facility]/pharmacy #[id number], Partial fill upon patient request [...] Reference Physician Member Role: PCP Address: Address: [address] [place] [address] [place] [address]- Name: Samantha Mancera RN Position: S RN Member Role: Primary Care Nurse Name: Ashish Kirk RN Position: S RN Supv Member Role: Primary Care Nurse Name: Homero Calvo RN Position: S RN Member Role: Primary Care Nurse Name: Luis E Jenkins MD Position: [facility] Renal MD Member Role: Lifetime Consulting Physician Address: Address: [address] [place] [address], [address] [facility] [place] [address]- Name: Adore Angela MD Position: S Renal MD Member Role: Lifetime Consulting Physician Address: Address: [address] [place] [address], [address] [facility] [address] Name: Yaritza Paz RN Position: [facility] RN Member Role: Primary Care Nurse Name: Marivel Lubin RN Position: [facility] RN Member Role: Primary Care Nurse Name: Shirlene Ying RN Position: [facility] AMB Nurse Member Role: Primary Care Nurse Name: Fernando Torres RN Position: [facility] RN Member Role: Primary Care Nurse Name: Azalea Romero RN Position: [facility] Hospital Crm Manager Member Role: Primary Care Nurse Name: Alli Leslie RN Position: [facility] RN Member Role: Primary Care Nurse Name: Lety Garcia RN Position: [facility] PCO RN Member Role: Primary Care Nurse Name: Chana Wayne RN Position: [facility] RN Member Role: Primary Care Nurse Name: Karla Otero RN Position: [facility] RN Member Role: Primary Care Nurse Name: Isabel Thurman RN Position: [facility] RN Member Role: Primary Care Nurse Name: Khoa Dee MD Position: [facility] Renal MD Member Role: Lifetime Consulting Physician Address: Address: [address] [place] [address] [facility] [address] Name: Iva Doan RN Position: [facility] AMB Nurse Member Role: Primary Care Nurse Name: Salvador Anderson MD Position: [facility] Renal MD Member Role: Lifetime Consulting Physician Address: Address: [address] [place] [address] [facility] [address] Name: Sheila Baugh RN Position: [facility] RN Member Role: Primary Care Nurse Name: Delfino Rae Position: [facility] RN Member Role: Primary Care Nurse Name: Isabel Hair RN Position: [facility] RN Member Role: Primary Care Nurse Care Team Related Persons Name: KARYNA VENTURA Address: home [address] [place] [address] Name: KEDAR VENTURA Address: home [address] [place] [address] Name: LLOYD CELESTIN Address: home [address] [place] [address]
--- OUTSIDE RECORDS SUMMARY | 2024-02-11 13:09 | XMS_ITS | Continuity of Care Document ---
Author Organization [facility] Address [address] [place] [address]- Care Team Providers Care Wool Spotter Name Role Phone Erick Kohli MD Primary Care Physician [phone] Encounter [facility] Date(s): 03/27/22 - 04/28/22 [facility] [address] [place] [id number] Attending Physician: Pawan Gilliland MD Admitting [...] Acute 05/24/22 18:33:00 EST, 03/25/22 18:33:00 EST, [facility]/pharmacy #[id number], Partial fill upon patient request [...] Maintenance, 04/09/16 16:22:43, Route to Pharmacy Electronically, [id number], [facility]/pharmacy #[id number] Start Date: 04/09/16 Status: [...] 0 Refills, Maintenance, 09/08/21 10:51:00 EDT, Solution, [facility]/pharmacy #[id number], Partial fill upon patient request [...] Reference Physician Member Role: PCP Address: Address: [address] [place] [address] [address] [place] [address]- [place] Name: Samantha Mancera RN Position: S RN Member Role: Primary Care Nurse Name: Ashish Kirk RN Position: S RN Supv Member Role: Primary Care Nurse Name: Lubna RNHomero Position: S RN Member Role: Primary Care Nurse Name: Luis E Jenkins MD Position: [facility] Renal MD Member Role: Lifetime Consulting Physician Address: Address: [address] [place] [address], [address] [facility] [place] [address]- [place] Name: Adore Angela MD Position: [facility] Renal MD Member Role: Lifetime Consulting Physician Address: Address: [address] [place] [address], [address] [facility] [place] [address]- Name: Yaritza Paz RN Position: [facility] RN Member Role: Primary Care Nurse Name: Marivel Lubin RN Position: [facility] RN Member Role: Primary Care Nurse Name: Shirlene Ying RN Position: [facility] AMB Nurse Member Role: Primary Care Nurse Name: Fernando Torres RN Position: [facility] RN Member Role: Primary Care Nurse Name: Azalea Romero RN Position: [facility] Digital Project Coordinator Member Role: Primary Care Nurse Name: Mariama RNAlli Position: [facility] RN Member Role: Primary Care Nurse Name: Lety Garcia RN Position: [facility] PCO RN Member Role: Primary Care Nurse Name: Chana Wayne RN Position: [facility] RN Member Role: Primary Care Nurse Name: Karla Otero RN Position: [facility] RN Member Role: Primary Care Nurse Name: Isabel Thurman RN Position: [facility] RN Member Role: Primary Care Nurse Name: Khoa Dee MD Position: [facility] Renal MD Member Role: Lifetime Consulting Physician Address: Address: [address] [place] [address] [address] [facility] [place] [address]- Name: Iva Doan RN Position: [facility] AMB Nurse Member Role: Primary Care Nurse Name: Salvador Anderson MD Position: [facility] Renal MD Member Role: Lifetime Consulting Physician Address: Address: [address] [place] [address] [facility] [place] [address]- Name: Sheila Baugh RN Position: [facility] RN Member Role: Primary Care Nurse Name: Delfino Rae Position: [facility] RN Member Role: Primary Care Nurse Name: Isabel Hair RN Position: [facility] RN Member Role: Primary Care Nurse Care Team Related Persons Name: KARYNA VENTURA Address: [address] [place] [address] Name: KEDAR VENTURA Address: [address] [place] [address] Name: LLOYD CELESTIN Address: home [address] [place] [address]
--- OUTSIDE RECORDS SUMMARY | 2024-02-11 13:09 | XMS_ITS | Continuity of Care Document ---
Author Organization Wound Care Address [address] [place] [address]- Care Team Providers Care Painter Assistant Name Role Phone Erick Kohli MD Primary [id number] Date[facility]/16/23 - 08/21/[address] [facility] [address] [place] [id number] Attending Physician: James Judge MD Admitting Physician: [...] 0 Refills, Maintenance, 06/14/22 15:08:00 EST, Cream, [facility]/pharmacy #[id number], Partial fill upon patient request [...] 10/28/22 9:15:00 EDT, Route to Pharmacy Electronically, [facility], Partial fill upon patient request if the prescrip... Start Date: 10/28/22 Stop Date: 11/11/22 Status: Ordered clopidogrel 75 mg oral tablet 75 mg, 1, tablet, By Mouth, Daily, # 30 tablet, Refills 4, Tot. Refills 4, Maintenance, 04/09/16 16:22:43, Route to Pharmacy Electronically, [id number], [facility]/pharmacy #[id number] Start Date: 04/09/16 Status: Ordered Coreg 25 mg oral tablet 25 mg, 1, tablet, By Mouth, 2 times a day, # 60 tablet, Refills 0, Tot. Refills 0, Maintenance, 10/28/22 9:08:00 EDT, Route to Pharmacy Electronically, [facility], Partial fill upon patient request if [...] Team Personnel Name: Juliet Mcdonald RN Position: Camila RN Member Role: Primary Care Nurse Name: Erick Kohli MD Position: Reference Physician Member Role: PCP Address: Address: [address] [place] [address] Drive [address] [place], [place] - [place] Name: Samantha Mancera RN Position: [facility] RN Member Role: Primary Care Nurse Name: Ashish Kirk RN Position: [facility] RN Supv Member Role: Primary Care Nurse Name: Luis E Jenkins MD Position: [facility] Renal MD Member Role: Lifetime Consulting Physician Address: Address: [address] [place] [address] [address] [facility] [place], [place] - [place] Name: Adore Angela MD Position: [facility] Renal MD Member Role: Lifetime Consulting Physician Address: Address: [address] [place] [address], [address] [facility] [place], [place] - Name: Yaritza Paz RN Position: [facility] RN Member Role: Primary Care Nurse Name: Fernando Torres RN Position: [facility] RN Member Role: Primary Care Nurse Name: Azalea Romero RN Position: [facility] Feeder Member Role: Primary Care Nurse Name: Shannon Gary Position: [facility] Outreach Member Role: Lifetime Consulting Physician Name: Alli Leslie RN Position: [facility] RN Member Role: Primary Care Nurse Name: Lety Garcia RN Position: [facility] AMB Nurse Member Role: Primary Care Nurse Name: Chana Wayne RN Position: [facility] RN Member Role: Primary Care Nurse Name: Karla Otero RN Position: [facility] RN Member Role: Primary Care Nurse Name: Isabel Thurman RN Position: [facility] RN Member Role: Primary Care Nurse Name: Josefina Painting RN Position: [facility] RN Member Role: Primary Care Nurse Name: Khoa Dee MD Position: [facility] Renal MD Member Role: Lifetime Consulting Physician Address: Address: [address] [place] [address] [address] [facility] [place] [place], [place] - Name: Karina Jasso RN Position: [facility] RN Member Role: Primary Care Nurse Name: Fernanda Maldonado RN Position: [facility] RN Member Role: Primary Care Nurse Name: Ridge Camejo RN Position: [facility] RN Member Role: Primary Care Nurse Name: Iva Doan RN Position: [facility] AMB Nurse Member Role: Primary Care Nurse Name: Salvador Anderson MD Position: [facility] Renal MD Member Role: Lifetime Consulting Physician Address: Address: [address] [place] [address] [facility] [place], [place] [address] Name: Zora Bolanos RN Position: [facility] RN Member Role: Primary Care Nurse Name: Sheila Baugh RN Position: [facility] RN Member Role: Primary Care Nurse Name: Delfino Rae Position: S RN Member Role: Primary Care Nurse Name: Leigha Parmar RN Position: [facility] RN Member Role: Primary Care Nurse Name: Isabel Hair RN Position: [facility] RN Member Role: Primary Care Nurse Care Team Related Persons Name: KARYNA VENTURA Address: home [address] [facility] [place] [address] Name: KEDAR VENTURA Address: home [address] [place] [address] Name: URBANO MORGAN Address: [address] [place] [address] Name: LLOYD CELESTIN Address: home [address] [facility] [facility] [address]
--- OUTSIDE RECORDS SUMMARY | 2024-02-11 13:09 | XMS_ITS | Continuity of Care Document ---
Author Organization Wound Care Address [address] [place] [address]- Care Team Providers Care Ethylbenzene Oxidizer Name Role Phone Erick Kohli MD Primary Care Physician [phone] [id number] Date(s): 02/09/21 - 03/17/[address] [address] [place] [address] Attending Physician: Geovany Meyer MD Admitting Physician: [...] Acute 04/13/21 14:54:00 EST, 03/14/21 14:54:00 EDT, [facility]/pharmacy #[id number], Partial fill upon patient request if the prescription is for a schedule II opioid drug., 1 tablet By Mouth Daily,x3... Start Date: 03/14/21 Stop Date: 04/13/21 Status: Ordered clopidogrel 75 mg oral tablet 75 mg, 1, tablet, By Mouth, Daily, # 30 tablet, Refills 4, Tot. Refills 4, Maintenance, 04/09/16 16:22:43, Route to Pharmacy Electronically, [id number], [facility]/pharmacy #[id number] Start Date: 04/09/16 Status: Ordered gabapentin [...] 2 Refills, Maintenance, 09/19/20 8:32:00 EDT, Tablet, [facility], [...] Maintenance, 04/30/16 14:46:26, Route to Pharmacy Electronically, [id number]... Start Date: 04/30/16 Status: Ordered NovoLog Inj [...]
--- OUTSIDE RECORDS SUMMARY | 2024-02-11 13:09 | XMS_ITS | Continuity of Care Document ---
Author Organization [facility] Address [address] [place] [address]- Care Team Providers Care Maxillofacial Prosthodontist Name Role Phone Erick Kohli MD Primary Care Physician [id number] Date(s[facility] 08/25/20 - 10/26/20 [facility] [address] [place], [place] [address] Attending Physician: Hill PERALTA, Rosey Hobson Admitting [...] Maintenance, 04/09/16 16:22:43, Route to Pharmacy Electronically, [id number], [facility]/pharmacy #[id number] Start Date: 04/09/16 Status: Ordered gabapentin [...] 2 Refills, Maintenance, 09/19/20 8:32:00 EDT, Tablet, [facility], Partial fill upon patient [...] Maintenance, 04/30/16 14:46:26, Route to Pharmacy Electronically, [id number]... Start Date: 04/30/16 Status: Ordered NovoLog Inj [...]
--- OUTSIDE RECORDS SUMMARY | 2024-02-11 13:09 | XMS_ITS | Continuity of Care Document ---
Author Organization [facility] Address [address] [place] [address]- Care Team Providers Care Repairer Maintenance Building Name Role Phone Seun ZHAO, Erick Jensen Primary Care Physician Encounter [facility] Date(s): 06/23/20 - 07/23/20 [facility] [address] [place], [place] [address] Allergies, Adverse Reactions, Alerts Substance Reaction Severity [...] Maintenance, 04/09/16 16:22:43, Route to Pharmacy Electronically, [id number], [facility]/pharmacy #[id number] Start Date: 04/09/16 Status: Ordered Dakins Half [...] Maintenance, 04/30/16 14:46:26, Route to Pharmacy Electronically, [id number]... Start Date: 04/30/16 Status: Ordered Mirtazapine = [...] 1 Refills, Maintenance, 03/16/20 11:57:00 EST, [facility]/pharmacy#[id number], 1 tablet By Mouth Daily, 183, [...]
--- OUTSIDE RECORDS SUMMARY | 2024-02-11 13:09 | XMS_ITS | Continuity of Care Document ---
Author Organization Wound Care Address [address] [place] [address]- Care Team Providers Care Java Mobile Developer Name Role Phone Erick Kohli MD Primary Care Physician [phone] [place] [facility] Date(s): 12/01/20 - 01/06/21 W[facility] Care [address] [place] [address] Attending Physician: Geovany Meyer MD Admitting [...] Maintenance, 04/09/16 16:22:43, Route to Pharmacy Electronically, [id number], [facility]/pharmacy #[id number] Start Date: 04/09/16 Status: [...] 2 Refills, Maintenance, 09/19/20 8:32:00 EDT, Tablet, [facility], Partial fill upon patient request [...] Maintenance, 04/30/16 14:46:26, Route to Pharmacy Electronically, [id number]... Start Date: 04/30/16 Status: Ordered NovoLog Inj [...]
--- OUTSIDE RECORDS SUMMARY | 2024-02-11 13:09 | XMS_ITS | Continuity of Care Document ---
Author Organization [facility] Address [address] [place] [address]- Care Team Providers Care Au Pair Name Role Phone Seun ZHAO, Erick Jensen Primary Care Physician [phone] En[place] [facility] Date(s): 05/31/20 - 06/30/20 [facility] [address] [place], [place] [address] Allergies, Adverse Reactions, Alerts Substance [...] Maintenance, 04/09/16 16:22:43, Route to Pharmacy Electronically, [id number], [facility]/pharmacy #[id number] Start Date: [...] Maintenance, 04/30/16 14:46:26, Route to Pharmacy Electronically, [id number]... Start Date: 04/30/16 Status: Ordered Mirtazapine = [...] tablet, 1 Refills, Maintenance, 03/16/20 11:57:00 EST, [facility]/pharmacy#0517, 1 tablet By Mouth Daily, [...]
--- OUTSIDE RECORDS SUMMARY | 2024-02-11 13:09 | XMS_ITS | Continuity of Care Document ---
Author Organization [facility] Address [address] [place] [address]- Care Team Providers Care Cloth Cutting Machine Operator Name Role Phone Erick Kohli MD Primary Care Physician [phone] En[facility] [place] [place] Date(s): 06/30/19 - 07/07/19 [facility] [address] [place] [address]- [facility] Attending Physician: Malina Alejandre NP [...] Maintenance, 04/09/16 16:22:43, Route to Pharmacy Electronically, [id number], [facility]/pharmacy #[id number] Start Date: 04/09/16 Status: Ordered gabapentin [...] Maintenance, 04/30/16 14:46:26, Route to Pharmacy Electronically, [id number]... Start Date: 04/30/16 Status: Ordered NovoLog Inj [...] oldest [Reference Range]: 1 Height 183 cm (06/30/19 3:19 PM) Weight 93 kg (06/30/19 3:19 PM) Body Mass Index [18.5-24.99] 27.77 *H* (06/30/19 3:19 PM) Blood Pressure [90-138/55-84 mm Hg] 108/ 68mm Hg (06/30/19 3:19 PM) Blood pressure sites Arm, right (06/30/19 3:19 PM) Weight Obtained Via Patient/family state d (06/30/19 3:19 PM) Social History Social History Type Response Smoking Status Former smoker entered on: 08/09/17 Sex
--- OUTSIDE RECORDS SUMMARY | 2024-02-11 13:09 | XMS_ITS | Continuity of Care Document ---
Author Organization [facility] Address [address] [place] [address]- Care Team Providers Care Health Promotion Educator Name Role Phone Seun ZHAO, Erick Jensen Primary Care Physician Encounter [facility] Date(s): 12/22/19 - 01/21/20 [facility] [address] [place] [address]- [facility] Allergies, Adverse Reactions, Alerts Substance Reaction Severity [...] Maintenance, 04/09/16 16:22:43, Route to Pharmacy Electronically, [id number], [facility]/pharmacy #[id number] Start Date: 04/09/16 Status: [...] Maintenance, 04/30/16 14:46:26, Route to Pharmacy Electronically, [id number]... Start Date: 04/30/16 Status: Ordered NovoLog Inj [...] tablet, 0 Refills, Maintenance, 10/19/19 9:17:00 EDT, [facility]/pharmacy #[id number], 1 tablet By Mouth Daily, 183, [...]
--- OUTSIDE RECORDS SUMMARY | 2024-02-11 13:09 | XMS_ITS | Continuity of Care Document ---
Author Organization [facility] Address [address] [place] [address]- Care Team Providers Care Merchandise Appraiser Name Role Phone Erick Kohli MD Primary Care Physician [phone] [id number] Date(s): 04/19/20 - 06/16/20 [facility] [address] [place], [place] [address] Attending Physician: Hill PERALTA, Rosey Hobson [...] Maintenance, 04/09/16 16:22:43, Route to Pharmacy Electronically, [id number], [facility]/pharmacy #[id number] Start Date: 04/09/16 Status: Ordered Dakins [...] Maintenance, 04/30/16 14:46:26, Route to Pharmacy Electronically, [id number]... Start Date: 04/30/16 Status: Ordered Mirtazapine = [...] tablet, 1 Refills, Maintenance, 03/16/20 11:57:00 EST, [facility]/pharmacy#[id number], 1 tablet By Mouth Daily, 183, cm, [...]
--- OUTSIDE RECORDS SUMMARY | 2024-02-11 13:09 | XMS_ITS | Continuity of Care Document ---
Author Organization W[facility] Care Address [address] [place] [address]- Care Team Providers Care Sill Worker Name Role Phone Erick Kohli MD Primary Care Physician [phone] [id number] Date[facility] 07/31/23 - 09/05/[address] [address] [place] [address]ending Physician: James Judge MD Admitting Physician: [...] 0 Refills, Maintenance, 06/14/22 15:08:00 EST, Cream, [facility]/pharmacy #[id number], Partial fill upon patient [...] 10/28/22 9:15:00 EDT, Route to Pharmacy Electronically, [facility], Partial fill upon patient request if the prescrip... Start Date: 10/28/22 Stop Date: 11/11/22 Status: Ordered clopidogrel 75 mg oral tablet 75 mg, 1, tablet, By Mouth, Daily, # 30 tablet, Refills 4, Tot. Refills 4, Maintenance, 04/09/16 16:22:43, Route to Pharmacy Electronically, [id number], [facility]/pharmacy #[id number] Start Date: 04/09/16 Status: Ordered Coreg 25 mg oral tablet 25 mg, 1, tablet, By Mouth, 2 times a day, # 60 tablet, Refills 0, Tot. Refills 0, Maintenance, 10/28/22 9:08:00 EDT, Route to Pharmacy Electronically, [facility], Partial fill upon patient request if [...] Reference Physician Member Role: PCP Address: Address: [address] [place] [address] Drive [address] [place], [place] - [place] Name: Samantha Mancera RN Position: [facility] RN Member Role: Primary Care Nurse Name: sAhish Kirk RN Position: [facility] RN Supv Member Role: Primary Care Nurse Name: Luis E Jenkins MD Position: [facility] Renal MD Member Role: Lifetime Consulting Physician Address: Address: [address] [place] [address] [address] [facility] [place], [place] - [place] Name: Adore Angela MD Position: [facility] Renal MD Member Role: Lifetime Consulting Physician Address: Address: [address] [place] [address], [address] [facility] [place], [place] - Name: Yaritza Paz RN Position: [facility] RN Member Role: Primary Care Nurse Name: Fernando Torres RN Position: [facility] RN Member Role: Primary Care Nurse Name: Azalea Romero RN Position: [facility] Cellophane Tester Member Role: Primary Care Nurse Name: Shannon Gary Position: [facility] Outreach Member Role: Lifetime Consulting Physician Name: Alli Leslie RN Position: [facility] RN Member Role: Primary Care Nurse Name: Lety Garcia RN Position: [facility] AMB Nurse Member Role: Primary Care Nurse Name: Chana Wayne RN Position: [facility] RN Member Role: Primary Care Nurse Name: Karla Otero RN Position: [facility] RN Member Role: Primary Care Nurse Name: Isabel Thurman RN Position: [facility] RN Member Role: Primary Care Nurse Name: Josefina Painting RN Position: [facility] RN Member Role: Primary Care Nurse Name: Khoa Dee MD Position: [facility] Renal MD Member Role: Lifetime Consulting Physician Address: Address: [address] [place] [address] [address] [facility] [place] [place], [place] - Name: Karina Jasso RN Position: [facility] RN Member Role: Primary Care Nurse Name: Fernanda Maldonado RN Position: [facility] RN Member Role: Primary Care Nurse Name: Ridge Camejo RN Position: [facility] RN Member Role: Primary Care Nurse Name: Iva Doan RN Position: [facility] AMB Nurse Member Role: Primary Care Nurse Name: Salvador Anderson MD Position: [facility] Renal MD Member Role: Lifetime Consulting Physician Address: Address: [address] [place] [address] [facility] [place], [place] [address] Name: Zora Bolanos RN Position: [facility] RN Member Role: Primary Care Nurse Name: Sheila Baugh RN Position: [facility] RN Member Role: Primary Care Nurse Name: Delfino Rae Position: S RN Member Role: Primary Care Nurse Name: Leigha Parmar RN Position: [facility] RN Member Role: Primary Care Nurse Name: Isabel Hair RN Position: [facility] RN Member Role: Primary Care Nurse Care Team Related Persons Name: KARYNA VENTURA Address: home [address] [facility] [place] [address] Name: KEDAR VENTURA Address: home [address] [place] [address] Name: URBANO MORGAN Address: [address] [place] [address] Name: LLOYD CELESTIN Address: home [address] [facility] [place] [address]
--- OUTSIDE RECORDS SUMMARY | 2024-02-11 13:09 | XMS_ITS | Continuity of Care Document ---
Author Organization [facility] Address [address] [place] [address]- Care Team Providers Care Paper Products Machine Operator Name Role Phone Seun ZHAO, Erick Jensen Primary Care Physician [phone] [place] [facility] [place] 08/25/20 - 10/21/20 [facility] [address] [place] [place] [address] Attending Physician: Hill PERALTA, Rosey Hobson Admitting Physician: Hill PERALTA, Rosey Hobson Referring Physician: Hill PERALTA, Rosey Hobson Allergies, Adverse Reactions, Alerts Substance [...] Maintenance, 04/09/16 16:22:43, Route to Pharmacy Electronically, [id number], [facility]/pharmacy #[id number] Start Date: 04/09/16 Status: [...] 2 Refills, Maintenance, 09/19/20 8:32:00 EDT, Tablet, [facility] 3, Partial fill upon patient request [...] Maintenance, 04/30/16 14:46:26, Route to Pharmacy Electronically, [id number]... Start Date: 04/30/16 Status: Ordered NovoLog Inj [...]
--- OUTSIDE RECORDS SUMMARY | 2024-02-11 13:09 | XMS_ITS | Continuity of Care Document ---
Author Organization [facility] Address [address] [place] [address]- Care Team Providers Care Vending Machine Servicer Name Role Phone Erick Kohli MD Primary Care Physician [id number] Date[facility] 12/23/19 - 12/30/19 [facility] [address] [place] [address]- [facility] Attending Physician: Alma King NP Admitting Physician: Alma King NP Referring Physician: Erick Kohli MD Allergies, [...] Maintenance, 04/09/16 16:22:43, Route to Pharmacy Electronically, [id number], [facility]/pharmacy #[id number] Start Date: 04/09/16 [...] Maintenance, 04/30/16 14:46:26, Route to Pharmacy Electronically, [id number]... Start Date: 04/30/16 Status: Ordered NovoLog Inj [...] oldest [Reference Range]: 1 Height 183 cm (12/23/19 9:55 AM) Weight 93 kg (12/23/19 9:55 AM) Body Mass Index [18.5-24.99] 27.77 *H* (12/23/19 9:55 AM) Blood Pressure [90-138/55-84 mm Hg] 100/ 60mm Hg (12/23/19 9:55 AM) Blood pressure sites Arm, right (12/23/19 9:55 AM) Weight Obtained Via Patient/family state d (12/23/19 9:55 AM) Social History Social History Type Response Smoking Status Former smoker entered on: 08/09/17 Sex
--- OUTSIDE RECORDS SUMMARY | 2024-02-11 13:09 | XMS_ITS | Continuity of Care Document ---
Author Organization [facility] Address [address] [place] [address]- Care Team Providers Care Driller Hand Name Role Phone Erick Kohli MD Primary Care Physician [phone] [id number] Date(s[facility] 09/28/19 - 10/05/19 [facility] [address] [place] [address]- [facility] Attending Physician: Malina Alejandre NP Admitting Physician: [...] Maintenance, 04/09/16 16:22:43, Route to Pharmacy Electronically, [id number], [facility]/pharmacy #[id number] Start Date: 04/09/16 Status: [...] Maintenance, 04/30/16 14:46:26, Route to Pharmacy Electronically, [id number]... Start Date: 04/30/16 Status: Ordered NovoLog Inj Subcutaneous Infusion, 3 times a day before meals, 0 Refills, Maintenance, 08/20/17 14:55:16 EDT Start Date: 08/20/17 Status: Ordered sulfamethoxazole-trimethoprim 400 mg-80 mg oral tablet 1 tablet, By Mouth, Daily, # 90 tablet, 0 Refills, Maintenance, 05/15/19 17:23:00 EST, [facility]/pharmacy#[id number], 1 tablet By Mouth Daily, 183, cm, [...]
--- OUTSIDE RECORDS SUMMARY | 2024-02-11 13:09 | XMS_ITS | Continuity of Care Document ---
Author Organization [facility] Address [address] [place] [address]- Care Team Providers Care Account Installation Specialist Name Role Phone Seun ZHAO, Erick Jensen Primary Care Physician [phone] [place] [facility] [place](s): 03/13/21 - 04/12/21 [facility] [address] [place] [address]- Allergies, Adverse Reactions, Alerts Substance Reaction Severity [...] Acute 04/13/21 14:54:00 EST, 03/14/21 14:54:00 EDT, [facility]/pharmacy #[id number], Partial fill upon patient request if the prescription is for a schedule II opioid drug., 1 tablet By Mouth Daily,x3... Start Date: 03/14/21 Stop Date: 04/13/21 Status: Ordered clopidogrel 75 mg oral tablet 75 mg, 1, tablet, By Mouth, Daily, # 30 tablet, Refills 4, Tot. Refills 4, Maintenance, 04/09/16 16:22:43, Route to Pharmacy Electronically, [id number], [facility]/pharmacy #[id number] Start Date: 04/09/16 Status: Ordered [...] 2 Refills, Maintenance, 09/19/20 8:32:00 EDT, Tablet, [facility], Partial fill [...] Maintenance, 04/30/16 14:46:26, Route to Pharmacy Electronically, [id number]... Start Date: 04/30/16 Status: Ordered NovoLog Inj [...]
--- OUTSIDE RECORDS SUMMARY | 2024-02-11 13:09 | XMS_ITS | Continuity of Care Document ---
Author Organization [facility] Address [address] [place] [address]- Care Team Providers Care Sergeant At Arms Name Role Phone Erick Kohli MD Primary Care Physician Encounter [facility] [place] Date(s): 03/14/21 - 05/24/21 [facility] [address] [place] [id number] Attending Physician: Sienna Correa MD Admitting Physician: Sienna Correa MD Referring Physician: Erick Kohli MD Allergies, [...] Maintenance, 04/09/16 16:22:43, Route to Pharmacy Electronically, [id number], [facility]/pharmacy #[id number] Start Date: [...] 2 Refills, Maintenance, 09/19/20 8:32:00 EDT, Tablet, [facility], Partial fill upon patient [...] Maintenance, 04/30/16 14:46:26, Route to Pharmacy Electronically, [id number]... Start Date: 04/30/16 Status: Ordered NovoLog Inj [...]
--- OUTSIDE RECORDS SUMMARY | 2024-02-11 13:09 | XMS_ITS | Continuity of Care Document ---
Author Organization [facility] Address [address] [place] [address]- Care Team Providers Care Fiberglass Auto Body Repairer Name Role Phone Erick Kohli MD Primary Care Physician [phone] [place] [facility] [place] 09/28[place]21 - 10/28/21 [facility] [address] [place] [address] Allergies, Adverse Reactions, Alerts Substance Reaction Severity [...] Acute 01/10/22 14:11:00 EDT, 10/12/21 14:11:00 EDT, [facility]/pharmacy #[id number], Partial fill upon patient request if the [...] Maintenance, 04/09/16 16:22:43, Route to Pharmacy Electronically, [id number], [facility]/pharmacy #[id number] Start Date: 04/09/16 Status: Ordered doxycycline hyclate 100 mg oral tablet 1 capsule, By Mouth, Every 12 hours, for 30 days, take with a full glass of water; best not to lie down for 1 hour after taking medication., # 60 tablet, 1 Refills, Acute 11/07/21 10:16:00 EDT, 09/08/21 10:16:00 EDT, Capsule, [facility],... Start Date: 09/08/21 Stop Date: 11/07/21 [...] 0 Refills, Maintenance, 09/08/21 10:51:00 EDT, Solution, [facility]/pharmacy #[id number], Partial fill upon patient [...]
--- OUTSIDE RECORDS SUMMARY | 2024-02-11 13:09 | XMS_ITS | Continuity of Care Document ---
Author Organization [facility] Address [address] [place] [address]- Care Team Providers Care Surfacer Name Role Phone Seun ZHAO, Erick Jensen Primary [facility] Phys[id number] - 04/07/22 [facility] [address] [place], [place] [address] Attending Physician: Alma King NP Admitting Physician: Alma King NP Allergies, Adverse Reactions, Alerts Substance Reaction [...] Acute 05/24/22 18:33:00 EST, 03/25/22 18:33:00 EST, [facility]/pharmacy #[id number], Partial fill upon patient request if [...] Maintenance, 04/09/16 16:22:43, Route to Pharmacy Electronically, [id number], [facility]/pharmacy #[id number] Start Date: 04/09/16 Status: Ordered gabapentin [...] 0 Refills, Maintenance, 09/08/21 10:51:00 EDT, Solution, [facility]/pharmacy #1851, Partial fill upon patient request if [...] Reference Physician Member Role: PCP Address: Address: [address] [place] [address] [address] [place] [address]- Name: Samantha Mancera RN Position: S RN Member Role: Primary Care Nurse Name: Ashish Kirk RN Position: S RN Supv Member Role: Primary Care Nurse Name: Ya Gan RN Position: S RN Member Role: Primary Care Nurse Name: Homero Calvo RN Position: S RN Member Role: Primary Care Nurse Name: Luis E Jenkins MD Position: [facility] Renal MD Member Role: Lifetime Consulting Physician Address: Address: [address] [place] [address], [address] [facility] [address] Name: Adore Angela MD Position: [facility] Renal MD Member Role: Lifetime Consulting Physician Address: Address: [address] [place] [address], [address] [facility] [place] [address]- Name: Yaritza Paz RN Position: [facility] RN Member Role: Primary Care Nurse Name: Marivel Lubin RN Position: [facility] RN Member Role: Primary Care Nurse Name: Shirlene Ying RN Position: [facility] AMB Nurse Member Role: Primary Care Nurse Name: Fernando Torres RN Position: [facility] RN Member Role: Primary Care Nurse Name: Azalea Romero RN Position: [facility] Consultative Sales Associate Member Role: Primary Care Nurse Name: Mariama RNAlli Position: [facility] RN Member Role: Primary Care Nurse Name: Lety Garcia RN Position: [facility] PCO RN Member Role: Primary Care Nurse Name: Chana Wayne RN Position: [facility] RN Member Role: Primary Care Nurse Name: Karla Otero RN Position: [facility] RN Member Role: Primary Care Nurse Name: Isabel Thurman RN Position: [facility] RN Member Role: Primary Care Nurse Name: Khoa Dee MD Position: [facility] Renal MD Member Role: Lifetime Consulting Physician Address: Address: [address] [place] [address] [address] [facility] [place] [address]- Name: Iva Doan RN Position: [facility] AMB Nurse Member Role: Primary Care Nurse Name: Salvador Anderson MD Position: [facility] Renal MD Member Role: Lifetime Consulting Physician Address: Address: [address] [place] [address] [facility] [place] [address]- Name: Sheila Baugh RN Position: [facility] RN Member Role: Primary Care Nurse Name: Delfino Rae Position: [facility] RN Member Role: Primary Care Nurse Name: Isabel Hair RN Position: [facility] RN Member Role: Primary Care Nurse Care Team Related Persons Name: KARYNA VENTURA Address: [address] [place] [address] Name: KEDAR VENTURA Address: [address] [place] [address] Name: LLOYD CELESTIN Address: [address] [place] [address]
--- OUTSIDE RECORDS SUMMARY | 2024-02-11 13:09 | XMS_ITS | Continuity of Care Document ---
Author Organization [facility] Address [address] [place] [address]- Care Team Providers Care Artifacts Conservator Name Role Phone Erick Kohli MD Primary Care Physician Encounter [facility] Date(s): 01/08/22 - 02/07/22 [facility] [address] [place] [id number] Attending Physician: Sumit Rangel Admitting Physician: AdmSumit [...] Acute 03/24/22 12:17:00 EST, 01/23/22 12:17:00 EDT, [facility]/pharmacy #0517, Partial fill upon patient request if [...] Maintenance, 04/09/16 16:22:43, Route to Pharmacy Electronically, [id number], [facility]/pharmacy #[id number] Start Date: [...] 0 Refills, Maintenance, 09/08/21 10:51:00 EDT, Solution, [facility]/pharmacy #1851, Partial fill upon patient request if [...] Sex Patient Care team information Personnel Name: Seun ZHAO, Erick Jensen Address: Address: [address] [place] [address] [address] [place] [address]
--- OUTSIDE RECORDS SUMMARY | 2024-02-11 13:09 | XMS_ITS | Continuity of Care Document ---
Author Organization [facility] Address [address] [place] [address]- Care Team Providers Care Marketing Information Analyst Name Role Phone Erick Kohli MD Primary Care Physician [phone] En[place] [facility] [place] Date(s): 09/14/20 - 09/21/20 [facility] [address] [place], [place] [address] Attending Physician: Hill PERALTA, oRsey Hobson Admitting Physician: Hill PEARLTA, Rosey Hobson Referring Physician: Erick Kohli MD [...] Maintenance, 04/09/16 16:22:43, Route to Pharmacy Electronically, [id number], [facility]/pharmacy #[id number] Start Date: 04/09/16 Status: Ordered docusate sodium 100 mg oral capsule 100 mg, 1, capsule, By Mouth, 2 times a day, PRN, # 20 capsule, Refills 0, Tot. Refills 0, Maintenance, for constipation, 09/19/20 8:28:00 EDT, Route to Pharmacy Electronically, [facility], Partial fill upon patient [...] 2 Refills, Maintenance, 09/19/20 8:32:00 EDT, Tablet, [facility], Partial fill upon patient request if [...] Maintenance, 04/30/16 14:46:26, Route to Pharmacy Electronically, [id number]... Start Date: 04/30/16 Status: Ordered NovoLog Inj [...] 09/19/20 8:28:00 EDT, Route to Pharmacy Electronically, [facility], Partial fill upon patient [...] Refills, Maintenance, 03/16/20 11:57:00 EST, [facility]/pharmacy#0517, 1 tablet By Mouth Daily, [...] oldest [Reference Range]: 1 Height 183 cm (09/14/20 3:54 PM) Weight 90.72 kg (09/14/20 3:54 PM) Oxygen Saturation [94-100 %] 97 % (09/14/20 3:54 PM) Pulse Rate [55-90 bpm] 105 bpm *H* (09/14/20 3:54 PM) Body Mass Index [18.5-24.99] 27.09 *H* (09/14/20 3:54 PM) Blood Pressure [90-138/55-84 mm Hg] 134/ 70mm Hg (09/14/20 3:54 PM) Mode of Delivery (Oxygen) Room air (09/14/20 3:54 PM) Blood pressure sites Arm, left (09/14/20 3:54 PM) Weight Obtained Via Patient/family state d (09/14/20 3:54 PM) Social History Social History Type Response Smoking Status Former smoker entered on: 08/09/17 Sex
--- OUTSIDE RECORDS SUMMARY | 2024-02-11 13:09 | XMS_ITS | Continuity of Care Document ---
Author Organization [facility] Address [address] [place] [address]- Care Team Providers Care Transformer Builder Name Role Phone Erick Kohli MD Primary Care Physician [phone] [id number] Date(s[facility] 04/04/21 - 05/10/21 [facility] [address] [place] [address]- Attending Physician: James Judge MD Admitting Physician: James Judge MD Referring Physician: Gaby Nesbitt DMD Allergies, Adverse Reactions, Alerts Substance Reaction Severity [...] Maintenance, 04/09/16 16:22:43, Route to Pharmacy Electronically, [id number], [facility]/pharmacy #[id number] Start Date: 04/09/16 [...] 2 Refills, Maintenance, 09/19/20 8:32:00 EDT, Tablet, [facility], Partial fill upon [...] Maintenance, 04/30/16 14:46:26, Route to Pharmacy Electronically, [id number]... Start Date: 04/30/16 Status: Ordered NovoLog Inj [...]
--- OUTSIDE RECORDS SUMMARY | 2024-02-11 13:09 | XMS_ITS | Continuity of Care Document ---
Author Organization [facility] Address [address] [place] [address]- Care Team Providers Care Public Relations Name Role Phone Erick Kohli MD Primary Care Physician En[place] [facility] [place] Date(s): 04/08/23 - 05/12/23 [facility] [address] [place] [address] Attending Physician: James Judge MD [...] 0 Refills, Maintenance, 06/14/22 15:08:00 EST, Cream, [facility]/pharmacy #[id number], Partial fill upon patient request [...] 10/28/22 9:15:00 EDT, Route to Pharmacy Electronically, [facility], Partial fill upon patient request if the prescrip... Start Date: 10/28/22 Stop Date: 11/11/22 Status: Ordered clopidogrel 75 mg oral tablet 75 mg, 1, tablet, By Mouth, Daily, # 30 tablet, Refills 4, Tot. Refills 4, Maintenance, 04/09/16 16:22:43, Route to Pharmacy Electronically, [id number], [facility]/pharmacy #[id number] Start Date: 04/09/16 Status: Ordered Coreg 25 mg oral tablet 25 mg, 1, tablet, By Mouth, 2 times a day, # 60 tablet, Refills 0, Tot. Refills 0, Maintenance, 10/28/22 9:08:00 EDT, Route to Pharmacy Electronically, [facility], Partial fill upon [...] Physician Member Role: PCP Address: Address: [address] [place] [address] Drive [address] [place] [address]- [place] Name: Samantha Mancera RN Position: [facility] RN Member Role: Primary Care Nurse Name: Ashish Kirk RN Position: [facility] RN Supmono Member Role: Primary Care Nurse Name: Luis E Jenkins MD Position: [facility] Renal MD Member Role: Lifetime Consulting Physician Address: Address: [address] [place] [address] [address] [facility] [address]- [place] Name: Adore Angela MD Position: [facility] Renal MD Member Role: Lifetime Consulting Physician Address: Address: [address] [place] [address], [address] [facility] [place] [address]- [place] Name: Yaritza Paz RN Position: [facility] RN Member Role: Primary Care Nurse Name: Fernando Torres RN Position: [facility] RN Member Role: Primary Care Nurse Name: Azalea Romero RN Position: [facility] Mine Exploration Engineer Member Role: Primary Care Nurse Name: Shannon Gary Position: [facility] Outreach Member Role: Lifetime Consulting Physician Name: Alli Leslie RN Position: [facility] RN Member Role: Primary Care Nurse Name: Lety Garcia RN Position: [facility] AMB Nurse Member Role: Primary Care Nurse Name: Chana Wayne RN Position: [facility] RN Member Role: Primary Care Nurse Name: Karla Otero RN Position: [facility] RN Member Role: Primary Care Nurse Name: Isabel Thurman RN Position: [facility] RN Member Role: Primary Care Nurse Name: Josefina Painting RN Position: [facility] RN Member Role: Primary Care Nurse Name: Khoa Dee MD Position: [facility] Renal MD Member Role: Lifetime Consulting Physician Address: Address: [address] [place] [address] [address] [facility] [place], [place] [address]- [place] Name: Karina Jasso RN Position: [facility] RN Member Role: Primary Care Nurse Name: Fernanda Maldonado RN Position: [facility] RN Member Role: Primary Care Nurse Name: Ridge Camejo RN Position: [facility] RN Member Role: Primary Care Nurse Name: Iva Doan RN Position: [facility] AMB Nurse Member Role: Primary Care Nurse Name: Salvador Anderson MD Position: [facility] Renal MD Member Role: Lifetime Consulting Physician Address: Address: [address] [place] [address] [facility] [place], [place] [address] Name: Zora Bolanos RN Position: S RN Member Role: Primary Care Nurse Name: Sheila Baugh RN Position: S RN Member Role: Primary Care Nurse Name: Delfino Rae Position: S RN Member Role: Primary Care Nurse Name: Leigha Parmar RN Position: S RN Member Role: Primary Care Nurse Name: Isabel Hair RN Position: S RN Member Role: Primary Care Nurse Care Team Related Persons Name: KARYNA VENTURA Address: [address] [place] [address] Name: KEDAR VENTURA Address: home [address] [place] [address] Name: URBANO MORGAN Address: [address] [place] [address] Name: LLOYD CELESTIN Address: [address] [place] [address]
--- OUTSIDE RECORDS SUMMARY | 2024-02-11 13:09 | XMS_ITS | Continuity of Care Document ---
Author Organization [facility] Address [address] [place] [address]- Care Team Providers Care Insole And Heel Stiffener Name Role Phone Erick Kohli MD Primary Care Physician [phone] [place] [facility] [place](s): 05/08/19 - 05/15/19 [facility] [address] [place] [address]- [facility] Attending Physician: Malina Alejandre NP Admitting [...] Maintenance, 04/09/16 16:22:43, Route to Pharmacy Electronically, [id number], [facility]/pharmacy #[id number] Start Date: 04/09/16 Status: Ordered [...] Maintenance, 04/30/16 14:46:26, Route to Pharmacy Electronically, [id number]... Start Date: 04/30/16 Status: Ordered NovoLog Inj [...] oldest [Reference Range]: 1 Height 183 cm (05/08/19 1:43 PM) Blood Pressure [90-138/55-84 mm Hg] 108/ 70mm Hg (05/08/19 1:43 PM) Blood pressure sites Arm, left (05/08/19 1:43 PM) Social History Social History Type Response Smoking Status Former smoker entered on: 08/09/17 Sex
--- OUTSIDE RECORDS SUMMARY | 2024-02-11 13:09 | XMS_ITS | Continuity of Care Document ---
Author Organization [facility] Address [address] [place] [address]- Care Team Providers Care Linux System Administrator Name Role Phone Erick Kohli MD Primary Care Physician En[place] [facility] [place] Date(s): 08/25/20 - 09/01/20 [facility] [address] [place], [place] [address] Attending Physician: Hill PERALTA, Rosey Hobson Admitting [...] Maintenance, 04/09/16 16:22:43, Route to Pharmacy Electronically, [id number], [facility]/pharmacy #[id number] Start Date: 04/09/16 Status: Ordered [...] Maintenance, 04/30/16 14:46:26, Route to Pharmacy Electronically, [id number]... Start Date: 04/30/16 Status: Ordered Mirtazapine = [...] 1 Refills, Maintenance, 03/16/20 11:57:00 EST, [facility]/pharmacy#0517, 1 tablet By Mouth Daily, 183, [...] oldest [Reference Range]: 1 Height 183 cm (08/25/20 3:57 PM) Weight 93.18 kg (08/25/20 3:57 PM) Pulse Rate [55-90 bpm] 76 bpm (08/25/20 3:57 PM) Body Mass Index [18.5-24.99] 27.82 *H* (08/25/20 3:57 PM) Blood Pressure [90-138/55-84 mm Hg] 120/ 70mm Hg (08/25/20 3:57 PM) Blood pressure sites Arm, left (08/25/20 3:57 PM) Weight Obtained Via Patient/family state d (08/25/20 3:57 PM) Social History Social History Type Response Smoking Status Former smoker entered on: 08/09/17 Sex
--- OUTSIDE RECORDS SUMMARY | 2024-02-11 13:10 | XMS_ITS | Continuity of Care Document ---
Author Organization [facility] Address [address] [place] [address]- Care Team Providers Care Health Information Management Director Name Role Phone Erick Kohli MD Primary Care Physician Encounter [facility] Date(s): 08/10/20 - 09/14/20 [facility] [address] [place], [place] [address] Attending Physician: Hill PERALTA, Rosey Hobson Admitting Physician: Hill PERALTA, Rosey Hobson Referring Physician: Rosey Alejandre NP Allergies, Adverse Reactions, Alerts Substance [...] Maintenance, 04/09/16 16:22:43, Route to Pharmacy Electronically, [id number], [facility]/pharmacy #[id number] Start Date: 04/09/16 Status: Ordered [...] Maintenance, 04/30/16 14:46:26, Route to Pharmacy Electronically, [id number]... Start Date: 04/30/16 Status: Ordered Mirtazapine = [...] tablet, 1 Refills, Maintenance, 03/16/20 11:57:00 EST, [facility]/pharmacy#0517, 1 tablet By Mouth Daily, 183, [...]
--- OUTSIDE RECORDS SUMMARY | 2024-02-11 13:10 | XMS_ITS | Continuity of Care Document ---
Author Organization [facility] Address [address] [place] [address]- Care Team Providers Care Track Subway Repair Supervisor Name Role Phone Erick Kohli MD Primary Care Physician Encounter [facility] Date(s): 01/25/22 - 04/21/22 [facility] [address] [place] [address] Attending Physician: Pawan Gilliland MD Admitting Physician: [...] Acute 05/24/22 18:33:00 EST, 03/25/22 18:33:00 EST, [facility]/pharmacy #[id number], Partial fill upon patient request [...] Maintenance, 04/09/16 16:22:43, Route to Pharmacy Electronically, [id number], [facility]/pharmacy #[id number] Start Date: 04/09/16 Status: Ordered [...] 0 Refills, Maintenance, 09/08/21 10:51:00 EDT, Solution, [facility]/pharmacy #[id number], Partial fill upon patient request [...] Reference Physician Member Role: PCP Address: Address: [address] [place] [address] [address] [place] [address]- Name: Samantha Mancera RN Position: S RN Member Role: Primary Care Nurse Name: Ashish Kirk RN Position: S RN Supv Member Role: Primary Care Nurse Name: Homero Calvo RN Position: S RN Member Role: Primary Care Nurse Name: Luis E Jenkins MD Position: [facility] Renal MD Member Role: Lifetime Consulting Physician Address: Address: [address] [place] [address], [address] [facility] [place] [address]- [place] Name: Adore Angela MD Position: [facility] Renal MD Member Role: Lifetime Consulting Physician Address: Address: [address] [place] [address], [address] [facility] [place] [address]- Name: Yaritza Paz RN Position: [facility] RN Member Role: Primary Care Nurse Name: Marivel Lubin RN Position: [facility] RN Member Role: Primary Care Nurse Name: Shirlene Ying RN Position: [facility] AMB Nurse Member Role: Primary Care Nurse Name: Fernando Torres RN Position: [facility] RN Member Role: Primary Care Nurse Name: Azalea Romero RN Position: [facility] Drawing Box Tender Member Role: Primary Care Nurse Name: Mariama RNAlli Position: [facility] RN Member Role: Primary Care Nurse Name: Lety Garcia RN Position: [facility] PCO RN Member Role: Primary Care Nurse Name: Chana Wayne RN Position: [facility] RN Member Role: Primary Care Nurse Name: Karla Otero RN Position: [facility] RN Member Role: Primary Care Nurse Name: Isabel Thurman RN Position: [facility] RN Member Role: Primary Care Nurse Name: Khoa Dee MD Position: [facility] Renal MD Member Role: Lifetime Consulting Physician Address: Address: [address] [place] [address] [address] [facility] [place] [address]- Name: Iva Doan RN Position: [facility] AMB Nurse Member Role: Primary Care Nurse Name: Salvador Anderson MD Position: [facility] Renal MD Member Role: Lifetime Consulting Physician Address: Address: [address] [place] [address] [facility] [place] [address]- Name: Sheila Baugh RN Position: [facility] RN Member Role: Primary Care Nurse Name: Delfino Rae Position: [facility] RN Member Role: Primary Care Nurse Name: Isabel Hair RN Position: [facility] RN Member Role: Primary Care Nurse Care Team Related Persons Name: KARYNA VENTURA Address: [address] [place] [address] Name: KEDAR VENTURA Address: [address] [place] [address] Name: LLOYD CELESTIN Address: [address] [place] [address]
--- OUTSIDE RECORDS SUMMARY | 2024-02-11 13:10 | XMS_ITS | Continuity of Care Document ---
Author Organization [facility] Address [address] [place] [address]- Care Team Providers Care Service Loss Control Consultant Name Role Phone Seun ZHAO, Erick Jensen Primary Care Physician Encounter [facility] Date(s): 05/19/20 - 06/18/20 [facility] [address] [place], [place] [address] Allergies, Adverse Reactions, Alerts [...] Maintenance, 04/09/16 16:22:43, Route to Pharmacy Electronically, [id number], [facility]/pharmacy #[id number] Start Date: [...] Maintenance, 04/30/16 14:46:26, Route to Pharmacy Electronically, [id number]... Start Date: 04/30/16 Status: Ordered Mirtazapine = [...] 1 Refills, Maintenance, 03/16/20 11:57:00 EST, [facility]/pharmacy#[id number], 1 tablet By Mouth Daily, [...]
--- OUTSIDE RECORDS SUMMARY | 2024-02-11 13:10 | XMS_ITS | Continuity of Care Document ---
Author Organization [facility] Address [address] [place] [address]- Care Team Providers Care Chute Greaser Name Role Phone Erick Kohli MD Primary Care Physician Encounter [facility] Date(s): 08/09/20 - 09/08/20 [facility] [address] [place], [place] [address] Allergies, Adverse Reactions, Alerts Substance Reaction [...] Maintenance, 04/09/16 16:22:43, Route to Pharmacy Electronically, [id number], [facility]/pharmacy #[id number] Start Date: 04/09/16 Status: Ordered Dakins [...] Maintenance, 04/30/16 14:46:26, Route to Pharmacy Electronically, [id number]... Start Date: 04/30/16 Status: Ordered Mirtazapine = [...] 09/05/21 14:00:00 EDT, 09/07/20 18:29:00 EDT, Ointment, [facility], Partial fill upon patient request [...] tablet, 1 Refills, Maintenance, 03/16/20 11:57:00 EST, [facility]/pharmacy#[id number], 1 tablet By Mouth Daily, 183, cm, [...]
--- OUTSIDE RECORDS SUMMARY | 2024-02-11 13:10 | XMS_ITS | Continuity of Care Document ---
Author Organization [facility] Address [address] [place] [address]- Care Team Providers Care Door Core Assembler Name Role Phone Erick Kohli MD Primary Care Physician Encounter [facility] Date(s): 09/26/21 - 10/26/21 [facility] [address] [place] [id number] Attending Physician: Sumit Rangel Admitting Physician: [...] Acute 01/10/22 14:11:00 EDT, 10/12/21 14:11:00 EDT, [facility]/pharmacy #[id number], Partial fill upon patient [...] Maintenance, 04/09/16 16:22:43, Route to Pharmacy Electronically, [id number], [facility]/pharmacy #[id number] Start Date: 04/09/16 Status: Ordered doxycycline hyclate 100 mg oral tablet 1 capsule, By Mouth, Every 12 hours, for 30 days, take with a full glass of water; best not to lie down for 1 hour after taking medication., # 60 tablet, 1 Refills, Acute 11/07/21 10:16:00 EDT, 09/08/21 10:16:00 EDT, Capsule, [facility],... Start Date: 09/08/21 Stop [...] 0 Refills, Maintenance, 09/08/21 10:51:00 EDT, Solution, [facility]/pharmacy #[id number], Partial fill upon patient [...]
--- OUTSIDE RECORDS SUMMARY | 2024-02-11 13:10 | XMS_ITS | Continuity of Care Document ---
Author Organization [facility] Address [address] [place] [address]- Care Team Providers Care Decision Science Analyst Name Role Phone Seun ZHAO, Erick Jensen Primary Care Physician [id number] Date(s): 08/06/23 - 09/05/[address] [facility] [address] [place] [id number] Attending Physician: AdmSumit yarbrough Admitting Physician: [...] 0 Refills, Maintenance, 06/14/22 15:08:00 EST, Cream, [facility]/pharmacy #[id number], Partial fill upon [...] 10/28/22 9:15:00 EDT, Route to Pharmacy Electronically, [facility], Partial fill upon patient request if the prescrip... Start Date: 10/28/22 Stop Date: 11/11/22 Status: Ordered clopidogrel 75 mg oral tablet 75 mg, 1, tablet, By Mouth, Daily, # 30 tablet, Refills 4, Tot. Refills 4, Maintenance, 04/09/16 16:22:43, Route to Pharmacy Electronically, [id number], [facility]/pharmacy #[id number] Start Date: 04/09/16 Status: Ordered Coreg 25 mg oral tablet 25 mg, 1, tablet, By Mouth, 2 times a day, # 60 tablet, Refills 0, Tot. Refills 0, Maintenance, 10/28/22 9:08:00 EDT, Route to Pharmacy Electronically, [facility], Partial fill upon patient request [...] Reference Physician Member Role: PCP Address: Address: [address] [place] [address] Drive [address] [place] [address]- [place] Name: Samantha Mancera RN Position: [facility] RN Member Role: Primary Care Nurse Name: Ashish Kirk RN Position: [facility] RN Supv Member Role: Primary Care Nurse Name: Luis E Jenkins MD Position: [facility] Renal MD Member Role: Lifetime Consulting Physician Address: Address: [address] [place] [address] [address] [facility] [place], [place] - [place] Name: Adore Angela MD Position: [facility] Renal MD Member Role: Lifetime Consulting Physician Address: Address: [address] [place] [address], [address] [facility] [place] [address]- Name: Yaritza Paz RN Position: [facility] RN Member Role: Primary Care Nurse Name: Fernando Torres RN Position: [facility] RN Member Role: Primary Care Nurse Name: Azalea Romero RN Position: [facility] Cleaner And Preparer Member Role: Primary Care Nurse Name: Shannon Gary Position: [facility] Outreach Member Role: Lifetime Consulting Physician Name: Alli Leslie RN Position: [facility] RN Member Role: Primary Care Nurse Name: Lety Garcia RN Position: [facility] AMB Nurse Member Role: Primary Care Nurse Name: Chana Wayne RN Position: [facility] RN Member Role: Primary Care Nurse Name: Karla Otero RN Position: [facility] RN Member Role: Primary Care Nurse Name: Isabel Thurman RN Position: [facility] RN Member Role: Primary Care Nurse Name: Josefina Painting RN Position: [facility] RN Member Role: Primary Care Nurse Name: Khoa Dee MD Position: [facility] Renal MD Member Role: Lifetime Consulting Physician Address: Address: [address] [place] [address] [address] [facility] [place], [place] [address]- Name: Karina Jasso RN Position: [facility] RN Member Role: Primary Care Nurse Name: Fernanda Maldonado RN Position: [facility] RN Member Role: Primary Care Nurse Name: Ridge Camejo RN Position: [facility] RN Member Role: Primary Care Nurse Name: Iva Doan RN Position: [facility] AMB Nurse Member Role: Primary Care Nurse Name: Salvador Anderson MD Position: [facility] Renal MD Member Role: Lifetime Consulting Physician Address: Address: [address] [place] [address] [facility] [place], [place] [address] Name: Zora Bolanos RN Position: S RN Member Role: Primary Care Nurse Name: Sheila Baugh RN Position: S RN Member Role: Primary Care Nurse Name: Delfino Rae Position: S RN Member Role: Primary Care Nurse Name: Leigha Parmar RN Position: [facility] RN Member Role: Primary Care Nurse Name: Isabel Hair RN Position: [facility] RN Member Role: Primary Care Nurse Care Team Related Persons Name: KARYNA VENTURA Address: home [address] [facility] [place] [address] Name: KEDAR VENTURA Address: [address] [place] [address] Name: URBANO MORGAN Address: [address] [place] [address] Name: LLOYD CELESTIN Address: home [address] [facility] [place] [address]
--- OUTSIDE RECORDS SUMMARY | 2024-02-11 13:10 | XMS_ITS | Continuity of Care Document ---
Author Organization [facility] Address [address] [place] [address]- Care Team Providers Care Bleach Plant Operator Name Role Phone Seun ZHAO, Erick Jensen Primary Care Physician [phone] Encounter [facility] Date(s): 09/13/20 - 10/13/20 [facility] [address] [place] [address]- Allergies, Adverse Reactions, Alerts Substance Reaction Severity [...] Maintenance, 04/09/16 16:22:43, Route to Pharmacy Electronically, [id number], [facility]/pharmacy #[id number] Start Date: 04/09/16 Status: Ordered gabapentin [...] 10/18/20 10:59:00 EDT, 09/27/20 10:59:00 EDT, Tablet, [facility]/pharmacy #[id number], Partial fill upon patient request if the prescription is for a schedule II opioid drug.,... Start Date: 09/27/20 Stop Date: 10/18/20 Status: Ordered losartan 100 mg oral tablet 1 tablet = 100 mg, By Mouth, Daily, # 30 tablet, 2 Refills, Maintenance, 09/19/20 8:32:00 EDT, Tablet, [facility], Partial fill upon patient request [...] Maintenance, 04/30/16 14:46:26, Route to Pharmacy Electronically, [id number]... Start Date: 04/30/16 Status: Ordered NovoLog Inj [...]
--- OUTSIDE RECORDS SUMMARY | 2024-02-11 13:10 | XMS_ITS | Continuity of Care Document ---
Author Organization [facility] Address [address] [place] [address]- Care Team Providers Care Breaker Table Worker Name Role Phone Erick Kohli MD Primary Care Physician [id number] Date[facility] 07/25/23 - 08/30/[address] [address] [place] [id number] Attending Physician: James Judge MD Admitting [...] 0 Refills, Maintenance, 06/14/22 15:08:00 EST, Cream, [facility]/pharmacy #[id number], Partial fill upon [...] 10/28/22 9:15:00 EDT, Route to Pharmacy Electronically, [facility], Partial fill upon patient request if the prescrip... Start Date: 10/28/22 Stop Date: 11/11/22 Status: Ordered clopidogrel 75 mg oral tablet 75 mg, 1, tablet, By Mouth, Daily, # 30 tablet, Refills 4, Tot. Refills 4, Maintenance, 04/09/16 16:22:43, Route to Pharmacy Electronically, [id number], [facility]/pharmacy #[id number] Start Date: 04/09/16 Status: Ordered Coreg 25 mg oral tablet 25 mg, 1, tablet, By Mouth, 2 times a day, # 60 tablet, Refills 0, Tot. Refills 0, Maintenance, 10/28/22 9:08:00 EDT, Route to Pharmacy Electronically, [facility], Partial fill upon patient [...] Reference Physician Member Role: PCP Address: Address: [address] [place] [address] Drive [address] [place], [place] - [place] Name: Samantha Mancera RN Position: [facility] RN Member Role: Primary Care Nurse Name: Ashish Kirk RN Position: [facility] RN Supv Member Role: Primary Care Nurse Name: Luis E Jenkins MD Position: [facility] Renal MD Member Role: Lifetime Consulting Physician Address: Address: [address] [place] [address] [address] [facility] [place], [place] - [place] Name: Adore Angela MD Position: [facility] Renal MD Member Role: Lifetime Consulting Physician Address: Address: [address] [place] [address], [address] [facility] [place], [place] - Name: Yaritza Paz RN Position: [facility] RN Member Role: Primary Care Nurse Name: Fernando Torres RN Position: [facility] RN Member Role: Primary Care Nurse Name: Azalea Romero RN Position: [facility] Razor Sharpener Member Role: Primary Care Nurse Name: Shannon Gary Position: [facility] Outreach Member Role: Lifetime Consulting Physician Name: Alli Leslie RN Position: [facility] RN Member Role: Primary Care Nurse Name: Lety Garcia RN Position: [facility] AMB Nurse Member Role: Primary Care Nurse Name: Chana Wayne RN Position: [facility] RN Member Role: Primary Care Nurse Name: Karla Otero RN Position: [facility] RN Member Role: Primary Care Nurse Name: Isabel Thurman RN Position: [facility] RN Member Role: Primary Care Nurse Name: Josefina Painting RN Position: [facility] RN Member Role: Primary Care Nurse Name: Khoa Dee MD Position: [facility] Renal MD Member Role: Lifetime Consulting Physician Address: Address: [address] [place] [address] [address] [facility] [place], [place], [place] - Name: Karina Jasso RN Position: [facility] RN Member Role: Primary Care Nurse Name: Fernanda Maldonado RN Position: [facility] RN Member Role: Primary Care Nurse Name: Ridge Camejo RN Position: [facility] RN Member Role: Primary Care Nurse Name: Iva Doan RN Position: [facility] AMB Nurse Member Role: Primary Care Nurse Name: Salvador Anderson MD Position: [facility] Renal MD Member Role: Lifetime Consulting Physician Address: Address: [address] [place] [address] [facility] [place], [place] [address] Name: Zora Bolanos RN Position: [facility] RN Member Role: Primary Care Nurse Name: Sheila Baugh RN Position: [facility] RN Member Role: Primary Care Nurse Name: Delfino Rae Position: S RN Member Role: Primary Care Nurse Name: Leigha Parmar RN Position: [facility] RN Member Role: Primary Care Nurse Name: Isabel Hair RN Position: [facility] RN Member Role: Primary Care Nurse Care Team Related Persons Name: KARYNA VENTURA Address: home [address] [facility] [place] [address] Name: KEDAR VENTURA Address: [address] [place] [address] Name: URBANO MORGAN Address: [address] [place] [address] Name: LLOYD CELESTIN Address: home [address] [facility] [address]
--- OUTSIDE RECORDS SUMMARY | 2024-02-11 13:10 | XMS_ITS | Continuity of Care Document ---
Author Organization [facility] Address [address] [place] [address]- Care Team Providers Care Kiln Drawer Name Role Phone Erick Kohli MD Primary Care Physician [place] [facility] Date[place]s): 01/12/21 - 02/17/21 [facility] [address] [place] [id number] Attending Physician: Geovany Meyer MD Admitting [...] Maintenance, 04/09/16 16:22:43, Route to Pharmacy Electronically, [id number], [facility]/pharmacy #[id number] Start Date: [...] Maintenance, 04/30/16 14:46:26, Route to Pharmacy Electronically, [id number]... Start Date: 04/30/16 Status: Ordered NovoLog Inj [...]
--- OUTSIDE RECORDS SUMMARY | 2024-02-11 13:10 | XMS_ITS | Continuity of Care Document ---
Author Organization [facility] Address [address] [place] [address]- Care Team Providers Care Gasoline Power Shovel Operator Name Role Phone Erick Kohli MD Primary Care Physician Encounter [facility] Date(s): 06/06/21 - 07/06/21 [facility] [address] [place], [place] [address] Attending Physician: Admzenon, Sumit Admitting Physician: Admtr, Rachid8 Referring Physician: [...] Maintenance, 04/09/16 16:22:43, Route to Pharmacy Electronically, [id number], [facility]/pharmacy #[id number] Start Date: 04/09/16 Status: [...] Maintenance, 09/19/20 8:32:00 EDT, Tablet, [facility], Partial fill upon patient [...] Maintenance, 04/30/16 14:46:26, Route to Pharmacy Electronically, [id number]... Start Date: 04/30/16 Status: Ordered NovoLog Inj [...]
[2024-02-11 13:49] VITALS: BP 135/77; PULSE 74; RESP 14; O2SAT 100; BMI 25.9
[2024-02-11 13:50] VITALS: BP 119/71; PULSE 74; RESP 14; O2SAT 100; BMI 25.9
== END 2024-02-11 13:52 | disposition home or self-care (01) ==
LOC: HO.PMCPRC 13:05
PROVIDERS: PCP Internal Medicine; Visit Provider Anesthesiology
DX: M53.3 Sacrococcygeal disorders, not elsewhere classified (principal)
CPT/HCPCS: 27096

== ENCOUNTER 2024-02-14 13:01 | Outpatient (AMB) | payer OTHER, SELFPAY ==
--- OUTSIDE RECORDS SUMMARY | 2024-02-14 13:03 | XMS_ITS | Continuity of Care Document ---
Author Organization [facility] Address [address] [place] [address]- Care Team Providers Care Wage Adjuster Name Role Phone Erick Kohli MD Primary Care Physician Encounter [facility] Date(s): 08/03/21 - 09/02/21 [facility] [address] [place] [id number] Allergies, Adverse Reactions, Alerts Substance Reaction [...] Maintenance, 04/09/16 16:22:43, Route to Pharmacy Electronically, [id number], [facility]/pharmacy #[id number] Start Date: 04/09/16 Status: Ordered gabapentin [...] 2 Refills, Maintenance, 09/19/20 8:32:00 EDT, Tablet, [facility], Partial fill upon [...] Maintenance, 04/30/16 14:46:26, Route to Pharmacy Electronically, [id number]... Start Date: 04/30/16 Status: Ordered NovoLog Inj sliding scale, Subcutaneous Injection, 3 times a day before meals, 0 Refills, Maintenance, 08/20/1813:55:16 EDT Start Date: 08/20/17 Status: Ordered oxyCODONE 5 mg oral capsule 1 capsule = 5 mg, By Mouth, Every 4 hours, PRN as needed for pain, take with food, may cause constipation, 0 Refills, Maintenance, 08/25/21 10:08:00 EDT, Capsule, Partial fill upon patient request ifthe prescription is for a schedule II opioid drug. Start Date: 08/25/21 Status: Ordered RT BKA Prosthetic RT BKA [...]
--- NOTE | 2024-02-14 13:11 | A.OFFVIS_ITS ---
Intake Visit Reasons: RIGHT DIAGNOSTIC SIJ INJECTION Allergies fish derived [FISH] Allergy (Unknown, Verified 02/11/24 13:50) HIVES metoclopramide [From REGLAN] Allergy (Unknown, Verified 02/11/24 13:50) UNKNOWN pork derived (porcine) [PORK DERIVED (PORCINE)] Allergy (Unknown, Verified 02/11/24 13:50) HIVES HPI Comments Details: Telephone visit completed today for follow-up, 2 days status post right diagnostic sacroiliac joint injection Patient reports 100% pain relief for 24 hours after the injection. He states pain started to return on day 2 Also endorses improvement in function and mobility over the last 2 days. Denies any untoward effects. States most recent A1c was 4.8, he would like to proceed with therapeutic injection. Prior: Jaime presents back to the office today for follow-up right lower back pain. Evaluated in the office approximately 1 month ago, order placed for diagnostic right sacroiliac joint injection. This was denied by insurance. Patient presents today to discuss options for treatment. Continues with pain over right PSIS, worse with standing, walking, sitting. Pain radiates to the right groin and down the right thigh stopping just above the knee. Denies red flag symptoms including new loss of bowel, bladder or saddle anesthesia He completed physical therapy less than 1 year ago, continues with daily home exercise program. He is unable to take nonsteroidal anti-inflammatory medications due to current use of anticoagulants Prior visit with FABIAN Healy 10/2023: Patient is a pleasant 48 years old presents today for follow up for chronic right sided low back pain. He was initially seen in our office by Lucretia LOPEZ and had elevated A1C at 8.9. He since then improved his A1C, most recent at 4.8. Patient continues to endorse his right sided low back pain which radiates into his right sacral region and lateral hip and thigh, consistent with axial, facetogenic and right sacroiliac joint pain. He is interested to proceed with interventional treatments to address his symptoms. Patient reports it takes over 20 minutes for him each morning to get out out of bed. He also experiences it intermittent incontinence episodes last summer which has improved. Denies any bladder or bowel dysfunction or saddle anesthesia. Patient is on chronic anticoagulation with Plavix with history of ischemic cardiomyopathy, CAD and CABG x3. Denies any recent cough, cold, infection, fever, any significant changes in her medical history, medications or recent hospitalizations. PRIOR Lucretia MejiaJuliet [facility] 01/29/23: Jerome is a very pleasant 47-year-old male who presented to the office today for evaluation management of his chronic lower back pain. Patient reports he has been suffering with this lower back pain, predominantly on the right side, for approximately 20 years. Patient reports that the pain is progressively getting worse. He states the pain is constant, rated today as 9/10, worse with movement and weather changes. Pain excruciating in the morning and at times makes it difficult to get out of bed. Patient endorses radiation of the pain into the right thigh, he is status post right BKA. Patient has been taking gabapentin for his nerve pain, he states that his right lower back pain is unchanged with the gabapentin. He denies use of other pain medications. He has not tried physical therapy in many years, denies manual manipulation by chiropractor, acupuncture, massage. Patient states he has received steroid injections in the past with good relief of his pain. He is looking to repeat this injection. Patient is known diabetic, his most recent A1c 10/27/2022 was 8.9. Patient states he is under the care of an manager operations research at [facility]. He is taking his medications are prescribed. He reports being hospitalized and then in rehab for a good part of the last several months but his blood sugars remain around 220. He states that anything less than 150 he feels hypoglycemic and is symptomatic. His primary care doctor ordered repeat lab work including A1c in August of 2022 but he has yet to have this completed. Patient denies red flag symptoms including new loss of bowel, bladder or saddle anesthesia. He does report at times the pain is excruciating in the morning and he cannot get out of bed fast enough to get to the bathroom which will cause him to urinate on himself. He is able to feel the urge and sensation, just not able to get up quickly enough to make it to the bathroom. In terms of muscle damage condition is described as tiring, exhausting, sickening, suffocating, fearful, frightening, terrifying, punishing, killing, radiating, piercing. ?Like being split in half with an Axe ? Pain is negatively impacting patient's ability to do activities of daily living, function normally and care for himself. Patient's past medical history significant for chronic back pain, sleep apnea, ischemic cardiomyopathy, depression, insomnia, cholecystitis, FATOUMATA, anxiety, GERD, neuropathy, asthma, hypercholesterolemia, hypertension, coronary artery disease, diabetes mellitus, epilepsy and meningioma. Patient denies implantable devices, pacemaker or defibrillator. [facility] Medical History (Updated 11/25/23 @ 03:57 by Erick Kohli MD) Depression Insomnia Erectile dysfunction Exposure to COVID-19 virus Obesity (BMI 30-39.9) Anxiety GERD (gastroesophageal reflux disease) Neuropathy Gastroparesis Asthma Pure hypercholesterolemia Benign essential hypertension Coronary artery disease Diabetes mellitus Epilepsy Meningioma Surgical History (Updated 11/04/23 @ 14:09 by JESSICA Patel) Hx of right BKA Right foot amputee History of femoropopliteal bypass S/P CABG x 3 Family History Father Diabetes Mother Diabetes Social History Housing: House Alcohol intake: never Patient Tobacco Use Status: Former Tobacco user e-Cigarette/Vaping Use: Never Used Second Hand Smoke Exposure: No Substance Use Type: Marijuana service: No Current occupational status: disabled Cognitive needs: No Hearing needs: No Vision needs: No Review of Systems Const All systems reviewed & are unremarkable except as noted in HPI and below Physical Exam Telephone visit only, vital signs and physical exam deferred Telehealth Telehealth Telehealth Platform: Telephone Location of provider rendering services: practice address Location of patient: address on file Patient Identification confirmed using: Name, : Yes Telehealth method: voice only Patient verbally consented to treatment: Yes Patient verbally consented to billing insurance company: Yes Patient informed of any privacy concerns related to visit: Yes Minutes spent on Phone/Video with Pt.: 11 Results Reviewed Results Reviewed: Assessment & Plan Assessment & Plan (1) Myofascial low back pain: Code(s): M54.50 - Low back pain, unspecified Category: Medical (2) Lumbar degenerative disc disease: Code(s): M51.36 - Other intervertebral disc degeneration, lumbar region Category: Medical (3) Lumbar facet arthropathy: Code(s): M47.816 - Spondylosis without myelopathy or radiculopathy, lumbar region Category: Medical (4) Sacroiliac joint pain: Code(s): M53.3 - Sacrococcygeal disorders, not elsewhere classified Category: Medical Plan Telephone visit performed today for follow up, 3 days status post right diagnostic sacroiliac joint injections He reports 100% pain relief with improvement functional mobility for 24 hours after the injection. Pain started to return day 2 Patient has exhausted greater than 6 months of conservative therapy including PT, home exercise program, [id number] medications. He is unable to take nonsteroidal anti-inflammatory medications due to current use of anticoagulants. Will schedule for fluoroscopy guided therapeutic right sacroiliac joint injection with local anesthetic. This will require holding Plavix, to be arranged with PCP prior to the injection. All questions and concerns have been answered, patient verbalizes understanding and agrees with the plan. Follow up after injection, sooner if needed Coding Level of Care Code Tele Est Pt Level 3 (63402) Complex EM visit Add On G2211 Diagnoses Myofascial low back pain M54.50 Lumbar degenerative disc disease M51.36 Lumbar facet arthropathy M47.816 Sacroiliac joint pain M53.3
== END 2024-02-14 13:16 | disposition home or self-care (01) ==
LOC: HO.PMC 13:01
PROVIDERS: PCP Internal Medicine; Visit Provider Registered Nurse Emergency
DX: M54.50 Low back pain, unspecified (principal); M47.816 Spondylosis without myelopathy or radiculopathy, lumbar region; M53.3 Sacrococcygeal disorders, not elsewhere classified
CPT/HCPCS: 99213; G2211

== ENCOUNTER → 2024-02-14 13:01 | Outpatient (BNVA) | payer OTHER, SELFPAY | PROVIDERS: PCP Internal Medicine; Visit Provider Registered Nurse Emergency ==

== ENCOUNTER 2024-02-26 13:59 | Outpatient (AMB) | payer OTHER, SELFPAY ==
[2024-02-26 14:01] VITALS: BP 110/84; PULSE 63; O2SAT 93; BMI 25.8
--- NOTE | 2024-02-26 14:01 | A.OFFPC_ITS ---
Vital Signs 02/26/24 14:01 Height 6 ft Weight 190 lb 6 oz BMI 25.8 BP 110/84 Blood Pressure Location Lt brachial Position Sitting Pulse 63 Pulse Source Pulse Oximeter Pulse Oximetry (%) 93 Oxygen Delivery Method Room Air Intake Visit Reasons: DM, lumbar DDD, hyperlipidemia Youth Program Director Required: No Accompanied by: Self / Same As Patient Allergies fish derived [FISH] Allergy (Unknown, Verified 02/26/24 14:27) HIVES metoclopramide [From REGLAN] Allergy (Unknown, Verified 02/26/24 14:27) UNKNOWN pork derived (porcine) [PORK DERIVED (PORCINE)] Allergy (Unknown, Verified 02/26/24 14:27) HIVES Medication List - Last Reconciled 02/26/24 by Erick Kohli MD ammonium lactate 12% appl topical BID atorvastatin 80 mg PO DAILY 90 days blood sugar diagnostic (FreeStyle Lite Strips) As directed blood sugar diagnostic As directed blood-glucose meter (FreeStyle Lite Meter kit) Test 4 times daily blood-glucose meter,continuous (Dexcom G6 Guest Request Runner) As directed blood-glucose sensor (Dexcom G6 Sensor device) As directed blood-glucose transmitter (Dexcom G6 Transmitter device) As directed carvedilol 25 mg PO BID clopidogrel 75 mg PO DAILY 90 days [DIABETIC SHOES (1 pair) As directed] gabapentin 300 mg PO TID 90 days insulin glargine (Lantus Solostar U-100 Insulin) 24 units (0.24 mL) subcut QPM 30 days lidocaine 5% 1 patch topical DAILY PRN losartan 50 mg PO DAILY 90 days methocarbamol 500 mg PO TID PRN metoprolol succinate ER 100 mg PO DAILY 90 days miscellaneous medical supply As directed- To use daily-- Diabetic Shoes mometasone 0.1% 1 appl topical DAILY PRN pantoprazole 40 mg PO DAILY [RIGHT BELOW KNEE PERMANENT PROSTHESIS, K3 As directed] [right foot prosthesis and liner As directed] zolpidem 10 mg PO BEDTIME PRN 30 days Tobacco use date assessed: 02/26/24 Dental Screening Dental Screen Date: 02/26/24 Did you have a dental visit in the last 12 months?: No Did you have a dental problem in the last 6 months where you did not have access to dental care?: No Was dental information given to patient?: No HPI DM, lumbar DDD, hyperlipidemia HPI Details Patient comes in today for his follow up visit States that he has been experiencing increased pain over the stump on his right leg for a while now and is upset that nobody seems to be able to help him Relates that he has been to the orthotic place where he got his prosthetic leg from and they supposedly just keep telling him to add more padding to the stump States that the residual bone from his right leg stump is starting to stick out through his skin and he thinks that this is the main reason for his increased pain lately Exam of the right leg stump shows that an ulcer is beginning to form where the bone is reportedly sticking out through his skin He would like to get something to help with the pain at least until his right leg issues are addressed Patient also adds that he has been feeling very unsteady lately, especially when he is standing up and walking, and does not think that this has anything to do with his right leg issues States that he feels off balance often but he denies any dizziness He denies any headache Denies any chest pains, no increased shortness of breath Still has on and off nausea but he denies any vomiting No abdominal pain and no change in bowel habits noted He is currently following up with pain management for his low back pain and recently received an injection into his lower back, which she states provided him only with some pain relief for a couple of days Lastly, he is also requesting for a referral to Psychiatry for therapy and counseling for his increasing depression and anxiety [facility] Medical History Depression Insomnia Erectile dysfunction Exposure to COVID-19 virus Obesity (BMI 30-39.9) Anxiety GERD (gastroesophageal reflux disease) Neuropathy Gastroparesis Asthma Pure hypercholesterolemia Benign essential hypertension Coronary artery disease Diabetes mellitus Epilepsy Meningioma Surgical History Hx of right BKA Right foot amputee History of femoropopliteal bypass S/P CABG x 3 Family History Father Diabetes Mother Diabetes Social History Housing: House Alcohol intake: never Patient Tobacco Use Status: Former Tobacco user e-Cigarette/Vaping Use: Never Used Second Hand Smoke Exposure: No Substance Use Type: Marijuana service: No Current occupational status: disabled Cognitive needs: No Hearing needs: No Vision needs: No Questionnaire PHQ-9 Over the last 2 weeks, how often have you been bothered by any of the following problems? 1. Little interest or pleasure in doing things: not at all 2. Feeling down, depressed, or hopeless: not at all 3. Trouble falling or staying asleep, or sleeping too much: not at all 4. Feeling tired or having little energy: not at all 5. Poor appetite or overeating: not at all 6. Feeling bad about yourself - or that you are a failure or have let yourself or your family down: not at all 7. Trouble concentrating on things, such as reading the newspaper or watching television: not at all 8. Moving or speaking so slowly that other people could have noticed. Or the opposite - being so fidgety or restless that you have been moving around a lot more than usual: not at all 9. Thoughts that you would be better off or of hurting yourself in some way: not at all Total score: 0 Depression Screening Interpretation: Negative Depression Screening Done: Yes 19935 - PHQ-9 Billing: Yes Source: Developed by Drs. Ranjit Forbes, Nicolasa Proctor, Paulie Verde and colleagues, with an educational roland from [employer]. Thrive Questionnaire Date Thrive assessed: 02/26/24 What is your living situation today?: I have a steady place to live Within the past 12 months, did the food you bought not last and you didn't have the money to get more?: Never true Within the past 12 months, did you worry whether your food would run out before you got money to buy more?: Never true Do you have trouble paying for medicines?: No Do you have trouble getting transportation to medical appointments?: No Do you have trouble paying your heating and electricity bill?: No Do you have trouble taking care of your child, family member or friend?: No Do you have trouble with day-to-day activities such as bathing, preparing meals, shopping, managing finances, etc.?: No Are you currently unemployed and looking for a job?: I choose not to answer this question Are you interested in more education?: No Please select the resources that you would like help with: None Currently or been in a relationship where the following occur: No concerns reported THRIVE Score: 0 AUDIT C Alcohol Use Questionnaire (AUDIT-C) 1. How often do you have a drink containing alcohol?: Never 3. How often do you have six or more drinks on one occasion?: Never Total Score: 0 Score Reviewed/Action Taken: Yes TONY-7 AMB Questionnaire TONY-7 Date TOYN - 7 assessed: 02/26/24 Feeling nervous, anxious, or on edge: 0 = Not at all Not being able to stop or control worryin = Not at all Worrying too much about different things: 0 = Not at all Trouble relaxin = Not at all Being so restless that it is hard to sit still: 0 = Not at all Becoming easily annoyed or irritable: 0 = Not at all Feeling afraid as if something awful might happen: 0 = Not at all Total TONY-7 score (0-4 normal; 5-9 mild; 10-14 moderate; 15-21 severe): 0 Source: Developed by Drs. Ranjit Forbes, Nicolasa Proctor, Paulie Verde and colleagues, with an educational roland from [employer]. TONY-7 Assessment Billing TONY-7 Assessment Tool: TONY-7 Assessment 53930 Review of Systems Const Denies chills, Reports difficulty sleeping, Reports fatigue, Denies fever(s) and Denies headache(s) ENT Denies dysphagia, Denies dizziness, Denies otalgia, Denies headache(s), Denies neck pain, Denies odynophagia and Denies sore throat Card Denies chest pain, Denies palpitations and Denies dyspnea Resp Denies chest congestion, Denies cough and Denies dyspnea GI Denies abdominal pain, Reports bloating (usually after eating), Denies constipation, Denies dysphagia, Denies heartburn, Denies diarrhea, Reports nausea (on and off), Denies odynophagia and Denies vomiting Denies dysuria, Denies nocturia and Denies urinary frequency Musc Details: increased pain over the stump on his right leg - see HPI Reports back pain (over his right lower back), Denies neck pain and Reports radiating pain into limb (into the right hip and thigh) Skin/Breast Denies rash Neuro Denies dizziness and Denies headache(s) Psych Reports depression, Denies homicidal ideation and Denies suicidal ideation Endo Reports fatigue and Denies palpitations Physical exam (Primary Care) Vital Signs: Last Vital Signs Pulse 63 02/26/24 14:01 BP 110/84 02/26/24 14:01 Pulse Ox 93 02/26/24 14:01 Oxygen Delivery Method Room Air 02/26/24 14:01 BMI result Body Mass Index 25.8 Tobacco/Smoking Status: Tobacco use Status Tobacco use date assessed 02/26/24 02/26/24 14:08 Patient Tobacco Use Status Former Tobacco user 02/26/24 14:08 e-Cigarette/Vaping Use Never Used 02/26/24 14:08 PHQ-9: PHQ-9 Score PHQ-9: Total score 0 02/26/24 14:29 Depression Screening Interpretation: Negative Thrive Assessment: Date of Thrive Assessment Date Thrive assessed 02/26/24 02/26/24 14:08 Currently or been in a relationship where the following occur: No concerns reported Const General: no acute distress and alert HENMT Ears: TM's normal bilaterally and EAC's normal Throat: Yes posterior oropharynx normal and Yes tonsils normal (no TP congestion noted) Neck Neck: Yes no lymphadenopathy and Yes supple Thyroid: Thyroid normal Resp Auscultation: clear to auscultation bilaterally, no rales and no wheezes Cardio Rate: regular rate Rhythm: regular rhythm Heart sounds: no murmurs GI Palpation (GI): Soft to palpation and nontender Auscultation: normal bowel sounds Back/Spine/Pelvis Thoracic/Lumbar Spine: paraspinal muscle tenderness on the right in the mid lumbar and in the lower lumbar and lumbar spinal tenderness Skin Other: (+) small ulcer noted over the stump on his right leg (see HPI) Rashes: no rashes Extrem Other: S/P right BKA - has prosthetic lower leg presently General: Yes no clubbing, cyanosis or edema (on the left lower extremity) Office Procedures Flu Questionnaire Does the patient have a severe egg allergy?: No Immunizations Fluarix Triv [id number] (PF) 45 mcg (15 mcg x 3)/0.5 mL IM syringe Performing Provider: Erick Kohli MD Performing Location: [facility] Documented (not given) by: KAI Hernandez on 02/26/24 14:13 Reason Not Given: Patient Refused Coding Level of Care Code Est Pt Level 4 (84166) Complex EM visit Add On G2211 Diagnoses Meningioma D32.9 Pain of amputation stump of right lower extremity T87.89; M79.604 Nonintractable epilepsy without status epilepticus, unspecified epilepsy type G40.909 Epilepsy type: unspecified Intractability: not intractable Status epilepticus: without status epilepticus Degeneration of intervertebral disc of lumbar region with discogenic back pain and lower extremity pain M51.362 Disc-related pain type: discogenic back pain and lower extremity pain Type 2 diabetes mellitus with diabetic polyneuropathy, with long-term current use of insulin E11.42; Z79.4 Diabetes mellitus type: type 2 Diabetes mellitus long term acute care registered nurse insulin use: with nursing home use Diabetes mellitus complication status: with neurologic complications Diabetes mellitus complication detail: with polyneuropathy Gastroparesis K31.84 Coronary artery disease involving [place] coronary artery of [place] heart without angina pectoris I25.10 Coronary Disease-Associated Artery/Lesion type: [place] artery [place] vs. transplanted heart: [place] heart Associated angina: without angina Pure hypercholesterolemia E78.00 Benign essential hypertension I10 Mild intermittent asthma without complication J45.20 Asthma severity: mild Asthma persistence: intermittent Asthma complication type: uncomplicated Neuropathy G62.9 Gastroesophageal reflux disease without esophagitis K21.9 Esophagitis presence: without esophagitis Insomnia, unspecified type G47.00 Insomnia type: unspecified Anxiety F41.9 Episode of recurrent major depressive disorder, unspecified depression episode severity F33.9 Depression Type: major depressive disorder Major depression recurrence: recurrent Active/Remission status: currently active Major depression episode severity: unspecified Obesity (BMI 30-39.9) E66.9 Additional Codes TONY-7 Assessment Billing - TONY-7 Assessment Tool: TONY-7 Assessment 13698 ([id number]) Assessment & Plan Assessment & Plan (1) Meningioma: Code(s): D32.9 - Benign neoplasm of meninges, unspecified Category: Medical Plan: Have advised patient that his recent sensations or feelings of unsteadiness may be related to his meningioma, which has not been checked into in a while now Have reminded patient had his last MRI done in April 2022 showed evidence of disease progression, especially in the right parietal area where the right parietal convexity meningioma has increased in size compared to his scan from January 2020 He has previously declined to get any follow-up imaging studies but is now agreeable to have a repeat MRI done for further evaluation Repeat MRI of the brain ordered Patient has declined brain surgery in the past and still does not want surgery He has also declined to take Keppra ER or IR (side effects) prescribed by neurology - reports that he's had no seizures at all for years (2) Pain of amputation stump of right lower extremity: Code(s): T87.89 - Other complications of amputation stump; M79.604 - Pain in right leg Category: Medical Plan: Discussed with patient that we will likely have to refer him back to [facility] to have them evaluate his right leg stump to determine what to do about this as he had his amputation done at [facility] about 10 years ago in 2013 but if they do not accept his current insurance, then we may have to refer him here to [facility] Orthopedics Have advised patient that orthopedics may need to perform additional surgery to shave off the bone tip that is supposedly sticking out from his stump but the decision on what to do will ultimately be up to orthopedics Have also cautioned patient to watch the small ulceration the stump of his right leg closely so it does not get infected Per request, will provide him with a small supply of Percocet 5-325 mg to take up to 2 to 3 times a day as needed for severe pain until his right lower extremity stump issue can be addressed properly (3) Epilepsy: Code(s): G40.909 - Epilepsy, unspecified, not intractable, without status epilepticus Category: Medical Qualifiers: Epilepsy type: unspecified Intractability: not intractable Status epilepticus: without status epilepticus Qualified Code(s): G40.909 - Epilepsy, unspecified, not intractable, without status epilepticus Plan: He reports no seizures lately He has been prescribed Keppra ER by neurology but declined to take the Rx (4) Lumbar degenerative disc disease: Code(s): M51.36 - Other intervertebral disc degeneration, lumbar region Category: Medical Qualifiers: Disc-related pain type: discogenic back pain and lower extremity pain Qualified Code(s): M51.362 - Other intervertebral disc degeneration, lumbar region with discogenic back pain and lower extremity pain Plan: Findings of severe degenerative changes at L2-L3 were seen incidentally on his abdominal/pelvic CT done at [facility] on 08/04/2022 Reinforced activity and weight-lifting restrictions He has been referred to and is now seeing [facility] Pain Management for interventional treatment for his chronic low back pain (5) Diabetes mellitus: Code(s): E11.9 - Type 2 diabetes mellitus without complications Category: Medical Qualifiers: Diabetes mellitus type: type 2 Diabetes mellitus long term acute care registered nurse insulin use: with long term acute care registered nurse use Diabetes mellitus complication status: with neurologic complications Diabetes mellitus complication detail: with polyneuropathy Qualified Code(s): E11.42 - Type 2 diabetes mellitus with diabetic polyneuropathy; Z79.4 - technician terminal and repeater (current) use of insulin Plan: Patient declined to have his HgbA1c checked in the office today - states that he is in too much pain (primarily from his right leg stump) and does not wish to be stuck any more at this time His in-office HgbA1c was at 4.8% back in October 2023 (was at 8.8% when previously checked on 04/10/2022) - goal is <7.0% Will try to include this when he goes for his follow up labs Reinforced diabetic diet Continue Lantus 24 units Q HS and Humalog up to 20 units 3 times a day with meals per sliding scale He has not followed up with endocrinology in a few years now and is again advised to reach out to his incident response analyst's office to schedule a follow up appointment BIANKA (6) Gastroparesis: Code(s): K31.84 - Gastroparesis Category: Medical Plan: Continue Ondansetron 8 mg TID PRN He was also taking medical marijuana to help with his symptoms but states that he has cut back on this recently (7) Coronary artery disease: Comment: S/P triple vessel bypass Code(s): I25.10 - Atherosclerotic heart disease of [place] coronary artery without angina pectoris Category: Medical Qualifiers: Coronary Disease-Associated Artery/Lesion type: [place] artery [place] vs. transplanted heart: [place] heart Associated angina: without angina Qualified Code(s): I25.10 - Atherosclerotic heart disease of [place] coronary artery without angina pectoris Plan: Continue dual-antiplatelet therapy with Plavix 75 mg QD and low dose Aspirin 81 mg QD Follow up with cardiology as scheduled (8) Pure hypercholesterolemia: Code(s): E78.00 - Pure hypercholesterolemia, unspecified Category: Medical Plan: Reinforced low cholesterol diet Continue Atorvastatin 80 mg QD Patient has not had his cholesterol levels checked in years now and his last cholesterol levels on record were back in March 2013, with a total cholesterol of 201 mg/dL and LDL cholesterol 154 mg/dL He has had his fasting lipids ordered multiple times in the past but were not done As he has not had any follow up labs recently, will send him for labs BIANKA, including his fasting lipid profile (9) Benign essential hypertension: Code(s): I10 - Essential (primary) hypertension Category: Medical Plan: Reinforced low sodium diet - goal is systolic BP of at least 120 to 130 mm Continue Carvedilol 25 mg BID, Losartan 50 mg QD and Metoprolol ER 100 mg QD (10) Asthma: Code(s): J45.909 - Unspecified asthma, uncomplicated Category: Medical Qualifiers: Asthma severity: mild Asthma persistence: intermittent Asthma complication type: uncomplicated Qualified Code(s): J45.20 - Mild intermittent asthma, uncomplicated Plan: Stable - continue Albuterol HFA 1 to 2 inhalations up to 4 times a day as needed (11) Neuropathy: Code(s): G62.9 - Polyneuropathy, unspecified Category: Medical Plan: Continue Gabapentin 300 mg TID (12) GERD (gastroesophageal reflux disease): Code(s): K21.9 - Gastro-esophageal reflux disease without esophagitis Category: Medical Qualifiers: Esophagitis presence: without esophagitis Qualified Code(s): K21.9 - Gastro-esophageal reflux disease without esophagitis Plan: Dietary restrictions reinforced Continue Pantoprazole 40 mg QD (13) Insomnia: Code(s): G47.00 - Insomnia, unspecified Category: Medical Qualifiers: Insomnia type: unspecified Qualified Code(s): G47.00 - Insomnia, unspecified Plan: Sleep hygiene reinforced Continue Zolpidem 10 mg Q HS PRN (he's had problems with Trazodone in the past) (14) Anxiety: Code(s): F41.9 - Anxiety disorder, unspecified Category: Medical Plan: Continue Lorazepam 1 mg 1 to 2 tablets BID PRN (15) Depression: Code(s): F32.A - Depression, unspecified Category: Medical Qualifiers: Depression Type: major depressive disorder Major depression recurrence: recurrent Active/Remission status: currently active Major depression episode severity: unspecified Qualified Code(s): F33.9 - Major depressive disorder, recurrent, unspecified Plan: Per request, will refer him to psychiatry for therapy/counseling (16) Obesity (BMI 30-39.9): Code(s): E66.9 - Obesity, unspecified Category: Medical Plan: Reinforced diet; exercise and weight loss are unrealistic given patient's physical issues and multiple comorbidities Plan Follow up in 4 months Orders: Orders Hemoglobin A1c 02/26/24 E11.9 - Type 2 diabetes mellitus without complications MR head/brain wo/w con 02/26/24 D32.9 - Benign neoplasm of meninges, unspecified Influenza [id number] Immunization 02/26/24 Z23 - Encounter for immunization Referrals Orthopedics Referral M79.604 - Pain in right leg, T87.89 - Other complications of amputation stump Psychiatry Referral F32.A - Depression, unspecified, F41.9 - Anxiety disorder, unspecified Medications: New oxycodone-acetaminophen 5-325 mg (Percocet) Take only as needed for severe pain 1 tab PO Q8H 7 days PRN 20 tabs 0RF pain
== END 2024-02-26 15:02 | disposition home or self-care (01) ==
PROVIDERS: PCP Internal Medicine; Visit Provider Internal Medicine
DX: D32.9 Benign neoplasm of meninges, unspecified (principal); T87.89 Other complications of amputation stump; G40.909 Epilepsy, unspecified, not intractable, without status epilepticus; E11.42 Type 2 diabetes mellitus with diabetic polyneuropathy; F33.9 Major depressive disorder, recurrent, unspecified; Z79.4 Long term (current) use of insulin; M79.604 Pain in right leg; M51.362 Other intervertebral disc degeneration, lumbar region with discogenic back pain and lower extremity pain; K31.84 Gastroparesis; I25.10 Atherosclerotic heart disease of native coronary artery without angina pectoris; E78.00 Pure hypercholesterolemia, unspecified; I10 Essential (primary) hypertension

== ENCOUNTER → 2024-02-26 13:59 | Outpatient (BNVA) | payer OTHER, SELFPAY | PROVIDERS: PCP Internal Medicine; Visit Provider Internal Medicine | DX: D32.9 Benign neoplasm of meninges, unspecified (principal); M51.360 Other intervertebral disc degeneration, lumbar region with discogenic back pain only; E11.42 Type 2 diabetes mellitus with diabetic polyneuropathy; Z79.4 Long term (current) use of insulin; K31.84 Gastroparesis; I25.10 Atherosclerotic heart disease of native coronary artery without angina pectoris; E78.00 Pure hypercholesterolemia, unspecified; I10 Essential (primary) hypertension; J45.20 Mild intermittent asthma, uncomplicated; G62.9 Polyneuropathy, unspecified; K21.9 Gastro-esophageal reflux disease without esophagitis; G47.00 Insomnia, unspecified; F41.9 Anxiety disorder, unspecified; F33.9 Major depressive disorder, recurrent, unspecified | CPT/HCPCS: 90471; 96127; 99212 ==

== ENCOUNTER 2024-03-16 13:02 | Outpatient (REF) | payer OTHER, SELFPAY ==
--- NOTE | ~2024-03-16 | MR_ITS ---
EXAMINATION: MR BRAIN WITHOUT AND WITH CONTRAST CLINICAL INFORMATION: Meningioma. COMPARISON: Brain MRI from 04/24/2022. TECHNIQUE: MRI of the brain was obtained using routine sequences without and following the administration of 8.5 mL of Gadavist intravenous contrast. FINDINGS: Compared to exam from 2021, there is been mild interval increase in size of an enhancing, extra-axial mass along the right posterior vertex, measuring up to 5.6 x 4.6 x 4.4 cm (previously 5.5 x 4.4 x 3.9 cm). Similar degree of nonenhancing perilesional edema in the right parietal lobe. There remains mild mass effect on the regional sulci and right lateral ventricle. No evidence of obstructive hydrocephalus. No overt midline shift. No focal restricted diffusion is demonstrated to suggest acute or subacute cerebral ischemia. No evidence of acute or chronic hemorrhagic products on heme-sensitive imaging. Scattered periventricular and deep white matter T2 FLAIR hyperintensities consistent with mild underlying microangiopathy. Normal appearance of the pituitary gland. Normal positioning of the cerebellar tonsils. Normal arterial and venous vascular flow voids are present. No additional abnormal contrast enhancement. Normal, homogeneous marrow signal. Mild mucosal thickening of the paranasal sinuses. No signal abnormalities within the mastoids. Hyperostotic changes associated with a previously extracted maxillary left-sided molar. MR/MR head/brain wo/w con IMPRESSION: 1. Compared to 2021, there has been mild interval increase in size of an extra-axial mass along the right posterior vertex suggestive of a meningioma. Similar degree of perilesional edema in the right parietal lobe. 2. No additional acute intracranial abnormalities. No additional abnormal intracranial enhancement. Mild underlying microangiopathy. 3. Hyperostotic changes associated with a previously extracted maxillary left-sided molar. Electronically signed by: Medhat Burden DO 04/22/2024 06:05 AM [facility]
[2024-03-16] MEDS: gadobutroL 10 ML VIAL IVPUSH (14:04)
== END 2024-03-16 13:03 | disposition home or self-care (01) ==
LOC: HO.MRI 13:02
PROVIDERS: PCP Internal Medicine; Visit Provider Internal Medicine
DX: D32.9 Benign neoplasm of meninges, unspecified (principal)
CPT/HCPCS: 70553; A9585

== ENCOUNTER 2024-03-31 06:25 | Outpatient (REF) | payer OTHER, SELFPAY | END 2024-03-31 06:26 | disposition home or self-care (01) | LOC: CF 06:25 | PROVIDERS: Visit Provider Anesthesiology | DX: M54.50 Low back pain, unspecified (principal); M53.3 Sacrococcygeal disorders, not elsewhere classified; M47.816 Spondylosis without myelopathy or radiculopathy, lumbar region; M51.362 Other intervertebral disc degeneration, lumbar region with discogenic back pain and lower extremity pain | CPT/HCPCS: 27096; J2003; J2795; J3301; Q9967 ==

== ENCOUNTER 2024-03-31 13:40 | Outpatient (AMB) | payer OTHER, SELFPAY ==
--- NOTE | 2024-03-31 13:42 | MHC.OFFVIS ---
Vital Signs 03/31/24 14:16 03/31/24 14:18 Height 6 ft 6 ft Weight 190 lb 190 lb BMI 25.8 25.8 BP 104/65 123/68 Blood Pressure Location Lt brachial Lt brachial Position Sitting Sitting Respiration 14 14 Pulse 66 85 Pulse Source Pulse Oximeter Pulse Oximeter Pulse Oximetry (%) 100 100 Oxygen Delivery Method Room Air Room Air Comment pre-op post-op Intake Visit Reasons: RIGHT THERAPEUTIC SIJ INJECTION Allergies fish derived [FISH] Allergy (Unknown, Verified 03/31/24 14:19) HIVES metoclopramide [From REGLAN] Allergy (Unknown, Verified 03/31/24 14:19) UNKNOWN pork derived (porcine) [PORK DERIVED (PORCINE)] Allergy (Unknown, Verified 03/31/24 14:19) HIVES PFSH Medical History Depression Insomnia Erectile dysfunction Exposure to COVID-19 virus Obesity (BMI 30-39.9) Anxiety GERD (gastroesophageal reflux disease) Neuropathy Gastroparesis Asthma Pure hypercholesterolemia Benign essential hypertension Coronary artery disease Diabetes mellitus Epilepsy Meningioma Surgical History Hx of right BKA Right foot amputee History of femoropopliteal bypass S/P CABG x 3 Family History Father Diabetes Mother Diabetes Social History Housing: House Alcohol intake: never Patient Tobacco Use Status: Former Tobacco user e-Cigarette/Vaping Use: Never Used Second Hand Smoke Exposure: No Substance Use Type: Marijuana service: No Current occupational status: disabled Cognitive needs: No Hearing needs: No Vision needs: No Physical Exam Vital Signs: Last Vital Signs Pulse 85 03/31/24 14:18 Resp 14 03/31/24 14:18 BP 123/68 03/31/24 14:18 Pulse Ox 100 03/31/24 14:18 Oxygen Delivery Method Room Air 03/31/24 14:18 BMI result Body Mass Index 25.8 Assessment & Plan Assessment & Plan (1) Myofascial low back pain: Code(s): M54.50 - Low back pain, unspecified Category: Medical (2) Lumbar degenerative disc disease: Code(s): M51.36 - Other intervertebral disc degeneration, lumbar region Category: Medical Qualifiers: Disc-related pain type: discogenic back pain and lower extremity pain Qualified Code(s): M51.362 - Other intervertebral disc degeneration, lumbar region with discogenic back pain and lower extremity pain (3) Lumbar facet arthropathy: Code(s): M47.816 - Spondylosis without myelopathy or radiculopathy, lumbar region Category: Medical (4) Sacroiliac joint pain: Code(s): M53.3 - Sacrococcygeal disorders, not elsewhere classified Category: Medical Plan Therapeutic right sacroiliac joint injection Informed consent was explained thoroughly to the patient.? All questions about benefits and risks for the procedure were answered. Patient came to the operating room and was positioned prone on the operating table with the pillow under the pelvis.? The lower back and buttocks of the patient were prepped with ChloraPrep prepped and draped with sterile utility towels.? Sterilely draped C-arm was brought over the operating field and sq picture of patient's pelvis was demonstrated on the screen.? For the right joint tilting C-arm contralateral to the site of the joint the most posterior portion of the joints was superimposed with anterior silhouette of the joint.? Skin was injected in the projection of the joint slightly medial to the location of the joint with 25 gauge 1/2 inch needle using local lidocaine 2% . After that 22 gauge 3 and 1/2 inch needle was driven to the right joint in tunnel vision fashion.? When needle entered the joint capsule injection of the contrast was performed demonstrating intra-articular and minimally periarticular spread of the contrast.? After that 4 cc. of ropivacaine 0.5% mixed with Kenalog 40 mg was injected into the joint.? Upon completion of the injections the needles were removed and pressure were applied.? Sterile dressing was applied.? Upon completion of the injection patient was taken outside of the operating room to the recovery room where recovered uneventfully. Orders: Orders FL guidance in treatment room 03/31/24 M53.3 - Sacrococcygeal disorders, not elsewhere classified Coding Level of Care Code Procedure Only Diagnoses Myofascial low back pain M54.50 Degeneration of intervertebral disc of lumbar region with discogenic back pain and lower extremity pain M51.362 Disc-related pain type: discogenic back pain and lower extremity pain Lumbar facet arthropathy M47.816 Sacroiliac joint pain M53.3
[2024-03-31 14:16] VITALS: BP 104/65; PULSE 66; RESP 14; O2SAT 100; BMI 25.8
[2024-03-31 14:18] VITALS: BP 123/68; PULSE 85; RESP 14; O2SAT 100; BMI 25.8
== END 2024-03-31 14:15 | disposition home or self-care (01) ==
LOC: HO.PMCPRC 13:40
PROVIDERS: PCP Internal Medicine; Visit Provider Anesthesiology
DX: M53.3 Sacrococcygeal disorders, not elsewhere classified (principal); M54.50 Low back pain, unspecified; M51.362 Other intervertebral disc degeneration, lumbar region with discogenic back pain and lower extremity pain; M47.816 Spondylosis without myelopathy or radiculopathy, lumbar region
CPT/HCPCS: 27096

== ENCOUNTER 2024-04-29 13:49 | Outpatient (AMB) | payer OTHER, SELFPAY ==
--- NOTE | 2024-04-29 13:55 | A.OFFVIS_ITS ---
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: No Accompanied by: Self / Same As Patient Allergies fish derived [FISH] Allergy (Unknown, Verified 04/29/24 13:59) HIVES metoclopramide [From REGLAN] Allergy (Unknown, Verified 04/29/24 13:59) UNKNOWN pork derived (porcine) [PORK DERIVED (PORCINE)] Allergy (Unknown, Verified 04/29/24 13:59) HIVES HPI Comments Details: Patient presents back to the office today for follow-up, 1 month status post right therapeutic sacroiliac joint injection Pain today is rated a 0/10 Reports 100% pain relief since the injection with improvement in functional mobility Denies any untoward effects Denies any new diagnoses, allergies, medications Prior: Telephone visit completed today for follow-up, 2 days status post right diagnostic sacroiliac joint injection Patient reports 100% pain relief for 24 hours after the injection. He states pain started to return on day 2 Also endorses improvement in function and mobility over the last 2 days. Denies any untoward effects. States most recent A1c was 4.8, he would like to proceed with therapeutic injection. Prior: Jaime presents back to the office today for follow-up right lower back pain. Evaluated in the office approximately 1 month ago, order placed for diagnostic right sacroiliac joint injection. This was denied by insurance. Patient presents today to discuss options for treatment. Continues with pain over right PSIS, worse with standing, walking, sitting. Pain radiates to the right groin and down the right thigh stopping just above the knee. Denies red flag symptoms including new loss of bowel, bladder or saddle anesthesia He completed physical therapy less than 1 year ago, continues with daily home exercise program. He is unable to take nonsteroidal anti-inflammatory medications due to current use of anticoagulants Prior visit with FABIAN Healy 10/2023: Patient is a pleasant 48 years old presents today for follow up for chronic right sided low back pain. He was initially seen in our office by Lucretia LOPEZ and had elevated A1C at 8.9. He since then improved his A1C, most recent at 4.8. Patient continues to endorse his right sided low back pain which radiates into his right sacral region and lateral hip and thigh, consistent with axial, facetogenic and right sacroiliac joint pain. He is interested to proceed with interventional treatments to address his symptoms. Patient reports it takes over 20 minutes for him each morning to get out out of bed. He also experiences it intermittent incontinence episodes last summer which has improved. Denies any bladder or bowel dysfunction or saddle anesthesia. Patient is on chronic anticoagulation with Plavix with history of ischemic cardiomyopathy, CAD and CABG x3. Denies any recent cough, cold, infection, fever, any significant changes in her medical history, medications or recent hospitalizations. PRIOR Lucretia JackieJuliet [facility] 01/29/23: Jerome is a very pleasant 47-year-old male who presented to the office today for evaluation management of his chronic lower back pain. Patient reports he has been suffering with this lower back pain, predominantly on the right side, for approximately 20 years. Patient reports that the pain is progressively getting worse. He states the pain is constant, rated today as 9/10, worse with movement and weather changes. Pain excruciating in the morning and at times makes it difficult to get out of bed. Patient endorses radiation of the pain into the right thigh, he is status post right BKA. Patient has been taking gabapentin for his nerve pain, he states that his right lower back pain is unchanged with the gabapentin. He denies use of other pain medications. He has not tried physical therapy in many years, denies manual manipulation by chiropractor, acupuncture, massage. Patient states he has received steroid injections in the past with good relief of his pain. He is looking to repeat this injection. Patient is known diabetic, his most recent A1c 10/27/2022 was 8.9. Patient states he is under the care of an door slinger at [facility]. He is taking his medications are prescribed. He reports being hospitalized and then in rehab for a good part of the last several months but his blood sugars remain around 220. He states that anything less than 150 he feels hypoglycemic and is symptomatic. His primary care doctor ordered repeat lab work including A1c in August of 2022 but he has yet to have this completed. Patient denies red flag symptoms including new loss of bowel, bladder or saddle anesthesia. He does report at times the pain is excruciating in the morning and he cannot get out of bed fast enough to get to the bathroom which will cause him to urinate on himself. He is able to feel the urge and sensation, just not able to get up quickly enough to make it to the bathroom. In terms of muscle damage condition is described as tiring, exhausting, sickening, suffocating, fearful, frightening, terrifying, punishing, killing, radiating, piercing. ?Like being split in half with an Axe ? Pain is negatively impacting patient's ability to do activities of daily living, function normally and care for himself. Patient's past medical history significant for chronic back pain, sleep apnea, ischemic cardiomyopathy, depression, insomnia, cholecystitis, [place], anxiety, GERD, neuropathy, asthma, hypercholesterolemia, hypertension, coronary artery disease, diabetes mellitus, epilepsy and meningioma. Patient denies implantable devices, pacemaker or defibrillator. [facility] Medical History Depression Insomnia Erectile dysfunction Exposure to COVID-19 virus Obesity (BMI 30-39.9) Anxiety GERD (gastroesophageal reflux disease) Neuropathy Gastroparesis Asthma Pure hypercholesterolemia Benign essential hypertension Coronary artery disease Diabetes mellitus Epilepsy Meningioma Surgical History Hx of right BKA Right foot amputee History of femoropopliteal bypass S/P CABG x 3 Family History Father Diabetes Mother Diabetes Social History Housing: House Alcohol intake: never Patient Tobacco Use Status: Former Tobacco user e-Cigarette/Vaping Use: Never Used Second Hand Smoke Exposure: No Substance Use Type: Marijuana service: No Current occupational status: disabled Cognitive needs: No Hearing needs: No Vision needs: No Review of Systems Const All systems reviewed & are unremarkable except as noted in HPI and below Physical Exam Vital Signs: Last Vital Signs Pulse 88 04/29/24 13:58 BP 142/86 H 04/29/24 13:58 Pulse Ox 97 04/29/24 13:58 Oxygen Delivery Method Room Air 04/29/24 13:58 BMI result Body Mass Index 25.8 General: awake, alert, oriented. Answers questions appropriately. Fully engaged in examination. Skin: warm, dry, intact HEENT: Normocephalic. Hearing intact. Cardiac: External chest normal in appearance. Respiratory: No cough, audible wheezing or stridor. Abdomen: without gross distension. MS: Prosthesis Right Foot Neurological: Oriented to person, place, time and situation. Thought process intact. Psychiatric: Appropriate mood and affect. Good judgment and insight. Results Reviewed Results Reviewed: Assessment & Plan Assessment & Plan (1) Myofascial low back pain: Code(s): M54.50 - Low back pain, unspecified Category: Medical (2) Lumbar degenerative disc disease: Code(s): M51.36 - Other intervertebral disc degeneration, lumbar region Category: Medical Qualifiers: Disc-related pain type: discogenic back pain and lower extremity pain Q ualified Code(s): M51.362 - Other intervertebral disc degeneration, lumbar region with discogenic back pain and lower extremity pain (3) Lumbar facet arthropathy: Code(s): M47.816 - Spondylosis without myelopathy or radiculopathy, lumbar region Category: Medical (4) Sacroiliac joint pain: Code(s): M53.3 - Sacrococcygeal disorders, not elsewhere classified Category: Medical Plan Patient presented to the office today for follow-up, 1 month status post right therapeutic sacroiliac joint injections He reports 100% pain relief with improvement functional mobility since the injection. Denies any untoward effects All questions and concerns have been answered, patient verbalizes understanding and agrees with the plan. Follow up when pain returns, sooner if needed Coding Level of Care Code Est Pt Level 3 (70356) Complex EM visit Add On G2211 Diagnoses Myofascial low back pain M54.50 Degeneration of intervertebral disc of lumbar region with discogenic back pain and lower extremity pain M51.362 Disc-related pain type: discogenic back pain and lower extremity pain Lumbar facet arthropathy M47.816 Sacroiliac joint pain M53.3
[2024-04-29 13:58] VITALS: BP 142/86; PULSE 88; O2SAT 97; BMI 25.8
== END 2024-04-29 14:08 | disposition home or self-care (01) ==
PROVIDERS: PCP Internal Medicine; Visit Provider Registered Nurse Emergency
DX: M54.50 Low back pain, unspecified (principal); M51.362 Other intervertebral disc degeneration, lumbar region with discogenic back pain and lower extremity pain; M47.816 Spondylosis without myelopathy or radiculopathy, lumbar region; M53.3 Sacrococcygeal disorders, not elsewhere classified
CPT/HCPCS: 99213; G2211

== ENCOUNTER → 2024-04-29 13:49 | Outpatient (BNVA) | payer OTHER, SELFPAY | PROVIDERS: PCP Internal Medicine; Visit Provider Registered Nurse Emergency | DX: M54.50 Low back pain, unspecified (principal); M51.362 Other intervertebral disc degeneration, lumbar region with discogenic back pain and lower extremity pain; M47.816 Spondylosis without myelopathy or radiculopathy, lumbar region; M53.3 Sacrococcygeal disorders, not elsewhere classified | CPT/HCPCS: 99212 ==

== ENCOUNTER 2024-05-12 13:18 | Outpatient (AMB) | payer OTHER, SELFPAY ==
[2024-05-12 13:24] VITALS: BP 140/84; PULSE 75; BMI 25.4
--- NOTE | 2024-05-12 13:24 | A.OFFVIS_ITS ---
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 Required: No Allergies fish derived [FISH] Allergy (Unknown, Verified 04/29/24 13:59) HIVES metoclopramide [From REGLAN] Allergy (Unknown, Verified 04/29/24 13:59) UNKNOWN pork derived (porcine) [PORK DERIVED (PORCINE)] Allergy (Unknown, Verified 04/29/24 13:59) HIVES Medication List - Last Reconciled 05/12/24 by Vaibhav Slade MD ammonium lactate 12% appl topical BID atorvastatin 80 mg PO DAILY 90 days blood sugar diagnostic (FreeStyle Lite Strips) As directed blood sugar diagnostic As directed blood-glucose meter (FreeStyle Lite Meter kit) Test 4 times daily blood-glucose meter,continuous (Dexcom G6 Extractions Technician) As directed blood-glucose sensor (Dexcom G6 Sensor device) As directed blood-glucose transmitter (Dexcom G6 Transmitter device) As directed clopidogrel 75 mg PO DAILY 90 days [DIABETIC SHOES (1 pair) As directed] gabapentin 300 mg PO TID 90 days insulin glargine (Lantus Solostar U-100 Insulin) 24 units (0.24 mL) subcut QPM 30 days lidocaine 5% 1 patch topical DAILY PRN losartan 50 mg PO DAILY 90 days methocarbamol 500 mg PO TID PRN metoprolol succinate ER 100 mg PO DAILY 90 days miscellaneous medical supply As directed- To use daily-- Diabetic Shoes mometasone 0.1% 1 appl topical DAILY PRN oxycodone-acetaminophen 5-325 mg (Percocet) 1 tab PO Q8H PRN 7 days pantoprazole 40 mg PO DAILY [RIGHT BELOW KNEE PERMANENT PROSTHESIS, K3 As directed] [right foot prosthesis and liner As directed] zolpidem 10 mg PO BEDTIME PRN 30 days HPI Comments Details: Jerome comes for follow-up after a very long gap. Last seen her office in December last year and was supposed to undergo myocardial perfusion imaging which she did not undergo. He said he was lot of stress and lot of health issues that prevents him from been compliant with his follow-ups. He said he had disabling back pain and was not following with any physician and about 2 months ago got a back injection since then his pain is lot better and he was able to come today for the office visit. He also has lost significant amount of weight and he says last hemoglobin A1c is in the low 5s and he is currently on insulin as need be. He is taking his medications although the some confusion about his medication, however he confirmed that he is currently not taking carvedilol only taking metoprolol. He is taking losartan. No recent blood work and kidney functions. He denies any chest pain. Denies any orthopnea, PND, leg edema. No lightheadedness, syncope. Continues to have some symptoms of vertigo. [facility] Medical History Depression Insomnia Erectile dysfunction Exposure to COVID-19 virus Obesity (BMI 30-39.9) Anxiety GERD (gastroesophageal reflux disease) Neuropathy Gastroparesis Asthma Pure hypercholesterolemia Benign essential hypertension Coronary artery disease Diabetes mellitus Epilepsy Meningioma Surgical History Hx of right BKA Right foot amputee History of femoropopliteal bypass S/P CABG x 3 Family History Father Diabetes Mother Diabetes Social History Housing: House Alcohol intake: never Patient Tobacco Use Status: Former Tobacco user e-Cigarette/Vaping Use: Never Used Second Hand Smoke Exposure: No Substance Use Type: Marijuana service: No Current occupational status: disabled Cognitive needs: No Hearing needs: No Vision needs: No Review of Systems Const Denies chills, Denies fatigue, Denies fever(s), Denies frequent falls, Denies weakness, Denies weight gain and Denies weight loss ENT Denies dizziness Card Denies chest pain, Denies leg edema, Denies lightheadedness, Denies palpitations, Denies dyspnea, Denies dyspnea on exertion, Denies orthopnea and Denies other (loss of consciousness) Resp Denies cough, Denies dyspnea and Denies dyspnea on exertion GI Denies hematochezia and Denies change in stool character Musc Denies abnormal gait, Denies muscle weakness, Denies numbness, Denies radiating pain into limb and Denies tingling Neuro Denies abnormal gait, Denies dizziness, Denies frequent falls, Denies numbness, Denies tingling and Denies weakness Endo Denies fatigue and Denies palpitations Physical Exam Vital Signs: Last Vital Signs Pulse 75 05/12/24 13:24 BP 140/84 H 05/12/24 13:24 BMI result Body Mass Index 25.4 Const General: cooperative, comfortable, no acute distress, alert and awake Nutritional Appearance: thin Orientation/consciousness: patient oriented x3 Neck Neck: Yes trachea midline, Yes supple and Yes no JVD Resp Effort & Inspection: normal respiratory effort Auscultation: clear to auscultation bilaterally, no crackles, no rales, no rhonchi and no wheezes Cardio Jugular venous distension: no JVD Palpation: abnormal PMI displaced PMI Rate: regular rate Rhythm: regular rhythm (Clinically sounding like ventricular bigeminy) Heart sounds: S1 normal heart sound present, S2 normal heart sound present, no click, no gallops, no murmurs and no rubs Neuro General: patient oriented x3 Extrem Other: Right BKA with prosthetic device in use Psych Appearance: grossly normal Mental Status: mental status grossly normal Speech and movement: Normal speech and movement present Office Procedures EKG Details: EKG shows normal sinus rhythm with right atrial enlargement with right axis deviation with pulmonary disease pattern with inferior and lateral T-wave inversions. [id number], Complete Assessment & Plan Assessment & Plan (1) Ischemic cardiomyopathy: Code(s): I25.5 - Ischemic cardiomyopathy Category: Medical Plan: Ischemic cardiomyopathy with poor follow-up. He has not had any ischemic workup done as yet. Last echocardiogram more than a year ago had shown LVEF of 30 35%. Clinically no signs of heart failure at this point time. Recommend repeat echocardiogram to assess LV systolic function. If persistently severely depressed, will need to consider ICD therapy. Also needs ischemic workup. Discussed with him. Continue current metoprolol and losartan therapy. Further treatment and hopefully switch from losartan to Entresto therapy if renal functions are stable if LV systolic function remains significantly depressed. Signs and symptoms of heart failure were discussed. No indication for diuretic therapy. (2) Coronary artery disease: Comment: S/P triple vessel bypass Code(s): I25.10 - Atherosclerotic heart disease of [place] coronary artery without angina pectoris Category: Medical Qualifiers: Coronary Disease-Associated Artery/Lesion type: [place] artery [place] vs. transplanted heart: [place] heart Associated angina: without angina Qualified Code(s): I25.10 - Atherosclerotic heart disease of [place] coronary artery without angina pectoris Plan: CAD with remote coronary artery bypass grafting with no recurrent symptoms of angina. Could have silent myocardial ischemia. Suggest a vasodilating myocardial perfusion imaging to evaluate for myocardial ischemia. Continue aggressive medical therapy. Currently on aspirin as well as high-intensity statin therapy. His diabetes has been well controlled since significant loss of his weight. Continue diabetic management through your office. Target goal LDL less than 60 mg/dL. Advise blood work in near future. Continue current metoprolol and losartan therapy with well optimized blood pressure. Follow up in the clinic in 6 weeks time, sooner p.r.n.. Thank you for allowing me to partake in his care Orders: Orders CA lexiscan stress w gianni Today I25.10 - Atherosclerotic heart disease of [place] coronary artery without angina pectoris Lipid Panel Today I25.10 - Atherosclerotic heart disease of [place] coronary artery without angina pectoris Basic Metabolic Panel Today I25.10 - Atherosclerotic heart disease of [place] coronary artery without angina pectoris Complete Blood Count no Diff Today I25.10 - Atherosclerotic heart disease of [place] coronary artery without angina pectoris CA echo transthoracic complete Today I25.5 - Ischemic cardiomyopathy Coding Level of Care Code Est Pt Level 4 (67593) Complex EM visit Add On G2211 Diagnoses Ischemic cardiomyopathy I25.5 Coronary artery disease involving [place] coronary artery of [place] heart without angina pectoris I25.10 Coronary Disease-Associated Artery/Lesion type: [place] artery [place] vs. transplanted heart: [place] heart Associated angina: without angina CPT Codes EKG - CPT: 98424-[id number], Complete ([id number])
== END 2024-05-12 14:03 | disposition home or self-care (01) ==
PROVIDERS: PCP Internal Medicine; Visit Provider Internal Medicine Cardiovascular Disease
DX: I25.5 Ischemic cardiomyopathy (principal); I25.10 Atherosclerotic heart disease of native coronary artery without angina pectoris
CPT/HCPCS: 93010; 99214; G2211

== ENCOUNTER → 2024-05-12 13:18 | Outpatient (BNVA) | payer OTHER, SELFPAY | PROVIDERS: PCP Internal Medicine; Visit Provider Internal Medicine Cardiovascular Disease | DX: I25.5 Ischemic cardiomyopathy (principal); I25.10 Atherosclerotic heart disease of native coronary artery without angina pectoris; R94.31 Abnormal electrocardiogram [ECG] [EKG]; I51.7 Cardiomegaly | CPT/HCPCS: 93005; 99212 ==

== ENCOUNTER → 2024-05-29 13:24 | Outpatient (REF) | payer OTHER, SELFPAY ==
--- NOTE | 2024-05-29 13:26 | CA_ITS ---
Transthoracic Echocardiogram Patient (Last, First, Middle): Jerome Clifford B Gender: Male Date of : 1975 Age: 49 Procedure Date: 05/29/2024 Procedure Type: Transthoracic Echocardiogram Location: OP Height: 182.88 cm Weight: 83.92 kg BSA: 2.06 m2 Heart Rate: bpm BP: 118 / 60 mmHg Outside Machinist: Referring MD: Vaibhav Slade MD Symptoms: I25.5 - Ischemic cardiomyopathy Study Quality: Fair ECG Rhythm: Sinus Conclusions: - Normal left ventricular cavity size. There is moderately increased left ventricular wall thickness. The left ventricular systolic function is moderate to severely decreased. The visually estimated ejection fraction is between 25-30%. - The basal inferior and basal inferoseptal segments are akinetic. - Normal right ventricular cavity size. There is moderately decreased right ventricular systolic function. Findings Left Ventricle Normal left ventricular cavity size. There is moderately increased left ventricular wall thickness. The left ventricular systolic function is moderate to severely decreased. The visually estimated ejection fraction is between 25-30%. There is evidence of regional wall motion abnormalities. Abnormal diastolic function is noted. Spectral Doppler is indicative of an impaired relaxation filling pattern. E/E prime ratio is between 8 and 15 consistent with indeterminate filling pressures. Wall Motion Rest Echo Findings The basal inferior and basal inferoseptal segments are akinetic. Right Ventricle Normal right ventricular cavity size. There is moderately decreased right ventricular systolic function. Atria The left atrium is likely dilated. The right atrium is normal in size. Aortic Valve There is a normal trileaflet aortic valve. There is no aortic valve stenosis. There is no aortic valve regurgitation. Mitral Valve The mitral valve appears normal. There is no mitral valve regurgitation. There is no mitral valve stenosis. Pulmonic Valve The pulmonic valve is likely normal. Tricuspid Valve Normal tricuspid valve structure. There is trace tricuspid valve regurgitation. Normal right atrial pressure. There is no evidence of pulmonary hypertension. Great Vessels All visible segments of the aorta are normal in size. The visualized portions of the pulmonary artery and branches are normal. Venous The inferior vena cava is normal in size and collapses greater than 50% with inspiration. Pericardium/Pleural There is no evidence of pericardial effusion. Prior Study Comparison Changes noted compared to prior study dated: 09/27/2022. Moderate to severe LV dysfunction. Measurements 2D Linear Measurements IVSd: 1.33 0.6-0.9/0.6-1.0 cm LVIDd: 4.32 3.9-5.3/4.2-5.9 cm LVIDd Index: 2.10 2.4-3.2/2.2-3.1 cm/m2 LVIDs: 3.28 2.0-3.6 cm LVPWd: 1.38 0.7-1.1 cm Ao Root: 3.20 2.1-3.5 cm LA Diam: 3.80 2.7-3.8/3.0-4.0 cm LAIDs Index: 1.84 1.5-2.3 cm/m2 LV Mass: 277.48 67-162/88-224 g LV Mass Index: 134.70 43-95/49-115 g/m2 LVOT Diam: 2.50 3.0+(-)1.3 cm 2D Systolic Function EF 4C: 36.50 >55% EF 2C: 29.40 >55% EF BiP: 30.00 >55% Mitral Valve MV Pk E: 0.69 MV PK A: 0.98 MV Decel Time: 235.00 E/A: 0.70 E'Lateral: 5.98 E'Medial: 4.13 E/E' Med: 16.70 E/E' Lat: 11.50 PHT: 69.00 MVA PHT: 3.19 Decel Starke: 2.93 Aortic Valve AoV Pk Handy: 0.99 AoV Mn Handy: 0.65 AoV VTI: 0.25 AoV Pk Grad: 4.00 Aov Mn Grad: 2.00 ANTHONY Cont.VTI: 3.08 LVOT LVOT Pk Handy: 0.68 LVOT Mn Handy: 0.40 LVOT VTI: 0.16 LVOT Pk Grad: 2.00 LVOT Mn Grad: 1.00 LVOT Diam: 2.50 LVOT Area: 4.91 Diastolic Function MV Pk E: 0.69 MV Pk A: 0.98 E/A: 0.70 E'Medial: 4.13 E/E' Med: 16.70 E' Laterial: 5.98 E/E' Lat: 11.50 Right Ventricle TAPSE (mm): 18.00 TVS' Handy: 8.00 Tricuspid Valve TR Pk Handy: 1.96 TR Pk Grad: 15.00 RA Press: 3.00 RVSP: 18.00 Great Vessels Aorta Ao Root-2D: 3.20 2.0-3.7 cm Ao Asc: 3.30 2.1-3.4 cm Pulmonary Valve PV Pk Handy: 0.75 Peak PV Grad: 2.00 Updated in Other Vendor System with Status of Final Richard Schwartz MD electronically signed on 05/30/2024 5:11:39 PM with status of Final
== END ==
LOC: HO.CARD 13:24
PROVIDERS: PCP Internal Medicine; Visit Provider Internal Medicine Cardiovascular Disease
DX: I25.5 Ischemic cardiomyopathy (principal)
CPT/HCPCS: 93306

== ENCOUNTER → 2024-05-29 13:26 | Outpatient (BNV) | payer OTHER, SELFPAY | PROVIDERS: PCP Internal Medicine; Visit Provider Internal Medicine Cardiovascular Disease | DX: I51.89 Other ill-defined heart diseases (principal); I25.5 Ischemic cardiomyopathy | CPT/HCPCS: 93306 ==

== ENCOUNTER 2024-06-26 14:35 | Outpatient (AMB) | payer OTHER, SELFPAY ==
--- NOTE | 2024-06-26 14:38 | MHC.OFFVIS ---
Vital Signs 06/26/24 14:41 Height 6 ft Weight 190 lb BMI 25.8 BP 130/74 Blood Pressure Location Rt brachial Position Sitting Pulse 72 Pulse Source Pulse Oximeter Pulse Oximetry (%) 98 Oxygen Delivery Method Room Air Intake Visit Reasons: inj discussion/lena from missed appt on 06/19 Intake Note: Pain today 0/10 Excellence Specialist Required: No Accompanied by: Self / Same As Patient Allergies fish derived [FISH] Allergy (Unknown, Verified 06/26/24 14:43) HIVES metoclopramide [From REGLAN] Allergy (Unknown, Verified 06/26/24 14:43) UNKNOWN pork derived (porcine) [PORK DERIVED (PORCINE)] Allergy (Unknown, Verified 06/26/24 14:43) HIVES HPI Comments Details: Patient presents back to the office today for follow-up right sacroiliac joint dysfunction He received 100% pain relief from the last therapeutic injection 03/31/24. States pain is slowly starting to return. He would like to get started in the process for repeat injection. Also complaining of right shoulder pain, states injured it while pushing a car that was stuck in his no a week ago. Has not been evaluated, denies x-ray. He is not under care of orthopedics. Unable to reach overhead due to significant pain. Intake note 01/29/23: Jerome is a very pleasant 47-year-old male who presented to the office today for evaluation management of his chronic lower back pain. Patient reports he has been suffering with this lower back pain, predominantly on the right side, for approximately 20 years. Patient reports that the pain is progressively getting worse. He states the pain is constant, rated today as 9/10, worse with movement and weather changes. Pain excruciating in the morning and at times makes it difficult to get out of bed. Patient endorses radiation of the pain into the right thigh, he is status post right BKA. Patient has been taking gabapentin for his nerve pain, he states that his right lower back pain is unchanged with the gabapentin. He denies use of other pain medications. He has not tried physical therapy in many years, denies manual manipulation by chiropractor, acupuncture, massage. Patient states he has received steroid injections in the past with good relief of his pain. He is looking to repeat this injection. Patient is known diabetic, his most recent A1c 10/27/2022 was 8.9. Patient states he is under the care of an ground services instructor at [facility]. He is taking his medications are prescribed. He reports being hospitalized and then in rehab for a good part of the last several months but his blood sugars remain around 220. He states that anything less than 150 he feels hypoglycemic and is symptomatic. His primary care doctor ordered repeat lab work including A1c in August of 2022 but he has yet to have this completed. Patient denies red flag symptoms including new loss of bowel, bladder or saddle anesthesia. He does report at times the pain is excruciating in the morning and he cannot get out of bed fast enough to get to the bathroom which will cause him to urinate on himself. He is able to feel the urge and sensation, just not able to get up quickly enough to make it to the bathroom. In terms of muscle damage condition is described as tiring, exhausting, sickening, suffocating, fearful, frightening, terrifying, punishing, killing, radiating, piercing. ?Like being split in half with an Axe ? Pain is negatively impacting patient's ability to do activities of daily living, function normally and care for himself. Patient's past medical history significant for chronic back pain, sleep apnea, ischemic cardiomyopathy, depression, insomnia, cholecystitis, FATOUMATA, anxiety, GERD, neuropathy, asthma, hypercholesterolemia, hypertension, coronary artery disease, diabetes mellitus, epilepsy and meningioma. Patient denies implantable devices, pacemaker or defibrillator. [facility] Medical History Depression Insomnia Erectile dysfunction Exposure to COVID-19 virus Obesity (BMI 30-39.9) Anxiety GERD (gastroesophageal reflux disease) Neuropathy Gastroparesis Asthma Pure hypercholesterolemia Benign essential hypertension Coronary artery disease Diabetes mellitus Epilepsy Meningioma Surgical History Hx of right BKA Right foot amputee History of femoropopliteal bypass S/P CABG x 3 Family History Father Diabetes Mother Diabetes Social History Housing: House Alcohol intake: never Patient Tobacco Use Status: Former Tobacco user e-Cigarette/Vaping Use: Never Used Second Hand Smoke Exposure: No Substance Use Type: Marijuana service: No Current occupational status: disabled Cognitive needs: No Hearing needs: No Vision needs: No Review of Systems Const All systems reviewed & are unremarkable except as noted in HPI and below Physical Exam Vital Signs: Last Vital Signs Pulse 72 06/26/24 14:41 BP 130/74 06/26/24 14:41 Pulse Ox 98 06/26/24 14:41 Oxygen Delivery Method Room Air 06/26/24 14:41 BMI result Body Mass Index 25.8 General: awake, alert, oriented. Answers questions appropriately. Fully engaged in examination. Skin: warm, dry, intact HEENT: Normocephalic. Hearing intact. Cardiac: External chest normal in appearance. Respiratory: No cough, audible wheezing or stridor. Abdomen: without gross distension. MS: Prosthesis Right Foot. Right shoulder: Limited range of motion, unable to reach overhead with significant discomfort. Tender to palpation. Neurological: Oriented to person, place, time and situation. Thought process intact. Psychiatric: Appropriate mood and affect. Good judgment and insight. Results Reviewed Results Reviewed: Assessment & Plan Assessment & Plan (1) Right shoulder pain: Code(s): M25.511 - Pain in right shoulder Category: Medical (2) Myofascial low back pain: Code(s): M54.50 - Low back pain, unspecified Category: Medical (3) Lumbar degenerative disc disease: Code(s): M51.36 - Other intervertebral disc degeneration, lumbar region Category: Medical Qualifiers: Disc-related pain type: discogenic back pain and lower extremity pain Qualified Code(s): M51.362 - Other intervertebral disc degeneration, lumbar region with discogenic back pain and lower extremity pain (4) Lumbar facet arthropathy: Code(s): M47.816 - Spondylosis without myelopathy or radiculopathy, lumbar region Category: Medical (5) Sacroiliac joint pain: Code(s): M53.3 - Sacrococcygeal disorders, not elsewhere classified Category: Medical Plan Patient presented to the office today for follow-up right sacroiliac joint dysfunction Patient has exhausted greater than 6 months of conservative therapy including PT, home exercise program, [id number] medications. He is unable to take nonsteroidal anti-inflammatory medications due to current use of anticoagulants. Will schedule repeat fluoroscopy guided therapeutic right sacroiliac joint injection with local anesthetic. This will require holding Plavix, to be arranged with PCP prior to the injection. X-ray right shoulder ordered for evaluation. Referral placed for Orthopedics. All questions and concerns have been answered, patient verbalizes understanding and agrees with the plan. Follow up after injection, sooner if needed Orders: Orders XR shoulder RT min 2V Today M25.511 - Pain in right shoulder Referrals Orthopedics Referral M25.511 - Pain in right shoulder Coding Level of Care Code Est Pt Level 3 (93415) Complex EM visit Add On G2211 Diagnoses Right shoulder pain M25.511 Myofascial low back pain M54.50 Degeneration of intervertebral disc of lumbar region with discogenic back pain and lower extremity pain M51.362 Disc-related pain type: discogenic back pain and lower extremity pain Lumbar facet arthropathy M47.816 Sacroiliac joint pain M53.3
--- OUTSIDE RECORDS SUMMARY | 2024-06-26 14:38 | XMS_ITS | Clinical Summary ---
Author Organization [facility] Facility Address [address] [place] [id number] Care Team Providers Care Senior Master Scheduler Name Role Phone Erick Kohli MD Primary Care Provider [phone]- [phone] Allergies Active Allergy Reactions Criticality Noted Date Comments Metoclopramide Other (see comments) 10/31/2020 Other reaction(s): severe itching Medications clopidogrel (PLAVIX) 75 MG tablet Take 1 tablet by mouth 1 (one) time each day 1 Active losartan (COZAAR) 100 MG tablet Take 1 tablet by mouth 1 (one) time each day 1 Active atorvastatin (LIPITOR) 80 MG tablet Take 1 tablet by mouth 1 (one) time each day 1 Active gabapentin (NEURONTIN) 300 MG capsule Take 1 capsule by mouth every night 1 Active Lantus SoloStar 100 UNIT/ML injection INJECT 15 UNITS SUBCUTANEOUS INJECTION DAILY AT BEDTIME 2 Active metoprolol succinate XL (TOPROL-XL) 100 MG 24 hr tablet TAKE 1 TABLET BY MOUTH EVERY DAY. PLEASE CALL TO MAKE APPOINTMENT FOR MORE REFILLS 2 Active Insulin Lispro, 1 Unit Dial, (Admelog SoloStar) 100 UNIT/ML solution pen-injector See Instructions, for premeal insulin; check blood sugar prior to meals; continue as per prior instructions, # 10 mL, 0 Refills, Maintenance, 09/08/21 10:49:00 EDT, Partial fill upon patient request if the prescription is for a schedule II opioid drug. 2 Active Active Problems Problem Noted Date Diagnosed Date Calcific coronary arteriosclerosis 11/20/2021 Complication due to diabetes mellitus 11/20/2021 Extreme obesity with alveolar hypoventilation Obstructive sleep apnea syndrome 11/20/2021 Edema of lower extremity 11/20/2021 Osteomyelitis 11/20/2021 Ulcer 11/20/2021 Chronic kidney disease stage 3 10/31/2020 Hyperlipidemia 10/31/2020 Hypertensive chronic kidney disease, unspecified, with chronic kidney disease stage I through stage IV, or unspecified 10/31/2020 Peripheral vascular disease 10/31/2020 Type 2 diabetes mellitus 10/31/2020 Immunizations Name Administration Dates Next Due Influenza Split High Dose Preservative Free IM 1 05/28/2015 Pneumococcal Polysaccharide 03/16/2016 Family History Medical History Relation Comments Gout Father Hypertension Father Cancer Mother eyes Diabetes Mother Hypertension Mother Relation Status Comments Father Alive Mother Alive Social History Tobacco Use Types Packs/Day Years Used Date Smoking Tobacco: Former Cigarettes 0 05/13/1999 - 05/13/2002 Smokeless Tobacco: Former Tobacco Cessation:Counseling Given: No Comments:Smoking History Info:Some days Alcohol Use Standard Drinks/Week Comments No 0 (1 standard drink = 0.6 oz pur e alcohol) Sex and Gender Information Value Date Recorded Sex Assigned at Not on file Legal Sex Male 5:03 PM EST Gender Identity Not on file Sexual Orientation Not on file Last Filed Vital Signs Vital Sign Reading Time Taken Comments Blood Pressure 100/68 11/20/2021 3:04 PM EDT Pulse 79 11/20/2021 3:04 PM EDT Temperature - - Respiratory Rate - - Oxygen Saturation 100% 11/20/2021 3:04 PM EDT Inhaled Oxygen Concentration - - Weight 98 kg (216 lb) 11/20/2021 3:04 PM EDT Height 182.9 cm (6') 10/31/2020 2:33 PM EDT Body Mass Index 29.29 10/31/2020 2:33 PM EDT Plan of Treatment Health Maintenance Due Date Last Done Comments Hepatitis B Vaccine (1 of 3 - 19+ 3-dose series) 04/20 Pneumococcal Vaccine: Pediat rics (0 to 5 Years) and At-Risk Patients (6 to 64 Years) (2 of 2 - PCV) 03/16/2017 03/16/2016 Diabetes: Hemoglobin A1C 06/13/2020 Diabetes: Ophthalmology Exam 06/13/2020 Diabetes: Pedal Pulse Checked 06/13/2020 Diabetes: Sensory Foot Exam 06/13/2020 Diabetes: Visual Foot Exam 06/13/2020 Influenza Vaccine (#1) 2024 03/28/2016 Colorectal Cancer Screening: Annual FOBT 2024 Colorectal Cancer Screening: Colonoscopy 2024 Colorectal Cancer Screening: Sigmoidoscopy 2024 Insurance Care Teams Senior Master Scheduler Relationship Specialty Start Date End Date Erick Kohli MD [address] [place] [address] PCP - General 05/23/20
[2024-06-26 14:41] VITALS: BP 130/74; PULSE 72; O2SAT 98; BMI 25.8
== END 2024-06-26 14:48 | disposition home or self-care (01) ==
PROVIDERS: PCP Internal Medicine; Visit Provider Registered Nurse Emergency
DX: M25.511 Pain in right shoulder (principal); M54.50 Low back pain, unspecified; M51.362 Other intervertebral disc degeneration, lumbar region with discogenic back pain and lower extremity pain; M47.816 Spondylosis without myelopathy or radiculopathy, lumbar region; M53.3 Sacrococcygeal disorders, not elsewhere classified
CPT/HCPCS: 99213; G2211

== ENCOUNTER → 2024-06-26 14:35 | Outpatient (BNVA) | payer OTHER, SELFPAY | PROVIDERS: PCP Internal Medicine; Visit Provider Registered Nurse Emergency | DX: M53.3 Sacrococcygeal disorders, not elsewhere classified (principal); M25.511 Pain in right shoulder; M51.362 Other intervertebral disc degeneration, lumbar region with discogenic back pain and lower extremity pain; M47.816 Spondylosis without myelopathy or radiculopathy, lumbar region | CPT/HCPCS: 99212 ==

== ENCOUNTER 2024-08-19 09:29 | Outpatient (REF) | payer OTHER, SELFPAY ==
--- NOTE | ~2024-08-19 | XR_ITS ---
EXAMINATION: XR SHOULDER 2 OR MORE VIEWS RIGHT HISTORY: M25.511 - Pain in right shoulder COMPARISON: There are no prior studies available for comparison. FINDINGS: Three views of the right shoulder are submitted. Osseous mineralization is normal. There is no fracture or dislocation. The glenohumeral joint is maintained. There is mild degenerative change of the AC joint. The soft tissues are unremarkable. XR/XR shoulder RT min 2V IMPRESSION: Mild degenerative change of the AC joint. Electronically signed by: Ranjit Gallagher MD 08/20/2024 07:50 AM EDT
--- OUTSIDE RECORDS SUMMARY | 2024-08-20 10:30 | XMS_ITS | Clinical Summary ---
Author Organization [facility] Facility Address [address] [place] [address] Care Team Providers Care Director Patient Name Role Phone Erick Kohli MD Primary Care Provider +1- [phone] Allergies Active Allergy Reactions Criticality Noted Date [...] 10/31/2020 Type 2 diabetes mellitus 10/31/2020 Immunizations Immunization Administration Dates Next Due Influenza Split High [...] - 19+ 3-dose series) 04/20 Pneumococcal Vaccine: Peds ( 0 to 5 Years) and At-Risk Patients (6 to 49 Years) (2 of 2 - PCV) 03/16/2017 [...] file Group ID:[id number] Type:Not on file Address: [place] [id number] Care Teams Director Patient Relationship Specialty Start Date End Date Erick Kohli MD [address] [place] [address] PCP - General 05/23/20
== END 2024-08-19 09:30 | disposition home or self-care (01) ==
LOC: HO.HOSX 09:29
PROVIDERS: Visit Provider Physician Assistant
DX: M77.8 Other enthesopathies, not elsewhere classified (principal); M25.511 Pain in right shoulder
CPT/HCPCS: 20610; 73030; 99202; J1010; J2003

== ENCOUNTER 2024-08-19 14:08 | Outpatient (AMB) | payer OTHER, SELFPAY ==
--- NOTE | 2024-08-19 14:20 | A.OFFVIS_ITS ---
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 Patient reports his pain has been present for over a year that has been getting worse. His pain starts in his shoulder and radiates across his back. He has discomfort most of the time. He frequently has popping and locking in his shoulder. He has a cold numbing sensation that presents in his thumb and radiates up his arm. No previous tx. Allergies fish derived [FISH] Allergy (Unknown, Verified 08/19/24 14:21) HIVES metoclopramide [From REGLAN] Allergy (Unknown, Verified 08/19/24 14:21) UNKNOWN pork derived (porcine) [PORK DERIVED (PORCINE)] Allergy (Unknown, Verified 08/19/24 14:21) HIVES Medication List - Last Reconciled 08/19/24 by Anahi Rae PA-C ammonium lactate 12% appl topical BID atorvastatin 80 mg PO DAILY 90 days blood sugar diagnostic (FreeStyle Lite Strips) As directed blood sugar diagnostic As directed blood-glucose meter (FreeStyle Lite Meter kit) Test 4 times daily blood-glucose,pump servicer,cont (Dexcom G6 Palletiser Operator) As directed blood-glucose sensor (Dexcom G6 Sensor device) As directed blood-glucose transmitter (Dexcom G6 Transmitter device) As directed clopidogrel 75 mg PO DAILY 90 days [DIABETIC SHOES (1 pair) As directed] gabapentin 300 mg PO TID 90 days insulin glargine (Lantus Solostar U-100 Insulin) 24 units (0.24 mL) subcut QPM 30 days lidocaine 5% 1 patch topical DAILY PRN qzydmc-aqdurzsw-yeztgkh 36,000-114,000- 180,000 unit (Creon) 2 caps PO TID 30 days losartan 50 mg PO DAILY 90 days methocarbamol 500 mg PO TID PRN metoprolol succinate ER 100 mg PO DAILY 90 days miscellaneous medical supply As directed- To use daily-- Diabetic Shoes mometasone 0.1% 1 appl topical DAILY PRN oxycodone-acetaminophen 5-325 mg (Percocet) 1 tab PO Q8H PRN 7 days pantoprazole 40 mg PO DAILY [RIGHT BELOW KNEE PERMANENT PROSTHESIS, K3 As directed] [right foot prosthesis and liner As directed] zolpidem 10 mg PO BEDTIME PRN 30 days HPI 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 He states this has been going on for several years and is worse with movement at at night. He has pain that goes along the right scapula into the back. ON LICENSE OF [facility] Medical History (Updated 08/19/24 @ 14:40 by Anahi Rae PA-C) Depression Insomnia Erectile dysfunction Exposure to COVID-19 virus Obesity (BMI 30-39.9) Anxiety GERD (gastroesophageal reflux disease) Neuropathy Gastroparesis Asthma Pure hypercholesterolemia Benign essential hypertension Coronary artery disease Diabetes mellitus Epilepsy Meningioma Surgical History (Updated 08/19/24 @ 14:23 by Isaura Calabrese [facility]) Hx of carpal tunnel repair Hx of elbow surgery Hx of right BKA Right foot amputee History of femoropopliteal bypass S/P CABG x 3 Family History Father Diabetes Mother Diabetes Social History Housing: House Alcohol intake: never Patient Tobacco Use Status: Former Tobacco user e-Cigarette/Vaping Use: Never Used Second Hand Smoke Exposure: No Substance Use Type: Marijuana service: No Current occupational status: disabled Cognitive needs: No Hearing needs: No Vision needs: No Review of Systems Const All systems reviewed & are unremarkable except as noted in HPI and below Physical Exam Vital Signs: BMI result Body Mass Index 25.8 Const General: cooperative and no acute distress Orientation/consciousness: patient oriented x3 Resp Effort & Inspection: normal respiratory effort and able to speak in complete sentences Cardio Peripheral pulses: Peripheral pulses 2+ throughout Neuro General: patient oriented x3 Extrem Other: right shoulder normal to inspection. Tenderness over the bicipital groove and along deltoid region of the shoulder. FF to 90, ER to 90, IR to Backpocket. Weakness with RTC strength. - cross body abduction. Discomfort with meng. NVI. Office Procedures AMB Joint Injection/Aspiration Joint Injection/Aspiration Primary Site: right shoulder Prep: site was prepped using aseptic technique, ethochloride spray was applied and injection warnings given Injected: 40 mg of, DepoMedrol, with 8 mL of, 1% plain lidocaine and in the subcromial space Approach Used: posterolateral Procedure: The patient tolerated the procedure well and there was some relief with the local anesthesia Coding - Glenohumeral/Tronchanteric Bursa/Intraarticular Procedure code (CPT) selection complete Results Reviewed Results Reviewed: Xrays were obtained in the office today and personally reviewed by me of the left shoulder show mild ac j oa Assessment & Plan Assessment & Plan (1) Right shoulder tendinitis: Code(s): M77.8 - Other enthesopathies, not elsewhere classified Category: Medical Plan: We discussed options which include PT, NSAIDs and injections. The patient did consent to move forward with the injection, which was tolerated well.? I recommended rest, ice and elevation and OTC antiinflammatories prn for discomfort. Therapy referral was placed. If symptoms persist over the next 6-8 weeks, they will contact our office, otherwise, prn We also discussed their diabetes and the effect the steroid can have on thier blood glucose levels; therefore, they will continue to monitor these very closely over the next 72 hours Orders: Orders PT Evaluation and Treatment Today M77.8 - Other enthesopathies, not elsewhere classified XR shoulder RT min 2V Today M25.511 - Pain in right shoulder Coding Level of Care Code New Pt Level 3 (50599) Complex EM visit Add On G2211 Diagnoses Right shoulder tendinitis M77.8 CPT Codes Coding - Joint 7: 71119 - Glenohumeral/Tronchanteric Bursa/Intraarticular ( [id number])
[2024-08-19 14:28] VITALS: BMI 25.8
--- OUTSIDE RECORDS SUMMARY | 2024-08-19 16:24 | XMS_ITS | Clinical Summary ---
Author Organization [facility] Facility Address [address] [place] [address] Care Team Providers Care Spar Cap Beveler Name Role Phone Erick Kohli MD Primary Care Provider +1- [phone] Allergies Active Allergy Reactions Criticality Noted Date [...] Exam 06/13/2020 Diabetes: Visual Foot Exam 06/13/2020 Colorectal Cancer Screening: Annual FOBT 2024 Colorectal Cancer Screening: Colonoscopy 2024 Colorectal Cancer Screening: Sigmoidoscopy 2024 Influenza Vaccine (Season Ended) 2025 03/28/20 16 Insurance Member Subscriber Plan / Payer (Ef fective 2020-Present) Name:Jerome Clifford Relation to Subscriber:Self Name:Jerome Clifford Payer ID:Not on file Group ID:[id number] Type:Not on file Address: [place] [phone] Care Teams Spar Cap Beveler Relationship Specialty Start Date End Date Erick Kohli MD [address] [place] [id number] PCP - General 05/23/20
== END 2024-08-19 15:21 | disposition home or self-care (01) ==
LOC: HO.HOS 14:08
PROVIDERS: PCP Internal Medicine; Visit Provider Physician Assistant
DX: M77.8 Other enthesopathies, not elsewhere classified (principal)
CPT/HCPCS: 20610; 99203

== ENCOUNTER → 2024-08-19 14:10 | Outpatient (BNV) | payer OTHER, SELFPAY | PROVIDERS: Visit Provider Radiology Diagnostic Radiology | DX: M25.511 Pain in right shoulder (principal) | CPT/HCPCS: 73030 ==

== ENCOUNTER 2024-08-24 13:19 | Outpatient (AMB) | payer OTHER, SELFPAY ==
--- NOTE | 2024-08-24 13:46 | MHC.OFFVIS ---
Vital Signs 08/24/24 13:51 Height 6 ft Weight 178 lb 9.191 oz BMI 24.2 BP 130/80 Blood Pressure Location Lt brachial Position Sitting Pulse 60 Intake Visit Reasons: 6 wk f/up mibi/ echo/ lipids Intake Note: 6 week follow-up after echo missed the stress test Roll Edge Stitcher Hand Required: No Allergies fish derived [FISH] Allergy (Unknown, Verified 08/19/24 14:21) HIVES metoclopramide [From REGLAN] Allergy (Unknown, Verified 08/19/24 14:21) UNKNOWN pork derived (porcine) [PORK DERIVED (PORCINE)] Allergy (Unknown, Verified 08/19/24 14:21) HIVES Medication List - Last Reconciled 08/24/24 by Vaibhav Slade MD ammonium lactate 12% appl topical BID atorvastatin 80 mg PO DAILY 90 days blood sugar diagnostic (FreeStyle Lite Strips) As directed blood sugar diagnostic As directed blood-glucose meter (FreeStyle Lite Meter kit) Test 4 times daily blood-glucose,drywall hanger helper,cont (Dexcom G6 Account Development Specialist) As directed blood-glucose sensor (Dexcom G6 Sensor device) As directed blood-glucose transmitter (Dexcom G6 Transmitter device) As directed clopidogrel 75 mg PO DAILY 90 days [DIABETIC SHOES (1 pair) As directed] gabapentin 300 mg PO TID 90 days insulin glargine (Lantus Solostar U-100 Insulin) 24 units (0.24 mL) subcut QPM 30 days lidocaine 5% 1 patch topical DAILY PRN [id number] 36,000-114,000- 180,000 unit (Creon) 2 caps PO TID 30 days losartan 50 mg PO DAILY 90 days metoprolol succinate ER 100 mg PO DAILY 90 days miscellaneous medical supply As directed- To use daily-- Diabetic Shoes mometasone 0.1% 1 appl topical DAILY PRN oxycodone-acetaminophen 5-325 mg (Percocet) 1 tab PO Q8H PRN 7 days pantoprazole 40 mg PO DAILY [RIGHT BELOW KNEE PERMANENT PROSTHESIS, K3 As directed] [right foot prosthesis and liner As directed] zolpidem 10 mg PO BEDTIME PRN 30 days HPI Comments Details: Jerome comes for follow-up. He did not underwent a stress test for unclear reasons. Said he was never called. Echocardiogram shows further worsening of LVEF of 25-30% with basal inferior inferolateral wall motion abnormalities. He continues to have no symptoms. Takes all his medications. Denies any orthopnea, PND, leg edema. No worsening shortness of breath. No fatigue, tiredness, lightheadedness. No chest pain. No prolonged palpitation irregular heartbeat. Takes all his medications. [facility] Medical History Depression Insomnia Erectile dysfunction Exposure to COVID-19 virus Obesity (BMI 30-39.9) Anxiety GERD (gastroesophageal reflux disease) Neuropathy Gastroparesis Asthma Pure hypercholesterolemia Benign essential hypertension Coronary artery disease Diabetes mellitus Epilepsy Meningioma Surgical History Hx of carpal tunnel repair Hx of elbow surgery Hx of right BKA Right foot amputee History of femoropopliteal bypass S/P CABG x 3 Family History Father Diabetes Mother Diabetes Social History Housing: House Alcohol intake: never Patient Tobacco Use Status: Former Tobacco user e-Cigarette/Vaping Use: Never Used Second Hand Smoke Exposure: No Substance Use Type: Marijuana service: No Current occupational status: disabled Cognitive needs: No Hearing needs: No Vision needs: No Review of Systems Const Denies chills, Denies fatigue, Denies fever(s), Denies frequent falls, Denies weakness, Denies weight gain and Denies weight loss ENT Denies dizziness Card Denies chest pain, Denies leg edema, Denies lightheadedness, Denies palpitations, Denies dyspnea, Denies dyspnea on exertion, Denies orthopnea and Denies other (loss of consciousness) Resp Denies cough, Denies dyspnea and Denies dyspnea on exertion GI Denies hematochezia and Denies change in stool character Musc Denies abnormal gait, Denies muscle weakness, Denies numbness, Denies radiating pain into limb and Denies tingling Neuro Denies abnormal gait, Denies dizziness, Denies frequent falls, Denies numbness, Denies tingling and Denies weakness Endo Denies fatigue and Denies palpitations Physical Exam Vital Signs: Last Vital Signs Pulse 60 08/24/24 13:51 BP 130/80 08/24/24 13:51 BMI result Body Mass Index 24.2 Const General: cooperative, comfortable, no acute distress, alert and awake Nutritional Appearance: thin Orientation/consciousness: patient oriented x3 Neck Neck: Yes trachea midline, Yes supple and Yes no JVD Resp Effort & Inspection: normal respiratory effort Auscultation: clear to auscultation bilaterally, no crackles, no rales, no rhonchi and no wheezes Cardio Jugular venous distension: no JVD Palpation: abnormal PMI displaced PMI Rate: regular rate Rhythm: regular rhythm (Clinically sounding like ventricular bigeminy) Heart sounds: S1 normal heart sound present, S2 normal heart sound present, no click, no gallops, no murmurs and no rubs Neuro General: patient oriented x3 Extrem Other: Right BKA with prosthetic device in use Psych Appearance: grossly normal Mental Status: mental status grossly normal Speech and movement: Normal speech and movement present Assessment & Plan Assessment & Plan (1) Ischemic cardiomyopathy: Code(s): I25.5 - Ischemic cardiomyopathy Category: Medical Plan: Severe ischemic cardiomyopathy question related to graft closure. Was with him about the need for stress test or some follow up evaluation to see if he was progressive CAD/graft closure. He was rather pursue more invasive testing. Recommend to undergo cardiac catheterization to evaluate for coronary and graft anatomy. Discussed risks, benefits, alternatives including risk of contrast induced nephropathy. Will switch his losartan to Entresto for better cardiovascular outcomes data. Also continue neurohormonal modulation with metoprolol. Signs and symptoms of heart failure were discussed. Further treatment based finding of the cardiac catheterization. Expect most likely venous graft closure to circumflex and RCA territory. He will probably then need viability testing for further treatment options although treatment options are limited given he might need redo bypass surgery. If potentially be treated with percutaneous means could be an option. If he was no viable myocardium that can be revascularized would suggest was likely defibrillator placement for primary prevention of sudden cardiac that. Follow-up blood work next week on Entresto therapy. Orders: Orders Cardiac Cath LT w PCI 2 Weeks I25.5 - Ischemic cardiomyopathy Medications: New sacubitril-valsartan 24-26 mg (Entresto) 1 tab PO BID 60 tabs 3RF Discontinued losartan Discontinued Reason: Doctor's Order 50 mg PO DAILY 90 days 90 tabs 1RF Coding Level of Care Code Est Pt Level 4 (40821) Complex EM visit Add On G2211 Diagnoses Ischemic cardiomyopathy I25.5
[2024-08-24 13:51] VITALS: BP 130/80; PULSE 60; BMI 24.2
--- OUTSIDE RECORDS SUMMARY | 2024-08-24 15:19 | XMS_ITS | Clinical Summary ---
Author Organization [facility] Facility Address [address] [place] [address] Care Team Providers Care Flue Cleaner Name Role Phone Erick Kohli MD Primary Care Provider +1- [phone] Allergies Active Allergy Reactions Criticality Noted Date [...] Influenza Vaccine (Season Ended) 2025 03/28/20 16 Pneumococcal Vaccine: 50+ Years Discontinued 6 Insurance Care Teams Flue Cleaner Relationship Specialty Start Date End Date Erick Kohli MD [address] [place] [address] PCP - General 05/23/20
== END 2024-08-24 14:40 | disposition home or self-care (01) ==
PROVIDERS: PCP Internal Medicine; Visit Provider Internal Medicine Cardiovascular Disease
DX: I25.5 Ischemic cardiomyopathy (principal)
CPT/HCPCS: 99214; G2211

== ENCOUNTER → 2024-08-24 13:19 | Outpatient (BNVA) | payer OTHER, SELFPAY | PROVIDERS: PCP Internal Medicine; Visit Provider Internal Medicine Cardiovascular Disease | DX: I25.5 Ischemic cardiomyopathy (principal) | CPT/HCPCS: 99212 ==

== ENCOUNTER 2024-08-25 06:35 | Outpatient (REF) | payer OTHER, SELFPAY ==
--- NOTE | ~2024-08-25 | FL_ITS ---
EXAMINATION: FL GUIDANCE ONLY HISTORY: M53.3 - Sacrococcygeal disorders, not elsewhere classified COMPARISON: None available. TECHNIQUE: Fluoroscopy time: Less than 1 minute. Cumulative Dose: 1.05 mGy. DAP: 0.172 mGym2 Images: 2. FINDINGS: Images demonstrate a needle and contrast material in the region of the right sacroiliac joint. FL/FL guidance in treatment room IMPRESSION: Fluoroscopy during procedure. Please see procedure report for additional information. Electronically signed by: Ranjit Gallagher MD 08/26/2024 07:07 AM EDT
--- OUTSIDE RECORDS SUMMARY | 2024-08-25 06:37 | XMS_ITS | Clinical Summary ---
Author Organization [facility] Facility Address [address] [place] [address] Care Team Providers Care Radiator Specialist Name Role Phone Erick Kohli MD Primary Care Provider +1- [phone] Allergies Active Allergy Reactions Criticality Noted Date [...] 50+ Years Discontinued 6 Insurance Care Teams Radiator Specialist Relationship Specialty Start Date End Date Erick Kohli MD [address] [place] [address] PCP - General 05/23/20
== END 2024-08-25 06:36 | disposition home or self-care (01) ==
LOC: CF 06:35
PROVIDERS: Visit Provider Anesthesiology
DX: M53.3 Sacrococcygeal disorders, not elsewhere classified (principal)
CPT/HCPCS: 27096; J2003; J2795; Q9967

== ENCOUNTER 2024-08-25 13:51 | Outpatient (AMB) | payer OTHER, SELFPAY ==
[2024-08-25 13:58] VITALS: BP 120/77; PULSE 75; RESP 16; O2SAT 100
--- NOTE | 2024-08-25 13:58 | MHC.OFFVIS ---
Vital Signs 08/25/24 13:58 08/25/24 14:16 BP 120/77 118/70 Blood Pressure Location Lt brachial Lt brachial Position Sitting Sitting Respiration 16 16 Pulse 75 84 Pulse Source Pulse Oximeter Pulse Oximeter Pulse Oximetry (%) 100 100 Oxygen Delivery Method Room Air Room Air Intake Visit Reasons: RIGHT THERAPEUTIC SIJ INJECTION Supervisor Inspection Department Required: No Allergies fish derived [FISH] Allergy (Unknown, Verified 08/25/24 13:58) HIVES metoclopramide [From REGLAN] Allergy (Unknown, Verified 08/25/24 13:58) UNKNOWN pork derived (porcine) [PORK DERIVED (PORCINE)] Allergy (Unknown, Verified 08/25/24 13:58) HIVES Medication List - Last Reconciled 08/25/24 by Shannan Peña LPN ammonium lactate 12% appl topical BID atorvastatin 80 mg PO DAILY 90 days blood sugar diagnostic (FreeStyle Lite Strips) As directed blood sugar diagnostic As directed blood-glucose meter (FreeStyle Lite Meter kit) Test 4 times daily blood-glucose sensor (Dexcom G6 Sensor device) As directed blood-glucose transmitter (Dexcom G6 Transmitter device) As directed blood-glucose,filament tester,cont (Dexcom G6 Drug Safety Specialist) As directed clopidogrel 75 mg PO DAILY 90 days [DIABETIC SHOES (1 pair) As directed] gabapentin 300 mg PO TID 90 days insulin glargine (Lantus Solostar U-100 Insulin) 24 units (0.24 mL) subcut QPM 30 days lidocaine 5% 1 patch topical DAILY PRN [id number] 36,000-114,000- 180,000 unit (Creon) 2 caps PO TID 30 days metoprolol succinate ER 100 mg PO DAILY 90 days miscellaneous medical supply As directed- To use daily-- Diabetic Shoes mometasone 0.1% 1 appl topical DAILY PRN oxycodone-acetaminophen 5-325 mg (Percocet) 1 tab PO Q8H PRN 7 days pantoprazole 40 mg PO DAILY [RIGHT BELOW KNEE PERMANENT PROSTHESIS, K3 As directed] [right foot prosthesis and liner As directed] sacubitril-valsartan 24-26 mg (Entresto) 1 tab PO BID zolpidem 10 mg PO BEDTIME PRN 30 days PFSH Medical History Depression Insomnia Erectile dysfunction Exposure to COVID-19 virus Obesity (BMI 30-39.9) Anxiety GERD (gastroesophageal reflux disease) Neuropathy Gastroparesis Asthma Pure hypercholesterolemia Benign essential hypertension Coronary artery disease Diabetes mellitus Epilepsy Meningioma Surgical History Hx of carpal tunnel repair Hx of elbow surgery Hx of right BKA Right foot amputee History of femoropopliteal bypass S/P CABG x 3 Family History Father Diabetes Mother Diabetes Social History Housing: House Alcohol intake: never Patient Tobacco Use Status: Former Tobacco user e-Cigarette/Vaping Use: Never Used Second Hand Smoke Exposure: No Substance Use Type: Marijuana service: No Current occupational status: disabled Cognitive needs: No Hearing needs: No Vision needs: No Physical Exam Vital Signs: Last Vital Signs Pulse 84 08/25/24 14:16 Resp 16 08/25/24 14:16 BP 118/70 08/25/24 14:16 Pulse Ox 100 08/25/24 14:16 Oxygen Delivery Method Room Air 08/25/24 14:16 Assessment & Plan Assessment & Plan (1) Sacroiliac joint pain: Code(s): M53.3 - Sacrococcygeal disorders, not elsewhere classified Category: Medical Plan Right sacroiliac joint injection therapeutic. Informed consent was thoroughly explained to the patient before the procedure.? The patient came to the operating room.? He was positioned prone on operating table with a pillow under his abdomen.? Time-out was performed delineating correct site and side of the procedure, nature of the injection, name and date of of the patient. The lower back and upper buttocks of the patient was prepped with ChloraPrep and draped with sterile utility towels.? C-arm was brought over the operating field and picture of right sacroiliac joint was demonstrated on the screen. Tilting machine contralateral left 15 degrees from the midline the anterior portion of the silhouette of the joint was superimposed on posterior portion of the silhouette of the joint. The skin was anesthetized with mixture of ropivacaine 0.5% and lidocaine 2% one-to-one slightly medial to the silhouette of the sacroiliac joint. 22 gauge 3-1/2 inch spinal needle was inserted through the skin wheal and advanced to the sacroiliac joint. When tip of the needle entered the sacroiliac joint injection of the contrast performed delineating arthrogram. After that 4 cc of ropivacaine mixed with kenalog 40 mg was injected into the joint. Upon completion of the injection needle was removed and sterile bandades were applied Patient tolerated the procedure well. Orders: Orders FL guidance in treatment room Today M53.3 - Sacrococcygeal disorders, not elsewhere classified Coding Level of Care Code Procedure Only Diagnoses Sacroiliac joint pain M53.3
[2024-08-25 14:16] VITALS: BP 118/70; PULSE 84; RESP 16; O2SAT 100
--- OUTSIDE RECORDS SUMMARY | 2024-08-25 17:03 | XMS_ITS | Clinical Summary ---
Author Organization [facility] Facility Address [address] [place] [address] Care Team Providers Care Change Management Consultant Name Role Phone Erick Kohli MD Primary Care Provider +1- [phone] Allergies Active Allergy Reactions Criticality Noted Date [...] 50+ Years Discontinued 6 Insurance Care Teams Change Management Consultant Relationship Specialty Start Date End Date Erick Kohli MD [address] [place] [address] PCP - General 05/23/20
== END 2024-08-25 14:15 | disposition home or self-care (01) ==
LOC: HO.PMCPRC 13:51
PROVIDERS: PCP Internal Medicine; Visit Provider Anesthesiology
DX: M53.3 Sacrococcygeal disorders, not elsewhere classified (principal)
CPT/HCPCS: 27096

== ENCOUNTER 2024-09-09 13:11 | Outpatient (AMB) | payer OTHER, SELFPAY ==
--- NOTE | 2024-09-09 13:19 | MHC.OFFVIS ---
Vital Signs 09/09/24 13:20 Height 6 ft Weight 178 lb BMI 24.1 BP 98/60 Blood Pressure Location Lt brachial Position Sitting Respiration 16 Pulse 74 Pulse Source Pulse Oximeter Pulse Oximetry (%) 100 Oxygen Delivery Method Room Air Intake Visit Reasons: RIGHT THERAPEUTIC SIJ INJECTION Food And Beverage Service Manager Required: No Allergies fish derived [FISH] Allergy (Unknown, Verified 09/09/24 13:24) HIVES metoclopramide [From REGLAN] Allergy (Unknown, Verified 09/09/24 13:24) UNKNOWN pork derived (porcine) [PORK DERIVED (PORCINE)] Allergy (Unknown, Verified 09/09/24 13:24) HIVES Medication List - Last Reconciled 09/09/24 by Shannan Peña LPN ammonium lactate 12% appl topical BID atorvastatin 80 mg PO DAILY 90 days blood sugar diagnostic (FreeStyle Lite Strips) As directed blood sugar diagnostic As directed blood-glucose meter (FreeStyle Lite Meter kit) Test 4 times daily blood-glucose sensor (DexMint G6 Sensor device) As directed blood-glucose transmitter (Dexcom G6 Transmitter device) As directed blood-glucose,electronic funds transfer coordinator,cont (Dexcom G6 Toll Ticket Clerk) As directed clopidogrel 75 mg PO DAILY 90 days [DIABETIC SHOES (1 pair) As directed] gabapentin 300 mg PO TID 90 days insulin glargine (Lantus Solostar U-100 Insulin) 24 units (0.24 mL) subcut QPM 30 days lidocaine 5% 1 patch topical DAILY PRN [id number] 36,000-114,000- 180,000 unit (Creon) 2 caps PO TID 30 days metoprolol succinate ER 100 mg PO DAILY 90 days miscellaneous medical supply As directed- To use daily-- Diabetic Shoes mometasone 0.1% 1 appl topical DAILY PRN [RIGHT BELOW KNEE PERMANENT PROSTHESIS, K3 As directed] [right foot prosthesis and liner As directed] sacubitril-valsartan 24-26 mg (Entresto) 1 tab PO BID HPI Comments Details: The patient is a 49-year-old male presenting with for follow up, 2 weeks s/p right therapeutic SIJ injection. He reported achieving complete pain relief with the injection, leading to enhanced movement and increased activity levels. Currently, he denies any presence of pain and reports no adverse effects from treatments such as injections previously administered. Should the pain return, he is open to exploring further intervention like radiofrequency ablation, aimed at targeting and alleviating nerve-related pain symptoms. - Achieved 100% pain relief currently. - Reports no pain at present. - Previous pain interfered with movement and activity, which has now improved. - Open to radiofrequency ablation if pain recurs. - Affect: No impact on mood or psychological wellbeing reported. - Analgesia: No current pain, achieved 100% pain relief; previous interventions successful. - Adverse Effects: Denies any adverse effects from previous pain management treatments. - Activities of Daily Living: Reports improved movement and increased activity levels due to pain relief. - Aberrant Drug Related Behaviors: No reported behaviors indicative of medication misuse or abuse. [facility] Medical History Depression Insomnia Erectile dysfunction Exposure to COVID-19 virus Obesity (BMI 30-39.9) Anxiety GERD (gastroesophageal reflux disease) Neuropathy Gastroparesis Asthma Pure hypercholesterolemia Benign essential hypertension Coronary artery disease Diabetes mellitus Epilepsy Meningioma Surgical History Hx of carpal tunnel repair Hx of elbow surgery Hx of right BKA Right foot amputee History of femoropopliteal bypass S/P CABG x 3 Family History Father Diabetes Mother Diabetes Social History Housing: House Alcohol intake: never Patient Tobacco Use Status: Former Tobacco user e-Cigarette/Vaping Use: Never Used Second Hand Smoke Exposure: No Substance Use Type: Marijuana service: No Current occupational status: disabled Cognitive needs: No Hearing needs: No Vision needs: No Review of Systems Const Details: - Musculoskeletal: Denies current pain. - Neurological: Reports 100% relief from nerve-related pain. Physical Exam Vital Signs: Last Vital Signs Pulse 74 09/09/24 13:20 Resp 16 09/09/24 13:20 BP 98/60 09/09/24 13:20 Pulse Ox 100 09/09/24 13:20 Oxygen Delivery Method Room Air 09/09/24 13:20 BMI result Body Mass Index 24.1 General: awake, alert, oriented. Answers questions appropriately. Fully engaged in examination. Skin: warm, dry, intact HEENT: Normocephalic. Hearing intact. Cardiac: External chest normal in appearance. Respiratory: No cough, audible wheezing or stridor. Abdomen: without gross distension. MS: Prosthesis Right Foot. Neurological: Oriented to person, place, time and situation. Thought process intact. Psychiatric: Appropriate mood and affect. Good judgment and insight. Results Reviewed Results Reviewed: Assessment & Plan Assessment & Plan (1) Myofascial low back pain: Code(s): M54.50 - Low back pain, unspecified Category: Medical (2) Lumbar degenerative disc disease: Code(s): M51.36 - Other intervertebral disc degeneration, lumbar region Category: Medical Qualifiers: Disc-related pain type: discogenic back pain and lower extremity pain Qualified Code(s): M51.362 - Other intervertebral disc degeneration, lumbar region with discogenic back pain and lower extremity pain (3) Lumbar facet arthropathy: Code(s): M47.816 - Spondylosis without myelopathy or radiculopathy, lumbar region Category: Medical (4) Sacroiliac joint pain: Code(s): M53.3 - Sacrococcygeal disorders, not elsewhere classified Category: Medical Plan The patient's chronic pain is currently well-managed, with reported 100% relief. Future management will consider radiofrequency ablation if pain symptoms recur, and the patient is advised to return for reevaluation should this happen, to discuss further interventions. No immediate changes to his current management plan are required given the absence of pain. I discussed with the patient the successful outcomes of his previous pain management, resulting in complete pain relief. We reviewed the option of radiofrequency ablation as a potential future treatment if the pain reoccurs, including its benefits in alleviating nerve-related pain. I advised him to return for follow-up care if symptoms return for reevaluation and potential intervention. The importance of monitoring for any changes in his condition was stressed. Patient was informed and verbally consented to the use of an ambient scribe for clinic note documentation during this visit. Patient Instructions: - Return to the office if pain symptoms reoccur. - Monitor pain levels and report any changes. - Contact the office if you have any questions or need assistance. - Enjoy increased activity and mobility due to current pain relief. Coding Level of Care Code Est Pt Level 3 (90827) Complex EM visit Add On G2211 Diagnoses Myofascial low back pain M54.50 Degeneration of intervertebral disc of lumbar region with discogenic back pain and lower extremity pain M51.362 Disc-related pain type: discogenic back pain and lower extremity pain Lumbar facet arthropathy M47.816 Sacroiliac joint pain M53.3
[2024-09-09 13:20] VITALS: BP 98/60; PULSE 74; RESP 16; O2SAT 100; BMI 24.1
--- OUTSIDE RECORDS SUMMARY | 2024-09-09 14:31 | XMS_ITS | Clinical Summary ---
Author Organization [facility] Facility Address [address] [place] [address] Care Team Providers Care Global Mobility Specialist Name Role Phone Erick Kohli MD Primary Care Provider +1- [phone] Allergies Active Allergy Reactions Criticality Noted Date [...] 50+ Years Discontinued 6 Insurance Care Teams Global Mobility Specialist Relationship Specialty Start Date End Date Erick Kohli MD [address] [place] [address] PCP - General 05/23/20
== END 2024-09-09 13:32 | disposition home or self-care (01) ==
LOC: HO.PMC 13:11
PROVIDERS: PCP Internal Medicine; Visit Provider Registered Nurse Emergency
DX: M54.50 Low back pain, unspecified (principal); M51.362 Other intervertebral disc degeneration, lumbar region with discogenic back pain and lower extremity pain; M47.816 Spondylosis without myelopathy or radiculopathy, lumbar region; M53.3 Sacrococcygeal disorders, not elsewhere classified
CPT/HCPCS: 99213; G2211

== ENCOUNTER → 2024-09-09 13:11 | Outpatient (BNVA) | payer OTHER, SELFPAY | PROVIDERS: PCP Internal Medicine; Visit Provider Registered Nurse Emergency | DX: M54.50 Low back pain, unspecified (principal); M51.362 Other intervertebral disc degeneration, lumbar region with discogenic back pain and lower extremity pain; M47.816 Spondylosis without myelopathy or radiculopathy, lumbar region; M53.3 Sacrococcygeal disorders, not elsewhere classified | CPT/HCPCS: 99212 ==

== ENCOUNTER 2024-09-15 10:23 | Outpatient (REF) | payer OTHER, SELFPAY ==
[2024-09-15 10:40] LABS: MANUAL DIFF FLAG NO
[2024-09-15 11:29] LABS: Hematocrit 37.8 % (42.0-52.0); Hemoglobin 12.7 g/dl (14.0-18.0); Mean Corpuscular HGB Conc 33.6 g/dl (31.0-36.0); Mean Corpuscular Hemoglobin 30.5 pg (27.0-33.0); Mean Corpuscular Volume 90.6 fL (80.0-98.0); Mean Platelet Volume 9.3 fL (9.4-12.4); Platelet Count 319 X10*3/uL (160-400); Red Blood Count 4.17 X10*6/uL (4.60-5.80); Red Cell Distribution Width 13.7 % (11.0-16.0); White Blood Count 8.7 X10*3/uL (4.8-10.8)
[2024-09-15 11:31] LABS: Basophils Absolute Auto 0.1 X10*3/uL (0.0-0.2); Basophils Percent Auto 0.8 % (0-2); Eosinophils Absolute Auto 0.2 X10*3/uL (0.0-0.4); Eosinophils Percent Auto 2.2 % (0-4); Hematocrit 37.9 % (42.0-52.0); Hemoglobin 12.9 g/dl (14.0-18.0); Imm Gran Abs Auto 0.04 X10*3/uL (0.00-0.03); Imm Gran Pct Auto 0.5 % (0.0-0.4); Lymphocytes Absolute Auto 2.5 X10*3/uL (1.2-4.9); Lymphocytes Percent Auto 29.8 % (20-40); Mean Corpuscular Hemoglobin 30.4 pg (27.0-33.0); Mean Corpuscular Volume 89.2 fL (80.0-98.0); Monocytes Absolute Auto 0.5 X10*3/uL (0.1-1.2); Monocytes Percent Auto 5.6 % (2-11); Neutrophils Absolute Auto 5.2 x10*3/uL (2.0-8.3); Neutrophils Percent Auto 61.1 % (45-73); Platelet Count 335 X10*3/uL (160-400); Red Blood Count 4.25 X10*6/uL (4.60-5.80); Red Cell Distribution Width 13.9 % (11.0-16.0); White Blood Count 8.5 X10*3/uL (4.8-10.8)
[2024-09-15 11:45] LABS: Appearance Urine Clear; Color Urine Yellow; Glucose Urine UA Negative (Negative); Leukocyte Esterase Urine Negative (Negative); Nitrite Urine Negative (Negative); PH 5.5 (5.0-9.0); Specific Gravity - Urine 1.015 (1.005-1.025); UMIC TRIGGER UACC YES; Urine Blood Trace (Negative); Urine Ketones Negative (Negative); Urine Protein 100 (2+) mg/dL (Neg-Trace)
[2024-09-15 11:48] LABS: Bacteria Urine None Seen (None Seen); Hyaline Casts Urine 0-2 /LPF (0-2); RBC Urine 0-2 /HPF (0-2); WBC Urine 0-5 /HPF (0-5)
[2024-09-15 11:50] LABS: Estimated Average Glucose 126 mg/dL; Hemoglobin A1C 140.1828 umol/L; Total Hemoglobin (HGBA1C) 3327.6723 umol/L
--- OUTSIDE RECORDS SUMMARY | 2024-09-15 11:54 | XMS_ITS | Clinical Summary ---
Author Organization [facility] Facility Address [address] [place] [address] Care Team Providers Care Acoustical Engineer Name Role Phone Erick Kohli MD Primary Care Provider +1- [phone] Allergies Active Allergy Reactions Criticality Noted Date [...] 50+ Years Discontinued 6 Insurance Care Teams Acoustical Engineer Relationship Specialty Start Date End Date Erick Kohli MD [address] [place] [address] PCP - General 05/23/20
[2024-09-15 12:11] LABS: Cholesterol 91 mg/dL (<200); HDL Cholesterol 31 mg/dL (>40); LDL Cholesterol Calculated 49 mg/dL (<100); Triglycerides 55 mg/dL (<150)
[2024-09-15 12:21] LABS: Creatinine Urine 105.63 mg/dL
[2024-09-15 12:37] LABS: Folate 5.6 ng/mL (> or = 4.0); Vitamin B12 332 pg/mL (200-900)
[2024-09-15 12:46] LABS: Microalbum/Creatinine Ratio Ur 476.1 ug/mg cr (<30)
[2024-09-15 18:24] LABS: Alanine Aminotransferase 34 U/L (0-40); Albumin Level 3.6 g/dL (3.5-5.0); Alkaline Phosphatase 97 U/L (39-117); Anion Gap 11 (12-20); Aspartate Amino Transferase 30 U/L (5-37); Bilirubin Total 0.3 mg/dL (0.0-1.0); Blood Urea Nitrogen 19 mg/dL (9-16); Calcium 8.5 mg/dL (8.4-10.2); Carbon Dioxide 25 mmol/L (22-29); Chloride 105 mmol/L (96-108); Cholesterol 94 mg/dL (<200); Estimated Glomerular Filt Rate 53; Glucose Fasting 138 mg/dL (60-99); Glucose Random 137 mg/dL (60-115); HDL Cholesterol 32 mg/dL (>40); LDL Cholesterol Calculated 51 mg/dL (<100); Potassium 3.9 mmol/L (3.3-5.1); Sodium 137 mmol/L (135-145); TSH reflex Free T4 1.72 uIU/mL (0.32-4.0); Total Protein 6.7 g/dL (6.5-8.0); Triglycerides 56 mg/dL (<150); Vitamin D 25-OH Total 6.9 ng/mL (>30)
== END 2024-09-15 10:24 | disposition home or self-care (01) ==
LOC: HO.LAB 10:23
PROVIDERS: PCP Internal Medicine; Visit Provider Internal Medicine Cardiovascular Disease
DX: I25.10 Atherosclerotic heart disease of native coronary artery without angina pectoris (principal); D64.9 Anemia, unspecified; E78.00 Pure hypercholesterolemia, unspecified; E11.9 Type 2 diabetes mellitus without complications; E55.9 Vitamin D deficiency, unspecified; E53.8 Deficiency of other specified B group vitamins
CPT/HCPCS: 36415; 80048; 80053; 80061; 81001; 82043; 82306; 82570; 82607; 82746; 83036; 84443; 85025; 85027

== ENCOUNTER → 2024-09-17 23:59 | Outpatient (BNV) | payer OTHER, SELFPAY | PROVIDERS: PCP Internal Medicine; Visit Provider Internal Medicine Cardiovascular Disease | DX: I50.22 Chronic systolic (congestive) heart failure (principal) | CPT/HCPCS: 93459; 99152 ==

== ENCOUNTER 2024-10-01 14:16 | Outpatient (AMB) | payer OTHER, SELFPAY ==
--- OUTSIDE RECORDS SUMMARY | 2024-10-01 14:24 | XMS_ITS | Clinical Summary ---
Author Organization [facility] Facility Address [address] [place] [address] Care Team Providers Care Heating Equipment Installer Name Role Phone Erick Kohli MD Primary Care Provider +1- [phone] Allergies Active Allergy Reactions Criticality Noted Date [...] 50+ Years Discontinued 6 Insurance Care Teams Heating Equipment Installer Relationship Specialty Start Date End Date Erick Kohli MD [address] [place] [address] PCP - General 05/23/20
--- NOTE | 2024-10-01 14:55 | A.OFFVIS_ITS ---
Vital Signs 10/01/24 14:56 Height 6 ft Weight 203 lb 4.259 oz BMI 27.6 BP 130/60 Blood Pressure Location Lt brachial Position Sitting Pulse 72 Pulse Source Pulse Oximeter Intake Visit Reasons: 2 wk s/p cath Intake Note: 2wk s/p cath Leaf Conditioner Required: No Accompanied by: Self / Same As Patient Allergies fish derived [FISH] Allergy (Unknown, Verified 09/09/24 13:24) HIVES metoclopramide [From REGLAN] Allergy (Unknown, Verified 09/09/24 13:24) UNKNOWN pork derived (porcine) [PORK DERIVED (PORCINE)] Allergy (Unknown, Verified 09/09/24 13:24) HIVES Medication List - Last Reconciled 10/01/24 by Kameron Zepeda NP ammonium lactate 12% appl topical BID atorvastatin 80 mg PO DAILY 90 days blood sugar diagnostic (FreeStyle Lite Strips) As directed blood sugar diagnostic As directed blood-glucose meter (FreeStyle Lite Meter kit) Test 4 times daily blood-glucose sensor (Dexcom G6 Sensor device) As directed blood-glucose transmitter (Dexcom G6 Transmitter device) As directed blood-glucose,network operations specialist,cont (Dexcom G6 Magnetic Observer) As directed clopidogrel 75 mg PO DAILY 90 days [DIABETIC SHOES (1 pair) As directed] gabapentin 300 mg PO TID 90 days insulin glargine (Lantus Solostar U-100 Insulin) 24 units (0.24 mL) subcut QPM 30 days lidocaine 5% 1 patch topical DAILY PRN rzhgdb-[id number]-[id number] 36,000-114,000- 180,000 unit (Creon) 2 caps PO TID 30 days metoprolol succinate ER 100 mg PO DAILY 90 days miscellaneous medical supply As directed- To use daily-- Diabetic Shoes mometasone 0.1% 1 appl topical DAILY PRN [RIGHT BELOW KNEE PERMANENT PROSTHESIS, K3 As directed] [right foot prosthesis and liner As directed] sacubitril-valsartan 24-26 mg (Entresto) 1 tab PO BID HPI Comments Details: This is a 49-year-old male patient coming in for a follow-up visit. Patient with a history of hypertension, hyperlipidemia, diabetes, coronary artery disease status post coronary artery bypass grafting who had a recent echocardiogram that showed cardiomyopathy with an EF between 25-30% with basal inferior inferolateral wall motion abnormalities. Patient subsequently underwent a cardiac catheterization on 09/17/[address] Schwartz at [facility]. Today, patient reports feeling well overall and denies any cardiac symptoms including exertional chest pain, shortness of breath, palpitations, dizziness, orthopnea, PND, leg edema, presyncope, or syncope. Patient states he is compliant with all his medications. [facility] Medical History (Updated 10/01/24 @ 16:40 by Kaemron Zepeda NP) Cardiomyopathy Depression Insomnia Erectile dysfunction Exposure to COVID-19 virus Obesity (BMI 30-39.9) Anxiety GERD (gastroesophageal reflux disease) Neuropathy Gastroparesis Asthma Pure hypercholesterolemia Benign essential hypertension Coronary artery disease Diabetes mellitus Epilepsy Meningioma Surgical History (Updated 10/01/24 @ 16:40 by Kameron Zepeda NP) S/P cardiac cath Hx of carpal tunnel repair Hx of elbow surgery Hx of right BKA Right foot amputee History of femoropopliteal bypass S/P CABG x 3 Family History Father Diabetes Mother Diabetes Social History Housing: House Alcohol intake: never Patient Tobacco Use Status: Former Tobacco user e-Cigarette/Vaping Use: Never Used Second Hand Smoke Exposure: No Substance Use Type: Marijuana service: No Current occupational status: disabled Cognitive needs: No Hearing needs: No Vision needs: No Review of Systems Const Denies chills, Denies fatigue, Denies fever(s), Denies frequent falls, Denies weakness, Denies weight gain and Denies weight loss ENT Denies dizziness Card Denies chest pain, Denies leg edema, Denies lightheadedness, Denies palpitations, Denies dyspnea and Denies dyspnea on exertion Resp Denies cough, Denies dyspnea and Denies dyspnea on exertion GI Denies hematochezia Musc Denies abnormal gait, Denies muscle weakness, Denies numbness, Denies radiating pain into limb and Denies tingling Neuro Denies abnormal gait, Denies dizziness, Denies frequent falls, Denies numbness, Denies tingling and Denies weakness Endo Denies fatigue and Denies palpitations Physical Exam Vital Signs: Last Vital Signs Pulse 72 10/01/24 14:56 BP 130/60 10/01/24 14:56 BMI result Body Mass Index 27.6 Assessment & Plan Assessment & Plan (1) Cardiomyopathy: Code(s): I42.9 - Cardiomyopathy, unspecified Category: Medical Plan: 05/29/2024-echocardiogram showed moderately to severely decreased LV EF between 25-30%, moderately increased LV wall thickness, akinetic basal inferior and basal inferolateral segments. 09/17/2024-patient underwent cardiac catheterization that showed diffuse coronary artery disease and patent bypass grafts. Continues to be asymptomatic. Clinically stable and euvolemic. Continue lifelong Plavix therapy. We will start patient on Jardiance 10 mg daily. Continue Entresto, metoprolol, and high-dose statin therapy. Discussed in detail heart failure signs and symptoms to look for. Advised low-salt diet, daily weight monitoring, 1.5-2 L fluid restriction daily, and med compliance. (2) Status post cardiac catheterization: Code(s): Z98.890 - Other specified postprocedural states Category: Surgical Plan: Right groin insertion site is well healed. As above. (3) Coronary artery disease: Comment: S/P triple vessel bypass Code(s): I25.10 - Atherosclerotic heart disease of [place] coronary artery without angina pectoris Category: Medical Qualifiers: Coronary Disease-Associated Artery/Lesion type: [place] artery [place] vs. transplanted heart: [place] heart Associated angina: without angina Qualified Code(s): I25.10 - Atherosclerotic heart disease of [place] coronary artery without angina pectoris Plan: Most recent LDL at 49. Continue high-dose statin therapy. Ideally, LDL goal less than 70. (4) PVC (premature ventricular contraction): Code(s): I49.3 - Ventricular premature depolarization Category: Medical Plan: Patient seemed to have high burden of PVCs doing cardiac catheterization. Even though asymptomatic, we will check for its burden we are Holter monitor. Further treatment based on findings. (5) Benign essential hypertension: Code(s): I10 - Essential (primary) hypertension Category: Medical Plan: Blood pressure is well-controlled. Continue current regimen. Advised monitoring blood pressures at home with an ideal goal less than 130/80. 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 Ideally, A1c goal less than 7%. Advised heart healthy diet, exercise as tolerated, med compliance, and management of vascular risk factors. Follow-up in 3 months. In the interim, patient will call the office with any concerns or change in symptoms. This note was generated using voice recognition software. While every effort has been made to ensure accuracy and proper varnish finisher, there may be occasional errors that could affect the content or meaning of the described symptoms. Orders: Orders ECG 3 day holter monitor Today I49.3 - Ventricular premature depolarization CA echo transthoracic complete 2 Months I42.9 - Cardiomyopathy, unspecified Medications: New empagliflozin 10 mg PO DAILY 90 tabs 3RF Coding Level of Care Code Est Pt Level 4 (69899) Complex EM visit Add On G2211 Diagnoses Cardiomyopathy I42.9 Status post cardiac catheterization Z98.890 Coronary artery disease involving [place] coronary artery of [place] heart without angina pectoris I25.10 Coronary Disease-Associated Artery/Lesion type: [place] artery [place] vs. transplanted heart: [place] heart Associated angina: without angina PVC (premature ventricular contraction) I49.3 Benign essential hypertension I10 Type 2 diabetes mellitus with diabetic polyneuropathy, with long-term current use of insulin E11.42; Z79.4 Diabetes mellitus type: type 2 Diabetes mellitus termite treater insulin use: with termite treater use Diabetes mellitus complication status: with neurologic complications Diabetes mellitus complication detail: with polyneuropathy Time Spent (min) 32 Comment Time spent in reviewing the chart, test results, assessment, counseling and documentation.
[2024-10-01 14:56] VITALS: BP 130/60; PULSE 72; BMI 27.6
== END 2024-10-01 15:24 | disposition home or self-care (01) ==
LOC: HO.HCS 14:17
PROVIDERS: PCP Internal Medicine
DX: I42.9 Cardiomyopathy, unspecified (principal); Z98.890 Other specified postprocedural states; I25.10 Atherosclerotic heart disease of native coronary artery without angina pectoris; I49.3 Ventricular premature depolarization; I10 Essential (primary) hypertension; E11.42 Type 2 diabetes mellitus with diabetic polyneuropathy; Z79.4 Long term (current) use of insulin
CPT/HCPCS: 99214; G2211

== ENCOUNTER → 2024-10-01 14:16 | Outpatient (BNVA) | payer OTHER, SELFPAY | PROVIDERS: PCP Internal Medicine | DX: E11.42 Type 2 diabetes mellitus with diabetic polyneuropathy (principal); I10 Essential (primary) hypertension; E78.5 Hyperlipidemia, unspecified; I25.10 Atherosclerotic heart disease of native coronary artery without angina pectoris; I42.9 Cardiomyopathy, unspecified; I49.3 Ventricular premature depolarization; Z95.1 Presence of aortocoronary bypass graft; Z98.890 Other specified postprocedural states; Z79.4 Long term (current) use of insulin | CPT/HCPCS: 99212 ==

== ENCOUNTER 2024-11-24 16:14 | Outpatient (AMB) | payer OTHER, SELFPAY ==
[2024-11-24 16:20] VITALS: BP 110/60; PULSE 87; O2SAT 96; BMI 25.8
--- NOTE | 2024-11-24 16:20 | A.OFFPC_ITS ---
Vital Signs 11/24/24 16:20 Height 6 ft Weight 190 lb BMI 25.8 BP 110/60 Blood Pressure Location Lt brachial Position Sitting Pulse 87 Pulse Source Pulse Oximeter Pulse Oximetry (%) 96 Oxygen Delivery Method Room Air Intake Visit Reasons: [facility] discharge f/u 11/13/24 Construction Code Administrator Required: No Accompanied by: Self / Same As Patient Allergies fish derived (FISH) Allergy (Unknown, Verified 11/24/24 16:46) HIVES metoclopramide (From REGLAN) Allergy (Unknown, Verified 11/24/24 16:46) UNKNOWN pork derived (porcine) (PORK DERIVED (PORCINE)) Allergy (Unknown, Verified 11/24/24 16:46) HIVES Medication List - Last Reconciled 11/24/24 by Erick Kohli MD ammonium lactate 12% appl topical BID atorvastatin 80 mg PO DAILY 90 days blood sugar diagnostic (FreeStyle Lite Strips) As directed blood sugar diagnostic As directed blood-glucose meter (FreeStyle Lite Meter kit) Test 4 times daily blood-glucose sensor (Capitol Bells G6 Sensor device) As directed blood-glucose transmitter (Dexcom G6 Transmitter device) As directed blood-glucose,receiver stocker,cont (Dexcom G6 Patch Washer) As directed clopidogrel 75 mg PO DAILY 90 days [DIABETIC SHOES (1 pair) As directed] empagliflozin 10 mg PO DAILY gabapentin 300 mg PO TID 90 days insulin glargine (Lantus Solostar U-100 Insulin) 24 units (0.24 mL) subcut QPM 3 0 days lidocaine 5% 1 patch topical DAILY PRN luxgeo-fulgvvdg-muimmdr 36,000-114,000- 180,000 unit (Creon) 2 caps PO TID 30 days metoprolol succinate ER 50 mg (1/2 x 100 mg) PO DAILY 90 days miscellaneous medical supply As directed- To use daily-- Diabetic Shoes mometasone 0.1% 1 appl topical DAILY PRN [RIGHT BELOW KNEE PERMANENT PROSTHESIS, K3 As directed] [right foot prosthesis and liner As directed] [RT BK SOCKET REPLACEMENT As directed] sacubitril-valsartan 24-26 mg (Entresto) 1 tab PO BID Tobacco use date assessed: 11/24/24 Dental Screening Dental Screen Date: 11/24/24 Did you have a dental visit in the last 12 months?: No Did you have a dental problem in the last 6 months where you did not have access to dental care?: No Was dental information given to patient?: No HPI [facility] discharge f/u 11/13/24 HPI Details Patient comes in today for his HDF follow up visit He was admitted to [facility] about a week ago when he presented to the ER with worsening purulent drainage and black discoloration of his left big toe Patient reports that he has had the wound on his left big toe for a while now and he has been trying to manage it on his own and went to the ER when it got a lot worse He was found to have osteomyelitis of the toe and was admitted for further management He successfully underwent amputation of the left 1st toe and metatarsal head on 11/14/2024 Vascular surgery was following up with him and determined the surgical margins were clean He was initially started on IV vancomycin and Zosyn and at the time of discharge was transitioned to Augmentin 875 mg BID and linezolid 600 mg BID, both of which he was instructed to continue on an outpatient basis for 1 more week - to be completed on 11/20/2024 Patient states that he finished all of his prescribed antibiotics but since he was discharged from the hospital, has had no services or visits from nursing with regards to follow-up Per his discharge summary records from [facility], patient was discharged home without services as he refused services, which patient is currently denying States that he was never asked as to whether he wanted to have services or not and felt that he was discharged from the hospital last week in haste States that he is still having some difficulty ambulating because of weakness of his legs as well as poor balance and is requesting at least for some physical therapy to help improve his gait and mobility Patient states that he feels okay otherwise He denies any fever or chills; denies any headaches or dizziness Denies any chest pains, no shortness of breath No nausea/vomiting, no abdominal pain No change in bowel habits noted Adds that he has been breaking out in a recurrent irritated/itchy rash over his inguinal areas bilaterally for a couple of weeks now and would like to get something to help clear these up [facility] Medical History (Updated 11/25/24 @ 05:48 by Erick Kohli MD) Osteomyelitis of great toe of left foot Amputation of toe of left foot Cardiomyopathy Depression Insomnia Erectile dysfunction Exposure to COVID-19 virus Obesity (BMI 30-39.9) Anxiety GERD (gastroesophageal reflux disease) Neuropathy Gastroparesis Asthma Pure hypercholesterolemia Benign essential hypertension Coronary artery disease Diabetes mellitus Epilepsy Meningioma Surgical History S/P cardiac cath Hx of carpal tunnel repair Hx of elbow surgery Hx of right BKA Right foot amputee History of femoropopliteal bypass S/P CABG x 3 Family History Father Diabetes Mother Diabetes Social History Housing: House Alcohol intake: never Patient Tobacco Use Status: Former Tobacco user e-Cigarette/Vaping Use: Never Used Second Hand Smoke Exposure: No Substance Use Type: Marijuana service: No Current occupational status: disabled Current occupational exposures/hazards: No Cognitive needs: No Hearing needs: No Vision needs: No Questionnaire PHQ-9 Over the last 2 weeks, how often have you been bothered by any of the following problems? 1. Little interest or pleasure in doing things: not at all 2. Feeling down, depressed, or hopeless: not at all 3. Trouble falling or staying asleep, or sleeping too much: not at all 4. Feeling tired or having little energy: not at all 5. Poor appetite or overeating: not at all 6. Feeling bad about yourself - or that you are a failure or have let yourself or your family down: not at all 7. Trouble concentrating on things, such as reading the newspaper or watching television: not at all 8. Moving or speaking so slowly that other people could have noticed. Or the opposite - being so fidgety or restless that you have been moving around a lot more than usual: not at all 9. Thoughts that you would be better off or of hurting yourself in some way: not at all Total score: 0 Depression Screening Interpretation: Negative Depression Screening Done: Yes 84227 - PHQ-9 Billing: Yes Source: Developed by Drs. Ranjit Forbes, Nicolasa Proctor, Paulie Verde and colleagues, with an educational roland from [employer]. Thrive Questionnaire Date Thrive assessed: 11/24/24 What is your living situation today?: I have a steady place to live Within the past 12 months, did the food you bought not last and you didn't have the money to get more?: Never true Within the past 12 months, did you worry whether your food would run out before you got money to buy more?: Never true Do you have trouble paying for medicines?: No Do you have trouble getting transportation to medical appointments?: No Do you have trouble paying your heating and electricity bill?: No Do you have trouble taking care of your child, family member or friend?: No Do you have trouble with day-to-day activities such as bathing, preparing meals, shopping, managing finances, etc.?: No Are you currently unemployed and looking for a job?: I choose not to answer this question Are you interested in more education?: No Please select the resources that you would like help with: None Currently or been in a relationship where the following occur: No concerns reported THRIVE Score: 0 AUDIT C Alcohol Use Questionnaire (AUDIT-C) 1. How often do you have a drink containing alcohol?: Never 3. How often do you have six or more drinks on one occasion?: Never Total Score: 0 Score Reviewed/Action Taken: Yes TONY-7 AMB Questionnaire TONY-7 Date TONY - 7 assessed: 11/24/24 Feeling nervous, anxious, or on edge: 0 = Not at all Not being able to stop or control worryin = Not at all Worrying too much about different things: 0 = Not at all Trouble relaxin = Not at all Being so restless that it is hard to sit still: 0 = Not at all Becoming easily annoyed or irritable: 0 = Not at all Feeling afraid as if something awful might happen: 0 = Not at all Total TONY-7 score (0-4 normal; 5-9 mild; 10-14 moderate; 15-21 severe): 0 Source: Developed by Drs. Ranjit Forbes, Nicolasa Proctor, Paulie Verde and colleagues, with an educational roland from [employer]. TONY-7 Assessment Billing TONY-7 Assessment Tool: TONY-7 Assessment 83406 Review of Systems Const Denies chills, Reports difficulty sleeping, Reports fatigue, Denies fever(s) and Denies headache(s) ENT Denies dysphagia, Denies dizziness, Denies otalgia, Denies headache(s), Denies neck pain, Denies odynophagia and Denies sore throat Card Denies chest pain, Denies palpitations and Denies dyspnea Resp Denies chest congestion, Denies cough and Denies dyspnea GI Denies abdominal pain, Reports bloating (usually after eating), Denies co nstipation, Denies dysphagia, Denies heartburn, Denies diarrhea, Reports nausea (on and off), Denies odynophagia and Denies vomiting Denies difficulty urinating, Denies dysuria, Denies nocturia and Denies urinary frequency Musc Reports back pain (over his right lower back), Denies neck pain and Reports radiating pain into limb (into the right hip and thigh) Skin/Breast Details: (+) recurrent irritated/itchy rash over his inguinal areas bilaterally Neuro Denies dizziness and Denies headache(s) Endo Reports fatigue and Denies palpitations Physical exam (Primary Care) Vital Signs: Last Vital Signs Pulse 87 11/24/24 16:20 BP 110/60 11/24/24 16:20 Pulse Ox 96 11/24/24 16:20 Oxygen Delivery Method Room Air 11/24/24 16:20 BMI result Body Mass Index 25.8 Tobacco/Smoking Status: Tobacco use Status Tobacco use date assessed 11/24/24 11/24/24 16:23 Patient Tobacco Use Status Former Tobacco user 11/24/24 16:23 e-Cigarette/Vaping Use Never Used 11/24/24 16:23 PHQ-9: PHQ-9 Score PHQ-9: Total score 0 11/24/24 17:01 Depression Screening Interpretation: Negative Thrive Assessment: Date of Thrive Assessment Date Thrive assessed 11/24/24 11/24/24 16:23 Currently or been in a relationship where the following occur: No concerns reported Const General: no acute distress and alert HENMT Throat: Yes posterior oropharynx normal and Yes tonsils normal (no TP congestion noted) Neck Neck: Yes supple and No lymphadenopathy Thyroid: Thyroid normal Resp Auscultation: clear to auscultation bilaterally, no rales and no wheezes Cardio Rate: regular rate Rhythm: regular rhythm Heart sounds: no murmurs GI Palpation (GI): Soft to palpation and nontender Auscultation: normal bowel sounds Back/Spine/Pelvis Thoracic/Lumbar Spine: paraspinal muscle tenderness on the right in the mid lumbar and in the lower lumbar and lumbar spinal tenderness Skin Other: (+) erythematous patchy rash over the inguinal areas bilaterally Extrem Other: S/P right BKA - has prosthetic lower leg at present left big (first) toe is currently wrapped in bandages General: Yes no clubbing, cyanosis or edema (on the left lower extremity) Coding Level of Care Code Est Pt Level 4 (37650) Diagnoses Amputation of toe of left foot S98.132A Osteomyelitis of great toe of left foot M86.9 Tinea cruris B35.6 Gait instability R26.81 Hx of right BKA Z89.511 Meningioma D32.9 Nonintractable epilepsy without status epilepticus, unspecified epilepsy type G40.909 Epilepsy type: unspecified Intractability: not intractable Status epilepticus: without status epilepticus Degeneration of intervertebral disc of lumbar region with discogenic back pain and lower extremity pain M51.362 Disc-related pain type: discogenic back pain and lower extremity pain Type 2 diabetes mellitus with diabetic polyneuropathy, with long-term current use of insulin E11.42; Z79.4 Diabetes mellitus type: type 2 Diabetes mellitus fci insulin use: with fci use Diabetes mellitus complication status: with neurologic complications Diabetes mellitus complication detail: with polyneuropathy Gastroparesis K31.84 Coronary artery disease involving [place] coronary artery of [place] heart without angina pectoris I25.10 Coronary Disease-Associated Artery/Lesion type: an[place] artery [place] vs. transplanted heart: [place] heart Associated angina: without angina Ischemic cardiomyopathy I25.5 Pure hypercholesterolemia E78.00 Benign essential hypertension I10 Mild intermittent asthma without complication J45.20 Asthma severity: mild Asthma persistence: intermittent Asthma complication type: uncomplicated Neuropathy G62.9 Gastroesophageal reflux disease without esophagitis K21.9 Esophagitis presence: without esophagitis Insomnia, unspecified type G47.00 Insomnia type: unspecified Anxiety F41.9 Episode of recurrent major depressive disorder, unspecified depression episode severity F33.9 Depression Type: major depressive disorder Major depression recurrence: recurrent Active/Remission status: currently active Major depression episode severity: unspecified Obesity (BMI 30-39.9) E66.9 Additional Codes TONY-7 Assessment Billing - TONY-7 Assessment Tool: TONY-7 Assessment 28818 ([id number]) PHQ-9 - 45384 - PHQ-9 Billing: Yes ([id number]) Assessment & Plan Assessment & Plan (1) Amputation of toe of left foot: Comment: 11/14/2024 - amputation of left 1st toe and metatarsal head due to osteomyelitis ([facility]) Code(s): S98.132A - Complete traumatic amputation of one left lesser toe, initial encounter Category: Medical Plan: S/P amputation about 10 days ago on 11/14/2024 due to osteomyelitis of the toe Will refer him to the wound clinic at [facility] for further evaluation and management (2) Osteomyelitis of great toe of left foot: Code(s): M86.9 - Osteomyelitis, unspecified Category: Medical Plan: S/P Tx and amputation He was initially started on IV Vancomycin and Zosyn when he was admitted to the hospital and at the time of his discharge, was transitioned over to Augmentin 875 mg BID and Linezolid 600 mg BID, both of which patient completed on 11/20/2024 (3) Tinea cruris: Code(s): B35.6 - Tinea cruris Category: Medical Plan: Will start him on Nystatin powder [id number] gm to apply to rash over the inguinal areas TID for about 10 days (4) Gait instability: Code(s): R26.81 - Unsteadiness on feet Category: Medical Plan: Per request, will refer him for physical therapy for his leg weakness and gait issues (5) Hx of right BKA: Code(s): Z89.511 - Acquired absence of right leg below knee Category: Surgical (6) Meningioma: Code(s): D32.9 - Benign neoplasm of meninges, unspecified Category: Medical Plan: Repeat MRI of the brain done back in March 2024 revealed (+) mild interval increase in the size of an extra-axial mass along the right posterior vertex compared to 2021, suggestive of a meningioma. Similar degree of perilesional edema in the right parietal lobe is noted and no additional acute intracranial abnormalities, no additional abnormal intracranial enhancement noted. There is mild underlying microangiopathy seen Patient has declined brain surgery in the past and still does not want surgery He has also declined to take Keppra ER or IR (side effects) prescribed by neurology - reports that he's had no seizures at all for years (7) Epilepsy: Code(s): G40.909 - Epilepsy, unspecified, not intractable, without status epilepticus Category: Medical Qualifiers: Epilepsy type: unspecified Intractability: not intractable Status epilepticus: without status epilepticus Qualified Code(s): G40.909 - Epilepsy, unspecified, not intractable, without status epilepticus Plan: He reports no seizures lately He has been prescribed Keppra ER by neurology but declined to take the Rx (8) Lumbar degenerative disc disease: Code(s): M51.36 - Other intervertebral disc degeneration, lumbar region Category: Medical Qualifiers: Disc-related pain type: discogenic back pain and lower extremity pain Qualified Code(s): M51.362 - Other intervertebral disc degeneration, lumbar region with discogenic back pain and lower extremity pain Plan: Findings of severe degenerative changes at L2-L3 were seen incidentally on his abdominal/pelvic CT done at [facility] on 08/04/2022 Reinforced activity and weight-lifting restrictions He has been referred to and is now seeing [facility] for interventional treatment for his chronic low back pain (9) Diabetes mellitus: Code(s): E11.9 - Type 2 diabetes mellitus without complications Category: Medical Qualifiers: Diabetes mellitus type: type 2 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: with 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 terminal 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 use Diabetes mellitus complication status: with neurologic complications Diabetes mellitus complication detail: with polyneuropathy Qualified Code(s): E11.42 - Type 2 diabetes mellitus with diabetic polyneuropathy; 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 Plan: Patient declined to have his HgbA1c checked in the office today HgbA1c was at 6.0% when last checked in September 2024 - goal is at least <7.0% Reinforced diabetic diet Continue Lantus 24 units Q HS and Humalog up to 20 units 3 times a day with meals per sliding scale and Farxiga 10 mg QD He has not followed up with endocrinology in a few years now and is again advised to 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 transplanted heart: [place] heart Associated angina: without angina Qualified Code(s): I25.10 - Atherosclerotic heart disease of [place] coronary artery without angina pectoris Plan: Continue dual-antiplatelet therapy with Plavix 75 mg QD and low dose Aspirin 81 mg QD Follow up with cardiology as scheduled (12) Ischemic cardiomyopathy: Code(s): I25.5 - Ischemic cardiomyopathy Category: Medical Plan: Continue Entresto 24-26 mg BID, Metoprolol ER 50 mg QD and Farxiga 10 mg QD Follow up with cardiology as scheduled (13) Pure hypercholesterolemia: Code(s): E78.00 - Pure hypercholesterolemia, unspecified Category: Medical Plan: His cholesterol levels were at goal when they were last checked on 09/15/2024, with his LDL cholesterol at 51 mg/dl Reinforced low cholesterol diet Continue Atorvastatin 80 mg QD (14) Benign essential hypertension: Code(s): I10 - Essential (primary) hypertension Category: Medical Plan: Reinforced low sodium diet - goal is systolic BP of at least 120 to 130 mm Continue Carvedilol 25 mg BID, Losartan 50 mg QD and Metoprolol ER 100 mg QD (15) Asthma: Code(s): J45.909 - Unspecified asthma, uncomplicated Category: Medical Qualifiers: Asthma severity: mild Asthma persistence: intermittent Asthma complication type: uncomplicated Qualified Code(s): J45.20 - Mild intermittent asthma, uncomplicated Plan: Controlled - continue Albuterol HFA 1 to 2 inhalations up to 4 times a day as needed (16) Neuropathy: Code(s): G62.9 - Polyneuropathy, unspecified Category: Medical Plan: Continue Gabapentin 300 mg TID (17) GERD (gastroesophageal reflux disease): Code(s): K21.9 - Gastro-esophageal reflux disease without esophagitis Category: Medical Qualifiers: Esophagitis presence: without esophagitis Qualified Code(s): K21.9 - Gastro-esophageal reflux disease without esophagitis Plan: Dietary restrictions reinforced Continue Pantoprazole 40 mg QD (18) Insomnia: Code(s): G47.00 - Insomnia, unspecified Category: Medical Qualifiers: Insomnia type: unspecified Qualified Code(s): G47.00 - Insomnia, unspecified Plan: Sleep hygiene reinforced Continue Zolpidem 10 mg Q HS PRN (he's had problems with Trazodone in the past) (19) Anxiety: Code(s): F41.9 - Anxiety disorder, unspecified Category: Medical Plan: Continue Lorazepam 1 mg 1 to 2 tablets BID PRN (20) Depression: Code(s): F32.A - Depression, unspecified Category: Medical Qualifiers: Depression Type: major depressive disorder Major depression recurrence: recurrent Active/Remission status: currently active Major depression episode severity: unspecified Qualified Code(s): F33.9 - Major depressive disorder, recurrent, unspecified Plan: Follow up with psychiatry as scheduled for therapy/counseling (21) Obesity (BMI 30-39.9): Code(s): E66.9 - Obesity, unspecified Category: Medical Plan: Reinforced diet; exercise and weight loss are unrealistic given patient's physical issues and multiple comorbidities Plan To return as scheduled in February 2025 for his annual physical examination Orders: Referrals Wound Care Referral S98.132A - Complete traumatic amputation of one left lesser toe, initial encounter Physical Medicine and Rehabilitation Referral R26.81 - Unsteadiness on feet Medications: New nystatin 1 appl topical TID 60 grams 3RF 10 days L30.4 - Erythema intertrigo
--- OUTSIDE RECORDS SUMMARY | 2024-11-24 16:45 | XMS_ITS | Clinical Summary ---
Author Organization [facility] Facility Address [address] [place] [id number] Care Team Providers Care Accountant Systems Name Role Phone Erick Kohli MD Primary Care Provider [phone] Allergies Active Allergy Reactions Criticality Noted Date [...] Colorectal Cancer Screening: Sigmoidoscopy 2024 Influenza Vaccine (#1) 2025 03/28/2016 Pneumococcal Vaccine: 50+ Years Discontinued 6 Insurance Care Teams Accountant Systems Relationship Specialty Start Date End Date Erick Kohli MD [address] [place] [address] PCP - General 05/23/20
== END 2024-11-24 17:02 | disposition home or self-care (01) ==
LOC: HO.HMCH 16:14
PROVIDERS: PCP Internal Medicine; Visit Provider Internal Medicine
DX: S98.132A Complete traumatic amputation of one left lesser toe, initial encounter (principal); M86.9 Osteomyelitis, unspecified; Z89.511 Acquired absence of right leg below knee; D32.9 Benign neoplasm of meninges, unspecified; G40.909 Epilepsy, unspecified, not intractable, without status epilepticus; Z79.4 Long term (current) use of insulin; E11.42 Type 2 diabetes mellitus with diabetic polyneuropathy; B35.6 Tinea cruris; R26.81 Unsteadiness on feet; M51.362 Other intervertebral disc degeneration, lumbar region with discogenic back pain and lower extremity pain; K31.84 Gastroparesis; I25.10 Atherosclerotic heart disease of native coronary artery without angina pectoris

== ENCOUNTER → 2024-11-24 16:14 | Outpatient (BNVA) | payer OTHER, SELFPAY | PROVIDERS: PCP Internal Medicine; Visit Provider Internal Medicine | DX: E11.42 Type 2 diabetes mellitus with diabetic polyneuropathy (principal); M86.9 Osteomyelitis, unspecified; B35.6 Tinea cruris; R26.81 Unsteadiness on feet; D32.9 Benign neoplasm of meninges, unspecified; G40.909 Epilepsy, unspecified, not intractable, without status epilepticus; M51.362 Other intervertebral disc degeneration, lumbar region with discogenic back pain and lower extremity pain; I25.10 Atherosclerotic heart disease of native coronary artery without angina pectoris; I25.5 Ischemic cardiomyopathy; E78.00 Pure hypercholesterolemia, unspecified; I10 Essential (primary) hypertension; J45.20 Mild intermittent asthma, uncomplicated; G62.9 Polyneuropathy, unspecified; K21.9 Gastro-esophageal reflux disease without esophagitis; G47.00 Insomnia, unspecified; F41.9 Anxiety disorder, unspecified; F33.9 Major depressive disorder, recurrent, unspecified; L30.4 Erythema intertrigo; Z89.412 Acquired absence of left great toe; Z89.511 Acquired absence of right leg below knee; Z79.4 Long term (current) use of insulin | CPT/HCPCS: 96127; 99212 ==

== ENCOUNTER → 2024-12-01 13:38 | Outpatient (REF) | payer OTHER, SELFPAY ==
--- NOTE | 2024-12-01 13:43 | HM_ITS ---
* Total monitoring time 3 days. * Underlying rhythm is sinus with an average rate of 77/Min. * Ventricular ectopy noted with a burden of 3.1%. Rare couplets. * Rare supraventricular ectopy. * No significant pauses or high-grade AV blocks. * No patient markers or diary events. MTDD
--- NOTE | 2024-12-01 13:43 | CA_ITS ---
Transthoracic Echocardiogram Patient (Last, First, Middle): Jerome Clifford B Gender: Male Date of : 1975 Age: 49 Procedure Date: 12/01/2024 Procedure Type: Transthoracic Echocardiogram Location: OP Height: 182. cm Weight: 86.18 kg BSA: 2.08 m2 Heart Rate: 71 bpm BP: 130 / 60 mmHg Can Carrier: LAURA Referring MD: Kameron Zepeda NP Symptoms: I42.9 - Cardiomyopathy, unspecified Study Quality: Fair ECG Rhythm: Sinus Conclusions: - The left ventricular systolic function is mild to moderately decreased. The visually estimated ejection fraction is between 40-45%. - The basal inferior, basal inferoseptal, and mid inferolateral segments are akinetic. - No obvious valvular pathology seen on this study. Findings Left Ventricle Normal left ventricular cavity size. The left ventricular systolic function is mild to moderately decreased. The visually estimated ejection fraction is between 40-45%. Evidence suggests grade II (moderate) diastolic dysfunction. There is mild septal and mild basal asymmetric hypertrophy. Wall Motion Rest Echo Findings The basal inferior, basal inferoseptal, and mid inferolateral segments are akinetic. Right Ventricle The right ventricle was not well visualized. There is mildly decreased right ventricular systolic function. Atria Both atria are normal in size. Aortic Valve There is a normal trileaflet aortic valve. There is no aortic valve stenosis. There is trace (trivial) aortic valve regurgitation. Mitral Valve The mitral valve appears normal. There is trace mitral valve regurgitation. There is no mitral valve stenosis. Pulmonic Valve There is trace pulmonic valve regurgitation. Tricuspid Valve There is trace tricuspid valve regurgitation. There is no evidence of pulmonary hypertension. Great Vessels The asc aorta is normal in size. Venous The inferior vena cava is normal in size and collapses greater than 50% with inspiration. Pericardium/Pleural There is no evidence of pericardial effusion. Prior Study Comparison Changes noted compared to prior study dated: 05/29/2024. LVEF appears higher than previously reported. Recommendations, Care & Conclusions No obvious valvular pathology seen on this study. Measurements 2D Linear Measurements IVSd: 1.07 0.6-0.9/0.6-1.0 cm LVIDd: 5.15 3.9-5.3/4.2-5.9 cm LVIDd Index: 2.48 2.4-3.2/2.2-3.1 cm/m2 LVIDs: 3.80 2.0-3.6 cm LVPWd: 0.99 0.7-1.1 cm LA Diam: 4.30 2.7-3.8/3.0-4.0 cm LAIDs Index: 2.07 1.5-2.3 cm/m2 LV Mass: 246.93 67-162/88-224 g LV Mass Index: 118.72 43-95/49-115 g/m2 LVOT Diam: 2.30 3.0+(-)1.3 cm 2D Systolic Function EF 4C: 48.00 >55% EF 2C: 57.80 >55% EF BiP: 53.70 >55% Mitral Valve MV Pk E: 1.35 MV PK A: 0.90 MV Decel Time: 181.00 E/A: 1.50 E'Lateral: 6.85 E'Medial: 5.44 E/E' Med: 24.80 E/E' Lat: 19.70 PHT: 53.00 MVA PHT: 4.15 Decel [place]: 7.44 Aortic Valve AoV Pk Handy: 1.01 AoV Mn Handy: 0.74 AoV VTI: 0.25 AoV Pk Grad: 4.00 Aov Mn Grad: 2.00 ANTHONY Cont.VTI: 3.03 LVOT LVOT Pk Handy: 0.78 LVOT Mn Handy: 0.50 LVOT VTI: 0.18 LVOT Pk Grad: 2.00 LVOT Mn Grad: 1.00 LVOT Diam: 2.30 LVOT Area: 4.15 Diastolic Function MV Pk E: 1.35 MV Pk A: 0.90 E/A: 1.50 E'Medial: 5.44 E/E' Med: 24.80 E' Laterial: 6.85 E/E' Lat: 19.70 Right Ventricle TAPSE (mm): 15.40 TVS' Handy: 8.74 Tricuspid Valve TR Pk Handy: 2.64 TR Pk Grad: 28.00 RA Press: 3.00 RVSP: 31.00 Great Vessels Aorta Sinus of Valsalva: 3.40 2.0-3.5 cm Ao Asc: 3.60 2.1-3.4 cm Pulmonary Valve PV Pk Handy: 1.00 Peak PV Grad: 4.00 Updated in Other Vendor System with Status of Final Lyle Silver MD electronically signed on 12/02/2024 1:00:53 PM with status of Final
--- OUTSIDE RECORDS SUMMARY | 2024-12-01 14:48 | XMS_ITS | Clinical Summary ---
Author Organization [facility] Facility Address [address] [place] [id number] Care Team Providers Care Parquet Floor Layer'S Helper Name Role Phone Erick Kohli MD Primary Care Provider [phone]- [phone] Allergies Active Allergy Reactions Criticality Noted Date [...] 50+ Years Discontinued 6 Insurance Care Teams Parquet Floor Layer'S Helper Relationship Specialty Start Date End Date Erick Kohli MD [address] [place] [address] PCP - General 05/23/20
== END ==
LOC: HO.CARD 13:38
PROVIDERS: PCP Internal Medicine
DX: I49.3 Ventricular premature depolarization (principal); I42.9 Cardiomyopathy, unspecified
CPT/HCPCS: 93242; 93306

== ENCOUNTER → 2024-12-01 13:43 | Outpatient (BNV) | payer OTHER, SELFPAY | PROVIDERS: PCP Internal Medicine; Visit Provider Internal Medicine | DX: I42.2 Other hypertrophic cardiomyopathy (principal); I51.89 Other ill-defined heart diseases | CPT/HCPCS: 93306 ==

== ENCOUNTER 2024-12-31 14:23 | Outpatient (AMB) | payer OTHER, SELFPAY ==
--- NOTE | 2024-12-31 14:29 | MHC.OFFVIS ---
Vital Signs 12/31/24 14:31 Height 6 ft Weight 190 lb 7.67 oz BMI 25.8 BP 120/60 Blood Pressure Location Lt brachial Position Sitting Pulse 74 Pulse Source Pulse Oximeter Intake Visit Reasons: 3m follow up/echo/holter Intake Note: 3 mth f/up-echo/holter Coke Still Cleaner Required: No Accompanied by: Self / Same As Patient Allergies fish derived (FISH) Allergy (Unknown, Verified 11/24/24 16:46) HIVES metoclopramide (From REGLAN) Allergy (Unknown, Verified 11/24/24 16:46) UNKNOWN pork derived (porcine) (PORK DERIVED (PORCINE)) Allergy (Unknown, Verified 11/24/24 16:46) HIVES Medication List - Last Reconciled 12/31/24 by Kameron Zepeda NP ammonium lactate 12% appl topical BID atorvastatin 80 mg PO DAILY 90 days blood sugar diagnostic (FreeStyle Lite Strips) As directed blood sugar diagnostic As directed blood-glucose meter (FreeStyle Lite Meter kit) Test 4 times daily blood-glucose sensor (Dex[employer] G6 Sensor device) As directed blood-glucose transmitter (Dexcom G6 Transmitter device) As directed blood-glucose,open hearth helper,cont (Dexcom G6 Metal Model Maker) As directed clopidogrel 75 mg PO DAILY 90 days [DIABETIC SHOES (1 pair) As directed] empagliflozin 10 mg PO DAILY gabapentin 300 mg PO TID 90 days insulin glargine (Lantus Solostar U-100 Insulin) 24 units (0.24 mL) subcut QPM 30 days lidocaine 5% 1 patch topical DAILY PRN psdxpi-pccjxvxa-chafgyc 36,000-114,000- 180,000 unit (Creon) 2 caps PO TID 30 days loperamide (Imodium A-D) 2 mg PO Q6H PRN metoprolol succinate ER 50 mg (1/2 x 100 mg) PO DAILY 90 days miscellaneous medical supply As directed- To use daily-- Diabetic Shoes mometasone 0.1% 1 appl topical DAILY PRN nystatin 1 appl topical TID 10 days [RIGHT BELOW KNEE PERMANENT PROSTHESIS, K3 As directed] [right foot prosthesis and liner As directed] [RT BK SOCKET REPLACEMENT As directed] sacubitril-valsartan 24-26 mg (Entresto) 1 tab PO BID HPI Comments Details: This is a 49-year-old male patient coming in for a follow-up visit. Patient with a history of hypertension, hyperlipidemia, diabetes, coronary artery disease status post prior CABG who is EF was as low as 25-30% and underwent a cardiac catheterization that showed diffuse coronary artery disease and patent bypass grafts. Patient was then started on Jardiance and Entresto and is here after a repeat echocardiogram. Today, patient reports that he was recently at [facility] for left great toe amputation due to osteomyelitis and at that time his Entresto was held for unclear reasons. Patient also notes that he sometimes forgets to take his Jardiance otherwise is back on Entresto now. Patient had previously called for questions of reducing Entresto related to feeling fatigued at which time his metoprolol was decreased and today patient reports feeling well overall without any cardiac symptoms of exertional chest pain, shortness of breath, palpitations, dizziness, orthopnea, PND, leg edema, presyncope or syncope. Patient notes that his blood pressures has been stable at home. [facility] Medical History Osteomyelitis of great toe of left foot Amputation of toe of left foot Cardiomyopathy Depression Insomnia Erectile dysfunction Exposure to COVID-19 virus Obesity (BMI 30-39.9) Anxiety GERD (gastroesophageal reflux disease) Neuropathy Gastroparesis Asthma Pure hypercholesterolemia Benign essential hypertension Coronary artery disease Diabetes mellitus Epilepsy Meningioma Surgical History S/P cardiac cath Hx of carpal tunnel repair Hx of elbow surgery Hx of right BKA Right foot amputee History of femoropopliteal bypass S/P CABG x 3 Family History Father Diabetes Mother Diabetes Social History Housing: House Alcohol intake: never Patient Tobacco Use Status: Former Tobacco user e-Cigarette/Vaping Use: Never Used Second Hand Smoke Exposure: No Substance Use Type: Marijuana service: No Current occupational status: disabled Current occupational exposures/hazards: No Cognitive needs: No Hearing needs: No Vision needs: No Review of Systems Const Denies chills, Denies fatigue, Denies fever(s), Denies frequent falls, Denies weakness, Denies weight gain and Denies weight loss ENT Denies dizziness Card Denies chest pain, Denies leg edema, Denies lightheadedness, Denies palpitations, Denies dyspnea and Denies dyspnea on exertion Resp Denies cough, Denies dyspnea and Denies dyspnea on exertion GI Denies hematochezia Musc Denies abnormal gait, Denies muscle weakness, Denies numbness, Denies radiating pain into limb and Denies tingling Neuro Denies abnormal gait, Denies dizziness, Denies frequent falls, Denies numbness, Denies tingling and Denies weakness Endo Denies fatigue and Denies palpitations Physical Exam Vital Signs: Last Vital Signs Pulse 74 12/31/24 14:31 BP 120/60 12/31/24 14:31 BMI result Body Mass Index 25.8 Const General: cooperative, healthy appearing, comfortable and no acute distress Orientation/consciousness: patient oriented x3 HEENT Head: Yes normal to inspection Neck Neck: Yes normal visual inspection, Yes trachea midline and Yes supple Chest Chest palpation & inspection: normal inspection of the chest Resp Effort & Inspection: normal respiratory effort Auscultation: clear to auscultation bilaterally, no crackles, no rales, no rhonchi and no wheezes Cardio Jugular venous distension: no JVD Palpation: normal PMI Rate: regular rate Rhythm: regular rhythm Heart sounds: S1 normal heart sound present, S2 normal heart sound present, no click, no gallops, no murmurs and no rubs Peripheral pulses: Peripheral pulses 2+ throughout GI Inspection: Yes normal to inspection Palpation (GI): Soft to palpation Auscultation: normal bowel sounds Skin General skin exam: no rashes or lesions noted Neuro General: patient oriented x3 Extrem Other: RBKA- wearing a prosthetic General: Yes normal to inspection, No no pedal edema and No calf tenderness Psych Appearance: grossly normal Mental Status: mental status grossly normal Speech and movement: Normal speech and movement present Assessment & Plan Assessment & Plan (1) Cardiomyopathy: Code(s): I42.9 - Cardiomyopathy, unspecified Category: Medical Plan: 09/17/2024-patient underwent cardiac catheterization that showed diffuse coronary artery disease and patent bypass grafts. Patient's cardiomyopathy was noted to be more nonischemic than ischemic. Patient was therefore started on neurohormonal goal directed medical therapy. Patient to continue with Entresto and Jardiance therapy. Emphasized the need to stay compliant with his medications. Clinically stable and euvolemic. Discussed in detail heart failure signs and symptoms to look for. Advised low-salt diet, daily weight monitoring, and 1.5-2 L fluid restriction daily. (2) Coronary artery disease: Comment: S/P triple vessel bypass Code(s): I25.10 - Atherosclerotic heart disease of torres martinez coronary artery without angina pectoris Category: Medical Qualifiers: Associated angina: without angina Coronary Disease-Associated Artery/Lesion type: torres martinez artery [place] vs. transplanted heart: torres martinez heart Qualified Code(s): I25.10 - Atherosclerotic heart disease of torres martinez coronary artery without angina pectoris Plan: Previous cardiac catheterization showed patent bypass grafts. Continue Plavix for full anticoagulation. Continue high-dose statin therapy with an LDL goal less than 70. Most recent LDL at 49. (3) Status post cardiac catheterization: Code(s): Z98.890 - Other specified postprocedural states Category: Surgical Plan: As above. (4) PVC (premature ventricular contraction): Code(s): I49.3 - Ventricular premature depolarization Category: Medical Plan: Patient seemed to have high burden of PVCs durng cardiac catheterization. We checked a Holter monitor on 12/01/2024 that showed underlying sinus rhythm with ventricular ectopy study with a burden of 3.1%, rare couplets and rare supraventricular ectopies. Patient asymptomatic with these. Continue metoprolol. (5) Benign essential hypertension: Code(s): I10 - Essential (primary) hypertension Category: Medical Plan: Blood pressure is well-controlled. Continue current regimen. Advised monitoring blood pressures at home with an ideal goal less than 130/80. 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 Ideally, A1c goal less than 7%. Advised heart healthy diet, exercise as tolerated, med compliance, and management of vascular risk factors. Follow-up in 6 months. In the interim, patient will call the office with any concerns or change in symptoms. This note was generated using voice recognition software. While every effort has been made to ensure accuracy and proper slide fastener repairer, there may be occasional errors that could affect the content or meaning of the described symptoms. Medications: Refilled empagliflozin 10 mg PO DAILY 90 tabs 3RF Coding Level of Care Code Est Pt Level 4 (71550) Complex EM visit Add On G2211 Diagnoses Cardiomyopathy I42.9 Coronary artery disease involving torres martinez coronary artery of torres martinez heart without angina pectoris I25.10 Associated angina: without angina Coronary Disease-Associated Artery/Lesion type: torres martinez artery [place] vs. transplanted heart: torres martinez heart Status post cardiac catheterization Z98.890 PVC (premature ventricular contraction) I49.3 Benign essential hypertension I10 Type 2 diabetes mellitus with diabetic polyneuropathy, with long-term current use of insulin E11.42; Z79.4 Diabetes mellitus complication detail: with polyneuropathy Diabetes mellitus complication status: with neurologic complications Diabetes mellitus fci insulin use: with fci use Diabetes mellitus type: type 2 Time Spent (min) 32 Comment Time spent in reviewing the chart, test results, assessment, counseling and documentation.
[2024-12-31 14:31] VITALS: BP 120/60; PULSE 74; BMI 25.8
--- OUTSIDE RECORDS SUMMARY | 2024-12-31 14:34 | XMS_ITS | Clinical Summary ---
Author Organization [facility] Facility Address [address] [place] [id number] Care Team Providers Care Manager Regulatory Name Role Phone Erick Kohli MD Primary Care Provider [phone]- [phone] Allergies Active Allergy Reactions Criticality Noted Date [...] 10/31/2020 2:33 PM EDT Plan of Treatment Upcoming Encounters Date Type Department Care Team (Late st Contact Info) Description 01/14/2025 4:00 PM EDT Office Visit [facility] [address] [phone] Sarthak Agnela MD [address] [phone] Health Maintenance Due Date Last Done Comments [...] Pneumococcal Vaccine: 50+ Years Discontinued 6 Insurance Medicaid Medicaid Care Teams Manager Regulatory Relationship Specialty Start Date End Date Erick Kohli MD [address] [place] [address] [address] [place] [address] PCP - General 05/23/20
== END 2024-12-31 14:45 | disposition home or self-care (01) ==
LOC: HO.HCS 14:24
PROVIDERS: PCP Internal Medicine
DX: I42.9 Cardiomyopathy, unspecified (principal); I25.10 Atherosclerotic heart disease of native coronary artery without angina pectoris; Z98.890 Other specified postprocedural states; I49.3 Ventricular premature depolarization; I10 Essential (primary) hypertension; E11.42 Type 2 diabetes mellitus with diabetic polyneuropathy; Z79.4 Long term (current) use of insulin
CPT/HCPCS: 99214

== ENCOUNTER → 2024-12-31 14:23 | Outpatient (BNVA) | payer OTHER, SELFPAY | PROVIDERS: PCP Internal Medicine | DX: I25.10 Atherosclerotic heart disease of native coronary artery without angina pectoris (principal); I10 Essential (primary) hypertension; I42.9 Cardiomyopathy, unspecified; I49.3 Ventricular premature depolarization; E11.42 Type 2 diabetes mellitus with diabetic polyneuropathy; Z79.4 Long term (current) use of insulin; Z98.890 Other specified postprocedural states | CPT/HCPCS: 99212 ==

== ENCOUNTER 2025-04-23 14:49 | Outpatient (AMB) | payer OTHER, SELFPAY ==
[2025-04-23 14:57] VITALS: BP 168/69; PULSE 85; RESP 16; O2SAT 99; BMI 25.5
--- NOTE | 2025-04-23 14:57 | MHC.OFFVIS ---
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 He reports right-sided pain localized to his lower back, which is higher than his previous right sacroiliac joint pain which was located in the buttock. He states this pain has been present continuously, but became more noticeable after a previous right sacroiliac joint injection improved his buttock pain. The pain is exacerbated by standing, walking, bending, twisting, lifting, and putting weight on his right side. He denies any pain on the left side. He has not had any back x-rays within the last year. The patient has a history of diabetes, which he states is well-controlled with a recent A1c of around 6. He underwent amputation of his right great toe and another toe on the right foot a few months ago due to an infection. The amputation site is now fully healed with no open areas. Pain Description - Onset and Timing: The patient reports the pain has been present all the time but became more noticeable after a prior injection for a different pain. - Location: Pain is located in the right lower back, described as being higher than his previous right-sided buttock pain. - Radiation: No radiation of pain is mentioned. - Exacerbating Factors: Pain is worse with standing, walking, bending, twisting, lifting, and putting weight on the right side. - Relieving Factors: The patient uses pain patches, which he finds sufficient for relief. Pain Management - Analgesia: The patient uses patches for pain, which he finds effective. - Activities of Daily Living: Pain is worse with standing, walking, bending, twisting, and lifting. - Aberrant Drug Related Behaviors: The patient declined a prescription for a muscle relaxer. Results - Labs: Patient reports recent A1c was approximately 6. PFSH Medical History Osteomyelitis of great toe of left foot Amputation of toe of left foot Cardiomyopathy Depression Insomnia Erectile dysfunction Exposure to COVID-19 virus Obesity (BMI 30-39.9) Anxiety GERD (gastroesophageal reflux disease) Neuropathy Gastroparesis Asthma Pure hypercholesterolemia Benign essential hypertension Coronary artery disease Diabetes mellitus Epilepsy Meningioma Surgical History S/P cardiac cath Hx of carpal tunnel repair Hx of elbow surgery Hx of right BKA Right foot amputee History of femoropopliteal bypass S/P CABG x 3 Family History Father Diabetes Mother Diabetes Social History Housing: House Alcohol intake: never Patient Tobacco Use Status: Former Tobacco user e-Cigarette/Vaping Use: Never Used Second Hand Smoke Exposure: No Substance Use Type: Marijuana service: No Current occupational status: disabled Current occupational exposures/hazards: No Cognitive needs: No Hearing needs: No Vision needs: No Review of Systems Narrative Review of Systems - Musculoskeletal: Reports right-sided low back pain, exacerbated by movement such as twisting, bending, and lifting. - Denies left-sided back pain. - Integumentary: Reports history of right toe amputation several months ago; denies any current open wounds at the site. - Endocrine: Reports history of diabetes, denies it is poorly controlled. Physical Exam Exam Exam: General: awake, alert, oriented. Answers questions appropriately. Fully engaged in examination. Skin: warm, dry, intact HEENT: Normocephalic. Hearing intact. Cardiac: External chest normal in appearance. Respiratory: No cough, audible wheezing or stridor. Abdomen: without gross distension. MS: No obvious swelling or deformities. Able to transition from sit to stand unassisted. Ambulates with bilaterally normal heel strike and toe off Palpation reveals tenderness over the right lower back musculature. Facet loading positive Neurological: Oriented to person, place, time and situation. Thought process intact. No gait abnormalities appreciated. Psychiatric: Appropriate mood and affect. Good judgment and insight. Vital Signs: Last Vital Signs Pulse 85 12/12/25 14:57 Resp 16 04/23/25 14:57 BP 168/69 H 04/23/25 14:57 Pulse Ox 99 04/23/25 14:57 Oxygen Delivery Method Room Air 04/23/25 14:57 BMI result Body Mass Index 25.5 Assessment & Plan Assessment & Plan (1) Myofascial low back pain: Code(s): M54.50 - Low back pain, unspecified Category: Medical (2) Lumbar spondylosis: Code(s): M47.816 - Spondylosis without myelopathy or radiculopathy, lumbar region Category: Medical (3) Lumbar degenerative disc disease: Code(s): M51.36 - Other intervertebral disc degeneration, lumbar region Category: Medical Qualifiers: Disc-related pain type: discogenic back pain and lower extremity pain Qualified Code(s): M51.362 - Other intervertebral disc degeneration, lumbar region with discogenic back pain and lower extremity pain Plan Plan An x-ray of the lumbar spine will be ordered to evaluate his back pain. A referral will be sent for physical therapy for his low back pain, and the physical therapy office will contact him to schedule. The patient will return for a follow-up visit after completing a couple of weeks of physical therapy to reassess his symptoms. If his pain does not improve with conservative management, injections will be considered. If injections are pursued, non-steroidal options will be prioritized to avoid impacting his blood sugar levels and healing, given his history of diabetes and recent toe amputation. The patient declined a prescription for a muscle relaxer and will continue to use his existing pain patches for symptom management. Patient was informed and verbally consented to the use of an ambient scribe for clinic note documentation during this visit. Discussion Notes I discussed the plan to investigate his right-sided low back pain, which is distinct from his prior sacroiliac joint issue. I explained that the initial steps will be to obtain a back x-ray and start physical therapy. I informed the patient that if physical therapy does not provide adequate relief, we will then consider injections. We discussed the benefits of using non-steroidal options for any potential injections to avoid the risks of elevated blood sugar and impaired healing, given his history of diabetes and recent amputation. He declined a new prescription for a muscle relaxer, stating he has patches that work well for him. I instructed him to follow up in the office after several weeks of physical therapy to evaluate his progress. Patient Instructions - We will order an X-ray of your back. - We are also sending a referral for physical therapy. Their office will call you to schedule your first appointment. - Please schedule a follow-up appointment with our office after you have completed a couple of weeks of physical therapy. - If your pain does not get better after physical therapy, we will discuss injection options at your next visit. - You may continue to use your pain patches as needed for pain. You do not need to take a muscle relaxer at this time. Orders: Orders PT Evaluation and Treatment 04/23/25 M47.816 - Spondylosis without myelopathy or radiculopathy, lumbar region, M54.50 - Low back pain, unspecified XR lumbar spine 4V min 04/23/25 M47.816 - Spondylosis without myelopathy or radiculopathy, lumbar region, M51.362 - Other intervertebral disc degeneration, lumbar region with discogenic back pain and lower extremity pain, M54.50 - Low back pain, unspecified Coding Level of Care Code Est Pt Level 3 (03062) Add On Problem Visit Only Diagnoses Myofascial low back pain M54.50 Lumbar spondylosis M47.816 Degeneration of intervertebral disc of lumbar region with discogenic back pain and lower extremity pain M51.362 Disc-related pain type: discogenic back pain and lower extremity pain
== END 2025-04-23 15:39 | disposition home or self-care (01) ==
LOC: HO.PMC 14:49
PROVIDERS: PCP Internal Medicine; Visit Provider Registered Nurse Emergency
DX: M54.50 Low back pain, unspecified (principal); M47.816 Spondylosis without myelopathy or radiculopathy, lumbar region; M51.362 Other intervertebral disc degeneration, lumbar region with discogenic back pain and lower extremity pain
CPT/HCPCS: 99213

== ENCOUNTER → 2025-04-23 14:49 | Outpatient (BNVA) | payer OTHER, SELFPAY | PROVIDERS: PCP Internal Medicine; Visit Provider Registered Nurse Emergency | DX: M51.362 Other intervertebral disc degeneration, lumbar region with discogenic back pain and lower extremity pain (principal); M47.816 Spondylosis without myelopathy or radiculopathy, lumbar region; M54.50 Low back pain, unspecified | CPT/HCPCS: 99212 ==